=== PATIENT | female | born 1955 | race Caucasian/White ===

== ENCOUNTER → 2017-03-24 | Outpatient (CLI) | payer MEDICARE, BC ==
[2017-03-24 13:14] LABS: Blood Urea Nitrogen 27 mg/dL (7-17); Non-African American GFR(MDRD) >60 (>60 ml/min/1.73 sqM)
== END | disposition home or self-care (01) ==
LOC: LABWHC1 12:47
PROVIDERS: ATTEND Physical Medicine & Rehabilitation
DX: N28.9 Disorder of kidney and ureter, unspecified (principal); M54.5 Low back pain; G89.4 Chronic pain syndrome; M96.1 Postlaminectomy syndrome, not elsewhere classified; M79.1 Myalgia; E11.42 Type 2 diabetes mellitus with diabetic polyneuropathy; Z98.1 Arthrodesis status
CPT/HCPCS: 36415; 82565; 84520

== ENCOUNTER → 2017-03-28 | Outpatient (CLI) | payer MEDICARE, BC ==
--- NOTE | 2017-04-05 16:29 | P.ARTDOP ---
Arterial Doppler LOWER EXTREMITY ARTERIAL DOPPLER: DATE OF SERVICE: 03/28/2017 Reason for study: Foot numbness. Doppler waveforms: Multiphasic bilaterally throughout. Pulse volume recording: Normal configuration. Pressure gradients: Mild gradients above-knee. Ankle-brachial indices: 0. 94 on the right and 0.81 on the left. Toe pressures: 70 on the right, 70 on the left Impression: Mild bilateral SFA disease..
== END | disposition home or self-care (01) ==
LOC: RADUSWWP 12:00
PROVIDERS: ATTEND Physical Medicine & Rehabilitation
DX: M54.5 Low back pain (principal); M96.1 Postlaminectomy syndrome, not elsewhere classified; M79.1 Myalgia; E11.42 Type 2 diabetes mellitus with diabetic polyneuropathy; G89.4 Chronic pain syndrome; Z98.1 Arthrodesis status
CPT/HCPCS: 93923

== ENCOUNTER 2018-03-08 10:05 | Emergency (ER) | payer MEDICARE, BC ==
[2018-03-08 10:17] VITALS: PULSE 91; TEMP 98.4
[2018-03-08] MEDS ORDERED: KETOROLAC 30 MG/ML 1 ML VIAL IVP STA (10:36)
--- NOTE | 2018-03-08 10:46 | ED ---
Fall HPI - General Chief Complaint: Fall Stated Complaint: BACK PAIN FROM FALL - TAILBONE Time Seen by Provider: 03/08/18 10:12 Source: patient, EMS Mode of arrival: EMS - History of Present Illness Initial Comments: 62-year-old female with past medical history of multiple back surgeries presented for evaluation of lumbosacral pain following fall. She states that she was walking backwards after letting her dog out to go to the bathroom and tripped over a dog toy, falling onto her lower back, resulting in significant pain. She denies hitting her head or neck and denies any pain to those areas. She states the pain was so significant she was unable to get up however she was able to crawl across the floor and contact her neighbor who then called EMS for transport. She states that the pain is located in her low lumbar spine/sacrum/coccyx and there is no radiation. Pain is worsened with moving her lower extremities or her back. Improves mildly with laying still. Denies any weakness in her lower extremities, change in sensation from baseline to the lower extremity's, bowel or bladder dysfunction, or saddle anesthesia. She was given formula grams of morphine by EMS in route to the hospital and states that had some improvement in her symptoms. Her orthopedic surgeon is Dr. Moon and her PCP is Dr. Usman Rene. - Related Data Home Medications Medication Instructions Recorded Confirmed Gemfibrozil [Lopid] 600 mg PO BID 01/26/16 03/08/18 Levothyroxine Sodium [Synthroid] 25 mcg PO QAM 01/26/16 03/08/18 clonazePAM [KlonoPIN] 0.5 mg PO HS 01/26/16 03/08/18 Albuterol Inhaler [Ventolin Hfa 2 puff INHALATION RT-Q4H PRN 06/03/16 03/08/18 Inhaler] Cholecalciferol [Vitamin D3] 1,000 unit PO DAILY 06/03/16 03/08/18 Fluticasone/Salmeterol [Advair 1 puff INHALATION RT-BID 06/03/16 03/08/18 250-50 Diskus] Furosemide [Lasix] 20 mg PO BID 06/03/16 03/08/18 Gabapentin [Neurontin] 800 mg PO QID 06/03/16 03/08/18 Potassium Chloride [Klor-Con 8] 8 meq PO BID 06/03/16 03/08/18 Vitamin B Complex 1 cap PO DAILY 06/03/16 03/08/18 metFORMIN HCL [Glucophage] 500 mg PO BID 06/03/16 03/08/18 FLUoxetine HCL [PROzac] 20 mg PO HS 03/08/18 03/08/18 Hydrocodone/Acetaminophen [[place] 1 tab PO Q6HR PRN 03/08/18 03/08/18 7.5-325] Meloxicam [Mobic] 7.5 mg PO BID 03/08/18 03/08/18 Rosuvastatin [Crestor] 20 mg PO HS 03/08/18 03/08/18 Zolpidem [Ambien] 10 mg PO HS 03/08/18 03/08/18 tiZANidine HCL [Zanaflex] 2 mg PO TID 03/08/18 03/08/18 Previous Rx's Medication Instructions Recorded Ibuprofen [Motrin] 800 mg PO Q6HR #30 tab 03/08/18 Allergies Allergy/AdvReac Type Severity Reaction Status Date / Time aspirin Allergy Unknown Verified 03/08/18 10:25 codeine Allergy Rash/Hives Verified 03/08/18 10:25 Review of Systems ROS Statement: Those systems with pertinent positive or pertinent negative responses have been documented in the HPI. ROS Other: All systems not noted in ROS Statement are negative. Constitutional: Denies: fever, chills Eyes: Denies: eye pain, eye discharge, vision change ENT: Denies: ear pain, throat pain Respiratory: Denies: cough, dyspnea Cardiovascular: Denies: chest pain, dyspnea on exertion Endocrine: Denies: polydipsia, polyuria Gastrointestinal: Denies: abdominal pain, nausea, vomiting, diarrhea, constipation Genitourinary: Reports: other (negative urinary retention). Denies: urgency, dysuria Musculoskeletal: Reports: back pain (lumbosacral). Denies: joint swelling Skin: Denies: rash, lesions Neurological: Reports: numbness (unchanged from baseline), paresthesias ( unchanged from baseline), other (pain from ambulation). Denies: headache, weakness Psychiatric: Denies: anxiety, depression Hematological/Lymphatic: Denies: easy bleeding, easy bruising Past Medical History Past Medical History: Diabetes Mellitus, GERD/Reflux, Hyperlipidemia, Hypertension, Thyroid Disorder Additional Past Medical History / Comment(s): Dejenerative joint disease. IBS. Neuropathy. Osteoporosis. Guillain-barre syndrome. Fibromyalgia. PAD. History of Any Multi-Drug Resistant Organisms: None Reported Past Surgical History: Appendectomy, Back Surgery, Bowel Resection, Section, Hysterectomy Past Anesthesia/Blood Transfusion Reactions: No Reported Reaction Past Psychological History: Depression Smoking Status: Former smoker Past Alcohol Use History: None Reported Past Drug Use History: None Reported General Exam Limitations: no limitations General appearance: alert, in distress (mild due to pain) Head exam: Present: atraumatic, normocephalic Eye exam: Present: normal appearance. Absent: PERRL, EOMI, periorbital swelling , periorbital tenderness ENT exam: Present: normal exam, normal oropharynx Neck exam: Present: normal inspection. Absent: tenderness Respiratory exam: Present: normal lung sounds bilaterally. Absent: respiratory distress, wheezes, rales, rhonchi, stridor Cardiovascular Exam: Present: regular rate, normal rhythm GI/Abdominal exam: Present: soft. Absent: distended, tenderness, guarding, rebound, rigid Rectal exam: Present: deferred Extremities exam: Present: full ROM (pain to lower back with movement of LE), normal capillary refill. Absent: normal inspection, tenderness Back exam: Present: tenderness, muscle spasm, paraspinal tenderness, vertebral tenderness. Absent: full ROM, CVA tenderness (R), CVA tenderness (L) Neurological exam: Present: alert, oriented X3, CN II-XII intact, motor sensory deficit (motor function maintained; decreased sensation to touch which is at baseline per patient), reflexes normal Psychiatric exam: Present: normal affect, normal mood Skin exam: Present: warm, dry, intact Course Vital Signs 03/08/18 03/08/18 03/08/18 10:13 10:19 13:13 Temperature 98.4 F 98.4 F Pulse Rate 91 91 Respiratory 16 18 Rate Blood Pressure 205/85 174/80 170/80 O2 Sat by Pulse 91 L 98 Oximetry Medical Decision Making - Medical Decision Making 62-year-old female with past medical history significant for multiple lumbar spine surgeries presented for evaluation of lower back pain/pelvic pain following mechanical fall from standing. On physical examination she has tenderness to palpation of the lower lumbar spine and sacrum/coccyx. Motor function intact distally as well as symmetric reflexes bilaterally. Negative saddle anesthesia. There is decreased sensation to the lower extremities however this is unchanged from her baseline due to diabetic neuropathy. Denies urinary retention or bowel dysfunction. At this point concern for fracture versus implant abnormality and will obtain x-rays. We'll also provide Toradol for pain control. Imaging revealed no significant abnormalities including fractures or abnormalities of the implantation is. She was reevaluated and had improvement in her symptoms. She was ambulated and with use of walker she was able to ambulate however tenderly. She was informed of all results and through shared decision making it was determined that she be discharged with instructions to follow-up with her primary care physician and given return instructions if her symptoms should worsen or persist. Discussed her presentation with Dr. Sheriff who agreed to see her in the morning and agreed with plan to discharge. The patient acknowledged an understanding of all permission provided and agreed with this plan of care. Disposition Clinical Impression: Fall, Back injury Disposition: HOME SELF-CARE Condition: Stable Instructions: Fall Prevention for Older Adults (ED) Additional Instructions: Please use medication as discussed. Please follow up with family doctor if symptoms have not improved over the next two days. Please return to the emergency room if your symptoms increase or worsen or for any other concerns. Discussed with your primary care doctor Dr. Rene who agreed to see you tomorrow morning. Please go to his office at opening time. If symptoms worsen or persist prior to your appointment return to the ED. Prescriptions: Ibuprofen [Motrin] 800 mg PO Q6HR #30 tab Is patient prescribed a controlled substance at d/c from ED?: No Referrals: Renny Sheriff MD [Primary Care Provider] - 1-2 days Time of Disposition: 12:51
--- NOTE | 2018-03-08 11:49 | XR ---
EXAMINATION TYPE: XR pelvis AP view, XR sacrum coccyx DATE OF EXAM: 03/08/2018 CLINICAL HISTORY: Sacral pain and back pain as well as pelvic pain after fall. TECHNIQUE: A single AP view of the pelvis is obtained. Sacral radiographs were also obtained in the f rontal and lateral projections. COMPARISON: None. FINDINGS: Partial visualization of lumbar fixation rods are seen. Moderate femoral acetabular arthro roseann is demonstrated bilaterally. There is no acute fracture/dislocation evident in the pelvis. The hip and sacroiliac joints appear symmetric and unremarkable. The overlying soft tissue appears unre markable. Sacroiliac joints appear symmetric with degenerative changes. Coccyx is nondisplaced. IMPRESSION: There is no acute fracture or dislocation in the pelvis. No displaced sacral or coccygea l fracture.
--- NOTE | 2018-03-08 11:51 | XR ---
EXAMINATION TYPE: XR lumbar spine 2 or 3V DATE OF EXAM: 03/08/2018 CLINICAL HISTORY: Back pain after fall TECHNIQUE: Frontal and lateral images of the lumbar spine are obtained. COMPARISON: CT abdomen pelvis dated 06/03/2016 FINDINGS: There are 5 lumbar type vertebral bodies identified. There is partial compression deformit ies of the L1 vertebral body with approximately 10% vertebral body height loss. Surgical fixation is seen from L1 through L5. Vertebral body height loss is also seen only partially visualized of L4. Mod erate degenerative changes are noted. Absence of the posterior elements are present. Overlying bowel is nondilated. No evidence of malalignment. IMPRESSION: Compression deformities of L1 and L4 is chronic in comparison to the prior CT of 6. Postsurgical changes degenerative changes of the lumbar spine with no new malalignment.
[2018-03-08] MEDS ORDERED: HYDROcodone/APAP 10-325MG 1 EACH TAB PO ONE (12:50)
[2018-03-08 13:14] VITALS: BP 170/80; RESP 18
== END 2018-03-08 13:00 | disposition home or self-care (01) ==
LOC: EC 10:05
DX: S39.92XA Unspecified injury of lower back, initial encounter (principal); E11.9 Type 2 diabetes mellitus without complications; E78.5 Hyperlipidemia, unspecified; I10 Essential (primary) hypertension; E07.9 Disorder of thyroid, unspecified; E11.40 Type 2 diabetes mellitus with diabetic neuropathy, unspecified; M81.0 Age-related osteoporosis without current pathological fracture; M79.7 Fibromyalgia; F32.9 Major depressive disorder, single episode, unspecified; Z87.891 Personal history of nicotine dependence; Z90.49 Acquired absence of other specified parts of digestive tract; Z90.710 Acquired absence of both cervix and uterus; Z98.890 Other specified postprocedural states; Z79.1 Long term (current) use of non-steroidal anti-inflammatories (NSAID); Z79.51 Long term (current) use of inhaled steroids; Z79.84 Long term (current) use of oral hypoglycemic drugs; Z79.899 Other long term (current) drug therapy; Z88.5 Allergy status to narcotic agent; Z88.6 Allergy status to analgesic agent; W01.0XXA Fall on same level from slipping, tripping and stumbling without subsequent striking against object, initial encounter; Y92.009 Unspecified place in unspecified non-institutional (private) residence as the place of occurrence of the external cause; Y93.01 Activity, walking, marching and hiking
CPT/HCPCS: 72100; 72170; 72220; 96374; 99284

== ENCOUNTER 2018-04-27 12:04 | Inpatient (IN) | payer MEDICARE, BC ==
[2018-04-27 14:10] LABS: Glucose,Whole Blood 95 mg/dL (75-99)
[2018-04-27] MEDS ORDERED: DICYCLOMINE 10 MG CAP PO PRN (15:42)
[2018-04-27] MEDS ORDERED: ACETAMINOPHEN TAB 325 MG TAB PO PRN (15:47)
[2018-04-27 17:08] LABS: Glucose,Whole Blood 99 mg/dL (75-99)
[2018-04-27 17:37] LABS: Albumin 4.4 g/dL (3.5-5.0); Calcium 9.8 mg/dL (8.4-10.2); Potassium 3.7 mmol/L (3.5-5.1); Total Bilirubin 0.3 mg/dL (0.2-1.3); Total Protein 7.3 g/dL (6.3-8.2)
--- NOTE | 2018-04-27 17:49 | P.CNNES ---
History of Present Illness Consult date: 04/27/18 Reason for Consult: Patient admitted with back pain and leg weakness. History of Present Illness: This patient is a 62-year-old right-handed white female who was in her usual state of health about 3 weeks ago. She was at home and apparently was with her dog and had slipped on a toy that was on the ground that the dog was playing with and she accidentally fell onto her back. She was having severe back pain following the fall and 3 weeks ago was brought into the emergency room at [facility]. She apparently had an x-ray done and was discharged from the hospital. Patient has a history of having had 3 back surgeries over the years. Her last surgery was about 3 years ago and it was performed at [facility]. She states she had a cage and rods placed into her back. She has had chronic back pain following her multiple back surgeries. She recently has been treated by Dr. Moon in the orthopedic spine clinic and has had multiple epidural injections with no significant improvement. Apparently today she went to see her primary care physician and she was having increased pain and was directly admitted to the hospital by Dr. Barrett. Patient denies any bowel or bladder problems. She states most of her pain is in her back and radiates into the gluteal region. She denies any bowel or bladder problems at this time. She does have a remote history 7 years ago having Guillain-Ahn syndrome. She was treated for this with immunoglobulin according to the patient. Patient states she has been going for back injections but they have not been of any help. She has not had any recent follow-up with the back surgeon at [facility]. She does ambulate with the use of a walker but despite using the walker she has been having falls at home. Patient is now directly admitted to hospital and neurology has been consulted for further evaluation and recommendations. Review of Systems Constitutional: Denies chills, Denies fever Eyes: denies blurred vision, denies pain Ears, nose, mouth and throat: Denies headache, Denies sore throat Cardiovascular: Denies chest pain, Denies shortness of breath Respiratory: Denies cough Gastrointestinal: Denies abdominal pain, Denies diarrhea, Denies nausea, Denies vomiting Genitourinary: Denies dysuria, Denies hematuria Musculoskeletal: Denies myalgias Integumentary: Denies pruritus, Denies rash Neurological: Reports balance difficulties, Reports gait dysfunction, Reports paresthesias, Denies numbness, Denies weakness Psychiatric: Denies anxiety, Denies depression Endocrine: Denies fatigue, Denies weight change Past Medical History Past Medical History: Diabetes Mellitus, GERD/Reflux, Hyperlipidemia, Hypertension, Thyroid Disorder Additional Past Medical History / Comment(s): Dejenerative joint disease. IBS. Neuropathy. Osteoporosis. Guillain-barre syndrome. Fibromyalgia. PAD. History of Any Multi-Drug Resistant Organisms: None Reported Past Surgical History: Appendectomy, Back Surgery, Bowel Resection, Section, Hysterectomy Past Anesthesia/Blood Transfusion Reactions: No Reported Reaction Past Psychological History: Depression Smoking Status: Former smoker Past Alcohol Use History: None Reported Past Drug Use History: None Reported Medications and Allergies Home Medications Medication Instructions Recorded Confirmed Type Gemfibrozil [Lopid] 600 mg PO BID 01/26/16 04/27/18 History Levothyroxine Sodium [Synthroid] 25 mcg PO QAM 01/26/16 04/27/18 History Albuterol Inhaler [Ventolin Hfa 2 puff INHALATION RT-Q4H PRN 06/03/16 04/27/18 History Inhaler] Cholecalciferol [Vitamin D3] 1,000 unit PO DAILY 06/03/16 04/27/18 History Fluticasone/Salmeterol [Advair 1 puff INHALATION RT-BID 06/03/16 04/27/18 History 250-50 Diskus] Furosemide [Lasix] 20 mg PO DAILY 06/03/16 04/27/18 History Potassium Chloride [Klor-Con 8] 8 meq PO DAILY 06/03/16 04/27/18 History Vitamin B Complex 1 cap PO DAILY 06/03/16 04/27/18 History metFORMIN HCL [Glucophage] 500 mg PO BID 06/03/16 04/27/18 History FLUoxetine HCL [PROzac] 20 mg PO HS 03/08/18 04/27/18 History Meloxicam [Mobic] 7.5 mg PO BID 03/08/18 04/27/18 History Rosuvastatin [Crestor] 20 mg PO HS 03/08/18 04/27/18 History Zolpidem [Ambien] 10 mg PO HS PRN 03/08/18 04/27/18 History Dicyclomine [Bentyl] 10 mg PO QID PRN 04/27/18 04/27/18 History HYDROcodone/APAP 5-325MG [[place] 1 tab PO BID 04/27/18 04/27/18 History 5-325] Ibuprofen [Motrin] 600 mg PO TID 04/27/18 04/27/18 History Pramipexole [Mirapex] 0.5 mg PO HS 04/27/18 04/27/18 History Allergies Allergy/AdvReac Type Severity Reaction Status Date / Time aspirin Allergy Unknown Verified 04/27/18 13:00 codeine Allergy Rash/Hives Verified 04/27/18 13:00 Physical Examination - Vital Signs Vital Signs: Vital Signs Temp Pulse Resp BP BP Pulse Ox 04/27/18 15:32 98.7 F 82 18 173/67 95 04/27/18 12:56 98.1 F 83 18 202/91 162/78 94 L Intake and Output 04/27/18 04/27/18 04/27/18 06:59 14:59 22:59 Other: # Voids 1 Weight 69 kg - Constitutional General appearance: average body habitus, cooperative - EENT EENT: PERRL, mucous membranes moist - Respiratory Respiratory: lungs clear, normal breath sounds - Cardiovascular Cardiovascular: regular rate, normal S1, normal S2 Extremities: no peripheral edema bilaterally - Gastrointestinal Gastrointestinal: normoactive bowel sounds - Integumentary Integumentary: normal - Neurologic Cranial nerve examination: PERRL, EOMI, VFF, V1/V2/V3 grossly intact, face symmetric, tongue midline, intact shoulder shrug, intact gag reflex, intact corneal reflex, normal palatal elevation Speech examination: intact Sensorimotor examination: intact Motor examination - right side: 3/5: hip flexors, knee extensors, dorsiflexion, toe extension (EHL), plantarflexion, 4/5: biceps, triceps, wrist flexion, wrist extension, 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 Motor examination - left side: 3/5: hip flexors, knee extensors, dorsiflexion, toe extension (EHL), plantarflexion, 4/5: biceps, triceps, wrist flexion, 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 extension, 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 Detailed sensory examination: intact Reflex and gait examination: intact Reflexes: 1+: ankle, bicep, knee, tricep - Musculoskeletal Musculoskeletal: no pain - Psychiatric Psychiatric: mood/affect appropriate, cooperative Results - Laboratory Findings CBC and BMP: 04/27/18 17:00 Abnormal Lab Findings: Abnormal Labs 04/27/18 17:00 BUN 35 H AST 39 H Assessment and Plan (1) Lumbar disc disease Current Visit: Yes Status: Acute Code(s): M51.9 - UNSP THORACIC, THORACOLUM AND LUMBOSACR INTVRT DISC DISORDER SNOMED Code(s): 050477495 (2) Lumbar disc disease with radiculopathy Current Visit: Yes Status: Acute Code(s): M51.16 - INTERVERTEBRAL DISC DISORDERS W RADICULOPATHY, LUMBAR REGION SNOMED Code(s): 999609632 (3) Chronic pain syndrome Current Visit: Yes Status: Acute Code(s): G89.4 - CHRONIC PAIN SYNDROME SNOMED Code(s): 955587643 (4) Previous back surgery Current Visit: Yes Status: Acute Code(s): Z98.890 - OTHER SPECIFIED POSTPROCEDURAL STATES SNOMED Code(s): 870433984 Plan: This patient is a 62-year-old female who had a episode of a fall 3 weeks ago at home. She was playing with her dog and stepped on a ball and fell backwards and injured her back. She was seen in the emergency room at [facility] following that fall 3 weeks ago. According to the patient x-rays were done and she was discharged home. Patient apparently had increased pain symptoms and for this reason was seen by her primary care physician Dr. Renny Sheriff today. She was directly admitted to the hospital. She has undergone multiple back surgeries over the last several years. According to the patient she has had 3 back surgeries with placement of a cage and rods in her back. She has had no recent neurosurgical evaluation of her back condition recently. Her last back surgery was about 3 years ago. Patient has been having difficulty with pain as well as weakness in the legs. She is now been admitted for further evaluation. Her neurological examination suggests possibility of failed back syndrome. We recommend evaluation by orthopedic spine surgery for the patient. Would recommend MRI of the back for further assessment. She has a remote history of Guillain-Ahn syndrome in the past. Her exam today fails to reveal areflexia which would be highly suspicious for recurrence. We have explained this to the patient today in detail. She will require further pain management and would recommend consultation with pain management for further treatment of her chronic pain. We will continue close neurological follow-up for the patient. We'll consult with physical therapy as well for their assessment. Patient may require subacute rehab at the time of discharge depending on her response. Overall prognosis at this time remains very guarded. Time with Patient: Greater than 30
[2018-04-27] MEDS: metFORMIN 500 MG TAB PO SCH (19:05)
[2018-04-27] MEDS: IBUPROFEN 600 MG TAB PO SCH ×2 (19:05→22:30)
[2018-04-27] MEDS: SYMBICORT 80-4.5 MCG INHALER INHALATION SCH (19:19)
[2018-04-27] MEDS: ALBUTEROL NEBULIZED 2.5 MG/3 ML INHALATION PRN (19:20)
--- NOTE | 2018-04-27 20:40 | CT ---
EXAMINATION TYPE: CT brain wo con DATE OF EXAM: 04/27/2018 COMPARISON: 08/11/2010 MR scan HISTORY: Patient complains of pain. CT DLP: 769 mGycm Automated exposure control for dose reduction was used. FINDINGS: There is some cerebral cortical atrophy. There is no mass effect nor midline shift. There is no sign of intracranial hemorrhage. The calvarium is intact. IMPRESSION: CEREBRAL ATROPHY. NO ACUTE INTRACRANIAL ABNORMALITY. THERE IS PROGRESSION OF ATROPHY COMPARED TO OLD MR SCAN.
[2018-04-27 21:14] VITALS: BMI 28.7
[2018-04-27] MEDS: HYDROcodone/APAP 5-325MG 1 EACH TAB PO PRN (22:29)
[2018-04-27] MEDS: ATORVASTATIN 40 MG TAB PO SCH (22:31)
[2018-04-27] MEDS: GEMFIBROZIL 600 MG TAB PO SCH (22:31)
[2018-04-27] MEDS: MELOXICAM 7.5 MG TAB PO SCH (22:31)
[2018-04-27] MEDS: FLUoxetine HCL 20 MG CAP PO SCH (22:31)
[2018-04-27] MEDS: PRAMIPEXOLE 0.5 MG TAB PO SCH (22:31)
[2018-04-28] MEDS: SODIUM CHLORIDE 0.9% 1,000 ML IV SCH ×3 (00:41→19:37)
[2018-04-28] MEDS: LEVOTHYROXINE 25 MCG TAB PO SCH ×2 (06:57→10:30)
[2018-04-28 07:14] LABS: Glucose,Whole Blood 97 mg/dL (75-99)
[2018-04-28] MEDS: HYDROcodone/APAP 5-325MG 1 EACH TAB PO PRN (07:52)
[2018-04-28] MEDS ORDERED: NON-FORMULARY DRUG (Vitamin B Complex [Vitamin B Complex] 1 CAP) PO SCH (09:00)
[2018-04-28] MEDS: ALBUTEROL NEBULIZED 2.5 MG/3 ML INHALATION PRN ×4 (09:09→20:55)
[2018-04-28] MEDS: SYMBICORT 80-4.5 MCG INHALER INHALATION SCH ×2 (09:09→20:55)
--- NOTE | 2018-04-28 09:45 | P.CNOR ---
<Katie Dos Santos Linda - Last Filed: 04/28/18 12:43> History of Present Illness - [facility] Consult date: 04/28/18 Consult reason: low back pain History of present illness: The patient is a 62-year-old female who presented to the hospital with unsteady gait and weakness. She has a recent history of a fall on 03/08/2018 after she tripped over her dog toy at home. She fell directly on her back and has had severe back pain since the injury. The patient does have a history of 3 previous back surgeries at [facility] and [facility]. She is also seen Dr. Moon for epidural injections in the past also. Dr. Sheriff has been managing her back pain for the past couple years. She does have a history of Guillain-[place]. She denies bowel and bladder problems at this time. She denies groin pain. Patient does have generalized weakness in her bilateral lower extremities, worse on the right. She has been declining physically over the last few weeks and she was admitted to the hospital for further evaluation. Dr. Coles has evaluated the patient also and ordered a lumbar MRI. She denies numbness and tingling in her legs but does state she has achiness in her legs. Review of Systems Constitutional: Denies chills, Denies fatigue, Denies fever Cardiovascular: Denies chest pain, Denies shortness of breath Respiratory: Denies cough Gastrointestinal: Denies diarrhea, Denies nausea, Denies vomiting Musculoskeletal: Reports frequent falls, Reports low back pain, Reports muscle weakness Neurological: Reports weakness Past Medical History Past Medical History: Diabetes Mellitus, GERD/Reflux, Hyperlipidemia, Hypertension, Thyroid Disorder Additional Past Medical History / Comment(s): Dejenerative joint disease. IBS. Neuropathy. Osteoporosis. Guillain-barre syndrome. Fibromyalgia. PAD. History of Any Multi-Drug Resistant Organisms: None Reported Past Surgical History: Appendectomy, Back Surgery, Bowel Resection, Section, Hysterectomy Additional Past Surgical History / Comment(s): Back sx at most recent with cage and rods/screws Past Anesthesia/Blood Transfusion Reactions: No Reported Reaction Past Psychological History: Depression Smoking Status: Former smoker Past Alcohol Use History: None Reported Past Drug Use History: None Reported Medications and Allergies Home Medications Medication Instructions Recorded Confirmed Type Gemfibrozil [Lopid] 600 mg PO BID 01/26/16 04/27/18 History Levothyroxine Sodium [Synthroid] 25 mcg PO QAM 01/26/16 04/27/18 History Albuterol Inhaler [Ventolin Hfa 2 puff INHALATION RT-Q4H PRN 06/03/16 04/27/18 History Inhaler] Cholecalciferol [Vitamin D3] 1,000 unit PO DAILY 06/03/16 04/27/18 History Fluticasone/Salmeterol [Advair 1 puff INHALATION RT-BID 06/03/16 04/27/18 History 250-50 Diskus] Furosemide [Lasix] 20 mg PO DAILY 06/03/16 04/27/18 History Potassium Chloride [Klor-Con 8] 8 meq PO DAILY 06/03/16 04/27/18 History Vitamin B Complex 1 cap PO DAILY 06/03/16 04/27/18 History metFORMIN HCL [Glucophage] 500 mg PO BID 06/03/16 04/27/18 History FLUoxetine HCL [PROzac] 20 mg PO HS 03/08/18 04/27/18 History Meloxicam [Mobic] 7.5 mg PO BID 03/08/18 04/27/18 History Rosuvastatin [Crestor] 20 mg PO HS 03/08/18 04/27/18 History Zolpidem [Ambien] 10 mg PO HS PRN 03/08/18 04/27/18 History Dicyclomine [Bentyl] 10 mg PO QID PRN 04/27/18 04/27/18 History HYDROcodone/APAP 5-325MG [[place] 1 tab PO BID 04/27/18 04/27/18 History 5-325] Ibuprofen [Motrin] 600 mg PO TID 04/27/18 04/27/18 History Pramipexole [Mirapex] 0.5 mg PO HS 04/27/18 04/27/18 History Allergies Allergy/AdvReac Type Severity Reaction Status Date / Time aspirin Allergy Unknown Verified 04/27/18 13:00 codeine Allergy Rash/Hives Verified 04/27/18 13:00 Physical Examination The patient a 62-year-old female who is in no acute distress. She is alert and oriented 3. The patient's head is normocephalic atraumatic, exam of the bilateral upper extremities reveal no obvious deformity or pain upon range of motion. Exam of the back reveals a healed incision to the midline. No open wounds present. There is pain upon palpation to the paraspinal muscles with mild spasm. Exam of the lower extremities reveal no obvious deformity. Dorsiflexion, plantarflexion, extensor hallucis longus are weak bilaterally, worse on the right. She is able to lift her legs off the bed but is very weak. Straight leg test is positive bilaterally. Calves are soft and nontender. Patient's bilateral lower extremities are neurovascular intact. Results - Labs Labs: Abnormal Lab Results - Last 24 Hours (Table) 04/27/18 Range/Units 17:00 BUN 35 H (7-17) mg/dL AST 39 H (14-36) U/L Result Diagrams: 04/27/18 17:00 - Diagnostic results Lumbar AP/lateral x-ray: image reviewed (X-rays of the lumbar spine dated 2017 reveals old compression deformities to L1 and L4 and postsurgical that appear to be intact. No new fractures seen.) Assessment and Plan (1) Chronic pain syndrome Current Visit: Yes Status: Acute Code(s): G89.4 - CHRONIC PAIN SYNDROME SNOMED Code(s): 794521754 (2) Lumbar disc disease with radiculopathy Current Visit: Yes Status: Acute Code(s): M51.16 - INTERVERTEBRAL DISC DISORDERS W RADICULOPATHY, LUMBAR REGION SNOMED Code(s): 276787098 (3) Previous back surgery Current Visit: Yes Status: Acute Code(s): Z98.890 - OTHER SPECIFIED POSTPROCEDURAL STATES SNOMED Code(s): 285741410 Plan: The clinical and x-ray findings were discussed with the patient. The case was also discussed with Dr. Lee. We will await lumbar MRI. Continue pain control. Physical therapy has been ordered. We will continue to follow patient closely and make further recommendations as needed. <Leandra Lee - Last Filed: 04/28/18 13:09> Physical Examination Osteopathic Statement: *. No significant issues noted on an osteopathic structural exam other than those noted in the History and Physical/Consult. Results - Labs Labs: Abnormal Lab Results - Last 24 Hours (Table) 04/27/18 04/28/18 Range/Units 17:00 12:38 BUN 35 H (7-17) mg/dL POC Glucose (mg/dL) 133 H (75-99) mg/dL AST 39 H (14-36) U/L Result Diagrams: 04/27/18 17:00 Assessment and Plan Plan: Patient is seen and examined at bedside. I reviewed the above note as well as discussed the patient and I reviewed the MRI of the lumbar spine which was performed today. The patient has had long-term issues in the low back but has had exacerbation with her low back and lower extremity symptoms. She does not feel she had significant improvement with her initial pain management recently. The MRI does not show any new change. She has prior decompression and fusion L1 to L2-3 L3 4 L4 5 with hardware intact at each of those levels. The decompression appears to be adequate and widely patent. The hardware appears to be intact and stable without any new change or loosening. I do not see any new fracture. I do not see any new stenosis. Acute on chronic low back pain Lower extremity radiculopathy with acute exacerbation Difficulty with ambulation History of decompression and fusion L1 to L5 done at [facility] I do not see any new stenosis or new cause for the patient's exacerbation from a structural standpoint at her low back. I do not plan any surgical intervention for her. Decompression and fusion from L1 to L5 appears to be stable but she has a number of chronic issues and has had an exacerbation. I think that she should be treated medically for her continued issues. I like to see if she has some benefit with a 2 doses of IV steroid and with physical therapy for her mobilization. She would like to have some benefit with continued physical therapy as outpatient. She should continue with treatment with pain management and her medical physician and neurology for her continued issues and I do not plan any surgical intervention for her. I discussed this with her and she can follow-up with us essentially an as-needed basis.
--- NOTE | 2018-04-28 10:12 | CONS ---
CONSULTATION ATTENDING DOCTOR: Dr. Renny Sheriff Mrs. Luna is a 62-year-old female with known history of hypertension, hyperlipidemia, who presented to the hospital with back discomfort and unsteadiness. She has known history of back surgery, has underwent surgery, most recently 3 years ago and a few days ago, tripped over a toy and landed on her back. She was seen in the emergency room at that time and subsequently sent home, but she has progressive symptoms of discomfort with weakness and numbness in the legs and because of that, she was admitted to the hospital. She denies any symptoms to suggest angina pectoris. Her breathing is stable. She has no clear dizziness. No palpitation. No PND. No orthopnea. No peripheral edema. She was seen according to her, in the office, about 7 years or so ago and cardiac workup at that time is unremarkable. Her coronary risk factors are remarkable for diabetes and hyperlipidemia. She has a family history of coronary artery disease. She has stopped smoking over 10 years ago. MEDICATION: At home include metformin, Crestor 20 mg daily, Mirapex, Mobic, Synthroid 0.025 mg daily, Lopid 600 mg twice a day, Lasix 20 mg daily, Advair, Bentyl. REVIEW OF SYSTEMS: RESPIRATORY system: She has history of asthma, but has been stable. GI system: No recent GI bleed. No peptic ulcer disease. system: No dysuria or hematuria. Nervous system: Questionable history of stroke. PHYSICAL EXAMINATION: A 62-year-old female, alert, oriented, in no apparent distress. Blood pressure 138/80 with a heart rate in the 80s. HEAD: Normocephalic. Eyes: Sclerae anicteric. Neck good upstroke. No bruit. No jugular venous distention. Lungs clear to auscultation. HEART: Regular rate and rhythm S1, S2. No S3. No S4. No rub. ABDOMEN: Soft, nontender. Positive bowel sounds. No organomegaly. EXTREMITIES: No edema. Intact distal pulses. LAB DATA: Lab data revealed a potassium 3.7. BUN and creatinine 35 and 1.01. IMPRESSION: 1. Back discomfort after a fall in a patient with known history of prior surgical intervention. 2. History of diabetes. 3. History of hyperlipidemia. RECOMMENDATIONS: From the cardiac standpoint, there is no evidence to suggest any cardiac abnormality. The patient is concerned about her family history. She will be followed as an outpatient to see if any cardiac workup will be needed as an outpatient. Her EKG has shown no evidence of acute ST-segment changes. Thank you for this consult. JACKIE / OZZY: [id number] /
[2018-04-28] MEDS: metFORMIN 500 MG TAB PO SCH ×2 (10:30→17:39)
[2018-04-28] MEDS: GEMFIBROZIL 600 MG TAB PO SCH ×2 (10:30→19:32)
[2018-04-28] MEDS: POTASSIUM CHLORIDE ER 10 MEQ TAB.ER.PRT PO SCH (10:30)
[2018-04-28] MEDS: CHOLECALCIFEROL 1,000 UNIT TAB PO SCH (10:30)
[2018-04-28] MEDS: FUROSEMIDE 20 MG TAB PO SCH (10:30)
[2018-04-28] MEDS: IBUPROFEN 600 MG TAB PO SCH ×2 (10:30→17:39)
[2018-04-28] MEDS: MELOXICAM 7.5 MG TAB PO SCH ×2 (10:31→19:32)
[2018-04-28 12:37] LABS: Hemoglobin A1C 6.6 % (4.0-6.0)
[2018-04-28] MEDS: HYDROcodone/APAP 7.5-325MG 1 EACH TAB PO PRN ×2 (12:41→19:28)
[2018-04-28 12:44] LABS: Glucose,Whole Blood 133 mg/dL (75-99)
--- NOTE | 2018-04-28 13:01 | MR ---
MR lumbar spine wo con Patient with back pain and leg weakness, back surg Multiplanar, multiecho imaging of the lumbar spine was obtained without contrast on a 3 Eve magnet. REFERENCE: Plain films dated 03/08/2018. FINDINGS: There has been an extensive interpedicular fusion extending from L1 through to L5. This is causing significant geometric distortion through this region. Paraspinal soft tissues are normal. Cord signal is normal. The conus ends normally at the level of the disc space at T12-L1. At T12-L1, intervertebral foramina cannot be assessed. There is no significant compressive discopathy . The facets are obscured. At L1-2, intervertebral foramina appear well maintained. There is no definite spinal stenosis. The fa cets are not visualized. At L2-3, there is no significant spinal stenosis. Intervertebral foramina appear well maintained. The facets cannot be assessed. At L3-4, this level is nondiagnostic. At L4-5, the intervertebral foramina cannot be assessed. There is no significant compressive discopat hy. The facets cannot be assessed. At L5-S1, the intervertebral foramina cannot be assessed. There is no significant compressive discopa thy. The facets demonstrate hypertrophic change. IMPRESSION: 1. EXTENSIVE POSTSURGICAL CHANGE MARKEDLY LIMITING THE EVALUATION OF THE STUDY. 2. NO DEFINITE SPINAL STENOSIS. L3-4 HAS NOT BEEN ASSESSED.
[2018-04-28] MEDS: methylPREDNISolone SOD SUCCI 125 MG/2 ML VIAL IV SCH ×2 (14:51→19:38)
[2018-04-28] MEDS ORDERED: ZOLPIDEM 5 MG TAB PO PRN (15:09)
--- NOTE | 2018-04-28 16:17 | P.PN ---
Subjective Progress Note Date: 04/28/18 This patient is a 62-year-old female who was admitted to the hospital yesterday directly from Dr. Sheriff's office for evaluation of back pain following recent fall. Patient was complaining of increasing back pain yesterday and was admitted directly to Hospital. She was seen by orthopedic surgery today and we are waiting MRI of the lumbar spine to be done further further recommendations. Patient does have history of 3 back surgeries that were performed at [facility] in [facility]. She is also undergone epidural injections with Dr. Moon for chronic neck pain symptoms. She was seen by cardiology today as well and has no evidence to suggest any cardiac abnormality. Patient is concerned with her family history of cardiac disease. EKG shows no evidence of any acute ST segment changes. She is to be followed up as outpatient for further cardiac workup. Neurologically her symptoms are unchanged today. Patient is been up and ambulating in the hallway today with the use of a walker. We're waiting further assessment from physical therapy. Patient underwent MRI of the lumbar spine today the results of which indicate extensive postsurgical changes markedly limiting the evaluation of the study. No definite spinal stenosis was noted. We will await further recommendations from orthopedic spine surgery regarding any further workup for the patient. Patient is to continue with physical therapy assessment and may benefit from subacute rehab at the time of discharge. Her overall prognosis at this time remains guarded. Objective - Vital Signs Vital signs: Vital Signs Temp 98.7 F 04/28/18 08:00 Pulse 92 04/28/18 09:20 Resp 18 04/28/18 08:00 BP 190/83 04/28/18 08:00 Pulse Ox 94 L 04/28/18 09:16 Intake & Output 04/27/18 04/28/18 04/28/18 18:59 06:59 18:59 Intake Total 100 Balance 100 Weight 69 kg 69 kg Intake: Oral 100 Other: Voiding Method Toilet Toilet # Voids 1 1 - Exam Physical examination: PHYSICAL EXAMINATION: Patient is resting comfortably in bed. VITAL SIGNS: Blood pressure is [190/83]. Heart rate is [77]. Respiration is [18] . Temperature is [98.7]. HEENT: Head is atraumatic, neck is supple, there were no carotid bruits. CHEST: Lungs are clear to auscultation and percussion. CARDIAC: S1, S2 normal rate and rhythm. There is no murmur. ABDOMEN: Soft and nontender. Bowel sounds are present. EXTREMITIES: There is no pedal edema. Peripheral pulses are present. Neurological examination: Patient's neurological examination is unchanged from yesterday. She was able to ambulate today in the hallway with the use of a walker. Recommend ongoing physical therapy evaluation and recommendation. - Labs CBC & Chem 7: 04/27/18 17:00 Labs: Abnormal Lab Results - Last 24 Hours (Table) 04/27/18 Range/Units 17:00 BUN 35 H (7-17) mg/dL AST 39 H (14-36) U/L Assessment and Plan (1) Lumbar disc disease Current Visit: Yes Status: Acute Code(s): M51.9 - UNSP THORACIC, THORACOLUM AND LUMBOSACR INTVRT DISC DISORDER SNOMED Code(s): 914087071 (2) Lumbar disc disease with radiculopathy Current Visit: Yes Status: Acute Code(s): M51.16 - INTERVERTEBRAL DISC DISORDERS W RADICULOPATHY, LUMBAR REGION SNOMED Code(s): 490879382 (3) Chronic pain syndrome Current Visit: Yes Status: Acute Code(s): G89.4 - CHRONIC PAIN SYNDROME SNOMED Code(s): 339381821 (4) Previous back surgery Current Visit: Yes Status: Acute Code(s): Z98.890 - OTHER SPECIFIED POSTPROCEDURAL STATES SNOMED Code(s): 408118285 Plan: This patient is a 62-year-old female being evaluated for recent fall 3 weeks ago and increased back pain. She underwent MRI of the lumbar spine today results are as noted above. She was seen by orthopedic spine surgery today and started on IV Solu-Medrol and [place]. She has been ambulating in the hallway today with the use of a walker. She is to be evaluated by physical therapy for further recommendation. We have reviewed the results of the MRI today with the patient. We will await further recommendations from orthopedic spine surgery. She may benefit from outpatient subacute rehab placement at the time of discharge. We will continue close neurological follow-up the patient during this admission.
--- NOTE | 2018-04-28 16:48 | HP ---
HISTORY AND PHYSICAL SUBJECTIVE: This is a 62-year-old white female admitted with ataxic gait, unable to ambulate due to falling and going [id number] with any ambulation. She has a CAGE and rods in her back. Vital signs are reviewed. 14-POINT REVIEW OF SYSTEM: Fourteen point review of systems negative except for mentioned in HPI. MEDICATIONS: Reviewed. PHYSICAL EXAM: Vital signs are stable. Afebrile. CARDIOVASCULAR: S1, S2. LUNGS: Transmitted upper sounds. HEMATOLOGY: Negative Homans. She has positive straight leg raising test bilaterally. : No suprapubic tenderness. OPHTHALMOLOGICAL: Pupils equal, round, reactive to light and accommodation. VASCULAR: Normal dorsalis pedis, posterior tibial and radial pulses. ASSESSMENT: Lumbar disc disease with radiculopathy, chronic pain syndrome, previous back surgery. MRI of the back is done. Prognosis is extremely guarded as cardiology workup is negative so far. 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 Orthopedic spine, remote history Guillain- [place]. Her exam failed to reveal areflexia. She will need mainly Pain Management as outpatient for chronic pain. Give IV steroids and neurosurgical evaluation. MMODL / IJN: [id number] /
[2018-04-28 17:14] LABS: Glucose,Whole Blood 124 mg/dL (75-99)
[2018-04-28] MEDS: INSULIN ASPART 100 UNIT/ML 1 ML 10 ML VIAL SQ SCH ×2 (17:20→19:52)
[2018-04-28] MEDS: PRAMIPEXOLE 0.5 MG TAB PO SCH (19:32)
[2018-04-28] MEDS: ATORVASTATIN 40 MG TAB PO SCH (19:32)
[2018-04-28] MEDS: FLUoxetine HCL 20 MG CAP PO SCH (19:32)
[2018-04-28 19:49] LABS: Glucose,Whole Blood 212 mg/dL (75-99)
[2018-04-29] MEDS: IBUPROFEN 600 MG TAB PO SCH ×4 (06:02→19:41)
[2018-04-29 07:03] LABS: Glucose,Whole Blood 144 mg/dL (75-99)
[2018-04-29] MEDS: SYMBICORT 80-4.5 MCG INHALER INHALATION SCH ×2 (07:58→19:43)
[2018-04-29] MEDS: LEVOTHYROXINE 25 MCG TAB PO SCH (09:18)
[2018-04-29] MEDS: CHOLECALCIFEROL 1,000 UNIT TAB PO SCH (09:18)
[2018-04-29] MEDS: GEMFIBROZIL 600 MG TAB PO SCH ×2 (09:18→19:41)
[2018-04-29] MEDS: FUROSEMIDE 20 MG TAB PO SCH (09:18)
[2018-04-29] MEDS: metFORMIN 500 MG TAB PO SCH ×2 (09:18→17:25)
[2018-04-29] MEDS: MELOXICAM 7.5 MG TAB PO SCH ×2 (09:19→19:41)
[2018-04-29] MEDS: POTASSIUM CHLORIDE ER 10 MEQ TAB.ER.PRT PO SCH (09:19)
[2018-04-29] MEDS: INSULIN ASPART 100 UNIT/ML 1 ML 10 ML VIAL SQ SCH ×4 (09:21→19:56)
--- NOTE | 2018-04-29 09:29 | P.PN ---
Subjective Progress Note Date: 04/29/18 Principal diagnosis: Exacerbation low back pain This is a 62 year-old female who we've been following for an exacerbation of her low back pain. The patient was evaluated at the bedside today. The patient denies nausea, vomiting, abdominal pain, shortness of breath, and chest pain this morning. She states her pain is moderately controlled at this time. The patient has been up with physical therapy and ambulated in the hallway. She states that she has not noticed a difference in her back pain since the Solu -medrol was started. She has received two doses so far but her IV fell out due to agitation after she received Ambien last night. No new complaints today. Objective - Vital Signs Vital signs: Vital Signs Temp 98.1 F 04/29/18 04:00 Pulse 90 04/29/18 04:00 Resp 18 04/29/18 04:00 BP 159/77 04/29/18 04:00 Pulse Ox 94 L 04/29/18 04:00 Intake & Output 04/28/18 04/29/18 04/29/18 18:59 06:59 18:59 Weight 69 kg Other: Voiding Method Toilet Toilet # Voids 2 1 - Exam The patient is a 62-year-old female who is in no acute distress. She is alert and oriented 3. Abdomen is soft and nontender. Lower extremities are still weak. She has weak dorsiflexion, plantar flexion, and EHL function bilaterally. Bilateral calves are soft and nontender. Neurological and circulatory status is intact. - Labs CBC & Chem 7: 04/27/18 17:00 Labs: Abnormal Lab Results - Last 24 Hours (Table) 04/28/18 04/28/18 04/28/18 Range/Units 12:38 17:00 19:46 POC Glucose (mg/dL) 133 H 124 H 212 H (75-99) mg/dL 04/29/18 Range/Units 07:01 POC Glucose (mg/dL) 144 H (75-99) mg/dL Assessment and Plan (1) Chronic pain syndrome Current Visit: Yes Status: Acute Code(s): G89.4 - CHRONIC PAIN SYNDROME SNOMED Code(s): 286362358 (2) Lumbar disc disease with radiculopathy Current Visit: Yes Status: Acute Code(s): M51.16 - INTERVERTEBRAL DISC DISORDERS W RADICULOPATHY, LUMBAR REGION SNOMED Code(s): 579449287 (3) Previous back surgery Current Visit: Yes Status: Acute Code(s): Z98.890 - OTHER SPECIFIED POSTPROCEDURAL STATES SNOMED Code(s): 624666138 Plan: The clinical and MRI findings were discussed with the patient. The case was also discussed with Dr. Lee. The patient's IV fell out last night. She will be changed to Predinsone PO at this time. She does not feel a significant improvement on the steriods at this time. The patient will need continued physical therapy and skilled rehab most likely upon discharge. The patient will follow up with Dr. Moon on an outpatient basis for further follow up and care regarding her back. Continue medical management of her low back pain.
[2018-04-29] MEDS: methylPREDNISolone SOD SUCCI 125 MG/2 ML VIAL IV SCH (09:51)
[2018-04-29 11:55] LABS: Glucose,Whole Blood 102 mg/dL (75-99)
[2018-04-29] MEDS: predniSONE 20 MG TAB PO SCH (13:20)
[2018-04-29] MEDS: HYDROcodone/APAP 7.5-325MG 1 EACH TAB PO PRN ×2 (13:22→17:57)
--- NOTE | 2018-04-29 13:26 | P.PN ---
Subjective Progress Note Date: 04/29/18 This patient is a 62-year-old female who was admitted to the hospital yesterday directly from Dr. Sheriff's office for evaluation of back pain following recent fall. Patient was complaining of increasing back pain yesterday and was admitted directly to Hospital. She was seen by orthopedic surgery today and we are waiting MRI of the lumbar spine to be done further further recommendations. Patient does have history of 3 back surgeries that were performed at [facility] in [facility]. She is also undergone epidural injections with Dr. Moon for chronic neck pain symptoms. She was seen by cardiology today as well and has no evidence to suggest any cardiac abnormality. Patient is concerned with her family history of cardiac disease. EKG shows no evidence of any acute ST segment changes. She is to be followed up as outpatient for further cardiac workup. Neurologically her symptoms are unchanged today. Patient is been up and ambulating in the hallway today with the use of a walker. We're waiting further assessment from physical therapy. Patient underwent MRI of the lumbar spine today the results of which indicate extensive postsurgical changes markedly limiting the evaluation of the study. No definite spinal stenosis was noted. We will await further recommendations from orthopedic spine surgery regarding any further workup for the patient. Patient was seen by orthopedic spine surgery and they're recommending to switch the patient oral prednisone and possible subacute rehab placement. She will follow-up with Dr. Moon as outpatient. Patient is to continue with physical therapy assessment and may benefit from subacute rehab at the time of discharge. Her overall prognosis at this time remains guarded. Objective - Vital Signs Vital signs: Vital Signs Temp 98.1 F 04/29/18 04:00 Pulse 90 04/29/18 04:00 Resp 18 04/29/18 04:00 BP 159/77 04/29/18 04:00 Pulse Ox 94 L 04/29/18 04:00 Intake & Output 04/28/18 04/29/18 04/29/18 18:59 06:59 18:59 Weight 69 kg Other: Voiding Method Toilet Toilet # Voids 2 1 - Exam Physical examination: PHYSICAL EXAMINATION: Patient is resting comfortably in bed. VITAL SIGNS: Blood pressure is [156/87]. Heart rate is [90]. Respiration is [16] . Temperature is [98.9]. HEENT: Head is atraumatic, neck is supple, there were no carotid bruits. CHEST: Lungs are clear to auscultation and percussion. CARDIAC: S1, S2 normal rate and rhythm. There is no murmur. ABDOMEN: Soft and nontender. Bowel sounds are present. EXTREMITIES: There is no pedal edema. Peripheral pulses are present. Neurological examination: Patient's neurological examination is unchanged from yesterday. She was able to ambulate today in the hallway with the use of a walker. Recommend ongoing physical therapy evaluation and recommendation. - Labs CBC & Chem 7: 04/27/18 17:00 Labs: Abnormal Lab Results - Last 24 Hours (Table) 04/28/18 04/28/18 04/28/18 Range/Units 12:38 17:00 19:46 POC Glucose (mg/dL) 133 H 124 H 212 H (75-99) mg/dL 04/29/18 Range/Units 07:01 POC Glucose (mg/dL) 144 H (75-99) mg/dL Assessment and Plan (1) Lumbar disc disease Current Visit: Yes Status: Acute Code(s): M51.9 - UNSP THORACIC, THORACOLUM AND LUMBOSACR INTVRT DISC DISORDER SNOMED Code(s): 549725066 (2) Lumbar disc disease with radiculopathy Current Visit: Yes Status: Acute Code(s): M51.16 - INTERVERTEBRAL DISC DISORDERS W RADICULOPATHY, LUMBAR REGION SNOMED Code(s): 270099368 (3) Chronic pain syndrome Current Visit: Yes Status: Acute Code(s): G89.4 - CHRONIC PAIN SYNDROME SNOMED Code(s): 095372522 (4) Previous back surgery Current Visit: Yes Status: Acute Code(s): Z98.890 - OTHER SPECIFIED POSTPROCEDURAL STATES SNOMED Code(s): 257552375 Plan: This patient is a 62-year-old female being evaluated for recent fall 3 weeks ago and increased back pain. She underwent MRI of the lumbar spine today results are as noted above. She was seen by orthopedic spine surgery today and started on IV Solu-Medrol and [place]. She has been ambulating in the hallway today with the use of a walker. She is to be evaluated by physical therapy for further recommendation. We have reviewed the results of the MRI today with the patient. We will await further recommendations from orthopedic spine surgery. Orthopedic surgery did review her MRI films with her today. She is to follow- up as outpatient with Dr. Moon for further management of her chronic back pain. They are recommending some physical therapy and possible rehab for this patient. She may benefit from outpatient subacute rehab placement at the time of discharge. We will continue close neurological follow-up the patient during this admission.
[2018-04-29 17:18] LABS: Glucose,Whole Blood 155 mg/dL (75-99)
[2018-04-29] MEDS: SODIUM CHLORIDE 0.9% 1,000 ML IV SCH (17:23)
[2018-04-29] MEDS: ATORVASTATIN 40 MG TAB PO SCH (19:40)
[2018-04-29] MEDS: MELATONIN 3 MG TABLET PO SCH (19:41)
[2018-04-29] MEDS: FLUoxetine HCL 20 MG CAP PO SCH (19:41)
[2018-04-29] MEDS: PRAMIPEXOLE 0.5 MG TAB PO SCH (19:41)
[2018-04-29 19:56] LABS: Glucose,Whole Blood 141 mg/dL (75-99)
--- NOTE | 2018-04-30 00:54 | CT ---
EXAMINATION TYPE: CT brain wo con DATE OF EXAM: 04/30/2018 COMPARISON: 04/27/2018 HISTORY: confusion CT DLP: 993.80 mGycm Automated exposure control for dose reduction was used. FINDINGS: There is some cerebral cortical atrophy. There is no mass effect nor midline shift. There is no sign of intracranial hemorrhage. The calvarium is intact. IMPRESSION: CEREBRAL ATROPHY. NO ACUTE INTRACRANIAL ABNORMALITY. NO CHANGE.
[2018-04-30 05:31] LABS: T4, Free (Free Thyroxine) 1.05 ng/dL (0.78-2.19)
--- NOTE | 2018-04-30 06:17 | PN ---
PROGRESS NOTE She has been recommended to go to physical therapy as an inpatient basis due to inability to move her legs more than 2 to 3 inches off the bed and severe weakness. She has some sundowners tonight, possibly unclear etiology was causing that. At this point, Neurology is on the case. CARDIOVASCULAR: S1 and S2. LUNGS: Clear GI: Soft. HEMATOLOGY: Negative Homans. Sugars were in the mid 100s to 200s. Will order some more blood work on the patient. Recheck a B12, folic acid. Hemoglobin A1c of 6.6. ASSESSMENT: 1. Acute lumbar radiculopathy. 2. Gait imbalance. 3. Diabetes mellitus. 4. Chronic renal disease stage IIIA. 5. Possible some early dementia versus sundowners. Await Neurology consult, PT OT. Please see further orders. MMODL / IJN: [id number] /
[2018-04-30] MEDS: LEVOTHYROXINE 25 MCG TAB PO SCH (06:56)
[2018-04-30 07:10] LABS: Appearance,Urine Clear (Clear); Bilirubin,Urine Negative (Negative); Blood,Urine Negative (Negative); Color,Urine Light Yellow; Glucose,Urine (UA) Negative (Negative); Ketones,Urine Negative (Negative); Leukocyte Esterase,Urine Negative (Negative); Nitrite,Urine Negative (Negative); PH, Urine 5.5 (5.0-8.0); Protein,Urine Trace (Negative); Specific Gravity,Urine 1.015 (1.001-1.035); Urobilinogen,Urine <2.0 mg/dL (<2.0)
[2018-04-30] MEDS: SODIUM CHLORIDE 0.9% 1,000 ML IV SCH (07:54)
[2018-04-30 08:00] LABS: Glucose,Whole Blood 128 mg/dL (75-99)
[2018-04-30] MEDS: SYMBICORT 80-4.5 MCG INHALER INHALATION SCH ×2 (08:44→19:40)
[2018-04-30] MEDS: INSULIN ASPART 100 UNIT/ML 1 ML 10 ML VIAL SQ SCH ×4 (10:40→21:21)
[2018-04-30] MEDS: POTASSIUM CHLORIDE ER 10 MEQ TAB.ER.PRT PO SCH (10:46)
[2018-04-30] MEDS: MELOXICAM 7.5 MG TAB PO SCH ×2 (10:47→21:21)
[2018-04-30] MEDS: GEMFIBROZIL 600 MG TAB PO SCH ×2 (10:47→21:21)
[2018-04-30] MEDS: IBUPROFEN 600 MG TAB PO SCH ×3 (10:47→21:21)
[2018-04-30] MEDS: FUROSEMIDE 20 MG TAB PO SCH (10:48)
[2018-04-30] MEDS: predniSONE 20 MG TAB PO SCH (10:48)
[2018-04-30] MEDS: CHOLECALCIFEROL 1,000 UNIT TAB PO SCH (10:48)
[2018-04-30] MEDS: metFORMIN 500 MG TAB PO SCH ×2 (10:48→17:36)
[2018-04-30 11:13] LABS: Folate, Serum 15.7 ng/mL
[2018-04-30 12:19] LABS: Glucose,Whole Blood 99 mg/dL (75-99)
[2018-04-30] MEDS: HYDROcodone/APAP 7.5-325MG 1 EACH TAB PO PRN (13:01)
[2018-04-30 17:01] LABS: Glucose,Whole Blood 181 mg/dL (75-99)
[2018-04-30] MEDS: ALBUTEROL NEBULIZED 2.5 MG/3 ML INHALATION PRN (19:40)
--- NOTE | 2018-04-30 19:42 | P.PN ---
Subjective Progress Note Date: 04/30/18 This patient is a 62-year-old female who was admitted to the hospital yesterday directly from Dr. Sheriff's office for evaluation of back pain following recent fall. Patient was complaining of increasing back pain yesterday and was admitted directly to Hospital. She was seen by orthopedic surgery today and we are waiting MRI of the lumbar spine to be done further further recommendations. Patient does have history of 3 back surgeries that were performed at [facility] in [facility]. She is also undergone epidural injections with Dr. Moon for chronic neck pain symptoms. She was seen by cardiology today as well and has no evidence to suggest any cardiac abnormality. Patient is concerned with her family history of cardiac disease. EKG shows no evidence of any acute ST segment changes. She is to be followed up as outpatient for further cardiac workup. Neurologically her symptoms are unchanged today. Patient is been up and ambulating in the hallway today with the use of a walker. We're waiting further assessment from physical therapy. Patient underwent MRI of the lumbar spine today the results of which indicate extensive postsurgical changes markedly limiting the evaluation of the study. No definite spinal stenosis was noted. We will await further recommendations from orthopedic spine surgery regarding any further workup for the patient. Patient was seen by orthopedic spine surgery and they're recommending to switch the patient oral prednisone and possible subacute rehab placement. She will follow-up with Dr. Moon as outpatient. Patient is to continue with physical therapy assessment and may benefit from subacute rehab at the time of discharge. The patient had episode of severe confusion and disorientation late yesterday evening. She was sent for a stat computed tomography scan of the brain due to the altered mental status. CAT scan was performed near midnight yesterday and results indicate cerebral atrophy with no acute intracranial abnormality and no change from previous study done on 04/27/2018. We reviewed the results of the CAT scan today with the patient. She understands the CAT scan came back negative for any acute changes. When asked about this episode last night the patient is unable to explain what may have triggered this. Today she is back to baseline. She is awaiting transfer to rehabilitation unit possibly as soon as tomorrow. Neurologically today she is back to baseline. We will continue to follow her progress closely. Would avoid use of any narcotics or sleeping aids for her as this may have triggered her event last night. Objective - Vital Signs Vital signs: Vital Signs Temp 98.3 F 04/30/18 11:53 Pulse 80 04/30/18 11:53 Resp 16 04/30/18 11:53 BP 171/77 04/30/18 11:53 Pulse Ox 96 04/30/18 11:53 Intake & Output 04/29/18 04/30/18 04/30/18 18:59 06:59 18:59 Weight 69 kg Other: Voiding Method Toilet Toilet # Voids 2 3 - Exam Physical examination: PHYSICAL EXAMINATION: Patient is resting comfortably in bed. VITAL SIGNS: Blood pressure is [171/77]. Heart rate is [80]. Respiration is [16] . Temperature is [98.3]. HEENT: Head is atraumatic, neck is supple, there were no carotid bruits. CHEST: Lungs are clear to auscultation and percussion. CARDIAC: S1, S2 normal rate and rhythm. There is no murmur. ABDOMEN: Soft and nontender. Bowel sounds are present. EXTREMITIES: There is no pedal edema. Peripheral pulses are present. Neurological examination: Patient's neurological examination is unchanged from yesterday. She was able to ambulate today in the hallway with the use of a walker. Recommend ongoing physical therapy evaluation and recommendation. She is alert and oriented today and does not appear to be confused or delirious. - Labs CBC & Chem 7: 04/27/18 17:00 Labs: Abnormal Lab Results - Last 24 Hours (Table) 04/27/18 04/27/18 04/29/18 Range/Units 17:00 17:00 17:13 POC Glucose (mg/dL) 155 H (75-99) mg/dL Hemoglobin A1c 6.6 H (4.0-6.0) % TSH 0.088 L (0.465-4.680) mIU/L Urine Protein (Negative) 04/29/18 04/30/18 04/30/18 Range/Units 19:46 06:55 07:57 POC Glucose (mg/dL) 141 H 128 H (75-99) mg/dL Hemoglobin A1c (4.0-6.0) % TSH (0.465-4.680) mIU/L Urine Protein Trace H (Negative) Assessment and Plan (1) Lumbar disc disease Current Visit: Yes Status: Acute Code(s): M51.9 - UNSP THORACIC, THORACOLUM AND LUMBOSACR INTVRT DISC DISORDER SNOMED Code(s): 329390408 (2) Lumbar disc disease with radiculopathy Current Visit: Yes Status: Acute Code(s): M51.16 - INTERVERTEBRAL DISC DISORDERS W RADICULOPATHY, LUMBAR REGION SNOMED Code(s): 926580083 (3) Chronic pain syndrome Current Visit: Yes Status: Acute Code(s): G89.4 - CHRONIC PAIN SYNDROME SNOMED Code(s): 629074873 (4) Previous back surgery Current Visit: Yes Status: Acute Code(s): Z98.890 - OTHER SPECIFIED POSTPROCEDURAL STATES SNOMED Code(s): 196680880 Plan: This patient is a 62-year-old female who was admitted for evaluation of recent fall and chronic low back pain. She is been evaluated by orthopedic spine surgery who recommended she follow up as outpatient. MRI of the lumbar spine was reviewed with her and orthopedic surgery. No acute changes have been noted. Patient is awaiting transfer to rehabilitation. She had an episode of acute confusion last night and a computed tomography scan of the brain was done. Results are as noted above. CAT scan failed to reveal any acute abnormality. Patient seems to be back to baseline level of function. We have recommended to avoid use of Ambien in this patient as this may have triggered her acute mental status changes. Neurologically she remains stable and awaiting transfer to subacute rehab when bed becomes available. We will continue close neurological follow-up for this patient during this admission. Her overall prognosis remains guarded.
[2018-04-30 20:34] LABS: Glucose,Whole Blood 143 mg/dL (75-99)
[2018-04-30] MEDS: PRAMIPEXOLE 0.5 MG TAB PO SCH (21:20)
[2018-04-30] MEDS: FLUoxetine HCL 20 MG CAP PO SCH (21:21)
[2018-04-30] MEDS: ATORVASTATIN 40 MG TAB PO SCH (21:21)
[2018-04-30] MEDS: MELATONIN 3 MG TABLET PO SCH ×2 (21:22→22:43)
--- NOTE | 2018-05-01 00:22 | PN ---
PROGRESS NOTE SUBJECTIVE: 62-year-old white female, unsteady gait, weakness, unable to lift her legs more than 2 inches off the bed. Inability to ambulate, tried to get her out of bed. She most fell. She will need rehab placement at this time. Cardiovascular S1-S2. Lungs clear. GI soft. Hematology negative Homans. Musculoskeletal: Weakness of bilateral legs, difficulty with ambulating off the table. ASSESSMENT: 1. Diabetic neuropathy. 2. Lumbar disc disease. 3. Generalized weakness. The patient is requesting increased pain medication at home for nighttime. She is on [place] every 4 hours p.r.n. She has some confusion and some owning. We will have to watch her closely. Increase pain medicine at night if she needs it. MMODL / IJN: [id number] /
[2018-05-01 06:58] LABS: Glucose,Whole Blood 104 mg/dL (75-99)
[2018-05-01] MEDS: SYMBICORT 80-4.5 MCG INHALER INHALATION SCH ×2 (07:08→21:12)
[2018-05-01] MEDS: INSULIN ASPART 100 UNIT/ML 1 ML 10 ML VIAL SQ SCH ×4 (07:25→23:54)
[2018-05-01] MEDS: CHOLECALCIFEROL 1,000 UNIT TAB PO SCH (07:31)
[2018-05-01] MEDS: GEMFIBROZIL 600 MG TAB PO SCH (07:31)
[2018-05-01] MEDS: LEVOTHYROXINE 25 MCG TAB PO SCH (07:31)
[2018-05-01] MEDS: MELOXICAM 7.5 MG TAB PO SCH (07:31)
[2018-05-01] MEDS: metFORMIN 500 MG TAB PO SCH ×2 (07:31→17:52)
[2018-05-01] MEDS: POTASSIUM CHLORIDE ER 10 MEQ TAB.ER.PRT PO SCH (07:31)
[2018-05-01] MEDS: IBUPROFEN 600 MG TAB PO SCH ×2 (07:32→15:31)
[2018-05-01] MEDS: FUROSEMIDE 20 MG TAB PO SCH (07:32)
[2018-05-01] MEDS: predniSONE 20 MG TAB PO SCH (08:07)
[2018-05-01 12:22] LABS: Glucose,Whole Blood 92 mg/dL (75-99)
[2018-05-01 17:03] LABS: Glucose,Whole Blood 115 mg/dL (75-99)
--- NOTE | 2018-05-01 18:28 | P.PN ---
Subjective Progress Note Date: 05/01/18 This patient is a 62-year-old female who was admitted to the hospital yesterday directly from Dr. Sheriff's office for evaluation of back pain following recent fall. Patient was complaining of increasing back pain yesterday and was admitted directly to Hospital. She was seen by orthopedic surgery today and we are waiting MRI of the lumbar spine to be done further further recommendations. Patient does have history of 3 back surgeries that were performed at [facility] in [facility]. She is also undergone epidural injections with Dr. Moon for chronic neck pain symptoms. She was seen by cardiology today as well and has no evidence to suggest any cardiac abnormality. Patient is concerned with her family history of cardiac disease. EKG shows no evidence of any acute ST segment changes. She is to be followed up as outpatient for further cardiac workup. Neurologically her symptoms are unchanged today. Patient is been up and ambulating in the hallway today with the use of a walker. We're waiting further assessment from physical therapy. Patient underwent MRI of the lumbar spine today the results of which indicate extensive postsurgical changes markedly limiting the evaluation of the study. No definite spinal stenosis was noted. We will await further recommendations from orthopedic spine surgery regarding any further workup for the patient. Patient was seen by orthopedic spine surgery and they're recommending to switch the patient oral prednisone and possible subacute rehab placement. She will follow-up with Dr. Moon as outpatient. Patient is to continue with physical therapy assessment and may benefit from subacute rehab at the time of discharge. The patient had episode of severe confusion and disorientation late yesterday evening. She was sent for a stat computed tomography scan of the brain due to the altered mental status. CAT scan was performed near midnight yesterday and results indicate cerebral atrophy with no acute intracranial abnormality and no change from previous study done on 04/27/2018. We reviewed the results of the CAT scan today with the patient. She understands the CAT scan came back negative for any acute changes. When asked about this episode the other night and the patient is unable to explain what may have triggered this. She was given pain medication at the time which may have caused her to have some owning. According to the nursing staff she has been relatively stable and was able to work with physical therapy earlier today. She is only received Motrin for pain control. Today she is back to baseline. She is awaiting transfer to rehabilitation unit possibly as soon as tomorrow. Neurologically today she is back to baseline. We will continue to follow her progress closely. Would avoid use of any narcotics or sleeping aids for her as this may have triggered her event last night. Objective - Vital Signs Vital signs: Vital Signs Temp 98.4 F 05/01/18 15:33 Pulse 89 05/01/18 15:33 Resp 14 05/01/18 15:33 BP 152/73 05/01/18 15:33 Pulse Ox 90 L 05/01/18 15:33 Intake & Output 04/30/18 05/01/18 05/01/18 18:59 06:59 18:59 Intake Total 150 440 Balance 150 440 Intake: Oral 150 240 Other 200 Other: Voiding Method Toilet Toilet Toilet # Voids 2 1 1 - Exam Physical examination: PHYSICAL EXAMINATION: Patient is resting comfortably in bed. VITAL SIGNS: Blood pressure is [160/78]. Heart rate is [80]. Respiration is [18] . Temperature is [97.9]. HEENT: Head is atraumatic, neck is supple, there were no carotid bruits. CHEST: Lungs are clear to auscultation and percussion. CARDIAC: S1, S2 normal rate and rhythm. There is no murmur. ABDOMEN: Soft and nontender. Bowel sounds are present. EXTREMITIES: There is no pedal edema. Peripheral pulses are present. Neurological examination: Patient's neurological examination is unchanged from yesterday. She was able to ambulate today in the hallway with the use of a walker. Recommend ongoing physical therapy evaluation and recommendation. She is alert and oriented today and does not appear to be confused or delirious. - Labs CBC & Chem 7: 04/27/18 17:00 Labs: Abnormal Lab Results - Last 24 Hours (Table) 04/30/18 04/30/18 05/01/18 Range/Units 16:58 20:25 06:46 POC Glucose (mg/dL) 181 H 143 H 104 H (75-99) mg/dL Assessment and Plan (1) Lumbar disc disease Current Visit: Yes Status: Acute Code(s): M51.9 - UNSP THORACIC, THORACOLUM AND LUMBOSACR INTVRT DISC DISORDER SNOMED Code(s): 506973888 (2) Lumbar disc disease with radiculopathy Current Visit: Yes Status: Acute Code(s): M51.16 - INTERVERTEBRAL DISC DISORDERS W RADICULOPATHY, LUMBAR REGION SNOMED Code(s): 020486764 (3) Chronic pain syndrome Current Visit: Yes Status: Acute Code(s): G89.4 - CHRONIC PAIN SYNDROME SNOMED Code(s): 658053015 (4) Previous back surgery Current Visit: Yes Status: Acute Code(s): Z98.890 - OTHER SPECIFIED POSTPROCEDURAL STATES SNOMED Code(s): 259584857 Plan: This patient is a 62-year-old female who was admitted for evaluation of recent fall and chronic low back pain. She is been evaluated by orthopedic spine surgery who recommended she follow up as outpatient. MRI of the lumbar spine was reviewed with her and orthopedic surgery. No acute changes have been noted. Patient is awaiting transfer to rehabilitation. She had an episode of acute confusion last night and a computed tomography scan of the brain was done. Results are as noted above. CAT scan failed to reveal any acute abnormality. Patient seems to be back to baseline level of function. We have recommended to avoid use of Ambien in this patient as this may have triggered her acute mental status changes. Patient apparently received only Motrin for her back pain today and has tried to avoid overuse of Narco. She is awaiting transfer to the inpatient rehab unit once the bed is available. She still has some episodes of mild confusion but seems to orient back to baseline as per the nursing staff today. Neurologically she remains stable and awaiting transfer to subacute rehab when bed becomes available. We will continue close neurological follow-up for this patient during this admission. Her overall prognosis remains guarded.
--- NOTE | 2018-05-01 22:23 | PN ---
PROGRESS NOTE SUBJECTIVE: This is a 62-year-old white female, unsteady gait, weakness, unable to ambulate. She is awaiting long-term placement. CARDIOVASCULAR: S1, S2. LUNGS: Clear. GI: Soft. HEMATOLOGY: Negative Homans'. PSYCH: Fair mood and affect. ASSESSMENT: 1. Lumbar radiculopathy. 2. Generalized neuropathy. 3. Generalized weakness. Await next 24-48 hours' treatment. MMODL / IJN: [id number] /
[2018-05-01 22:24] LABS: Glucose,Whole Blood 141 mg/dL (75-99)
[2018-05-02] MEDS: IBUPROFEN 600 MG TAB PO SCH ×4 (00:10→19:35)
[2018-05-02] MEDS: ATORVASTATIN 40 MG TAB PO SCH ×2 (00:10→19:34)
[2018-05-02] MEDS: GEMFIBROZIL 600 MG TAB PO SCH ×2 (00:10→11:25)
[2018-05-02] MEDS: PRAMIPEXOLE 0.5 MG TAB PO SCH (00:10)
[2018-05-02] MEDS: FLUoxetine HCL 20 MG CAP PO SCH (00:10)
[2018-05-02] MEDS: MELOXICAM 7.5 MG TAB PO SCH ×3 (00:10→19:34)
[2018-05-02] MEDS ORDERED: LORazepam 2 MG/ML INJ IM STA (03:57)
[2018-05-02 06:51] LABS: Glucose,Whole Blood 96 mg/dL (75-99)
[2018-05-02] MEDS: LEVOTHYROXINE 25 MCG TAB PO SCH ×2 (07:03→11:25)
[2018-05-02] MEDS: SYMBICORT 80-4.5 MCG INHALER INHALATION SCH (08:25)
[2018-05-02] MEDS: INSULIN ASPART 100 UNIT/ML 1 ML 10 ML VIAL SQ SCH ×4 (08:48→21:12)
[2018-05-02] MEDS: CHOLECALCIFEROL 1,000 UNIT TAB PO SCH (11:25)
[2018-05-02] MEDS: POTASSIUM CHLORIDE ER 10 MEQ TAB.ER.PRT PO SCH (11:25)
[2018-05-02] MEDS: FUROSEMIDE 20 MG TAB PO SCH (11:25)
[2018-05-02] MEDS: predniSONE 20 MG TAB PO SCH (11:26)
[2018-05-02] MEDS: metFORMIN 500 MG TAB PO SCH ×2 (11:27→17:07)
[2018-05-02 12:15] LABS: Glucose,Whole Blood 122 mg/dL (75-99)
[2018-05-02] MEDS ORDERED: HYDROcodone/APAP 7.5-325MG 1 EACH TAB PO PRN (13:53)
[2018-05-02] MEDS: FLUoxetine HCL 10 MG CAP PO SCH (14:05)
--- NOTE | 2018-05-02 17:19 | DS ---
DISCHARGE SUMMARY DISCHARGE MEDICATIONS: 1. [place] 7.5 q.12 hours p.r.n. 2. Prozac 10 mg q.a.m. 3. Lasix 20 mg daily. 4. Motrin 600 mg t.i.d. 5. Levothyroxine 25 mcg daily. 6. Melatonin 3 mg q.h.s. 7. Metformin 500 b.i.d. 8. Potassium chloride 10 mEq daily. 9. Prednisone 40 mg daily for 4 days then discontinue. 10.Seroquel 25 mg q.h.s. CONDITION: Stable. PROGNOSIS: Guarded. Ambulate as tolerated. Discharge with physical therapy. DISCHARGE DIAGNOSES: 1. Acute delirium. 2. Metabolic encephalopathy. 3. Lumbar disc disease. 4. Diabetic neuropathy. 5. Lumbar radiculopathy. 6. Chronic pain syndrome. 7. Previous back surgery. 8. Hypothyroidism. 9. Hypertension. 10.Obesity. 11.Restless legs syndrome. 12.Neuropathy. PLAN: The patient was admitted to the hospital, was given some IV Solu-Medrol, switched to oral prednisone, became more confused on it. She was weaned off Solu-Medrol, switched to oral prednisone. This will be discontinued due to confusion, Ambien and Xanax was discontinued as well as multiple medications She will give [place] 1 every 12 hours p.r.n. for pain. Cleared by neuro surgery who will follow up as an outpatient with the patient for some possible steroid injections in the back. Other medications, sugars will be monitored. Please see an addendum to the medication list above. Prednisone will be discontinued at this time due to confusion. She was started on Seroquel after discussion with psychiatrist for possible sundowners as she gets fairly confused at night. Recommended low-dose Seroquel 25 mg at night. Please see further orders in the chart. Followup with patient at [facility]. MMODL / IJN: [id number] /
[2018-05-02 17:34] LABS: Glucose,Whole Blood 142 mg/dL (75-99)
[2018-05-02 19:33] VITALS: TEMP 98.1
[2018-05-02] MEDS: MELATONIN 3 MG TABLET PO SCH (19:34)
[2018-05-02 20:04] LABS: Glucose,Whole Blood 146 mg/dL (75-99)
[2018-05-02] MEDS ORDERED: QUEtiapine 25 MG TAB PO SCH (21:00)
[2018-05-03] MEDS: IBUPROFEN 600 MG TAB PO SCH (05:51)
[2018-05-03] MEDS: LEVOTHYROXINE 25 MCG TAB PO SCH (06:06)
[2018-05-03 06:47] LABS: Glucose,Whole Blood 96 mg/dL (75-99)
[2018-05-03 07:22] VITALS: BP 154/62; PULSE 78; RESP 16
[2018-05-03] MEDS: INSULIN ASPART 100 UNIT/ML 1 ML 10 ML VIAL SQ SCH (08:41)
[2018-05-03] MEDS: MELOXICAM 7.5 MG TAB PO SCH (08:49)
[2018-05-03] MEDS: FLUoxetine HCL 10 MG CAP PO SCH (08:50)
[2018-05-03] MEDS: FUROSEMIDE 20 MG TAB PO SCH (08:50)
[2018-05-03] MEDS: metFORMIN 500 MG TAB PO SCH (08:50)
[2018-05-03] MEDS: POTASSIUM CHLORIDE ER 10 MEQ TAB.ER.PRT PO SCH (08:51)
[2018-05-03] MEDS ORDERED: predniSONE 20 MG TAB PO SCH (09:00)
[2018-05-03] MEDS ORDERED: POLYETHYLENE GLYCOL 3350 17 GM POWD.PACK PO SCH (09:30)
[2018-05-03 12:18] LABS: Glucose,Whole Blood 101 mg/dL (75-99)
== END 2018-05-03 15:49 | DRG 551 ==
LOC: 3OBS 12:15 → OBSVTOIN 04-29 20:31 → 3OBS 04-30 17:20
PROVIDERS: ADMIT Family Medicine; ATTEND Family Medicine
DX: M51.16 Intervertebral disc disorders with radiculopathy, lumbar region (principal); G93.41 Metabolic encephalopathy; F05 Delirium due to known physiological condition; G89.4 Chronic pain syndrome; E11.22 Type 2 diabetes mellitus with diabetic chronic kidney disease; I12.9 Hypertensive chronic kidney disease with stage 1 through stage 4 chronic kidney disease, or unspecified chronic kidney disease; N18.3 Chronic kidney disease, stage 3 (moderate); E03.9 Hypothyroidism, unspecified; E11.40 Type 2 diabetes mellitus with diabetic neuropathy, unspecified; E66.9 Obesity, unspecified; E78.5 Hyperlipidemia, unspecified; G25.81 Restless legs syndrome; K21.9 Gastro-esophageal reflux disease without esophagitis; K58.9 Irritable bowel syndrome, unspecified; M79.7 Fibromyalgia; M81.0 Age-related osteoporosis without current pathological fracture; W19.XXXA Unspecified fall, initial encounter; Z79.899 Other long term (current) drug therapy; Z82.49 Family history of ischemic heart disease and other diseases of the circulatory system; Z87.891 Personal history of nicotine dependence; Z90.710 Acquired absence of both cervix and uterus; Z88.6 Allergy status to analgesic agent; Z88.5 Allergy status to narcotic agent; Z79.1 Long term (current) use of non-steroidal anti-inflammatories (NSAID); Z79.891 Long term (current) use of opiate analgesic; Z68.28 Body mass index [BMI] 28.0-28.9, adult; Z79.890 Hormone replacement therapy
CPT/HCPCS: 70450; 72148; 80053; 81003; 82607; 82746; 83036; 84439; 84443; 94640; 94760

== ENCOUNTER → 2018-06-07 | Outpatient (CLI) | payer MEDICARE, BC ==
--- NOTE | 2018-06-07 13:02 | XR ---
EXAMINATION TYPE: XR chest 2V DATE OF EXAM: 06/07/2018 COMPARISON: NONE HISTORY: Shortness of breath TECHNIQUE: Frontal and lateral views of the chest are obtained. FINDINGS: Scattered senescent parenchymal changes noted. Hyperinflation compatible with COPD. No evidence for infiltrate. No evidence for atelectasis. Heart size is stable. Mediastinal structures are stable and grossly unremarkable. No evidence for hilar prominence. Degenerative changes dorsal spine. IMPRESSION: 1. No evidence for acute pulmonary disease.
== END | disposition home or self-care (01) ==
LOC: RADXRMAIN 12:30
PROVIDERS: ATTEND Family Medicine
DX: R06.00 Dyspnea, unspecified (principal)
CPT/HCPCS: 71046

== ENCOUNTER 2018-12-24 06:50 | Day surgery (SDC) | payer MEDICARE, BC ==
[2018-12-20 09:48] VITALS: BMI 29.2
[~2018-12-24 06:50] MED LIST: LACTATED RINGERS 1,000 ML IV SCH
[2018-12-24 07:19] VITALS: TEMP 99.1
[2018-12-24 07:22] LABS: Glucose,Whole Blood 154 mg/dL (75-99)
[2018-12-24] MEDS ORDERED: PROPOFOL 10 MG/ML 20 ML VIAL IV ONE (07:41)
--- NOTE | 2018-12-24 07:55 | P.GSHP ---
History of Present Illness H&P Date: 12/24/18 Chief Complaint: Screening colonoscopy This a 63-year-old female who presents today for screening colonoscopy. Patient denies any significant GI complaints. Past Medical History Past Medical History: COPD, Diabetes Mellitus, Fibromyalgia, GERD/Reflux, Hyperlipidemia, Hypertension, Thyroid Disorder Additional Past Medical History / Comment(s): DJD. IBS. Neuropathy. Osteoporosis. Guillain-barre syndrome. PAD. History of Any Multi-Drug Resistant Organisms: None Reported Past Surgical History: Appendectomy, Back Surgery, Bowel Resection, Section, Hysterectomy Additional Past Surgical History / Comment(s): Back sx at most recent with cage and rods/screws. COLONOSCOPY Past Anesthesia/Blood Transfusion Reactions: No Reported Reaction Smoking Status: Former smoker - Past Family History Mother Family Medical History: Cancer Additional Family Medical History / Comment(s): COLON Medications and Allergies Home Medications Medication Instructions Recorded Confirmed Type Levothyroxine Sodium [Synthroid] 25 mcg PO QAM 01/26/16 12/24/18 History Cholecalciferol [Vitamin D3] 1,000 unit PO DAILY 06/03/16 12/24/18 History Furosemide [Lasix] 20 mg PO BID 06/03/16 12/24/18 History Potassium Chloride [Klor-Con 8] 8 meq PO DAILY 06/03/16 12/24/18 History Vitamin B Complex 1 cap PO DAILY 06/03/16 12/24/18 History metFORMIN HCL [Glucophage] 500 mg PO BID 06/03/16 12/24/18 History Dicyclomine [Bentyl] 10 mg PO ACHS PRN 04/27/18 12/24/18 History Albuterol Nebulized [Ventolin 2.5 mg INHALATION RT-Q4H PRN nebu 05/03/18 12/24/18 Rx Nebulized] QUEtiapine [SEROquel] 25 mg PO HS tab 05/03/18 12/24/18 Rx FLUoxetine HCL [PROzac] 20 mg PO DAILY 12/20/18 12/24/18 History Gabapentin [Neurontin] 800 mg PO QID 12/20/18 12/24/18 History Gemfibrozil [Lopid] 600 mg PO AC-BID 12/20/18 12/24/18 History Glycopyrrol/Nebulizer/Accessor 25 mcg INHALATION BID 12/20/18 12/24/18 History [[place] Magnair 25 Mcg Starter] HYDROcodone/APAP 7.5-325MG [[place] 1 each PO TID 12/20/18 12/24/18 History 7.5-325] Meloxicam [Mobic] 7.5 mg PO BID 12/20/18 12/24/18 History Respimat 1 each INHALATION DAILY 12/20/18 History Rosuvastatin Calcium [Crestor] 20 mg PO DAILY 12/20/18 12/24/18 History Allergies Allergy/AdvReac Type Severity Reaction Status Date / Time aspirin Allergy COMA LIKE Verified 12/20/18 09:34 STATE codeine Allergy Rash/Hives Verified 12/20/18 09:34 Surgical - Exam Vital Signs Temp Pulse Resp BP Pulse Ox 99.1 F 90 14 196/83 96 12/24/18 07:16 12/24/18 07:16 12/24/18 07:16 12/24/18 07:16 12/24/18 07:16 - General well developed, well nourished - Eyes PERRL - ENT normal pinna - Neck no masses - Respiratory normal expansion - Cardiovascular Rhythm: regular - Abdomen Abdomen: soft, non tender Results - Labs Abnormal Lab Results - Last 24 Hours (Table) 12/24/18 Range/Units 07:20 POC Glucose (mg/dL) 154 H (75-99) mg/dL Assessment and Plan Assessment: We'll perform screening colonoscopy
--- NOTE | 2018-12-24 08:08 | P.OP ---
Date of Procedure: 12/24/18 Preoperative Diagnosis: Screening colonoscopy Postoperative Diagnosis: Diverticulosis Procedure(s) Performed: Colonoscopy Anesthesia: MAC Surgeon: Walker Dubois Pathology: none sent Condition: stable Disposition: PACU Description of Procedure: The patient's placed on the endoscopy table in the lateral position. She received IV sedation. Digital rectal exam was performed which revealed no abnormalities. The flexible colonoscope was then placed patient anus and passed throughout the colon. The ileocecal valve was visually. The cecum, ascending and transverse colon appeared normal. In the descending colon there is moderate diverticulosis. The patient had a previous sigmoid resection. The staple anastomosis was visualized. This appeared to be without evidence of inflammation or scarring. Scope was then brought back the rectum and this appeared normal. Scope was withdrawn for patient.
[2018-12-24 08:11] VITALS: RESP 16
[2018-12-24 08:32] VITALS: BP 155/77; PULSE 76
== END 2018-12-24 08:51 | disposition home or self-care (01) ==
LOC: ORWHC2ENDO 06:50
PROVIDERS: ATTEND Surgery
DX: Z12.11 Encounter for screening for malignant neoplasm of colon (principal); K57.30 Diverticulosis of large intestine without perforation or abscess without bleeding; E07.9 Disorder of thyroid, unspecified; E11.40 Type 2 diabetes mellitus with diabetic neuropathy, unspecified; E78.5 Hyperlipidemia, unspecified; I10 Essential (primary) hypertension; J44.9 Chronic obstructive pulmonary disease, unspecified; K21.9 Gastro-esophageal reflux disease without esophagitis; K58.9 Irritable bowel syndrome, unspecified; M79.7 Fibromyalgia; M81.0 Age-related osteoporosis without current pathological fracture; Z87.891 Personal history of nicotine dependence; Z79.890 Hormone replacement therapy; Z79.899 Other long term (current) drug therapy; Z88.6 Allergy status to analgesic agent; Z88.5 Allergy status to narcotic agent
CPT/HCPCS: J2704; G0121

== ENCOUNTER → 2019-04-24 | Outpatient (CLI) | payer MEDICARE, BC ==
--- NOTE | 2019-04-24 15:48 | US ---
EXAMINATION TYPE: US abdomen complete DATE OF EXAM: 04/24/2019 COMPARISON: NONE CLINICAL HISTORY: R10.9 ABDOMINAL PAIN. Abdominal pain EXAM MEASUREMENTS: Liver Length: 19.5 cm Gallbladder Wall: 0.4 cm CBD: 0.6 cm Spleen: 10.2 cm Right Kidney: 9.4 x 4.3 x 4.7 cm Left Kidney: 9.5 x 4.9 x3.8 cm Technical limitations due to large amount of overlying bowel content Pancreas: limited evaluation due to overlying bowel content, duct = 0.3cm Liver: enlarged, heterogeneous, attenuating Gallbladder: stone noted, GB wall slightly thickened Evidence for sonographic Marr's sign: no CBD: appears wnl Spleen: wnl Right Kidney: no evidence of hydronephrosis Left Kidney: no evidence of hydronephrosis Upper IVC: wnl Abd Aorta: portions obscured by overlying bowel content, calcifications noted within visualized segm ents IMPRESSION: 1. Hepatomegaly with mild fatty infiltration
== END | disposition home or self-care (01) ==
LOC: RADUSWWP 09:32
PROVIDERS: ATTEND Family Medicine
DX: K76.0 Fatty (change of) liver, not elsewhere classified (principal)
CPT/HCPCS: 76700

== ENCOUNTER → 2019-07-19 | Outpatient (CLI) | payer MEDICARE, BC ==
--- NOTE | 2019-07-19 08:29 | US ---
EXAMINATION TYPE: US abdomen complete DATE OF EXAM: 07/19/2019 COMPARISON: Complete abdominal ultrasound April 24, 2019 CLINICAL HISTORY: R10.32 LLQ pain. EXAM MEASUREMENTS: Spleen: 10.4 cm Left Kidney: 10.4 x 4.5 x 4.2 cm 1. Spleen: wnl 2. Left Kidney: wnl Patients area of pain also scanned at LLQ. No fluid collection or mass seen by ultrasound. IMPRESSION: No suspicious new findings seen to account for patient's symptoms. Initial images of left lower quadrant show no worrisome mass or fluid collection or obvious hernia.
== END | disposition home or self-care (01) ==
LOC: RADUSMAIN 07:48
PROVIDERS: ATTEND Family Medicine
DX: R10.32 Left lower quadrant pain (principal)
CPT/HCPCS: 76705

== ENCOUNTER → 2019-07-23 | Outpatient (CLI) | payer MEDICARE, BC | END | disposition home or self-care (01) | LOC: LABPAT 14:55 | PROVIDERS: ATTEND Surgery | DX: Z01.812 Encounter for preprocedural laboratory examination (principal); Z01.818 Encounter for other preprocedural examination; K43.2 Incisional hernia without obstruction or gangrene | CPT/HCPCS: 93005 ==

== ENCOUNTER 2019-07-31 05:56 | Day surgery (SDC) | payer MEDICARE, BC ==
[~2019-07-31 05:56] MED LIST changes: +DEXAMETHASONE SOD PHOSPHATE 10 MG/ML 1 ML VIAL IV ONE; +HEPARIN SODIUM,PORCINE 5,000 UNIT/ML 1 ML VIAL SQ ONE; +LIDOCAINE 1% 20 ML VIAL (10MG/ML) FOR IV START INTRADERMA PRN; +MIDAZOLAM 2 MG/2 ML VIAL IV PRN; +ONDANSETRON 4 MG/2 ML VIAL IVP ONE; +SCOPOLAMINE 1.5MG/72HR PATCH TRANSDERM ONE
[2019-07-31 06:51] LABS: Glucose,Whole Blood 149 mg/dL (75-99)
[2019-07-31] MEDS ORDERED: ePHEDrine SULFATE/0.9% NACL/PF 50 MG/5 ML SYRINGE IV ONE (07:52)
[2019-07-31] MEDS ORDERED: NEOSTIGMINE 1 MG/ML 10 ML VIAL ONE (07:52)
[2019-07-31] MEDS ORDERED: fentaNYL (PF) 50 MCG/ML 2 ML AMP ONE (07:52)
[2019-07-31] MEDS ORDERED: SUCCINYLCHOLINE CHLORIDE 100 MG/5 ML SYR IV ONE (07:52)
[2019-07-31] MEDS ORDERED: PROPOFOL 10 MG/ML 20 ML VIAL IV ONE (07:52)
[2019-07-31] MEDS ORDERED: MIDAZOLAM 2 MG/2 ML VIAL ONE (07:52)
[2019-07-31] MEDS ORDERED: LIDOCAINE 1% INJ 10MG/ML (20 ML MDV) ONE (07:52)
[2019-07-31] MEDS ORDERED: GLYCOPYRROLATE 0.2 MG/ML 2 ML VIAL ONE (07:52)
[2019-07-31] MEDS ORDERED: ROCURONIUM BROMIDE 10 MG/ML 10 ML VIAL IV ONE (07:52)
--- NOTE | 2019-07-31 07:55 | P.GSHP ---
History of Present Illness H&P Date: 07/31/19 Chief Complaint: Incisional hernia This is a 64-year-old female who presents today for repair of incisional hernia. Patient is appears low midline incision. She has a tender mass the incision. Patient resents today for ic open repair. Past Medical History Past Medical History: COPD, Diabetes Mellitus, Fibromyalgia, GERD/Reflux, Hy perlipidemia, Hypertension, Osteoarthritis (OA), Thyroid Disorder Additional Past Medical History / Comment(s): DJD. IBS. Neuropathy. Osteoporosis. Guillain-barre syndrome. PAD., leg & ankle swelling frequently History of Any Multi-Drug Resistant Organisms: None Reported Past Surgical History: Appendectomy, Back Surgery, Bowel Resection, Section, Cholecystectomy, Hysterectomy Additional Past Surgical History / Comment(s): Back sx x3-most recent was fusion w/cage and rods/screws,. COLONOSCOPY, calcium deposit removed from sternum Past Anesthesia/Blood Transfusion Reactions: No Reported Reaction Smoking Status: Former smoker - Past Family History Mother Family Medical History: Cancer Additional Family Medical History / Comment(s): COLON Medications and Allergies Home Medications Medication Instructions Recorded Confirmed Type Levothyroxine Sodium [Synthroid] 25 mcg PO QAM 01/26/16 07/31/19 History Cholecalciferol [Vitamin D3 (25 1,000 unit PO DAILY 06/03/16 07/31/19 History Mcg = 1000 Iu)] Furosemide [Lasix] 40 mg PO QAM 06/03/16 07/31/19 History Potassium Chloride [Klor-Con 8] 10 meq PO DAILY 06/03/16 07/31/19 History Vitamin B Complex 1 cap PO DAILY 06/03/16 07/31/19 History metFORMIN HCL [Glucophage] 500 mg PO BID 06/03/16 07/31/19 History Dicyclomine [Bentyl] 10 mg PO ACHS 04/27/18 07/31/19 History Albuterol Nebulized [Ventolin 2.5 mg INHALATION RT-Q4H PRN nebu 05/03/18 07/31/19 Rx Nebulized] FLUoxetine HCL [PROzac] 20 mg PO DAILY 12/20/18 07/31/19 History Gabapentin [Neurontin] 800 mg PO QID 12/20/18 07/31/19 History Gemfibrozil [Lopid] 600 mg PO AC-BID 12/20/18 07/31/19 History Rosuvastatin Calcium [Crestor] 40 mg PO HS 12/20/18 07/31/19 History Atenolol [Tenormin] 25 mg PO DAILY 07/29/19 07/31/19 History Cyclobenzaprine [Flexeril] 5 mg PO HS 07/29/19 07/31/19 History HYDROcodone/APAP 10-325MG [[place] 1 tab PO TID 07/29/19 07/31/19 History 10-325] Melatonin 10 mg PO HS 07/29/19 07/31/19 History QUEtiapine [SEROquel] 75 mg PO HS 07/29/19 07/31/19 History rOPINIRole HCL [Requip] 0.5 mg PO HS 07/29/19 07/31/19 History Allergies Allergy/AdvReac Type Severity Reaction Status Date / Time aspirin Allergy COMA LIKE Verified 07/31/19 06:17 STATE codeine Allergy Rash/Hives Verified 07/31/19 06:17 Surgical - Exam Vital Signs Temp Pulse Resp BP Pulse Ox 98.0 F 75 16 159/67 95 07/31/19 06:48 07/31/19 06:48 07/31/19 06:48 07/31/19 06:48 07/31/19 06:48 - General well developed, well nourished, no distress - Eyes PERRL - ENT normal pinna - Neck no masses - Respiratory normal expansion - Cardiovascular Rhythm: regular - Abdomen Abdomen: soft, non tender Hernia: incisional (Incisional hernia) Results - Labs 07/31/19 06:50 Abnormal Lab Results - Last 24 Hours (Table) 07/31/19 Range/Units 06:39 POC Glucose (mg/dL) 149 H (75-99) mg/dL Diabetes panel 07/31/19 Range/Units 06:50 Potassium 4.1 (3.5-5.1) mmol/L Pituitary panel 07/31/19 Range/Units 06:50 Potassium 4.1 (3.5-5.1) mmol/L Adrenal panel 07/31/19 Range/Units 06:50 Potassium 4.1 (3.5-5.1) mmol/L Assessment and Plan Assessment: Incisional hernia. Will perform open repair.
--- NOTE | 2019-07-31 08:10 | P.OP ---
Date of Procedure: 07/31/19 Preoperative Diagnosis: Screening colonoscopy Internal and external hemorrhoids Postoperative Diagnosis: Internal and external hemorrhoids to Transverse colon polyp Procedure(s) Performed: Colonoscopy Anesthesia: MAC Surgeon: Walker Dubois Pathology: other (Transverse colon polyp) Condition: stable Disposition: PACU Description of Procedure: Patient's placed on the endoscopy table in the lateral position. He received IV sedation. Digital rectal exam was performed which revealed internal and exte rnal hemorrhoids. Flexible colonoscope was then placed patient anus and passed rotator entire colon. Ileocecal valve was visualized. The right colon was Normal. In the transverse colon there is a small submucosal polyp suggestive of lipoma this was biopsied. There a few scattered diverticuli in the transverse colon. In the descending; there is more extensive diverticulosis. Scope was then brought back the rectum and this appeared normal. Scope was then withdrawn through the anus which revealed internal/external hemorrhoids. There is no evidence of any hemorrhoidal bleeding.
[2019-07-31] MEDS ORDERED: LACTATED RINGERS 1,000 ML IV ONE ×2 (08:33→09:36)
[2019-07-31] MEDS ORDERED: BUPIVACAINE (PF) 0.5% 30 ML VIAL SQ ONE (08:33)
[2019-07-31] MEDS: HYDROmorphone 0.5 MG/0.5 ML SYRINGE IVP PRN ×8 (09:15→23:27)
[2019-07-31] MEDS ORDERED: ONDANSETRON 4 MG/2 ML VIAL IVP PRN (09:36)
[2019-07-31] MEDS ORDERED: HYDROcodone/APAP 5-325MG 1 EACH TAB PO PRN (09:36)
[2019-07-31] MEDS ORDERED: NALOXONE 0.4 MG/ML 1 ML VIAL IV PRN (09:36)
[2019-07-31] MEDS ORDERED: METOCLOPRAMIDE 5 MG/ML 2 ML VIAL IVP PRN (09:36)
--- NOTE | 2019-07-31 09:36 | P.OP ---
Date of Procedure: 07/31/19 Preoperative Diagnosis: Incisional hernia Postoperative Diagnosis: Incarcerated incisional hernia Adhesions Procedure(s) Performed: ( Incarcerated incisional hernia Lysis of extensive adhesions Partial omentectomy Anesthesia: SHAHZAD Surgeon: Walker Dubois Estimated Blood Loss (ml): 10 Pathology: other (Omentum) Condition: stable Disposition: PACU Description of Procedure: The patient's placed on the operating table in the supine position. She received general anesthesia. Her abdomen was prepped and draped usual sterile fashion. The abdomen was entered through a low midline incision. There was incarcerated omentum within the hernia. The fascia was opened. And then there were significant adhesions a portion of small bowel stuck to the hernia. Approximately 20 minutes of operative time used to lyse adhesions. Several small serosal tears were sutured with 3-0 GI silk suture. This point the omentum that was incarcerated was transected with the Enseal device and sent to pathology. The fascia was closed with looped #1 PDS suture. Skin was closed pollo. A Silverlon dressing was placed on the skin. Patient was sent to recovery in stable condition.
[2019-07-31] MEDS ORDERED: HYDROcodone/APAP 10-325MG 1 EACH TAB PO ONE (10:40)
[2019-07-31 12:14] VITALS: BMI 27.5
[2019-07-31] MEDS ORDERED: IPRATROPIUM-ALBUTEROL 3 ML NEB INHALATION PRN (16:00)
--- NOTE | 2019-07-31 16:20 | P.CONS ---
History of Present Illness - Reason for Consult Consult date: 07/31/19 Medical management COPD, diabetes, hypertension Requesting physician: Walker Dubois - Chief Complaint Incisional hernia tender mass - History of Present Illness This is 64-year-old female with past medical history of COPD, diabetes mellitus, fibromyalgia, gastroesophageal reflux disease, hyperlipidemia, hypertension, osteoarthritis, hypothyroidism, IBS, former smoker and multiple other medical issues status post incisional hernia open repair. Tolerated procedure well. Pain controlled. Vital signs stable. Maintaining O2 sats in the 90s on 3 L nasal cannula, currently being weaned off. No flatus, no bowel movement. Denies chest pain, palpitations or shortness of breath. Denies lightheadedness, dizziness or focal deficits. Review of Systems ROS Statement: Those systems with pertinent positive or pertinent negative responses have been documented in the HPI. ROS Other: All systems not noted in ROS Statement are negative. Past Medical History Past Medical History: COPD, Diabetes Mellitus, Fibromyalgia, GERD/Reflux, Hyperlipidemia, Hypertension, Osteoarthritis (OA), Thyroid Disorder Additional Past Medical History / Comment(s): DJD. IBS. Neuropathy. Osteoporosis. Guillain-barre syndrome. PAD., leg & ankle swelling frequently History of Any Multi-Drug Resistant Organisms: None Reported Past Surgical History: Appendectomy, Back Surgery, Bowel Resection, Section, Cholecystectomy, Hysterectomy Additional Past Surgical History / Comment(s): Back sx x3-most recent was fusion w/cage and rods/screws,. COLONOSCOPY, calcium deposit removed from sternum Past Anesthesia/Blood Transfusion Reactions: No Reported Reaction Past Psychological History: Depression Smoking Status: Former smoker Past Alcohol Use History: None Reported Past Drug Use History: None Reported - Past Family History Mother Family Medical History: Cancer Additional Family Medical History / Comment(s): COLON Medications and Allergies Home Medications Medication Instructions Recorded Confirmed Type Levothyroxine Sodium [Synthroid] 25 mcg PO QAM 01/26/16 07/31/19 History Cholecalciferol [Vitamin D3 (25 1,000 unit PO DAILY 06/03/16 07/31/19 History Mcg = 1000 Iu)] Furosemide [Lasix] 40 mg PO QAM 06/03/16 07/31/19 History Potassium Chloride [Klor-Con 8] 10 meq PO DAILY 06/03/16 07/31/19 History Vitamin B Complex 1 cap PO DAILY 06/03/16 07/31/19 History metFORMIN HCL [Glucophage] 500 mg PO BID 06/03/16 07/31/19 History Dicyclomine [Bentyl] 10 mg PO ACHS 04/27/18 07/31/19 History Albuterol Nebulized [Ventolin 2.5 mg INHALATION RT-Q4H PRN nebu 05/03/18 07/31/19 Rx Nebulized] FLUoxetine HCL [PROzac] 20 mg PO DAILY 12/20/18 07/31/19 History Gabapentin [Neurontin] 800 mg PO QID 12/20/18 07/31/19 History Gemfibrozil [Lopid] 600 mg PO AC-BID 12/20/18 07/31/19 History Rosuvastatin Calcium [Crestor] 40 mg PO HS 12/20/18 07/31/19 History Atenolol [Tenormin] 25 mg PO DAILY 07/29/19 07/31/19 History Cyclobenzaprine [Flexeril] 5 mg PO HS 07/29/19 07/31/19 History HYDROcodone/APAP 10-325MG [[place] 1 tab PO TID 07/29/19 07/31/19 History 10-325] Melatonin 10 mg PO HS 07/29/19 07/31/19 History QUEtiapine [SEROquel] 75 mg PO HS 07/29/19 07/31/19 History rOPINIRole HCL [Requip] 0.5 mg PO HS 07/29/19 07/31/19 History Allergies Allergy/AdvReac Type Severity Reaction Status Date / Time aspirin Allergy COMA LIKE Verified 07/31/19 06:17 STATE codeine Allergy Rash/Hives Verified 07/31/19 06:17 Physical Exam Vitals: Vital Signs Temp Pulse Pulse Pulse Resp BP Pulse Ox 07/31/19 14:00 91 16 95 07/31/19 12:00 94 16 110/59 97 07/31/19 11:10 98.6 F 92 16 134/68 97 07/31/19 11:01 88 18 125/56 96 07/31/19 10:31 86 18 145/76 93 L 07/31/19 10:02 64 16 138/63 97 07/31/19 10:01 83 16 141/63 94 L 07/31/19 09:46 82 16 152/66 92 L 07/31/19 09:31 81 16 169/77 95 07/31/19 09:16 80 16 169/79 96 07/31/19 09:05 97.2 F L 83 16 167/79 94 L 07/31/19 06:48 98.0 F 75 16 159/67 95 Intake and Output 07/31/19 07/31/19 07/31/19 06:59 14:59 22:59 Intake Total 1650 Output Total 15 Balance 1635 Intake: IV 1650 Output: Estimated Blood Loss 15 Other: Weight 63.957 kg PHYSICAL EXAM: VITAL SIGNS: [As above] GENERAL: Sitting up in bed, alert and oriented 3, no acute distress HEENT: Conjunctivae normal. eyes normal. NECK: No JVD. No thyroid enlargement. No LNs CARDIOVASCULAR: S1, S2 regular.. No murmur RESPIRATION: Breath sounds diminished in the bases. No rhonchi or crackles. No bronchial breathing. ABDOMEN: Soft, status post surgery. Suprapubic dressing clean dry and intact. No guarding. no masses palpable. .Bowel sounds heard. LEGS: No edema. no swelling. No clubbing, no cyanosis PSYCHIATRY: Alert and oriented X3, mood and affect normal. NERVOUS SYSTEM: Cranial N 2-12 grossly normal. Moves all 4 limbs. Diffuse weakness ,No focal deficits. Strength and sensation grossly intact.. Skin: no rash Lymphatic system. No LN neck axilla. Results CBC & Chem 7: 07/31/19 06:50 Labs: Abnormal Lab Results - Last 24 Hours (Table) 07/31/19 Range/Units 06:39 POC Glucose (mg/dL) 149 H (75-99) mg/dL Assessment and Plan Assessment: -Incisional hernia open repair-abdomen -Diabetes mellitus -COPD, stable -Gastroesophageal reflux disease -Hypertension -Hyperlipidemia -Osteoarthritis -Hypothyroidism -History of multiple back surgeries -Depression -Fibromyalgia -Former nicotine dependence -DJD -IBS Plan: Continue on current medication regimen, monitoring and symptomatic treatment. Diet/pain management as per surgery. Aggressive pulmonary toileting with incentive spirometer ordered. GI and DVT prophylaxis in place. All meds have been reviewed and resumed accordingly. Further recommendations to follow. Thank you Dr. Dubois for the consult. The impression and plan of care has been dictated as directed. : I performed a history and examination of this patient, discussed the same with the dictator. I agree with the dictator's note ,documented as a scribe. Any additional findings or plans will be noted.
[2019-07-31] MEDS: HYDROcodone/APAP 10-325MG 1 EACH TAB PO PRN (17:02)
[2019-07-31] MEDS: IPRATROPIUM-ALBUTEROL 3 ML NEB INHALATION SCH ×2 (17:38→21:11)
[2019-07-31] MEDS: GABAPENTIN 400 MG CAP PO SCH ×2 (19:00→21:57)
[2019-07-31] MEDS: INSULIN ASPART (NovoLOG) 100 UNIT/ML VIAL SQ SCH ×2 (19:47→22:03)
[2019-07-31] MEDS: PANTOPRAZOLE 40 MG/10 ML VIAL IVP SCH (19:48)
[2019-07-31] MEDS ORDERED: ATORVASTATIN 80 MG TAB PO SCH (21:00)
[2019-07-31] MEDS ORDERED: QUEtiapine 25 MG TAB PO SCH (21:00)
[2019-07-31] MEDS ORDERED: MELATONIN 5 MG TABLET PO SCH (21:00)
[2019-07-31 21:40] LABS: Glucose,Whole Blood 183 mg/dL (75-99)
[2019-08-01] MEDS: HYDROcodone/APAP 10-325MG 1 EACH TAB PO PRN ×2 (01:23→10:34)
[2019-08-01] MEDS: HYDROmorphone 0.5 MG/0.5 ML SYRINGE IVP PRN ×3 (04:32→13:30)
[2019-08-01] MEDS ORDERED: LEVOTHYROXINE 25 MCG TAB PO SCH (06:30)
[2019-08-01 07:14] LABS: Basophils % (A) 1 %; Eosinophils % (A) 0 %; HCT 33.8 % (34.0-46.0); HGB 10.8 gm/dL (11.4-16.0); Lymphocytes # (A) 1.5 k/uL (1.0-4.8); Lymphocytes % (A) 19 %; MCH 30.8 pg (25.0-35.0); MCV 96.3 fL (80.0-100.0); Mean Platelet Volume 6.7; Monocytes # (A) 0.4 k/uL (0-1.0); Monocytes % (A) 5 %; Neutrophils # (A) 5.7 k/uL (1.3-7.7); Neutrophils % (A) 71 %; Platelet Count 263 k/uL (150-450); RBC 3.51 m/uL (3.80-5.40); RDW 13.2 % (11.5-15.5)
[2019-08-01 07:16] LABS: Glucose,Whole Blood 139 mg/dL (75-99)
[2019-08-01] MEDS: INSULIN ASPART (NovoLOG) 100 UNIT/ML VIAL SQ SCH ×2 (07:23→12:45)
[2019-08-01 07:38] LABS: African American GFR (CKD) >90 (>60 ml/min/1.73 sqM); Anion Gap 9 mmol/L; Blood Urea Nitrogen 13 mg/dL (7-17); Calcium 9.3 mg/dL (8.4-10.2); Carbon Dioxide 30 mmol/L (22-30); Chloride 102 mmol/L (98-107); Glucose 130 mg/dL (74-99); Sodium 141 mmol/L (137-145)
[2019-08-01 08:02] VITALS: BP 118/64; RESP 16; TEMP 98.9
[2019-08-01] MEDS ORDERED: CYANOCOBALAMIN-FA-PYRIDOXINE 1 EACH TAB PO SCH (09:00)
[2019-08-01] MEDS ORDERED: ATENOLOL 25 MG TAB PO SCH (09:00)
[2019-08-01] MEDS ORDERED: metFORMIN 500 MG TAB PO SCH (09:00)
[2019-08-01] MEDS ORDERED: FENOFIBRATE 160 MG TAB PO SCH (09:00)
[2019-08-01] MEDS ORDERED: ENOXAPARIN 40 MG/0.4 ML SYRINGE SQ SCH (09:00)
[2019-08-01] MEDS: IPRATROPIUM-ALBUTEROL 3 ML NEB INHALATION SCH ×2 (09:11→12:56)
[2019-08-01] MEDS: PANTOPRAZOLE 40 MG/10 ML VIAL IVP SCH (09:29)
[2019-08-01] MEDS: GABAPENTIN 400 MG CAP PO SCH ×2 (09:36→13:34)
[2019-08-01 12:27] LABS: Glucose,Whole Blood 103 mg/dL (75-99)
[2019-08-01 13:03] VITALS: PULSE 84
--- NOTE | 2019-08-01 13:56 | P.DS ---
Providers Expected date of discharge: 08/01/19 Attending physician: Walker Dubois Consults: 07/31/19 09:36 Consult Physician Routine Consulting Provider: Renny Sheriff Consult Reason/Comments: Medical management Do you want consulting provider notified?: Yes Primary care physician: Renny Sheriff [facility] Course: 64-year-old female who underwent repair of incarcerated incisional hernia, lysis of adhesions, and partial omentectomy. Patient is doing well postoperatively without immediate complications. Pain is controlled on oral medications. Vital signs have been stable. Tolerating diet without nausea or vomiting. She is stable for discharge home today. Please see EMR for further hospital course details. Discharge diagnosis 1. Status post repair of incarcerated incisional hernia, lysis of adhesions, and partial omentectomy Nurse practitioner note has been reviewed by physician. Signing provider agrees with the documented findings, assessment, and plan of care. Patient Condition at Discharge: Stable Plan - Discharge Summary Discharge Rx Participant: Yes New Discharge Prescriptions: New HYDROcodone/APAP 10-325MG [[place] 10-325] 1 tab PO Q6HR PRN 3 Days #12 tab PRN Reason: Pain No Action Levothyroxine Sodium [Synthroid] 25 mcg PO QAM Cholecalciferol [Vitamin D3 (25 Mcg = 1000 Iu)] 1,000 unit PO DAILY Furosemide [Lasix] 40 mg PO QAM metFORMIN HCL [Glucophage] 500 mg PO BID Potassium Chloride [Klor-Con 8] 10 meq PO DAILY Vitamin B Complex 1 cap PO DAILY Dicyclomine [Bentyl] 10 mg PO ACHS Albuterol Nebulized [Ventolin Nebulized] 2.5 mg INHALATION RT-Q4H PRN nebu PRN Reason: Shortness Of Breath Rosuvastatin Calcium [Crestor] 40 mg PO HS Gemfibrozil [Lopid] 600 mg PO AC-BID FLUoxetine HCL [PROzac] 20 mg PO DAILY Gabapentin [Neurontin] 800 mg PO QID QUEtiapine [SEROquel] 75 mg PO HS HYDROcodone/APAP 10-325MG [[place] 10-325] 1 tab PO TID Cyclobenzaprine [Flexeril] 5 mg PO HS Atenolol [Tenormin] 25 mg PO DAILY rOPINIRole HCL [Requip] 0.5 mg PO HS Melatonin 10 mg PO HS Discharge Medication List Levothyroxine Sodium [Synthroid] 25 mcg PO QAM 01/26/16 [History] Cholecalciferol [Vitamin D3 (25 Mcg = 1000 Iu)] 1,000 unit PO DAILY 06/03/16 [History] Furosemide [Lasix] 40 mg PO QAM 06/03/16 [History] Potassium Chloride [Klor-Con 8] 10 meq PO DAILY 06/03/16 [History] Vitamin B Complex 1 cap PO DAILY 06/03/16 [History] metFORMIN HCL [Glucophage] 500 mg PO BID 06/03/16 [History] Dicyclomine [Bentyl] 10 mg PO ACHS 04/27/18 [History] Albuterol Nebulized [Ventolin Nebulized] 2.5 mg INHALATION RT-Q4H PRN nebu 05/03/18 [Rx] FLUoxetine HCL [PROzac] 20 mg PO DAILY 12/20/18 [History] Gabapentin [Neurontin] 800 mg PO QID 12/20/18 [History] Gemfibrozil [Lopid] 600 mg PO AC-BID 12/20/18 [History] Rosuvastatin Calcium [Crestor] 40 mg PO HS 12/20/18 [History] Atenolol [Tenormin] 25 mg PO DAILY 07/29/19 [History] Cyclobenzaprine [Flexeril] 5 mg PO HS 07/29/19 [History] HYDROcodone/APAP 10-325MG [[place] 10-325] 1 tab PO TID 07/29/19 [History] Melatonin 10 mg PO HS 07/29/19 [History] QUEtiapine [SEROquel] 75 mg PO HS 07/29/19 [History] rOPINIRole HCL [Requip] 0.5 mg PO HS 07/29/19 [History] HYDROcodone/APAP 10-325MG [[place] 10-325] 1 tab PO Q6HR PRN 3 Days #12 tab 08/01/19 [Rx] Follow up Appointment(s)/Referral(s): Walker Dubois MD [STAFF PHYSICIAN] - 1 Week Patient Instructions/Handouts: Hemorrhoids (GEN), Diverticulosis (DC) Activity/Diet/Wound Care/Special Instructions: No driving while taking [place] No lifting over 10 pounds You may shower. No soaking or tub baths Very light activity until you are reevaluated at your follow up appointment with your surgeon
[2019-08-01] MEDS ORDERED: ATORVASTATIN 80 MG TAB PO SCH (21:00)
[2019-08-02] MEDS ORDERED: PANTOPRAZOLE 40 MG TABLET PO SCH (07:30)
== END 2019-08-01 14:00 ==
LOC: OR 05:56 → 4FBP 11:03 → OR 08-01 14:00
PROVIDERS: ATTEND Surgery
DX: K43.0 Incisional hernia with obstruction, without gangrene (principal); K66.0 Peritoneal adhesions (postprocedural) (postinfection); J44.9 Chronic obstructive pulmonary disease, unspecified; E11.40 Type 2 diabetes mellitus with diabetic neuropathy, unspecified; E11.51 Type 2 diabetes mellitus with diabetic peripheral angiopathy without gangrene; M79.7 Fibromyalgia; K21.9 Gastro-esophageal reflux disease without esophagitis; G61.0 Guillain-Barre syndrome; E78.5 Hyperlipidemia, unspecified; I10 Essential (primary) hypertension; M19.90 Unspecified osteoarthritis, unspecified site; E07.9 Disorder of thyroid, unspecified; K58.9 Irritable bowel syndrome, unspecified; M81.0 Age-related osteoporosis without current pathological fracture; F32.9 Major depressive disorder, single episode, unspecified; G89.29 Other chronic pain; Z80.0 Family history of malignant neoplasm of digestive organs; Z90.49 Acquired absence of other specified parts of digestive tract; Z90.710 Acquired absence of both cervix and uterus; Z98.1 Arthrodesis status; Z79.84 Long term (current) use of oral hypoglycemic drugs; Z79.890 Hormone replacement therapy; Z79.891 Long term (current) use of opiate analgesic; Z79.899 Other long term (current) drug therapy; Z88.6 Allergy status to analgesic agent; Z88.5 Allergy status to narcotic agent
CPT/HCPCS: 94640 ×4; 88305; 80048; 84132; 85025; 49561; J2250; J1644; J1100; J2710; J0690; J2405; J2001; J1650; J3010; J0330; J2704; C9113; J1170 ×2

== ENCOUNTER 2019-12-16 19:29 | Inpatient (IN) | payer MEDICARE, BC ==
[2019-12-16] MEDS ORDERED: SODIUM CHLORIDE 0.9% 500 ML 500 ML IV ONE (20:47)
[2019-12-16 21:23] LABS: Basophils % (A) 0 %; Eosinophils # (A) 0.1 k/uL (0-0.7); Eosinophils % (A) 1 %; HCT 39.3 % (34.0-46.0); Lymphocytes # (A) 1.4 k/uL (1.0-4.8); Lymphocytes % (A) 17 %; MCH 31.1 pg (25.0-35.0); MCV 94.2 fL (80.0-100.0); Monocytes # (A) 0.6 k/uL (0-1.0); Monocytes % (A) 7 %; Neutrophils # (A) 6.1 k/uL (1.3-7.7); Neutrophils % (A) 72 %; Platelet Count 274 k/uL (150-450); RBC 4.17 m/uL (3.80-5.40); RDW 12.5 % (11.5-15.5); WBC 8.5 k/uL (3.8-10.6)
[2019-12-16 21:32] LABS: ALT 25 U/L (4-34); AST 39 U/L (14-36); African American GFR (CKD) >90 (>60 ml/min/1.73 sqM); Albumin 4.7 g/dL (3.5-5.0); Alkaline Phosphatase 120 U/L (38-126); Anion Gap 10 mmol/L; Blood Urea Nitrogen 17 mg/dL (7-17); Calcium 9.8 mg/dL (8.4-10.2); Carbon Dioxide 27 mmol/L (22-30); Chloride 102 mmol/L (98-107); Glucose 125 mg/dL (74-99); Non-African American GFR(CKD) >90 (>60 ml/min/1.73 sqM); Potassium 3.9 mmol/L (3.5-5.1); Sodium 139 mmol/L (137-145); Total Bilirubin 0.3 mg/dL (0.2-1.3); Total Protein 7.8 g/dL (6.3-8.2)
--- NOTE | 2019-12-16 21:36 | XR ---
EXAMINATION TYPE: XR chest 2V DATE OF EXAM: 12/16/2019 COMPARISON: Chest x-ray May 11, 2018. HISTORY: Altered mental status and weakness. TECHNIQUE: Frontal and lateral views of the chest are obtained. FINDINGS: There is some chronic parenchymal change bilaterally without suspicious focal air space opacity, pleural effusion, or pneumothorax seen. The cardiac silhouette size is stab le and mildly enlarged with atherosclerotic aorta. Postsurgical change to the lumbar spine is partial ly imaged. Cholecystectomy clips noted. [place] osseous structures demineralized. IMPRESSION: Chronic parenchymal changes and mild cardiomegaly without new suspicious acute pulmonary process.
[2019-12-16 21:38] LABS: INR 0.9 (<1.2); Partial Thromboplastin Time 22.2 sec (22.0-30.0); Prothrombin Time 9.7 sec (9.0-12.0)
[2019-12-16 21:39] LABS: Appearance,Urine Clear (Clear); Bilirubin,Urine Negative (Negative); Blood,Urine Negative (Negative); Color,Urine Yellow; Glucose,Urine (UA) Negative (Negative); Hyaline Casts,Urine 4 /lpf (0-2); Ketones,Urine 1+ (Negative); Leukocyte Esterase,Urine Moderate (Negative); Mucus,Urine Few /hpf; Nitrite,Urine Negative (Negative); Protein,Urine 2+ (Negative); RBC,Urine 1 /hpf (0-5); Specific Gravity,Urine 1.029 (1.001-1.035); Squamous Epithelial Cell,Urine 1 /hpf (0-4); Urobilinogen,Urine <2.0 mg/dL (<2.0); WBC,Urine 19 /hpf (0-5)
[2019-12-16 21:40] LABS: Amphetamine Screen,Urine Not Detected (NotDetected); Barbiturate Screen,Urine Not Detected (NotDetected); Benzodiazepines Screen,Urine Detected (NotDetected); Cocaine Screen,Urine Not Detected (NotDetected); Methadone Screen, Urine Not Detected (NotDetected); Opiate Screen,Urine Detected (NotDetected); Oxycodone Screen, Urine Not Detected (NotDetected); Phencyclidine Screen,Urine Not Detected (NotDetected); Tricyclic Antidepressant,Urine Detected (NotDetected); Urn Cannabinoid Scrn Not Detected (NotDetected)
[2019-12-16] MEDS ORDERED: NALOXONE 0.4 MG/ML 1 ML VIAL IV PRN (22:49)
[2019-12-16] MEDS ORDERED: ACETAMINOPHEN TAB 325 MG TAB PO PRN (22:49)
--- NOTE | 2019-12-16 23:02 | ED ---
General Adult HPI - General Chief complaint: Altered Mental Status Stated complaint: altered mental issues Time Seen by Provider: 12/16/19 20:18 Source: patient, family Mode of arrival: wheelchair Limitations: no limitations - History of Present Illness Initial comments: 64 year-old female patient presents to the emergency department for evaluation of altered mental status. Patient states that she's been feeling more confused throughout the day today. Daughter states that she has been saying bizarre things and having difficulty with her memory. States that she did turn the heat in the house all the way down to 60 which is unusual for her. Patient denies any recent falls or head injury. Patient denies any current headache, blurred vision, double vision. Denies any dizziness or weakness. Denies any abdominal pain, nausea, vomiting, hematuria, dysuria, urinary urgency, urinary frequency. Daughter states the patient has had symptoms similar to this in the past when her "norco built up in her system". Patient takes [place] for chronic back pain. Patient denies any recent rash, fever, chills, shortness breath, chest pain, diarrhea, constipation, back pain, numbness, tingling, dizziness, weakness, or any other complaints. - Related Data Home Medications Medication Instructions Recorded Confirmed Levothyroxine Sodium [Synthroid] 25 mcg PO QAM 01/26/16 07/31/19 Cholecalciferol [Vitamin D3 (25 1,000 unit PO DAILY 06/03/16 07/31/19 Mcg = 1000 Iu)] Furosemide [Lasix] 40 mg PO QAM 06/03/16 07/31/19 Potassium Chloride [Klor-Con 8] 10 meq PO DAILY 06/03/16 07/31/19 Vitamin B Complex 1 cap PO DAILY 06/03/16 07/31/19 metFORMIN HCL [Glucophage] 500 mg PO BID 06/03/16 07/31/19 Dicyclomine [Bentyl] 10 mg PO ACHS 04/27/18 07/31/19 FLUoxetine HCL [PROzac] 20 mg PO DAILY 12/20/18 07/31/19 Gabapentin [Neurontin] 800 mg PO QID 12/20/18 07/31/19 Gemfibrozil [Lopid] 600 mg PO AC-BID 12/20/18 07/31/19 Rosuvastatin Calcium [Crestor] 40 mg PO HS 12/20/18 07/31/19 Atenolol [Tenormin] 25 mg PO DAILY 07/29/19 07/31/19 Cyclobenzaprine [Flexeril] 5 mg PO HS 07/29/19 07/31/19 HYDROcodone/APAP 10-325MG [[place] 1 tab PO TID 07/29/19 07/31/19 10-325] Melatonin 10 mg PO HS 07/29/19 07/31/19 QUEtiapine [SEROquel] 75 mg PO HS 07/29/19 07/31/19 rOPINIRole HCL [Requip] 0.5 mg PO HS 07/29/19 07/31/19 Previous Rx's Medication Instructions Recorded Albuterol Nebulized [Ventolin 2.5 mg INHALATION RT-Q4H PRN nebu 05/03/18 Nebulized] HYDROcodone/APAP 10-325MG [[place] 1 tab PO Q6HR PRN 3 Days #12 tab 08/01/19 10-325] Allergies Allergy/AdvReac Type Severity Reaction Status Date / Time aspirin Allergy COMA LIKE Verified 12/16/19 19:34 STATE codeine Allergy Rash/Hives Verified 12/16/19 19:34 Review of Systems ROS Statement: Those systems with pertinent positive or pertinent negative responses have been documented in the HPI. ROS Other: All systems not noted in ROS Statement are negative. Past Medical History Past Medical History: COPD, Diabetes Mellitus, Fibromyalgia, GERD/Reflux, Hyperlipidemia, Hypertension, Osteoarthritis (OA), Thyroid Disorder Additional Past Medical History / Comment(s): DJD. IBS. Neuropathy. Osteoporosis. Guillain-barre syndrome. PAD., leg & ankle swelling frequently History of Any Multi-Drug Resistant Organisms: None Reported Past Surgical History: Appendectomy, Back Surgery, Bowel Resection, Section, Cholecystectomy, Hysterectomy Additional Past Surgical History / Comment(s): Back sx x3-most recent was fusion w/cage and rods/screws,. COLONOSCOPY, calcium deposit removed from sternum Past Anesthesia/Blood Transfusion Reactions: No Reported Reaction Past Psychological History: Depression Smoking Status: Former smoker Past Alcohol Use History: None Reported Past Drug Use History: None Reported - Past Family History Mother Family Medical History: Cancer Additional Family Medical History / Comment(s): COLON General Exam Limitations: no limitations General appearance: alert, in no apparent distress, other (This a well- developed, well-nourished adult female patient in no acute distress. Vital signs upon presentation are temperature 99.9F, pulse 107, respirations 18, blood pressure 151/73, pulse ox 96% on room air.) Eye exam: Present: normal appearance, PERRL, EOMI. Absent: scleral icterus, conjunctival injection, periorbital swelling ENT exam: Present: normal exam, normal oropharynx, mucous membranes moist Respiratory exam: Present: normal lung sounds bilaterally. Absent: respiratory distress, wheezes, rales, rhonchi, stridor Cardiovascular Exam: Present: regular rate, normal rhythm, normal heart sounds. Absent: systolic murmur, diastolic murmur, rubs, gallop, clicks GI/Abdominal exam: Present: soft, normal bowel sounds. Absent: distended, tenderness, guarding, rebound, rigid Neurological exam: Present: alert, oriented X3, CN II-XII intact, other (Strength in all 4 extremities is 5/5) Psychiatric exam: Present: normal affect, normal mood Skin exam: Present: warm, dry, intact, normal color. Absent: rash Course Vital Signs 12/16/19 19:34 Temperature 99.9 F H Pulse Rate 107 H Respiratory 18 Rate Blood Pressure 151/73 O2 Sat by Pulse 96 Oximetry Medical Decision Making - Medical Decision Making 64 year-old female patient presented to the emergency department today for evaluation of altered mental status. Patient has been having trouble with her memory, saying bizarre things, and doing bizarre things at home. Physical examination is unremarkable. Vital signs reviewed she did have elevated temperature 99.9F. Mildly tachycardic. Labs reviewed and did reveal elevated white blood cell count and mild urinary tract infection. We will draw blood cultures and start IV antibiotics. She'll be admitted to the hospital for observation and monitoring overnight. CT of the brain will be added. Dr. Sheriff is agreeable. - Lab Data Result diagrams: 12/16/19 21:10 12/16/19 21:10 Lab Results 12/16/19 12/16/19 12/16/19 Range/Units 21:10 21:10 21:10 WBC 8.5 (3.8-10.6) k/uL RBC 4.17 (3.80-5.40) m/uL Hgb 13.0 (11.4-16.0) gm/dL Hct 39.3 (34.0-46.0) % MCV 94.2 (80.0-100.0) fL MCH 31.1 (25.0-35.0) pg MCHC 33.0 (31.0-37.0) g/dL RDW 12.5 (11.5-15.5) % Plt Count 274 (150-450) k/uL Neutrophils % 72 % Lymphocytes % 17 % Monocytes % 7 % Eosinophils % 1 % Basophils % 0 % Neutrophils # 6.1 (1.3-7.7) k/uL Lymphocytes # 1.4 (1.0-4.8) k/uL Monocytes # 0.6 (0-1.0) k/uL Eosinophils # 0.1 (0-0.7) k/uL Basophils # 0.0 (0-0.2) k/uL PT 9.7 (9.0-12.0) sec INR 0.9 (<1.2) APTT 22.2 (22.0-30.0) sec Sodium 139 (137-145) mmol/L Potassium 3.9 (3.5-5.1) mmol/L Chloride 102 (98-107) mmol/L Carbon Dioxide 27 (22-30) mmol/L Anion Gap 10 mmol/L BUN 17 (7-17) mg/dL Creatinine 0.57 (0.52-1.04) mg/dL Est GFR (CKD-EPI)AfAm >90 (>60 ml/min/1.73 sqM) Est GFR (CKD-EPI)NonAf >90 (>60 ml/min/1.73 sqM) Glucose 125 H (74-99) mg/dL Calcium 9.8 (8.4-10.2) mg/dL Total Bilirubin 0.3 (0.2-1.3) mg/dL AST 39 H (14-36) U/L ALT 25 (4-34) U/L Alkaline Phosphatase 120 (38-126) U/L Troponin I (0.000-0.034) ng/mL Total Protein 7.8 (6.3-8.2) g/dL Albumin 4.7 (3.5-5.0) g/dL Urine Color Urine Appearance (Clear) Urine pH (5.0-8.0) Ur Specific [place] (1.001-1.035) Urine Protein (Negative) Urine Glucose (UA) (Negative) Urine Ketones (Negative) Urine Blood (Negative) Urine Nitrite (Negative) Urine Bilirubin (Negative) Urine Urobilinogen (<2.0) mg/dL Ur Leukocyte Esterase (Negative) Urine RBC (0-5) /hpf Urine WBC (0-5) /hpf Ur Squamous Epith Cells (0-4) /hpf Hyaline Casts (0-2) /lpf Urine Mucus (None) /hpf Urine Opiates Screen (NotDetected) Ur Oxycodone Screen (NotDetected) Urine Methadone Screen (NotDetected) Ur Propoxyphene Screen (NotDetected) Ur Barbiturates Screen (NotDetected) U Tricyclic Antidepress (NotDetected) Ur Phencyclidine Scrn (NotDetected) Ur Amphetamines Screen (NotDetected) U Methamphetamines Scrn (NotDetected) U Benzodiazepines Scrn (NotDetected) Urine Cocaine Screen (NotDetected) U Marijuana (THC) Screen (NotDetected) Influenza Type A RNA (Not Detectd) Influenza Type B (PCR) (Not Detectd) 12/16/19 12/16/19 12/16/19 Range/Units 21:10 21:10 21:34 WBC (3.8-10.6) k/uL RBC (3.80-5.40) m/uL Hgb (11.4-16.0) gm/dL Hct (34.0-46.0) % MCV (80.0-100.0) fL MCH (25.0-35.0) pg MCHC (31.0-37.0) g/dL RDW (11.5-15.5) % Plt Count (150-450) k/uL Neutrophils % % Lymphocytes % % Monocytes % % Eosinophils % % Basophils % % Neutrophils # (1.3-7.7) k/uL Lymphocytes # (1.0-4.8) k/uL Monocytes # (0-1.0) k/uL Eosinophils # (0-0.7) k/uL Basophils # (0-0.2) k/uL PT (9.0-12.0) sec INR (<1.2) APTT (22.0-30.0) sec Sodium (137-145) mmol/L Potassium (3.5-5.1) mmol/L Chloride (98-107) mmol/L Carbon Dioxide (22-30) mmol/L Anion Gap mmol/L BUN (7-17) mg/dL Creatinine (0.52-1.04) mg/dL Est GFR (CKD-EPI)AfAm (>60 ml/min/1.73 sqM) Est GFR (CKD-EPI)NonAf (>60 ml/min/1.73 sqM) Glucose (74-99) mg/dL Calcium (8.4-10.2) mg/dL Total Bilirubin (0.2-1.3) mg/dL AST (14-36) U/L ALT (4-34) U/L Alkaline Phosphatase (38-126) U/L Troponin I <0.012 (0.000-0.034) ng/mL Total Protein (6.3-8.2) g/dL Albumin (3.5-5.0) g/dL Urine Color Yellow Urine Appearance Clear (Clear) Urine pH 7.0 (5.0-8.0) Ur Specific [place] 1.029 (1.001-1.035) Urine Protein 2+ H (Negative) Urine Glucose (UA) Negative (Negative) Urine Ketones 1+ H (Negative) Urine Blood Negative (Negative) Urine Nitrite Negative (Negative) Urine Bilirubin Negative (Negative) Urine Urobilinogen <2.0 (<2.0) mg/dL Ur Leukocyte Esterase Moderate H (Negative) Urine RBC 1 (0-5) /hpf Urine WBC 19 H (0-5) /hpf Ur Squamous Epith Cells 1 (0-4) /hpf Hyaline Casts 4 H (0-2) /lpf Urine Mucus Few H (None) /hpf Urine Opiates Screen Detected H (NotDetected) Ur Oxycodone Screen Not Detected (NotDetected) Urine Methadone Screen Not Detected (NotDetected) Ur Propoxyphene Screen Not Detected (NotDetected) Ur Barbiturates Screen Not Detected (NotDetected) U Tricyclic Antidepress Detected H (NotDetected) Ur Phencyclidine Scrn Not Detected (NotDetected) Ur Amphetamines Screen Not Detected (NotDetected) U Methamphetamines Scrn Not Detected (NotDetected) U Benzodiazepines Scrn Detected H (NotDetected) Urine Cocaine Screen Not Detected (NotDetected) U Marijuana (THC) Screen Not Detected (NotDetected) Influenza Type A RNA Not Detected (Not Detectd) Influenza Type B (PCR) Not Detected (Not Detectd) - Radiology Data Radiology results: report reviewed, image reviewed Two-view x-ray of the chest is obtained. Report reviewed in its entirety. Impression by Dr. Montemayor shows chronic parenchymal changes and mild cardiomegaly without is suspicious acute pulmonary process Disposition Clinical Impression: Urinary tract infection, Altered mental status Disposition: ADMITTED IP TO THIS [facility] Condition: Serious Referrals: Renny Sheriff MD [Primary Care Provider] - 1-2 days Decision to Admit Reason: Admit from EC Decision Date: 12/16/19 Decision Time: 23:02
--- NOTE | 2019-12-16 23:11 | CT ---
EXAMINATION TYPE: CT brain wo con DATE OF EXAM: 12/16/2019 COMPARISON: 04/30/2018 HISTORY: AMS CT DLP: 1082.40 mGycm Automated exposure control for dose reduction was used. Ventricles have normal size. There is no mass effect nor midline shift. There is no sign of intracran ial hemorrhage. There is mild cerebral atrophy. The calvarium is intact. There is no evidence of cere bral edema. Skull base is intact. IMPRESSION: Mild atrophy. No acute intracranial abnormality. No change.
[2019-12-16] MEDS: SODIUM CHLORIDE 0.9% 1,000 ML IV SCH (23:24)
[2019-12-17] MEDS ORDERED: KETOROLAC 30 MG/ML 1 ML VIAL IVP STA
[2019-12-17] MEDS ORDERED: HYDROcodone/APAP 5-325MG 1 EACH TAB PO STA ×2 (01:20)
[2019-12-17 08:20] LABS: Glucose,Whole Blood 171 mg/dL (75-99)
[2019-12-17 09:26] LABS: Basophils % (A) 0 %; Eosinophils # (A) 0.1 k/uL (0-0.7); Eosinophils % (A) 2 %; HCT 35.7 % (34.0-46.0); HGB 11.5 gm/dL (11.4-16.0); Lymphocytes # (A) 1.1 k/uL (1.0-4.8); Lymphocytes % (A) 20 %; MCH 30.9 pg (25.0-35.0); MCHC 32.2 g/dL (31.0-37.0); Mean Platelet Volume 7.1; Monocytes # (A) 0.4 k/uL (0-1.0); Monocytes % (A) 8 %; Neutrophils # (A) 3.5 k/uL (1.3-7.7); Neutrophils % (A) 66 %; Platelet Count 273 k/uL (150-450); RBC 3.72 m/uL (3.80-5.40); RDW 12.7 % (11.5-15.5); WBC 5.3 k/uL (3.8-10.6)
[2019-12-17] MEDS ORDERED: IPRATROPIUM-ALBUTEROL 3 ML NEB INHALATION PRN (09:33)
[2019-12-17] MEDS: ATENOLOL 25 MG TAB PO SCH (09:43)
[2019-12-17] MEDS: FUROSEMIDE 40 MG TAB PO SCH (09:43)
[2019-12-17] MEDS: HYDROcodone/APAP 5-325MG 1 EACH TAB PO PRN ×2 (09:43→17:48)
[2019-12-17 09:46] LABS: ALT 22 U/L (4-34); AST 36 U/L (14-36); African American GFR (CKD) >90 (>60 ml/min/1.73 sqM); Albumin 3.9 g/dL (3.5-5.0); Alkaline Phosphatase 96 U/L (38-126); Anion Gap 12 mmol/L; Blood Urea Nitrogen 18 mg/dL (7-17); Carbon Dioxide 25 mmol/L (22-30); Chloride 104 mmol/L (98-107); Glucose 151 mg/dL (74-99); Non-African American GFR(CKD) >90 (>60 ml/min/1.73 sqM); Sodium 141 mmol/L (137-145); Total Bilirubin 0.2 mg/dL (0.2-1.3); Total Protein 6.6 g/dL (6.3-8.2)
[2019-12-17] MEDS: IPRATROPIUM-ALBUTEROL 3 ML NEB INHALATION SCH ×3 (11:49→21:31)
[2019-12-17 12:20] LABS: Glucose,Whole Blood 151 mg/dL (75-99)
[2019-12-17] MEDS: GABAPENTIN 400 MG CAP PO SCH ×4 (12:59→21:00)
[2019-12-17] MEDS: FENOFIBRATE 160 MG TAB PO SCH (13:05)
[2019-12-17] MEDS: FLUoxetine HCL 20 MG CAP PO SCH (13:06)
[2019-12-17] MEDS: SODIUM CHLORIDE 0.9% 1,000 ML IV SCH (13:06)
[2019-12-17] MEDS: metFORMIN 500 MG TAB PO SCH ×2 (13:06→22:16)
[2019-12-17] MEDS: DICYCLOMINE 10 MG CAP PO SCH ×3 (13:06→21:00)
[2019-12-17] MEDS: LEVOTHYROXINE 25 MCG TAB PO SCH (13:06)
[2019-12-17] MEDS: INSULIN ASPART (NovoLOG) 100 UNIT/ML VIAL SQ SCH ×3 (13:07→22:09)
--- NOTE | 2019-12-17 13:34 | HP ---
HISTORY AND PHYSICAL This is a 64-year-old white female comes in with altered mental status to the emergency room, more confused throughout the day today. Does state she has been having seen bizarre things, having difficulty with her memory. She did turn the heat in the house all the way down to 60, which is unusual for her. Denied any trauma to the head, any headache, blurred vision, double vision, any dizziness or weakness. She apparently had some concern over this rash she has on her trunk and extremities, which appears to be minimal at this time. MEDICINES: 1. Synthroid 25 mcg daily. 2. Vitamin D daily. 3. Lasix 40 mg daily. 4. Klor-Con 10 mEq daily. 5. Metformin 500 b.i.d. 6. Bentyl 10 a.c. and at bedtime. 7. Prozac 20 daily. 8. Neurontin 800 q.i.d. 9. Lopid 600 b.i.d. 10.Tenormin 25 daily. 11.Crestor 40 mg daily. 12. . 13.[place] 10 t.i.d. 14.Seroquel 75 at night. 15.Requip 0.5 at night. PAST MEDICAL HISTORY: COPD, diabetes mellitus, fibromyalgia, GERD, dyslipidemia, hypertension, osteoarthritis, hypothyroidism, IBS, neuropathy, osteoporosis, Guillian-Harrison syndrome, PAD. SURGERIES: Appendectomy, back surgery, bowel resection, , cholecystectomy, hysterectomy, colonoscopies, back surgeries x3 with cage, screws and rods. History of depression. Former smoker. FAMILY HISTORY: Mother with cancer of the colon. PHYSICAL EXAMINATION: Well-developed, well-nourished white female, appears to be anxious and nervous on psych eval. She is concerned over a rash which is mild papular, some yellow exudative lesions on the posterior upper back. LUNGS: Show normal lung sounds. CARDIOVASCULAR: S1, S2. GI: Normal bowel sounds. NEUROLOGIC: Cranial nerves appear to be intact. PSYCH: As mentioned anxious and nervous. Temp 99.9, pulse 107, respiratory 18 to 20, blood pressure 150s over 70s. ASSESSMENT: 1. Altered mental status, trouble with her memory, seeing bizarre things, doing things at home, unclear etiology. 2. Mildly tachycardic. 3. She does have elevated white blood cell count and mild urinary tract infection. IV antibiotics will be given. Fluid rehydration will be given. CT of the head will be done. Neurology consult will be done. Please see further orders. MMODL / IJN: [id number] /
[2019-12-17 13:54] VITALS: RESP 16
[2019-12-17] MEDS: HYDROcodone/APAP 10-325MG 1 EACH TAB PO SCH ×2 (14:43→20:59)
[2019-12-17] MEDS: amLODIPine 5 MG TAB PO SCH (14:44)
--- NOTE | 2019-12-17 15:39 | P.CN ---
Psychiatric Consult - . Consult date: 12/17/19 Consult:: IDENTIFYING DATA: She is a 64-year-old female admitted to medicine service for evaluation of acute confusional state. The hospitalist consult to psychiatry for evaluation depression. HISTORY OF PRESENT ILLNESS: I reviewed the medical record and interviewed the patient. During a conversation with her sister she became acutely distressed. She talked about having difficulty finding words. Her sister was so concerned about her condition that she called the police. She called her neighbor who also expressed concern about her condition and brought her to the Medical Center. She denied that she was having problems or concerns other than issues dealing with chronic pain, "swelling" and a generalized rash. She denied that she had been feeling depressed or having thoughts of or suicide. She denied experiencing persistent uncontrollable anxiety. She denied that she had concerns or friends or family have expressed concerns about her memory. She reported prior episodes of confusion when her dose of [place] "backs up". She appears to be describing episodes of confusion as result of supratherapeutic doses of [place]. She denied a history of a depressive disorder or treatment for mental health or psychiatric problems. She denied history of use of alcohol or drugs. She denied history of elevated mood or irritability consistent with torie or hypomania. She denied obsessions or compulsions. She denied experiencing increases anxiety consistent with panic attack. She denied experiencing such psychotic symptoms as hallucinations, paranoia or thought disturbances. PAST PSYCHIATRIC HISTORY: None. PAST MEDICAL HISTORY: She has history of diabetes mellitus, GERD, hyperlipidemia, hypertension, thyroid disease, degenerative joint disease, irritable bowel syndrome, neuropathy, osteoporosis and a history of [place] beer syndrome and fibromyalgia. ALLERGIES: Aspirin, codeine. SUBSTANCE USE HISTORY: . FAMILY PSYCHIATRIC/SUBSTANCE USE HISTORY: Her mother and have history of alcohol use problems. SOCIAL HISTORY: She is born and raised intact family. She has 2 sisters. She graduated from high school. She was at the age of 17. Her 17 years ago. They had 2 daughters and 4 grandchildren. Her one daughter is . 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 She currently lives alone in her own home. MENTAL STATUS EXAM: She presented as a pale appearing moderately obese elderly woman who was pleasant on approach. She was sitting comfortably in a recliner. She made eye contact and attempted to interview. She had no distinguishing features or prominent physical abnormalities. She had a blunted but bright facial expression. She was alert and oriented to person, and place. She showed slight psychomotor retardation but no abnormal movements. I did not evaluate her gait. Her speech was spontaneous. She had word finding difficulties. She had no articulation difficulties. Her affect was blunted but stable and appropriate. She denied suicidal ideation, wishes or homicidal ideation. She denied feeling hopeless, helpless or worthless. She didn't express ideas reference, paranoid ideation or delusional thoughts. Her thinking was abstract and associations were coherent, logical and goal directed. She denied hallucinations did not appear to be responding to internal stimuli. We completed the Mini-Mental State Exam. Her total score was 21/30. A score of less than 24 he has usually considered abnormal in the score less than 21 is suggestive of a dementia. She was oriented to year, season, day and month. She did not know the date. She was fully oriented to place. She was able to register 3 memory words but could not recall them after distraction exercise. She was unable to perform serial sevens or spell the word "world" backwards. She showed no impairment in language or visual spatial skills. IMPRESSIONS: She is a 64-year-old female with multiple medical problems he presented to the Medical Center with a and acute confusional state. She denies depression or depressive symptoms. She denies persistent uncontrollable anxiety. She has no history of psychiatric treatment. Her performance on the Mini-Mental State Exam is suggestive of of a dementia but could be influenced by her current confusional state. PLAN: There is no indication for psychiatric treatment at this time. Her primary she repeat the Mini-Mental State Exam in 3-6 months. If she continues to demonstrate some impairment with memory, orientation or concentration. Consider evaluation for dementia. We will sign off on the case. Thank you for the consult.. 12/17/19 15:24
[2019-12-17 17:12] LABS: Glucose,Whole Blood 103 mg/dL (75-99)
[2019-12-17 20:53] LABS: Glucose,Whole Blood 109 mg/dL (75-99)
[2019-12-17] MEDS ORDERED: QUEtiapine 25 MG TAB PO SCH ×2 (21:00)
[2019-12-17] MEDS ORDERED: ATORVASTATIN 80 MG TAB PO SCH (21:00)
[2019-12-17] MEDS ORDERED: MELATONIN 5 MG TABLET PO SCH (21:00)
[2019-12-17] MEDS: hydrOXYzine HCL 10 MG TAB PO PRN (21:01)
[2019-12-18] MEDS: SODIUM CHLORIDE 0.9% 1,000 ML IV SCH ×2 (02:54→16:05)
[2019-12-18] MEDS: LEVOTHYROXINE 25 MCG TAB PO SCH (05:20)
[2019-12-18] MEDS: HYDROcodone/APAP 5-325MG 1 EACH TAB PO PRN (05:21)
[2019-12-18 06:58] LABS: Glucose,Whole Blood 103 mg/dL (75-99)
[2019-12-18] MEDS: IPRATROPIUM-ALBUTEROL 3 ML NEB INHALATION SCH ×3 (07:15→15:01)
[2019-12-18] MEDS: INSULIN ASPART (NovoLOG) 100 UNIT/ML VIAL SQ SCH ×3 (07:52→16:06)
[2019-12-18] MEDS: FLUoxetine HCL 20 MG CAP PO SCH (07:58)
[2019-12-18] MEDS: GABAPENTIN 400 MG CAP PO SCH ×2 (07:58→11:53)
[2019-12-18] MEDS: metFORMIN 500 MG TAB PO SCH (07:58)
[2019-12-18] MEDS: amLODIPine 5 MG TAB PO SCH (07:59)
[2019-12-18] MEDS: hydrOXYzine HCL 10 MG TAB PO PRN (07:59)
[2019-12-18] MEDS: DICYCLOMINE 10 MG CAP PO SCH ×2 (07:59→11:53)
[2019-12-18] MEDS: FENOFIBRATE 160 MG TAB PO SCH (07:59)
[2019-12-18] MEDS: HYDROcodone/APAP 10-325MG 1 EACH TAB PO SCH (07:59)
[2019-12-18] MEDS: FUROSEMIDE 40 MG TAB PO SCH (07:59)
[2019-12-18] MEDS: ATENOLOL 25 MG TAB PO SCH (07:59)
[2019-12-18] MEDS ORDERED: POTASSIUM CHLORIDE ER 10 MEQ TAB.ER.PRT PO SCH (09:00)
[2019-12-18 10:55] VITALS: BMI 25.4
[2019-12-18 11:28] LABS: Glucose,Whole Blood 182 mg/dL (75-99)
[2019-12-18] MEDS ORDERED: HYDROcodone/APAP 5-325MG 1 EACH TAB PO PRN (12:01)
[2019-12-18 12:55] VITALS: BP 122/66; TEMP 98.6
[2019-12-18 15:11] VITALS: PULSE 74
--- NOTE | 2019-12-18 15:14 | P.DS ---
Providers Date of admission: 12/18/19 08:49 Expected date of discharge: 12/18/19 Attending physician: Renny Sheriff Consults: 12/17/19 13:03 Consult Physician Routine Consulting Provider: Renny Javed Consult Reason/Comments: bizzare thinking Do you want consulting provider notified?: Yes Consult Physician Routine Consulting Provider: Shavon Navarro Consult Reason/Comments: ams Do you want consulting provider notified?: Yes 12/17/19 13:13 Consult Physician Routine Consulting Provider: Cookie Fitzgerald Consult Reason/Comments: rash Do you want consulting provider notified?: Yes 12/17/19 14:44 Consult Physician Routine Consulting Provider: Cookie Fitzgerald Consult Reason/Comments: rash Do you want consulting provider notified?: Yes Primary care physician: [facility] Course: Final Diagnoses: Altered mental status, hallucinating, memory deficits, possibly early dementia as per psychiatry, requiring further outpatient workup Acute UTI ruled out out urine culture negative, asymptomatic Chronic pain syndrome Hospital course this is a 64-year-old female admitted with multiple medical issues. Sensorium significantly improved. Alert and oriented 3. Ambulating in hallway, tolerating exertion well. Evaluated by multiple consults; psychiatry, dermatology, pain management. Significant clinical improvement. Cleared by all consults for discharge. Neurology service unavailable at this site at this time, outpatient follow-up recommended. Patient is being discharged home with family in a stable condition with guarded prognosis. EXAM: GENERAL: Alert and oriented 3, no acute distress. Patient currently calling family for a ride home. HEENT: Conjunctivae normal. eyes normal. NECK: No JVD. No thyroid enlargement. No LNs CARDIOVASCULAR: S1, S2 regular.. No murmur RESPIRATION: Breath sounds diminished in the bases. No rhonchi or crackles. No wheezing. ABDOMEN: Soft, nontender . No guarding. no masses palpable.Bowel sounds heard. PSYCHIATRY: Alert and oriented X3, mood and affect normal. NERVOUS SYSTEM: No focal deficits. The impression and plan of care has been dictated as directed. : I performed a history and examination of this patient, discussed the same with the dictator. I agree with the dictator's note ,documented as a scribe. Any additional findings or plans will be noted. Patient Condition at Discharge: Stable Plan - Discharge Summary Discharge Rx Participant: No New Discharge Prescriptions: New HYDROcodone/APAP 5-325MG [[place] 5-325] 1 each PO Q8HR PRN #9 tab PRN Reason: Moderate Pain amLODIPine [Norvasc] 5 mg PO DAILY #30 tab Triamcinolone 0.1% Cream [Kenalog 0.1% Cream] 1 applic TOPICAL BID #1 tube Ammonium Lactate Cream [Lac-Hydrin 12% Cream] 1 applic TOPICAL BID #1 tube Continue Levothyroxine Sodium [Synthroid] 25 mcg PO QAM Furosemide [Lasix] 40 mg PO QAM metFORMIN HCL [Glucophage] 500 mg PO BID Dicyclomine [Bentyl] 10 mg PO ACHS Gemfibrozil [Lopid] 600 mg PO AC-BID FLUoxetine HCL [PROzac] 20 mg PO DAILY QUEtiapine [SEROquel] 25 mg PO HS Atenolol [Tenormin] 25 mg PO DAILY rOPINIRole HCL [Requip] 0.5 mg PO HS Melatonin 10 mg PO HS Potassium Chloride [Klor-Con 10] 10 meq PO DAILY QUEtiapine [SEROquel] 50 mg PO HS Rosuvastatin Calcium [Crestor] 40 mg PO HS hydrOXYzine HCL 10 mg PO Q6HR PRN PRN Reason: Itching Changed Gabapentin [Neurontin] 800 mg PO TID #0 Discontinued HYDROcodone/APAP 10-325MG [[place] 10-325] 1 tab PO TID Discharge Medication List Levothyroxine Sodium [Synthroid] 25 mcg PO QAM 01/26/16 [History] Furosemide [Lasix] 40 mg PO QAM 06/03/16 [History] metFORMIN HCL [Glucophage] 500 mg PO BID 06/03/16 [History] Dicyclomine [Bentyl] 10 mg PO ACHS 04/27/18 [History] FLUoxetine HCL [PROzac] 20 mg PO DAILY 12/20/18 [History] Gemfibrozil [Lopid] 600 mg PO AC-BID 12/20/18 [History] Atenolol [Tenormin] 25 mg PO DAILY 07/29/19 [History] Melatonin 10 mg PO HS 07/29/19 [History] QUEtiapine [SEROquel] 25 mg PO HS 07/29/19 [History] rOPINIRole HCL [Requip] 0.5 mg PO HS 07/29/19 [History] Potassium Chloride [Klor-Con 10] 10 meq PO DAILY 12/17/19 [History] QUEtiapine [SEROquel] 50 mg PO HS 12/17/19 [History] Rosuvastatin Calcium [Crestor] 40 mg PO HS 12/17/19 [History] hydrOXYzine HCL 10 mg PO Q6HR PRN 12/17/19 [History] Ammonium Lactate Cream [Lac-Hydrin 12% Cream] 1 applic TOPICAL BID #1 tube 12/18/19 [Rx] Gabapentin [Neurontin] 800 mg PO TID #0 12/18/19 [Rx] HYDROcodone/APAP 5-325MG [[place] 5-325] 1 each PO Q8HR PRN #9 tab 12/18/19 [Rx] Triamcinolone 0.1% Cream [Kenalog 0.1% Cream] 1 applic TOPICAL BID #1 tube 12/18/19 [Rx] amLODIPine [Norvasc] 5 mg PO DAILY #30 tab 12/18/19 [Rx] Follow up Appointment(s)/Referral(s): Cookie Fitzgerald MD [STAFF PHYSICIAN] - 1 Week Renny Sheriff MD [Primary Care Provider] - 3 Days Derek Coles MD [STAFF PHYSICIAN] - 2 Weeks Patient Instructions/Handouts: Acute Rash (DC)
--- NOTE | 2019-12-18 15:34 | P.PAINCN ---
History of Present Illness - Reason for Consult Consult date: 12/18/19 - History of Present Illness This is a 64 years old female, who was admitted to [facility] because of altered mental status, patient had chronic back pain and peripheral neuropathy she was treated as an outpatient with Neurontin 800 mg every 6 hours and [place] 10/325 every 8 hours, patient reported that she was stopped her Neurontin 800 mg every 6 hours for a few weeks because she had skin rash, and a few days ago she restart taking Neurontin 800 mg every 6 hours, and also she is taking [place] 10/325 every 8 hours, she was confused and her daughter brought her to the hospital, patient denies any suicidal ideation she denies any fever or night sweats she denies any change in the bowel movement or urination Past Medical History Past Medical History: COPD, Diabetes Mellitus, Fibromyalgia, GERD/Reflux, Hyperlipidemia, Hypertension, Osteoarthritis (OA), Sleep Apnea/CPAP/BIPAP, Thyroid Disorder, Vascular Disorder Additional Past Medical History / Comment(s): Pt states she has been having generalized edema/generalized pain for approximately one week, pt states 30# unexplained wt loss since fall 2018, NIDDM type II, neuropathy bilateral feet/legs and occasionally hands, guillian barre syndrome, SOHEILA with occasional Cpap use, PAD, chronic low back pain, osteoporosis, antral ulcer, IBS, diverticular disease, hemorrhoids, RLS, frequent bilateral ankle/leg edema, hypothyroid. History of Any Multi-Drug Resistant Organisms: None Reported Past Surgical History: Appendectomy, Back Surgery, Bowel Resection, Section, Cholecystectomy, Hernia Repair, Hysterectomy, Tubal Ligation Additional Past Surgical History / Comment(s): Back sx x3-most recent was fusion w/cage and rods/screws, bowel resection d/t diverticular disease, D&C, calcium deposit removed off sternum, incisional hernia repair, EGD, colonoscopies. Past Anesthesia/Blood Transfusion Reactions: No Reported Reaction Smoking Status: Former smoker - Past Family History Mother Family Medical History: Cancer Additional Family Medical History / Comment(s): Mother of colon cancer. Father History Unknown: Yes Additional Family Medical History / Comment(s): Father in his sleep. Medications and Allergies Home Medications Medication Instructions Recorded Confirmed Type Levothyroxine Sodium [Synthroid] 25 mcg PO QAM 01/26/16 12/17/19 History Furosemide [Lasix] 40 mg PO QAM 06/03/16 12/17/19 History metFORMIN HCL [Glucophage] 500 mg PO BID 06/03/16 12/17/19 History Dicyclomine [Bentyl] 10 mg PO ACHS 04/27/18 12/17/19 History FLUoxetine HCL [PROzac] 20 mg PO DAILY 12/20/18 12/17/19 History Gemfibrozil [Lopid] 600 mg PO AC-BID 12/20/18 12/17/19 History Atenolol [Tenormin] 25 mg PO DAILY 07/29/19 12/17/19 History Melatonin 10 mg PO HS 07/29/19 12/17/19 History QUEtiapine [SEROquel] 25 mg PO HS 07/29/19 12/17/19 History rOPINIRole HCL [Requip] 0.5 mg PO HS 07/29/19 12/17/19 History Potassium Chloride [Klor-Con 10] 10 meq PO DAILY 12/17/19 12/17/19 History QUEtiapine [SEROquel] 50 mg PO HS 12/17/19 12/17/19 History Rosuvastatin Calcium [Crestor] 40 mg PO HS 12/17/19 12/17/19 History hydrOXYzine HCL 10 mg PO Q6HR PRN 12/17/19 12/17/19 History Ammonium Lactate Cream [Lac-Hydrin 1 applic TOPICAL BID #1 tube 12/18/19 Rx 12% Cream] Gabapentin [Neurontin] 800 mg PO TID #0 12/18/19 12/17/19 Rx HYDROcodone/APAP 5-325MG [[place] 1 each PO Q8HR PRN #9 tab 12/18/19 Rx 5-325] Triamcinolone 0.1% Cream [Kenalog 1 applic TOPICAL BID #1 tube 12/18/19 Rx 0.1% Cream] amLODIPine [Norvasc] 5 mg PO DAILY #30 tab 12/18/19 Rx Allergies Allergy/AdvReac Type Severity Reaction Status Date / Time aspirin Allergy COMA LIKE Verified 12/16/19 19:34 STATE codeine Allergy Rash/Hives Verified 12/16/19 19:34 Physical Exam Vitals: Vital Signs Temp Pulse Pulse Pulse Resp BP Pulse Ox 12/18/19 15:11 74 12/18/19 15:01 80 12/18/19 12:54 98.6 F 76 16 122/66 95 12/18/19 10:54 80 12/18/19 10:41 84 12/18/19 07:27 80 12/18/19 07:15 80 12/18/19 05:04 97.8 F 69 16 129/64 96 12/17/19 20:44 98.0 F 70 16 127/73 95 12/17/19 17:27 153/73 12/17/19 16:03 82 12/17/19 15:54 80 Intake and Output 12/18/19 12/18/19 12/18/19 06:59 14:59 22:59 Intake Total 480 Balance 480 Intake: Oral 480 Other: Voiding Method Bedside Commode # Voids 1 1 # Bowel Movements 1 Weight 58.967 kg Patient was examined at [address] [place] [address] 2019 Physical Examinations : -Constitutiona : Cooperative , not in acute distress . -HEENT : nech : supple , no Lymphadenopathy , normal thyroid size . : eyes : no ptosis , no icterus, no photoph obia . : ENT : normal of hearing , normal oropharynx , no Thrush . - Respiratory : Chest clear to auscultations Bilaterally , no wheezing , no Rhonchi . - Cardiovascula : regular rate and rhythem , S1 , S2 , no S3 , no S4. - Gastrointestina : abdomen soft no tenderness , bowel sounds , no organomegally . - Genitourinary : Defferred . - neurologic : Cranial nerve II to XII intact , no focal neurological deffecit , alert and oriented 3 . -psychatric : alert , oriented X 3 , appropriate affect , intact judgment and insight . -Lymphatic : no Lymphadenopathy . - musculoskeltal : Lumber spine moter stegnth lower extremities ,thigh and legs 4/5 Right side , 4/5 Left side Results CBC & Chem 7: 12/17/19 08:06 12/17/19 08:06 Labs: Abnormal Lab Results - Last 24 Hours (Table) 12/17/19 12/17/19 12/18/19 Range/Units 17:05 20:43 06:56 POC Glucose (mg/dL) 103 H 109 H 103 H (75-99) mg/dL 12/18/19 Range/Units 11:26 POC Glucose (mg/dL) 182 H (75-99) mg/dL Microbiology - Last 24 Hours (Table) 12/16/19 21:10 Urine Culture - Final Urine,Voided 12/16/19 23:19 Blood Culture - Preliminary Blood No Growth after 24 hours Assessment and Plan Plan: Assessment and plan= 64 years old female who was admitted to [facility] secondary to confusion, currently patient alert oriented 3 Peripheral neuropathy Chronic low back pain Patient confusion state most likely secondary to overdose of Neurontin because patient was on 800 mg every 6 hours and it was stopped for a few weeks, and she was restarted on a high dose 800 mg every 6 hours, I recommend to decrease the Neurontin dose to 800 every 8 hours, and also recommend degrees [place] to 5/325 every 8 hours. Patient will follow up with her primary care as an outpatient. Time with Patient: Less than 30 PQRS Measure Charge Sheet PQRS Narrative: Smoking Status Former smoker Blood Pressure [Right Arm] 122/66 Blood Pressure 152/99 Pain Intensity [Generalized] 0 Pain Intensity 9 Pain Scale Used Numeric (1 - 10) Scale Used Numeric (1 - 10) Home Medications: Ambulatory Orders Levothyroxine Sodium [Synthroid] 25 mcg PO QAM 01/26/16 Furosemide [Lasix] 40 mg PO QAM 06/03/16 metFORMIN HCL [Glucophage] 500 mg PO BID 06/03/16 Dicyclomine [Bentyl] 10 mg PO ACHS 04/27/18 FLUoxetine HCL [PROzac] 20 mg PO DAILY 12/20/18 Gemfibrozil [Lopid] 600 mg PO AC-BID 12/20/18 Atenolol [Tenormin] 25 mg PO DAILY 07/29/19 Melatonin 10 mg PO HS 07/29/19 QUEtiapine [SEROquel] 25 mg PO HS 07/29/19 rOPINIRole HCL [Requip] 0.5 mg PO HS 07/29/19 Potassium Chloride [Klor-Con 10] 10 meq PO DAILY 12/17/19 QUEtiapine [SEROquel] 50 mg PO HS 12/17/19 Rosuvastatin Calcium [Crestor] 40 mg PO HS 12/17/19 hydrOXYzine HCL 10 mg PO Q6HR PRN 12/17/19 Ammonium Lactate Cream [Lac-Hydrin 12% Cream] 1 applic TOPICAL BID #1 tube 12/18/19 Gabapentin [Neurontin] 800 mg PO TID #0 12/18/19 HYDROcodone/APAP 5-325MG [[place] 5-325] 1 each PO Q8HR PRN #9 tab 12/18/19 Triamcinolone 0.1% Cream [Kenalog 0.1% Cream] 1 applic TOPICAL BID #1 tube 12/18/19 amLODIPine [Norvasc] 5 mg PO DAILY #30 tab 12/18/19
[2019-12-18] MEDS ORDERED: GABAPENTIN 400 MG CAP PO SCH (16:00)
[2019-12-18] MEDS ORDERED: AMMONIUM LACTATE 12% CREAM 140 GM TUBE TOPICAL SCH (21:00)
[2019-12-18] MEDS ORDERED: TRIAMCINOLONE 0.1% CREAM 80 GM TUBE TOPICAL SCH (21:00)
--- NOTE | 2019-12-18 22:43 | CONS ---
CONSULTATION DATE OF CONSULTATION: 12/18/2019. REQUESTING PHYSICIANS: Dr. Renny Sheriff. REASON FOR CONSULTATION: Generalized rash. HISTORY OF PRESENT ILLNESS: The patient is a 64-year-old male complaining of a bumpy itchy rash located on the back, chest, scalp and abdomen for about a month. She states she does scratch and dig at the lesions because they are very itchy. She has not been treated for the rash in the past. PAST MEDICAL HISTORY: COPD, diabetes mellitus, fibromyalgia, GERD, dyslipidemia, hypertension, osteoarthritis, hypothyroidism, IVF, neuropathy, osteoporosis, Guillain [place] syndrome, depression, and peripheral artery disease. PAST SURGICAL HISTORY: Appendectomy and back surgery. Bowel resection, , cholecystectomy, hysterectomy, colonoscopy, back surgery. MEDICATIONS: See MAR ALLERGIES: Aspirin Codeine SOCIAL HISTORY: Former smoker. REVIEW OF SYSTEMS: As per history of present illness. PHYSICAL EXAM: Excoriated ulceration located on the right posterior shoulder. Multiple scattered stuck-on inflamed papules with crusts located on the arms, abdomen and scalp. Multiple pigmented black papules located on the back. ASSESSMENT: Irritated seborrheic keratoses with associated pruritus. PLAN: 1. Start triamcinolone 0.1% cream, apply to affected areas on scalp and body for 2 weeks, then discontinue. 2. Start ammonium lactate 12% cream, apply to affected areas twice daily. 3. Follow up in the clinic after discharge for treatment with liquid nitrogen. I performed a History & Physical Examination of the patient and discussed their management with nurse practitioner. I reviewed the nurse practitioner's note and agree with the documented findings and plan of care. Thank you for the consultation. MMODL / IJN: [id number] / BOYD
--- NOTE | 2019-12-23 13:54 | CDI ---
Documentation Clarification Form Date: 12/23/19 From: Izabela Guy Phone: If you have a question about this query, please contact Katrin Christianson, Dandy Operator at [phone] between 8am and 5pm. Admit Date: 12/18/19 Discharge Date: 12/18/19 Patient Name: ARELIS GODWIN Visit Number: [id number] ATTENTION: The Clinical Documentation Specialists (CDI) and [facility] Coding Staff appreciate your assistance in clarifying documentation. Please respond to the clarification below the line at the bottom and electronically sign. The CDI & [facility] Coding staff will review the response and follow-up if needed. Please note: Queries are made part of the Legal Health Record. If you have any questions, please contact the author of this message via ITS. Dear Dr. Renny Sheriff, Conflicting documentation has been found in the medical record: Per Pain Medicine documentation: Patient confusion state most likely secondary to overdose of Neurontin because patient was on 800 mg every 6 hours and it was stopped for a few weeks, and she restarted on a high dose 800 mg every 6 hours, I recommend to decrease the Neurontin dose every 8 hours, and also recommend decrease [place] to 5/325 every 8 hours. Per your DS: Altered mental status, hallucinating, memory deficits, possibly early dementia as per psychiatry. Per Psych consult: Her performance on the Mini-Mental State Exam is suggestive of a dementia but could be influenced by her current confusional state. History/Risk Factors: Diabetic neuropathy, peripheral angiopathy, hypothyroidism, seborrhic keratosis, SOHEILA, chronic pain syndrome w dorsalgia Clinical Indicators: More confused, turned down heat to 60 degrees, takes [place] for chronic back pain. Treatment: medications adjusted In your opinion, what is the most clinically appropriate diagnosis for the patient's altered mental status? Accidental poisoning from Neurontin Dementia Other explanation of clinical findings Unable to determine (no explanation for clinical findings) MTDD
--- NOTE | 2019-12-26 08:28 | DS ---
DISCHARGE SUMMARY ADDENDUM TO DISCHARGE SUMMARY: Please add: Dementia with delirium. MMODL / IJN: [id number] /
== END 2019-12-18 16:12 | disposition home or self-care (01) | DRG 884 ==
LOC: EC 19:29 → 6NMEDSUR 23:08 → OBSVTOIN 12-18 08:49
PROVIDERS: ADMIT Family Medicine; ATTEND Family Medicine
DX: F03.90 Unspecified dementia, unspecified severity, without behavioral disturbance, psychotic disturbance, mood disturbance, and anxiety (principal); F05 Delirium due to known physiological condition; E11.42 Type 2 diabetes mellitus with diabetic polyneuropathy; E11.51 Type 2 diabetes mellitus with diabetic peripheral angiopathy without gangrene; E03.9 Hypothyroidism, unspecified; L82.1 Other seborrheic keratosis; G89.4 Chronic pain syndrome; M54.9 Dorsalgia, unspecified; L29.9 Pruritus, unspecified; G47.33 Obstructive sleep apnea (adult) (pediatric); M79.7 Fibromyalgia; F32.9 Major depressive disorder, single episode, unspecified; K21.9 Gastro-esophageal reflux disease without esophagitis; E78.5 Hyperlipidemia, unspecified; I10 Essential (primary) hypertension; J44.9 Chronic obstructive pulmonary disease, unspecified; G25.81 Restless legs syndrome; K57.90 Diverticulosis of intestine, part unspecified, without perforation or abscess without bleeding; K64.9 Unspecified hemorrhoids; K58.9 Irritable bowel syndrome, unspecified; M81.0 Age-related osteoporosis without current pathological fracture; M19.90 Unspecified osteoarthritis, unspecified site; Z79.84 Long term (current) use of oral hypoglycemic drugs; Z79.890 Hormone replacement therapy; Z79.891 Long term (current) use of opiate analgesic; Z79.899 Other long term (current) drug therapy; Z87.891 Personal history of nicotine dependence; Z86.69 Personal history of other diseases of the nervous system and sense organs; Z98.891 History of uterine scar from previous surgery; Z90.49 Acquired absence of other specified parts of digestive tract; Z90.710 Acquired absence of both cervix and uterus; Z98.1 Arthrodesis status; Z88.6 Allergy status to analgesic agent; Z87.11 Personal history of peptic ulcer disease; Z98.51 Tubal ligation status; Z99.89 Dependence on other enabling machines and devices; Z88.5 Allergy status to narcotic agent; Z80.0 Family history of malignant neoplasm of digestive organs
CPT/HCPCS: 36415; 70450; 71046; 80053; 80306; 81001; 84484; 85025; 85610; 85730; 87040; 87086; 87502; 93005; 94640; 96361; 96374; 99285

== ENCOUNTER 2020-01-08 11:32 | Inpatient (IN) | payer MEDICARE, BC ==
[2020-01-08 17:00] LABS: Glucose,Whole Blood 135 mg/dL (75-99)
[2020-01-08] MEDS ORDERED: hydrOXYzine HCL 10 MG TAB PO PRN (19:25)
[2020-01-08] MEDS: ATORVASTATIN 80 MG TAB PO SCH (20:04)
[2020-01-08] MEDS: methylPREDNISolone SOD SUCCI 125 MG/2 ML VIAL IV SCH ×2 (20:04→23:35)
[2020-01-08] MEDS: SODIUM CHLORIDE 0.9% 1,000 ML IV SCH (20:04)
[2020-01-08] MEDS: QUEtiapine 25 MG TAB PO SCH (20:05)
[2020-01-08] MEDS: DICYCLOMINE 10 MG CAP PO SCH (20:05)
[2020-01-08] MEDS: metFORMIN 500 MG TAB PO SCH (20:05)
[2020-01-08 20:18] LABS: Glucose,Whole Blood 140 mg/dL (75-99)
[2020-01-08] MEDS: HYDROcodone/APAP 5-325MG 1 EACH TAB PO PRN (20:29)
[2020-01-08] MEDS: INSULIN ASPART (NovoLOG) 100 UNIT/ML VIAL SQ SCH (20:40)
[2020-01-08] MEDS: AMMONIUM LACTATE 12% CREAM 140 GM TUBE TOPICAL SCH (22:02)
[2020-01-08] MEDS: GABAPENTIN 400 MG CAP PO SCH (22:03)
[2020-01-08] MEDS: TRIAMCINOLONE 0.1% CREAM 80 GM TUBE TOPICAL SCH (22:03)
[2020-01-08] MEDS: diphenhydrAMINE 25 MG CAP PO PRN (23:36)
[2020-01-09 04:46] LABS: Glucose,Whole Blood 196 mg/dL (75-99)
[2020-01-09] MEDS: LEVOTHYROXINE 25 MCG TAB PO SCH (05:06)
[2020-01-09] MEDS: HYDROcodone/APAP 5-325MG 1 EACH TAB PO PRN (05:16)
[2020-01-09] MEDS: methylPREDNISolone SOD SUCCI 125 MG/2 ML VIAL IV SCH ×3 (07:26→23:40)
[2020-01-09] MEDS: DICYCLOMINE 10 MG CAP PO SCH ×4 (07:27→21:09)
[2020-01-09] MEDS: INSULIN ASPART (NovoLOG) 100 UNIT/ML VIAL SQ SCH ×4 (07:31→21:44)
[2020-01-09] MEDS: diphenhydrAMINE 25 MG CAP PO PRN (07:31)
[2020-01-09 07:39] LABS: Glucose,Whole Blood 171 mg/dL (75-99)
[2020-01-09] MEDS: FENOFIBRATE 160 MG TAB PO SCH (09:17)
[2020-01-09] MEDS: amLODIPine 5 MG TAB PO SCH (09:17)
[2020-01-09] MEDS: FUROSEMIDE 40 MG TAB PO SCH (09:17)
[2020-01-09] MEDS: FLUoxetine HCL 20 MG CAP PO SCH (09:18)
[2020-01-09] MEDS: ATENOLOL 25 MG TAB PO SCH (09:18)
[2020-01-09] MEDS: metFORMIN 500 MG TAB PO SCH ×2 (09:18→21:09)
[2020-01-09] MEDS: POTASSIUM CHLORIDE ER 10 MEQ TAB.ER.PRT PO SCH (09:18)
[2020-01-09] MEDS: GABAPENTIN 400 MG CAP PO SCH ×3 (09:18→21:08)
[2020-01-09] MEDS: TRIAMCINOLONE 0.1% CREAM 80 GM TUBE TOPICAL SCH (09:20)
[2020-01-09] MEDS: AMMONIUM LACTATE 12% CREAM 140 GM TUBE TOPICAL SCH ×2 (11:37→21:08)
[2020-01-09 12:24] LABS: Glucose,Whole Blood 164 mg/dL (75-99)
[2020-01-09 14:20] VITALS: BMI 24.3
[2020-01-09] MEDS ORDERED: PERMETHRIN 1% CREME RINSE 59 ML LIQUID TOPICAL ONE (14:52)
[2020-01-09] MEDS ORDERED: PERMETHRIN 5% CREAM 60 GM TUBE TOPICAL ONE (14:53)
--- NOTE | 2020-01-09 15:08 | HP ---
HISTORY AND PHYSICAL A 64-year-old white female who is admitted with severe urticaria and entire body dermatitis of unclear etiology. Patient cannot tolerate it at home. Failed multiple treatments including Benadryl and medication changes unclear etiology. The rash is worse and it is over her entire body. She has been taking Atarax at home as well as Benadryl with ammonium lactate with minimal relief. She is admitted for Infectious Disease and Dermatology consults. Started on IV Solu-Medrol and cortisone cream. HOME MEDICINES: 1. Seroquel 25 q.h.s. 2. Requip 0.5 q.h.s. 3. Triamcinolone cream. 4. Potassium chloride 10 mEq daily. 5. Metformin 500 b.i.d. 6. Melatonin 10 at night. 7. Synthroid 25 daily. 8. Hydroxyzine 10 mg p.o. q.6 hours p.r.n. 9. [place] 10 q.8 hours p.r.n. 10.Neurontin 800 t.i.d. 11.Lasix 40 mg daily. 12.Prozac 20 daily. 13.Fenofibrate 160 daily. 14.Benadryl 25 q.i.d. p.r.n. 15.Bentyl 10 mg a.c. and at bedtime. 16.Lipitor 80 daily. 17.Tenormin 25 daily. 18.Norvasc 5 mg daily. PAST MEDICAL HISTORY: COPD, nicotine addiction, hypertension, neuropathy, depression, mood disorder, degenerative disk disease, dyslipidemia, chronic dermatitis. 14 POINT REVIEW OF SYSTEMS: As mentioned above, severe anxiety, severe rash. Otherwise negative. Temperature 98.4, blood pressure 130s/70s, O2 is 93% on room air to 89% on room air, respiratory rate 16 to 20, O2 saturation 76% to 79%. LUNGS: Show decreased breath sounds x4. CARDIOVASCULAR: S1, S2. GI: Soft. HEMATOLOGY: Negative Homans. OPHTHALMOLOGIC: Pupils equal, round, reactive. INTEGUMENT: Urticarial dermatitis throughout her extremities. Her body redness, excoriations, urticaria. There are some mild yellow plaque formation. ASSESSMENT: 1. Chronic dermatitis, unclear etiology. 2. Hypoxemia, secondary to possible chronic obstructive pulmonary disease. Will do a chest x-ray, possible D-dimer, rule out PE. Continue home medications. Get Dermatology to see her. Continue hypertension, bipolar medication etc. and continue current treatment. MMODL / IJN: [id number] /
[2020-01-09 15:09] LABS: Basophils % (A) 0 %; Eosinophils % (A) 0 %; HCT 39.4 % (34.0-46.0); Lymphocytes % (A) 8 %; MCH 31.7 pg (25.0-35.0); MCHC 33.1 g/dL (31.0-37.0); MCV 95.8 fL (80.0-100.0); Mean Platelet Volume 7.4; Monocytes # (A) 0.4 k/uL (0-1.0); Monocytes % (A) 3 %; Neutrophils # (A) 10.5 k/uL (1.3-7.7); Neutrophils % (A) 86 %; Platelet Count 471 k/uL (150-450); RBC 4.11 m/uL (3.80-5.40); RDW 12.3 % (11.5-15.5); WBC 12.2 k/uL (3.8-10.6)
[2020-01-09 15:25] LABS: Albumin 4.7 g/dL (3.5-5.0); Calcium 9.9 mg/dL (8.4-10.2); Potassium 3.8 mmol/L (3.5-5.1); Total Bilirubin 0.4 mg/dL (0.2-1.3); Total Protein 8.4 g/dL (6.3-8.2)
[2020-01-09 15:44] LABS: Erythrocyte Sedimentation Rate 97 mm/hr (0-20)
--- NOTE | 2020-01-09 16:25 | XR ---
EXAMINATION TYPE: XR chest 1V portable DATE OF EXAM: 01/09/2020 HISTORY: Shortness of breath. COMPARISON: 12/16/2019 TECHNIQUE: Single view of the chest is submitted. FINDINGS: Demonstrated are scattered senescent parenchymal change. There is no evidence for focal infiltrate. The heart is stable. Hilar and mediastinal structures are within normal limits. Degenerative changes are seen of the dorsal spine. IMPRESSION: 1. Chronic changes without evidence for acute pulmonary disease.
[2020-01-09] MEDS: SODIUM CHLORIDE 0.9% 1,000 ML IV SCH (16:26)
[2020-01-09] MEDS ORDERED: IVERMECTIN 3 MG TABLET PO STA (16:39)
--- NOTE | 2020-01-09 17:17 | P.PN ---
Subjective Progress Note Date: 01/09/20 This is 64-year-old female admitted with multiple medical issues including severe dermatitis. Chest x-ray reporting chronic changes, nonacute. Intense itching from scalp to toes. Isolated fever of 100.1, WBC 12.2. Vital signs stable, maintaining O2 sats in the high 90s on room air. Evaluated by infect ious disease, suspected scabies. Denies chest pain, palpitations or shortness of breath. Objective - Vital Signs Vital signs: Vital Signs Temp 100.1 F H 01/09/20 15:00 Pulse 94 01/09/20 15:00 Resp 20 01/09/20 15:00 BP 151/82 01/09/20 15:00 Pulse Ox 96 01/09/20 15:00 Intake & Output 01/08/20 01/09/20 01/09/20 18:59 06:59 18:59 Intake Total 270 400 Balance 270 400 Weight 56.4 kg 56.4 kg Intake: Intake, IV Titration 400 Amount Sodium Chloride 0.9% 1, 400 000 ml @ 50 mls/hr IV . Q20H [facility] Rx#:[id number] Oral 270 Other: Voiding Method Toilet # Voids 1 - Exam GENERAL: Alert and oriented 3, no acute distress. Patient currently calling family for a ride home. HEENT: Conjunctivae normal. eyes normal. NECK: No JVD. No thyroid enlargement. No LNs CARDIOVASCULAR: S1, S2 regular.. No murmur RESPIRATION: Breath sounds diminished in the bases. No rhonchi or crackles. No wheezing. ABDOMEN: Soft, nontender . No guarding. no masses palpable.Bowel sounds heard. SKIN: Papular ,puritic skin rash with sores, dry, nondraining on scalp,all 4 extremities,bilateral axillas, torso. PSYCHIATRY: Alert and oriented X3, mood and affect normal. NERVOUS SYSTEM: No focal deficits. - Labs CBC & Chem 7: 01/09/20 14:46 01/09/20 14:46 Labs: Abnormal Lab Results - Last 24 Hours (Table) 01/08/20 01/08/20 01/09/20 Range/Units 16:39 20:16 04:44 WBC (3.8-10.6) k/uL Plt Count (150-450) k/uL Neutrophils # (1.3-7.7) k/uL ESR (0-20) mm/hr Chloride (98-107) mmol/L BUN (7-17) mg/dL Glucose (74-99) mg/dL POC Glucose (mg/dL) 135 H 140 H 196 H (75-99) mg/dL Alkaline Phosphatase (38-126) U/L Total Protein (6.3-8.2) g/dL 01/09/20 01/09/20 01/09/20 Range/Units 07:28 12:10 14:46 WBC 12.2 H (3.8-10.6) k/uL Plt Count 471 H (150-450) k/uL Neutrophils # 10.5 H (1.3-7.7) k/uL ESR 97 H (0-20) mm/hr Chloride (98-107) mmol/L BUN (7-17) mg/dL Glucose (74-99) mg/dL POC Glucose (mg/dL) 171 H 164 H (75-99) mg/dL Alkaline Phosphatase (38-126) U/L Total Protein (6.3-8.2) g/dL 01/09/20 Range/Units 14:46 WBC (3.8-10.6) k/uL Plt Count (150-450) k/uL Neutrophils # (1.3-7.7) k/uL ESR (0-20) mm/hr Chloride 96 L (98-107) mmol/L BUN 31 H (7-17) mg/dL Glucose 122 H (74-99) mg/dL POC Glucose (mg/dL) (75-99) mg/dL Alkaline Phosphatase 152 H (38-126) U/L Total Protein 8.4 H (6.3-8.2) g/dL Assessment and Plan Assessment: Acute severe dermatitis, failed outpatient treatment, suspect scabies Chronic pain syndrome COPD, stable Sleep apnea, wears CPAP Osteoarthritis Diabetes mellitus Gastroesophageal reflux disease Hypertension Bipolar, depression Hypothyroidism Plan: Continue current medication regime ,monitoring and symptomatic treatment. Kwell from head to toe as per ID. continue Benadryl , steroids .patient takes [place] 10/325, dose increased-home med list incorrect. Melatonin added for insomnia, also home med. Dermatology not available for rounding in the hospital. The impression and plan of care has been dictated as directed. .: I performed a history and examination of this patient, discussed the same with the dictator. I agree with the dictator's note ,documented as a scribe. Any additional findings or plans will be noted.
[2020-01-09 17:36] LABS: Glucose,Whole Blood 141 mg/dL (75-99)
[2020-01-09 20:31] LABS: Glucose,Whole Blood 150 mg/dL (75-99)
[2020-01-09] MEDS: MELATONIN 5 MG TABLET PO SCH (21:08)
[2020-01-09] MEDS: QUEtiapine 25 MG TAB PO SCH (21:09)
[2020-01-09] MEDS: ATORVASTATIN 80 MG TAB PO SCH (21:09)
[2020-01-09] MEDS: HYDROcodone/APAP 10-325MG 1 EACH TAB PO PRN (21:15)
[2020-01-10] MEDS: LEVOTHYROXINE 25 MCG TAB PO SCH (05:46)
--- NOTE | 2020-01-10 05:53 | CONS ---
CONSULTATION DATE OF SERVICE: 01/09/2020 REASON FOR CONSULTATION: Generalized dermatitis. HISTORY OF PRESENT ILLNESS: The patient is a 64-year-old female who apparently has been suffering from a rash involving mostly the anterior portion of her body that has been going on for the last few weeks. The patient did not recall starting any new medication. She has been complaining of itching as well as a burning pain to the rash area, intensity has been mild to moderate. The patient denies having any sores in her mouth. Denies any joint swelling. No nausea, no vomiting. No abdominal pain or any diarrhea. She has been treated in the outpatient with Atarax and ammonium lactate with minimal relief with no healing of this rash. She has been admitted to the hospital to be evaluated by infectious disease and dermatology services. REVIEW OF SYSTEMS: Positive points have been mentioned in HPI. Rest of the systems are negative. PAST MEDICAL HISTORY: COPD, diabetes mellitus, fibromyalgia, gastroesophageal reflux disease, dyslipidemia, hypertension, hypothyroidism, Guillian-[place] syndrome, depression, peripheral arterial disease. PAST SURGICAL HISTORY: , cholecystectomy, hysterectomy, colonoscopy, back surgery, appendectomy and bowel resection. SOCIAL HISTORY: Remote history of smoking. No drinking or drug use. FAMILY HISTORY: No pertinent findings noticed. ALLERGIES: Allergies to ASPIRIN and CODEINE. MEDICATIONS: Medications currently include the patient is on [place], Norvasc, Tenormin, Lipitor, Bentyl, Benadryl, Lofibra, Prozac, Lasix, Neurontin, Atarax, NovoLog, Synthroid, melatonin, Glucophage, Solu-Medrol, Seroquel, Requip. PHYSICAL EXAMINATION: Blood pressure is 143/71 with a pulse of 88, temperature of 99.2. She is 93% on room air. General description is an elderly female lying in bed in no distress. HEENT: Examination shows no pallor or scleral icterus. Oral mucous membrane is dry. No pharyngeal erythema or thrush. NECK: Trachea central. No thyromegaly. LUNGS: Unlabored breathing, clear to auscultation anteriorly. No wheeze or crackle. HEART: S1, S2. Regular rate and rhythm. ABDOMEN: Soft, no tenderness. No guarding or rigidity. EXTREMITIES: No edema of feet. EXAMINATION OF THE SKIN: The patient with diffuse maculopapular rash mostly on the anterior surface of the body, none on the back. No joint swelling. No oral lesion. LABS: Hemoglobin is 13, white count 12.2, BUN of 31, creatinine 0.91. Sed rate is elevated. DIAGNOSTIC IMPRESSION AND PLAN: Patient with generalized rash and this patient's main complaint has been itching and some burning pain with no mucosal or skeletal lesion with concern for possible scabies or a dermatological disorder. PLAN: 1. We will be giving a treatment with Elimite lotion. 2. We will obtain serological testing to rule out any dermatological disorder. 3. Solu-Medrol has been started. We will see response to it. 4. We will follow on clinical condition and further adjustment of medication if needed. Thank you for this consultation. Will follow this patient along with you. MMODL / IJN: [id number] /
[2020-01-10 07:09] LABS: Glucose,Whole Blood 175 mg/dL (75-99)
[2020-01-10 07:26] LABS: Basophils % (A) 0 %; Eosinophils % (A) 0 %; HCT 35.9 % (34.0-46.0); HGB 11.7 gm/dL (11.4-16.0); Lymphocytes # (A) 0.8 k/uL (1.0-4.8); Lymphocytes % (A) 6 %; MCH 31.6 pg (25.0-35.0); MCHC 32.6 g/dL (31.0-37.0); MCV 96.9 fL (80.0-100.0); Mean Platelet Volume 7.4; Monocytes # (A) 0.6 k/uL (0-1.0); Monocytes % (A) 4 %; Neutrophils # (A) 11.4 k/uL (1.3-7.7); Neutrophils % (A) 88 %; Platelet Count 405 k/uL (150-450); RBC 3.71 m/uL (3.80-5.40); RDW 12.3 % (11.5-15.5)
[2020-01-10] MEDS: FUROSEMIDE 40 MG TAB PO SCH (07:34)
[2020-01-10] MEDS: ATENOLOL 25 MG TAB PO SCH (07:34)
[2020-01-10] MEDS: diphenhydrAMINE 25 MG CAP PO PRN (07:34)
[2020-01-10] MEDS: FENOFIBRATE 160 MG TAB PO SCH (07:34)
[2020-01-10] MEDS: FLUoxetine HCL 20 MG CAP PO SCH (07:34)
[2020-01-10] MEDS: DICYCLOMINE 10 MG CAP PO SCH ×4 (07:35→21:22)
[2020-01-10] MEDS: POTASSIUM CHLORIDE ER 10 MEQ TAB.ER.PRT PO SCH (07:35)
[2020-01-10] MEDS: GABAPENTIN 400 MG CAP PO SCH ×3 (07:35→21:22)
[2020-01-10] MEDS: amLODIPine 5 MG TAB PO SCH (07:35)
[2020-01-10] MEDS: metFORMIN 500 MG TAB PO SCH ×2 (07:36→21:23)
[2020-01-10] MEDS: methylPREDNISolone SOD SUCCI 125 MG/2 ML VIAL IV SCH ×3 (07:37→22:53)
[2020-01-10] MEDS: INSULIN ASPART (NovoLOG) 100 UNIT/ML VIAL SQ SCH ×4 (07:37→21:36)
[2020-01-10 07:54] LABS: Albumin 4.1 g/dL (3.5-5.0); Calcium 9.8 mg/dL (8.4-10.2); Potassium 4.2 mmol/L (3.5-5.1); Total Bilirubin 0.3 mg/dL (0.2-1.3); Total Protein 7.4 g/dL (6.3-8.2)
[2020-01-10] MEDS: AMMONIUM LACTATE 12% CREAM 140 GM TUBE TOPICAL SCH ×2 (08:38→21:24)
[2020-01-10] MEDS: HYDROcodone/APAP 10-325MG 1 EACH TAB PO PRN ×2 (08:38→16:38)
[2020-01-10 12:27] LABS: Glucose,Whole Blood 115 mg/dL (75-99)
[2020-01-10] MEDS: SODIUM CHLORIDE 0.9% 1,000 ML IV SCH (15:46)
[2020-01-10] MEDS ORDERED: NYSTAT-TRIAMCIN 100,000-0.1 UNIT/GM-% CREAM 30 GM TUBE TOPICAL SCH (16:37)
[2020-01-10 16:58] LABS: Glucose,Whole Blood 160 mg/dL (75-99)
--- NOTE | 2020-01-10 18:28 | P.PN ---
Subjective Progress Note Date: 01/10/20 This is 64-year-old female admitted with multiple medical issues including severe dermatitis. Chest x-ray reporting chronic changes, nonacute. Intense itching from scalp to toes. Isolated fever of 100.1, WBC 12.2. Vital signs stable, maintaining O2 sats in the high 90s on room air. Evaluated by infect ious disease, suspected scabies. Denies chest pain, palpitations or shortness of breath. 4320 received Kwell treatment with no significant improvement noted. Afebrile with T-max 100.1. Good diet intake, consuming 100%, denies nausea, vomiting, abdominal pain. Objective - Vital Signs Vital signs: Vital Signs Temp 97.3 F L 01/10/20 12:07 Pulse 79 01/10/20 12:07 Resp 20 01/10/20 12:07 BP 133/76 01/10/20 12:07 Pulse Ox 94 L 01/10/20 12:07 Intake & Output 01/09/20 01/10/20 01/10/20 18:59 06:59 18:59 Intake Total 400 500 Balance 400 500 Weight 56.4 kg Intake: Intake, IV Titration 400 Amount Sodium Chloride 0.9% 1, 400 000 ml @ 50 mls/hr IV . Q20H [facility] Rx#:[id number] Oral 500 Other: Voiding Method Toilet # Voids 1 1 - Exam GENERAL: Alert and oriented 3, no acute distress. Patient currently calling family for a ride home. HEENT: Conjunctivae normal. eyes normal. NECK: No JVD. No thyroid enlargement. No LNs CARDIOVASCULAR: S1, S2 regular.. No murmur RESPIRATION: Breath sounds diminished in the bases. No rhonchi or crackles. No wheezing. ABDOMEN: Soft, nontender . No guarding. no masses palpable.Bowel sounds heard. SKIN: Maculopapular ,puritic skin rash, nondraining on scalp,all 4 extremities,bilateral axillas, torso. PSYCHIATRY: Alert and oriented X3, mood and affect normal. NERVOUS SYSTEM: No focal deficits. - Labs CBC & Chem 7: 01/10/20 06:50 01/10/20 06:50 Labs: Abnormal Lab Results - Last 24 Hours (Table) 01/09/20 01/10/20 01/10/20 Range/Units 20:28 06:50 06:50 WBC 13.0 H (3.8-10.6) k/uL RBC 3.71 L (3.80-5.40) m/uL Neutrophils # 11.4 H (1.3-7.7) k/uL Lymphocytes # 0.8 L (1.0-4.8) k/uL BUN 35 H (7-17) mg/dL Glucose 176 H (74-99) mg/dL POC Glucose (mg/dL) 150 H (75-99) mg/dL Alkaline Phosphatase 127 H (38-126) U/L 01/10/20 01/10/20 01/10/20 Range/Units 07:05 12:07 16:45 WBC (3.8-10.6) k/uL RBC (3.80-5.40) m/uL Neutrophils # (1.3-7.7) k/uL Lymphocytes # (1.0-4.8) k/uL BUN (7-17) mg/dL Glucose (74-99) mg/dL POC Glucose (mg/dL) 175 H 115 H 160 H (75-99) mg/dL Alkaline Phosphatase (38-126) U/L Assessment and Plan Assessment: Acute severe dermatitis, failed outpatient treatment, suspect scabies. Chronic pain syndrome COPD, stable Sleep apnea, wears CPAP Osteoarthritis Diabetes mellitus Gastroesophageal reflux disease Hypertension Bipolar, depression Hypothyroidism Plan: Continue current medication regime ,monitoring and symptomatic treatment. Maintain steroids with close monitoring of Accu-Cheks. Possibly repeat Kwell treatment , defer to ID . Up in chair for all meals. The impression and plan of care has been dictated as directed. : I performed a history and examination of this patient, discussed the same with the dictator. I agree with the dictator's note ,documented as a scribe. Any additional findings or plans will be noted.
[2020-01-10] MEDS: MELATONIN 5 MG TABLET PO SCH (21:22)
[2020-01-10] MEDS: ATORVASTATIN 80 MG TAB PO SCH (21:22)
[2020-01-10] MEDS: QUEtiapine 25 MG TAB PO SCH (21:23)
[2020-01-10] MEDS: NYSTATIN 100,000UNIT/GM CREAM 30 GM TUBE TOPICAL SCH ×2 (21:25→21:27)
[2020-01-10] MEDS: TRIAMCINOLONE 0.1% CREAM 80 GM TUBE TOPICAL SCH ×2 (21:26→21:27)
[2020-01-10 21:37] LABS: Glucose,Whole Blood 154 mg/dL (75-99)
[2020-01-11] MEDS: HYDROcodone/APAP 10-325MG 1 EACH TAB PO PRN ×3 (00:19→21:23)
[2020-01-11] MEDS: diphenhydrAMINE 25 MG CAP PO PRN (03:44)
[2020-01-11] MEDS: LEVOTHYROXINE 25 MCG TAB PO SCH (05:17)
[2020-01-11 07:19] LABS: Glucose,Whole Blood 124 mg/dL (75-99)
[2020-01-11] MEDS: amLODIPine 5 MG TAB PO SCH (08:03)
[2020-01-11] MEDS: FLUoxetine HCL 20 MG CAP PO SCH (08:03)
[2020-01-11] MEDS: DICYCLOMINE 10 MG CAP PO SCH ×4 (08:03→21:15)
[2020-01-11] MEDS: FENOFIBRATE 160 MG TAB PO SCH (08:03)
[2020-01-11] MEDS: POTASSIUM CHLORIDE ER 10 MEQ TAB.ER.PRT PO SCH (08:03)
[2020-01-11] MEDS: GABAPENTIN 400 MG CAP PO SCH ×3 (08:03→21:15)
[2020-01-11] MEDS: ATENOLOL 25 MG TAB PO SCH (08:03)
[2020-01-11] MEDS: metFORMIN 500 MG TAB PO SCH ×2 (08:03→21:13)
[2020-01-11] MEDS: FUROSEMIDE 40 MG TAB PO SCH (08:03)
[2020-01-11] MEDS: AMMONIUM LACTATE 12% CREAM 140 GM TUBE TOPICAL SCH ×2 (08:04→21:15)
[2020-01-11] MEDS: INSULIN ASPART (NovoLOG) 100 UNIT/ML VIAL SQ SCH ×4 (08:04→21:17)
[2020-01-11] MEDS: methylPREDNISolone SOD SUCCI 125 MG/2 ML VIAL IV SCH ×2 (08:04→17:26)
[2020-01-11] MEDS: SODIUM CHLORIDE 0.9% 1,000 ML IV SCH ×2 (08:11→21:16)
--- NOTE | 2020-01-11 08:32 | XR ---
EXAMINATION TYPE: XR chest 2V DATE OF EXAM: 01/11/2020 HISTORY: elevated lactic acid. REFERENCE: Previous study dated 01/09/2020. FINDINGS: There is been a previous interpedicular fusion of the upper lumbar spine. The heart is mildly enlarged. There is some minimal atelectasis at the left lung base. Pleural spaces are clear. IMPRESSION: 1. MILD CARDIOMEGALY. 2. ATELECTASIS VERSUS EARLY INFILTRATE, LEFT LUNG BASE.
[2020-01-11] MEDS: NYSTATIN 100,000UNIT/GM CREAM 30 GM TUBE TOPICAL SCH ×2 (11:55→22:18)
[2020-01-11] MEDS: TRIAMCINOLONE 0.1% CREAM 80 GM TUBE TOPICAL SCH ×2 (11:55→22:18)
[2020-01-11 12:04] LABS: Glucose,Whole Blood 109 mg/dL (75-99)
[2020-01-11 12:09] LABS: Appearance,Urine Clear (Clear); Bilirubin,Urine Negative (Negative); Blood,Urine Negative (Negative); Color,Urine Light Yellow; Glucose,Urine (UA) Negative (Negative); Hyaline Casts,Urine 3 /lpf (0-2); Ketones,Urine Negative (Negative); Leukocyte Esterase,Urine Small (Negative); Mucus,Urine Rare /hpf; Nitrite,Urine Negative (Negative); Protein,Urine Negative (Negative); RBC,Urine <1 /hpf (0-5); Specific Gravity,Urine 1.018 (1.001-1.035); Squamous Epithelial Cell,Urine <1 /hpf (0-4); Urobilinogen,Urine <2.0 mg/dL (<2.0); WBC,Urine 2 /hpf (0-5)
[2020-01-11 16:10] LABS: Basophils % (A) 0 %; Eosinophils % (A) 0 %; HGB 11.9 gm/dL (11.4-16.0); Lymphocytes # (A) 0.7 k/uL (1.0-4.8); Lymphocytes % (A) 5 %; MCH 31.7 pg (25.0-35.0); MCV 95.9 fL (80.0-100.0); Mean Platelet Volume 7.4; Monocytes # (A) 0.5 k/uL (0-1.0); Monocytes % (A) 4 %; Neutrophils # (A) 11.5 k/uL (1.3-7.7); Neutrophils % (A) 89 %; Platelet Count 447 k/uL (150-450); RBC 3.75 m/uL (3.80-5.40); RDW 12.3 % (11.5-15.5)
[2020-01-11 16:18] LABS: African American GFR (CKD) >90 (>60 ml/min/1.73 sqM); Anion Gap 12 mmol/L; Blood Urea Nitrogen 35 mg/dL (7-17); C Reactive Protein 16.1 mg/L (<10.0); Calcium 9.2 mg/dL (8.4-10.2); Carbon Dioxide 27 mmol/L (22-30); Chloride 99 mmol/L (98-107); Glucose 164 mg/dL (74-99); LDH 473 U/L (313-618); Non-African American GFR(CKD) 86 (>60 ml/min/1.73 sqM); Potassium 3.9 mmol/L (3.5-5.1); Sodium 138 mmol/L (137-145)
[2020-01-11 16:59] LABS: Glucose,Whole Blood 182 mg/dL (75-99)
--- NOTE | 2020-01-11 20:36 | PN ---
PROGRESS NOTE White female who remains on Rocephin for UTI, tracheobronchitis, cough with green phlegm production. She is also being given ammonium lactate cream b.i.d. She is on Solu-Medrol q.8 hours, nystatin cream b.i.d. as well as all her home medications. Her rash is greatly improving over the last 24-48 hours. Also getting Kenalog cream b.i.d. She had elevated lactic acid for which her cough and congestion are being treated. She has an infiltrate in her left lung base for pneumonia. Continue with Rocephin and Azithromycin. Await for Infectious Disease consultation to continue with this rash, which is to be treated. Please see further orders. MMODL / IJN: [id number] /
[2020-01-11 21:04] LABS: Glucose,Whole Blood 148 mg/dL (75-99)
[2020-01-11] MEDS: ATORVASTATIN 80 MG TAB PO SCH (21:13)
[2020-01-11] MEDS: MELATONIN 5 MG TABLET PO SCH (21:13)
[2020-01-11] MEDS: QUEtiapine 25 MG TAB PO SCH (21:14)
[2020-01-12] MEDS: LEVOTHYROXINE 25 MCG TAB PO SCH (06:05)
[2020-01-12 07:11] LABS: Glucose,Whole Blood 152 mg/dL (75-99)
[2020-01-12] MEDS: amLODIPine 5 MG TAB PO SCH (08:32)
[2020-01-12] MEDS: FUROSEMIDE 40 MG TAB PO SCH (08:32)
[2020-01-12] MEDS: methylPREDNISolone SOD SUCCI 125 MG/2 ML VIAL IV SCH ×4 (08:32→23:34)
[2020-01-12] MEDS: GABAPENTIN 400 MG CAP PO SCH ×3 (08:32→20:41)
[2020-01-12] MEDS: DICYCLOMINE 10 MG CAP PO SCH ×4 (08:32→20:41)
[2020-01-12] MEDS: AMMONIUM LACTATE 12% CREAM 140 GM TUBE TOPICAL SCH ×2 (08:33→20:49)
[2020-01-12] MEDS: FLUoxetine HCL 20 MG CAP PO SCH (08:33)
[2020-01-12] MEDS: ATENOLOL 25 MG TAB PO SCH (08:33)
[2020-01-12] MEDS: POTASSIUM CHLORIDE ER 10 MEQ TAB.ER.PRT PO SCH (08:33)
[2020-01-12] MEDS: metFORMIN 500 MG TAB PO SCH (08:33)
[2020-01-12] MEDS: HYDROcodone/APAP 10-325MG 1 EACH TAB PO PRN ×2 (08:33→17:03)
[2020-01-12] MEDS: FENOFIBRATE 160 MG TAB PO SCH (08:33)
[2020-01-12] MEDS: INSULIN ASPART (NovoLOG) 100 UNIT/ML VIAL SQ SCH ×4 (08:34→20:41)
--- NOTE | 2020-01-12 08:49 | PN ---
PROGRESS NOTE DATE OF SERVICE: 01/11/2020 REASON FOR FOLLOWUP: 1. Rash. 2. Possible pneumonia. INTERVAL HISTORY: The patient did spike a low-grade fever the night before of 100.1. The patient is afebrile since then. She has been breathing comfortably. Has been complaining of some cough with yellow sputum that has been new. Denies having any chest pain. Overall rash to the trunk area has improved with Mycolog cream. No nausea, no vomiting. No abdominal pain or diarrhea. PHYSICAL EXAMINATION: On examination, her blood pressure is 161/73 with a pulse of 95, temperature 97.9. She is 95% on room air. General description: The patient is an elderly female lying in bed in no distress. Respiratory system: Unlabored breathing, decreased intensity of breath sounds. No wheeze. Heart S1, S2. Regular rate and rhythm. Abdomen soft, no tenderness. Examination of the rash has decreased in intensity. LABS: Hemoglobin 11.8, white count 13,000. BUN of 35, creatinine 0.73. DIAGNOSTIC IMPRESSION AND PLAN: 1. Patient with a rash did not respond to the skin treatment though clinically responded to the Mycolog that will be continued for about a week. 2. The patient with a fever, respiratory symptoms, concern for a pneumonia, possible community-acquired. Rocephin has been started. 3. We will obtain a sputum and continue supportive care. MMODL / IJN: [id number] /
[2020-01-12] MEDS: NYSTATIN 100,000UNIT/GM CREAM 30 GM TUBE TOPICAL SCH ×2 (09:18→20:49)
[2020-01-12] MEDS: TRIAMCINOLONE 0.1% CREAM 80 GM TUBE TOPICAL SCH ×2 (09:18→20:49)
[2020-01-12 11:34] LABS: Glucose,Whole Blood 126 mg/dL (75-99)
[2020-01-12] MEDS: AZITHROMYCIN 500 MG TAB PO SCH (14:42)
[2020-01-12] MEDS: SODIUM CHLORIDE 0.9% 1,000 ML IV SCH ×2 (14:42→23:33)
[2020-01-12] MEDS ORDERED: RX INFO: IV CONTRAST WAS GIVEN 1 EACH MISC MISCELLANE PRN (15:18)
--- NOTE | 2020-01-12 15:56 | PN ---
PROGRESS NOTE 64-year-old white female, cough, congestion, shortness of breath, sputum production. Started on IV Rocephin and azithromycin and DuoNeb updraft. CONDITION: Stable. PROGNOSIS: Guarded. Going to Covid precautions. Low-grade fevers and cough congestion. Cardiovascular S1-S2. Lungs show left lower quadrant rhonchi and wheeze. HEMATOLOGY: Negative Homans. PSYCH: Fair mood and affect. Integument shows skin rash greatly improved, redness, some aspiration continue. ASSESSMENT AND PLAN: 1. Left lower lobe pneumonia. 2. Chronic obstructive pulmonary disease exacerbation. 3. Contact dermatitis versus acute drug reaction. 4. Continue current treatment. 5. Follow up next 24 to 48 hours. 6. Covid precautions, Rocephin, Azithromycin. MMODL / IJN: [id number] /
--- NOTE | 2020-01-12 16:42 | CT ---
EXAMINATION TYPE: CT chest w con DATE OF EXAM: 01/12/2020 COMPARISON: None HISTORY: dyspnea CT DLP: 307.1 mGycm Automated exposure control for dose reduction was used. CONTRAST: Performed with IV Contrast, patient injected with 100 mL of Isovue 300. There is some subpleural interstitial infiltrate in the right mid and lower lung field. There is no p leural effusion. There is no evidence of a pulmonary mass. Heart size is normal. There is no pericard ial effusion. There are no hilar masses. There is no mediastinal adenopathy. Thoracic aorta shows itzel e mild atheromatous change. There is no aneurysm or dissection. Upper abdominal soft tissues are inta ct. There is posterior multilevel fusion surgery in the lumbar spine. There is 20% anterior wedging of L1 vertebra. Upper abdominal soft tissues are intact. IMPRESSION: Interstitial fibrotic changes in the right lung. No suspicious pulmonary mass.
[2020-01-12 16:44] LABS: Glucose,Whole Blood 91 mg/dL (75-99)
[2020-01-12 20:16] LABS: Glucose,Whole Blood 133 mg/dL (75-99)
[2020-01-12] MEDS: MELATONIN 5 MG TABLET PO SCH (20:41)
[2020-01-12] MEDS: ATORVASTATIN 80 MG TAB PO SCH (20:41)
[2020-01-12] MEDS: QUEtiapine 25 MG TAB PO SCH (20:41)
[2020-01-13] MEDS: LEVOTHYROXINE 25 MCG TAB PO SCH (05:55)
[2020-01-13] MEDS: HYDROcodone/APAP 10-325MG 1 EACH TAB PO PRN (06:19)
[2020-01-13 06:49] LABS: Basophils % (A) 0 %; Eosinophils % (A) 0 %; HCT 35.9 % (34.0-46.0); HGB 11.4 gm/dL (11.4-16.0); Lymphocytes # (A) 0.8 k/uL (1.0-4.8); Lymphocytes % (A) 13 %; MCH 30.6 pg (25.0-35.0); MCHC 31.8 g/dL (31.0-37.0); MCV 96.2 fL (80.0-100.0); Mean Platelet Volume 7.3; Monocytes # (A) 0.3 k/uL (0-1.0); Monocytes % (A) 6 %; Neutrophils # (A) 4.8 k/uL (1.3-7.7); Neutrophils % (A) 80 %; Platelet Count 345 k/uL (150-450); RBC 3.73 m/uL (3.80-5.40)
[2020-01-13 07:01] LABS: Glucose,Whole Blood 153 mg/dL (75-99)
[2020-01-13 07:06] LABS: ALT 25 U/L (4-34); AST 35 U/L (14-36); African American GFR (CKD) >90 (>60 ml/min/1.73 sqM); Albumin 3.4 g/dL (3.5-5.0); Alkaline Phosphatase 77 U/L (38-126); Anion Gap 7 mmol/L; Blood Urea Nitrogen 25 mg/dL (7-17); Calcium 8.8 mg/dL (8.4-10.2); Carbon Dioxide 31 mmol/L (22-30); Chloride 99 mmol/L (98-107); Glucose 151 mg/dL (74-99); Non-African American GFR(CKD) >90 (>60 ml/min/1.73 sqM); Potassium 4.6 mmol/L (3.5-5.1); Sodium 137 mmol/L (137-145); Total Bilirubin 0.2 mg/dL (0.2-1.3); Total Protein 6.2 g/dL (6.3-8.2)
[2020-01-13] MEDS: FENOFIBRATE 160 MG TAB PO SCH (07:30)
[2020-01-13] MEDS: INSULIN ASPART (NovoLOG) 100 UNIT/ML VIAL SQ SCH ×2 (07:30→11:55)
[2020-01-13] MEDS: FUROSEMIDE 40 MG TAB PO SCH (07:30)
[2020-01-13] MEDS: GABAPENTIN 400 MG CAP PO SCH (07:30)
[2020-01-13] MEDS: FLUoxetine HCL 20 MG CAP PO SCH (07:30)
[2020-01-13] MEDS: POTASSIUM CHLORIDE ER 10 MEQ TAB.ER.PRT PO SCH (07:30)
[2020-01-13] MEDS: ATENOLOL 25 MG TAB PO SCH (07:30)
[2020-01-13] MEDS: DICYCLOMINE 10 MG CAP PO SCH ×2 (07:30→11:56)
[2020-01-13] MEDS: amLODIPine 5 MG TAB PO SCH (07:30)
[2020-01-13] MEDS: methylPREDNISolone SOD SUCCI 125 MG/2 ML VIAL IV SCH (07:31)
[2020-01-13] MEDS: TRIAMCINOLONE 0.1% CREAM 80 GM TUBE TOPICAL SCH (07:32)
[2020-01-13] MEDS: NYSTATIN 100,000UNIT/GM CREAM 30 GM TUBE TOPICAL SCH (07:32)
[2020-01-13] MEDS: AMMONIUM LACTATE 12% CREAM 140 GM TUBE TOPICAL SCH (07:33)
--- NOTE | 2020-01-13 07:35 | PN ---
PROGRESS NOTE DATE OF SERVICE: 01/12/2020 REASON FOR FOLLOW UP: 1. Rash. 2. Pneumonia. INTERVAL HISTORY: The patient is currently afebrile, patient is breathing comfortably. Patient denies having any chest pain. No shortness of breath. Minimal cough. No nausea, no vomiting. No abdominal pain or diarrhea. PHYSICAL EXAMINATION: On examination, her blood pressure is 164/62, pulse of 81, temperature of 98, she is 97% on room air. General description is an elderly female, lying in bed in no distress. RESPIRATORY SYSTEM: Unlabored breathing, clear to auscultation anteriorly. HEART: S1, S2. Regular rate and rhythm. ABDOMEN: Soft, no tenderness. LABS: No labs have been obtained today. White count was 13,000 yesterday. Blood culture negative. Sputum were requested, not collected. DIAGNOSTIC IMPRESSION AND PLAN: 1. Patient with a rash, clinically responded to the Mycolog cream to continue for about a week. 2. Patient with fever, cough, possible clinically acquired-pneumonia, responding to the Rocephin. Will try to obtain a sputum to narrow down antibiotics. Continue supportive care. MMODL / IJN: [id number] /
[2020-01-13 08:08] VITALS: RESP 18
[2020-01-13 11:33] VITALS: BP 116/67; PULSE 65; TEMP 98.1
[2020-01-13 11:47] LABS: Glucose,Whole Blood 184 mg/dL (75-99)
[2020-01-13] MEDS: AZITHROMYCIN 500 MG TAB PO SCH (11:56)
--- NOTE | 2020-01-13 13:39 | P.DS ---
Providers Date of admission: 01/08/20 15:19 Expected date of discharge: 01/13/20 Attending physician: Renny Sheriff Consults: 01/08/20 19:32 Consult Physician Urgent Consulting Provider: Cookie Fitzgerald Consult Reason/Comments: generalized dermititis Do you want consulting provider notified?: Yes 01/08/20 19:33 Consult Physician Urgent Consulting Provider: Cassie Mir Consult Reason/Comments: generalized demititis Do you want consulting provider notified?: Yes, Notify in am Primary care physician: [facility] Course: Final Diagnoses: Acute severe dermatitis, failed outpatient treatment, possible scabies. CT reporting interstitial fibrotic lung changes, further follow-up with pulmonary recommended Possible right mid and lower lobe pneumonia, per CT, possible community-acquired pneumonia, currently without cough, shortness of breath,, fever or sore throat. Coronavirus reported negative. Chronic pain syndrome COPD, stable Sleep apnea, wears CPAP Osteoarthritis Diabetes mellitus Gastroesophageal reflux disease Hypertension Bipolar, depression Hypothyroidism Hospital course:This is 64-year-old female admitted with multiple medical issues including severe dermatitis. Chest x-ray reporting chronic changes, nonacute. Intense itching from scalp to toes. Isolated fever of 100.1, WBC 12.2. Vital signs stable, maintaining O2 sats in the high 90s on room air. Evaluated by infectious disease, suspected scabies. Denies chest pain, palpitations or shortness of breath. Kwell treatment, without significant improvement, followed by Mycolog cream with significant clinical improvement. Patient will be discharged home in stable condition with guarded prognosis pending final clearance and DC recommendations including antibiotics as per ID. The impression and plan of care has been dictated as directed. : I performed a history and examination of this patient, discussed the same with the dictator. I agree with the dictator's note ,documented as a scribe. Any additional findings or plans will be noted. Patient Condition at Discharge: Stable Plan - Discharge Summary Discharge Rx Participant: No New Discharge Prescriptions: New diphenhydrAMINE [Benadryl] 25 mg PO QID PRN cap PRN Reason: Itching Nystatin 100,000Unit/gm Cream [Mycostatin Cream] 1 applic TOPICAL BID #1 tube predniSONE 10 mg PO DIRECTED #30 tab Continue Levothyroxine Sodium [Synthroid] 25 mcg PO QAM Furosemide [Lasix] 40 mg PO QAM metFORMIN HCL [Glucophage] 500 mg PO BID Dicyclomine [Bentyl] 10 mg PO ACHS Gemfibrozil [Lopid] 600 mg PO AC-BID FLUoxetine HCL [PROzac] 20 mg PO DAILY QUEtiapine [SEROquel] 25 mg PO HS Atenolol [Tenormin] 25 mg PO DAILY rOPINIRole HCL [Requip] 0.5 mg PO HS Melatonin 10 mg PO HS Potassium Chloride [Klor-Con 10] 10 meq PO DAILY QUEtiapine [SEROquel] 50 mg PO HS Rosuvastatin Calcium [Crestor] 40 mg PO HS hydrOXYzine HCL 10 mg PO Q6HR PRN PRN Reason: Itching amLODIPine [Norvasc] 5 mg PO DAILY #30 tab Gabapentin [Neurontin] 800 mg PO TID #0 Triamcinolone 0.1% Cream [Kenalog 0.1% Cream] 1 applic TOPICAL BID #1 tube Ammonium Lactate Cream [Lac-Hydrin 12% Cream] 1 applic TOPICAL BID #1 tube HYDROcodone/APAP 5-325MG [Sylvester 5-325] 1 tab PO Q8HR PRN PRN Reason: Moderate Pain Discharge Medication List Levothyroxine Sodium [Synthroid] 25 mcg PO QAM 01/26/16 [History] Furosemide [Lasix] 40 mg PO QAM 06/03/16 [History] metFORMIN HCL [Glucophage] 500 mg PO BID 06/03/16 [History] Dicyclomine [Bentyl] 10 mg PO ACHS 04/27/18 [History] FLUoxetine HCL [PROzac] 20 mg PO DAILY 12/20/18 [History] Gemfibrozil [Lopid] 600 mg PO AC-BID 12/20/18 [History] Atenolol [Tenormin] 25 mg PO DAILY 07/29/19 [History] Melatonin 10 mg PO HS 07/29/19 [History] QUEtiapine [SEROquel] 25 mg PO HS 07/29/19 [History] rOPINIRole HCL [Requip] 0.5 mg PO HS 07/29/19 [History] Potassium Chloride [Klor-Con 10] 10 meq PO DAILY 12/17/19 [History] QUEtiapine [SEROquel] 50 mg PO HS 12/17/19 [History] Rosuvastatin Calcium [Crestor] 40 mg PO HS 12/17/19 [History] hydrOXYzine HCL 10 mg PO Q6HR PRN 12/17/19 [History] Ammonium Lactate Cream [Lac-Hydrin 12% Cream] 1 applic TOPICAL BID #1 tube 12/18/19 [Rx] Gabapentin [Neurontin] 800 mg PO TID #0 12/18/19 [Rx] Triamcinolone 0.1% Cream [Kenalog 0.1% Cream] 1 applic TOPICAL BID #1 tube 12/18/19 [Rx] amLODIPine [Norvasc] 5 mg PO DAILY #30 tab 12/18/19 [Rx] HYDROcodone/APAP 5-325MG [Sylvester 5-325] 1 tab PO Q8HR PRN 01/08/20 [History] Nystatin 100,000Unit/gm Cream [Mycostatin Cream] 1 applic TOPICAL BID #1 tube 01/13/20 [Rx] diphenhydrAMINE [Benadryl] 25 mg PO QID PRN cap 01/13/20 [Rx] predniSONE 10 mg PO DIRECTED #30 tab 01/13/20 [Rx] Follow up Appointment(s)/Referral(s): [facility] [NON-STAFF] - 1 Week Renny Sheriff MD [Primary Care Provider] - 1 Week Activity/Diet/Wound Care/Special Instructions: Antibiotics as per ID
--- NOTE | 2020-01-13 17:02 | PN ---
PROGRESS NOTE DATE OF SERVICE: 01/13/2020 REASON FOR FOLLOWUP: 1. Rash. 2. Pneumonia. INTERVAL HISTORY: The patient was seen on rounds this morning. The patient has been afebrile. She was breathing comfortably. The patient did have overall improvement in her rash. Denies having any chest pain. Minimal cough. No nausea, no vomiting. No abdominal pain or diarrhea. PHYSICAL EXAMINATION: Blood pressure 116/67 with a pulse of 65, temperature 98.1. She is 95% on room air. General description is an elderly female up in the bed in no distress. RESPIRATORY SYSTEM: Unlabored breathing. Clear to auscultation anteriorly. HEART: S1, S2. Regular rate and rhythm. ABDOMEN: Soft. No tenderness. LABS: Hemoglobin is 11.4, white count 6.0. BUN of 25, creatinine 0.67. DIAGNOSTIC IMPRESSION AND PLAN: 1. Patient with a rash, possible fungal component. Overall improvement on Mycolog cream; to continue for about a week to finish her course of therapy. 2. Patient with pneumonia, possibly community-acquired. Overall improvement on Rocephin; finish therapy with a short course of oral Ceftin. Prescription was sent to the pharmacy. MMODL / IJN: [id number] /
[2020-01-14] MEDS ORDERED: metFORMIN 500 MG TAB PO SCH (17:30)
== END 2020-01-13 15:22 | disposition home health service (06) | DRG 606 ==
LOC: 6NMEDSUR 15:19 → 4SSUR 01-12 10:53
PROVIDERS: ADMIT Family Medicine; ATTEND Family Medicine
DX: B86 Scabies (principal); J18.9 Pneumonia, unspecified organism; J44.0 Chronic obstructive pulmonary disease with (acute) lower respiratory infection; I10 Essential (primary) hypertension; G47.30 Sleep apnea, unspecified; F32.9 Major depressive disorder, single episode, unspecified; E78.5 Hyperlipidemia, unspecified; E11.9 Type 2 diabetes mellitus without complications; E03.9 Hypothyroidism, unspecified; M19.90 Unspecified osteoarthritis, unspecified site; K21.9 Gastro-esophageal reflux disease without esophagitis; G89.4 Chronic pain syndrome; Z20.828 Contact with and (suspected) exposure to other viral communicable diseases; M79.7 Fibromyalgia; Z79.899 Other long term (current) drug therapy; Z98.890 Other specified postprocedural states; Z98.891 History of uterine scar from previous surgery; Z90.49 Acquired absence of other specified parts of digestive tract; Z87.891 Personal history of nicotine dependence; Z90.710 Acquired absence of both cervix and uterus; Z88.6 Allergy status to analgesic agent; Z88.5 Allergy status to narcotic agent
CPT/HCPCS: 71045; 71046; 71260; 80048; 80053; 81001; 83605; 83615; 84145; 85025; 85379; 85652; 86140; 87040; 87070; 87086; 87205; 87635

== ENCOUNTER → 2021-12-10 | Outpatient (CLI) | payer MEDICARE, BC ==
--- NOTE | 2021-12-10 12:47 | XR ---
EXAMINATION TYPE: XR chest 2V DATE OF EXAM: 12/10/2021 COMPARISON: 01/11/2020 HISTORY: Shortness of breath TECHNIQUE: Frontal and lateral views of the chest are obtained. FINDINGS: Scattered senescent parenchymal changes noted. Hyperinflation compatible with COPD. No evidence for infiltrate. No evidence for atelectasis. Heart size is stable. Mediastinal structures are stable and grossly unremarkable. No evidence for hilar prominence. Degenerative changes dorsal spine. IMPRESSION: 1. No evidence for acute pulmonary disease.
== END | disposition home or self-care (01) ==
LOC: RADXRMAIN 12:28
PROVIDERS: ATTEND Family Medicine
DX: R06.00 Dyspnea, unspecified (principal)
CPT/HCPCS: 71046

== ENCOUNTER 2023-10-12 15:06 | Observation (INO) | payer MEDICARE ==
[2023-10-12] MEDS ORDERED: SODIUM CHLORIDE 0.9% 500 ML 500 ML IV STA (15:33)
--- NOTE | 2023-10-12 15:47 | ED ---
General Adult HPI - General Chief complaint: Weakness Stated complaint: Weakness Time Seen by Provider: 10/12/23 15:23 Source: patient, EMS, RN notes reviewed, old records reviewed Mode of arrival: EMS Limitations: no limitations - History of Present Illness Initial comments: Patient is a 68-year-old female presents emergency Department complaining of w eakness. Patient lives at home by herself. Ambulates with a walker at baseline. Patient has noticed that she is having increased generalized weakness for the last 3 days. Is also complaining of dysuria, as well as strong smelling urine. Is concerned she may have a urinary tract infection. Denies any known fevers. Denies any nausea, vomiting, diarrhea. Denies any abdominal pain. Endorses chronic back pain that is unchanged from baseline. Denies any shortness of breath or chest pain. Denies any cough. Denies sore throat. Denies any sick contacts. Patient home by herself. Performs all of her normal ADLs however does ambulate with a walker at baseline. His no other acute complaints at this time. Presents for further evaluation at this time. Denies any bowel or urinary incontinence or retention. Denies any saddle anesthesias. Does endorse possible hematuria. Is not on blood thinners. Denies headaches. Denies any other neuro deficits other than generalized weakness, particularly in bilateral legs. - Related Data Home Medications Medication Instructions Recorded Confirmed Furosemide [Lasix] 20 mg PO BID PRN 06/03/16 10/12/23 metFORMIN HCL [Glucophage] 500 mg PO DAILY 06/03/16 10/12/23 gemfibroziL [Lopid] 600 mg PO AC-BID 12/20/18 10/12/23 atenoloL [Tenormin] 25 mg PO BID 07/29/19 10/12/23 Potassium Chloride [Klor-Con 10 ER] 10 meq PO DAILY 12/17/19 10/12/23 QUEtiapine [SEROquel] 50 mg PO HS 12/17/19 10/12/23 Rosuvastatin Calcium [Crestor] 40 mg PO HS 12/17/19 10/12/23 Losartan [Cozaar] 12.5 mg PO DAILY 12/06/22 10/12/23 Albuterol Nebulized [Ventolin 2.5 mg INHALATION RT-Q6H PRN 10/12/23 10/12/23 Nebulized] Cetirizine HCl [Zyrtec] 10 mg PO DAILY 10/12/23 10/12/23 Cyanocobalamin (Vitamin B-12) 1,000 mcg PO DAILY 10/12/23 10/12/23 [Vitamin B-12] Ferrous Sulfate [Feosol] 325 mg PO DAILY 10/12/23 10/12/23 Gabapentin 800 mg PO TID 10/12/23 10/12/23 HYDROcodone/APAP 10-325MG [[place] 1 tab PO TID 10/12/23 10/12/23 10-325] Levothyroxine Sodium [Synthroid] 75 mcg PO DAILY 10/12/23 10/12/23 rOPINIRole HCL [Requip] 1 mg PO HS 10/12/23 10/12/23 Allergies Allergy/AdvReac Type Severity Reaction Status Date / Time aspirin Allergy COMA LIKE Verified 10/12/23 20:00 STATE codeine Allergy Rash/Hives Verified 10/12/23 20:00 pet dander Allergy Itching Uncoded 12/08/22 07:43 Review of Systems ROS Statement: Those systems with pertinent positive or pertinent negative responses have been documented in the HPI. Review of Systems: CONST: Denies fever EYES: Denies blurry vision ENT: Denies nasal congestion C/V: Denies Chest pain RESP: Denies shortness of breath GI: Denies abdominal pain : Denies dysuria SKIN: Denies rash. MSK: Denies joint pain. NEURO: Endorses generalized weakness ROS Other: All systems not noted in ROS Statement are negative. Past Medical History Past Medical History: COPD, Diabetes Mellitus, Fibromyalgia, GERD/Reflux, Hyperlipidemia, Hypertension, Osteoarthritis (OA), Sleep Apnea/CPAP/BIPAP, Thyroid Disorder, Vascular Disorder Additional Past Medical History / Comment(s): Pt states she has been having generalized edema/generalized pain takes lasix prn, NIDDM type II, neuropathy bilateral feet/legs and occasionally hands, guillian barre syndrome, SOHEILA with no cpap used, PAD, chronic low back pain, osteoporosis, antral ulcer, IBS, diverticular disease, hemorrhoids, RLS, frequent bilateral ankle/leg edema, hypothyroid. History of Any Multi-Drug Resistant Organisms: ESBL Date of last positivie culture/infection: 07/04/21 MDRO Source:: ESBL URINE Past Surgical History: Appendectomy, Back Surgery, Bowel Resection, Section, Cholecystectomy, Hernia Repair, Hysterectomy, Tubal Ligation Additional Past Surgical History / Comment(s): Back sx x3-most recent was fusion w/cage and rods/screws, bowel resection d/t diverticular disease, D&C, calcium deposit removed off sternum, incisional hernia repair, EGD, colonoscopies. Past Anesthesia/Blood Transfusion Reactions: No Reported Reaction Past Psychological History: No Psychological Hx Reported Smoking Status: Former smoker Past Alcohol Use History: None Reported Past Drug Use History: None Reported - Past Family History Mother Family Medical History: Cancer Additional Family Medical History / Comment(s): Mother of colon cancer. Father History Unknown: Yes Additional Family Medical History / Comment(s): Father in his sleep. General Exam - General Exam Comments Initial Comments: General: Appears in no acute distress. HEAD: Normal with no signs of head trauma. EYES: PERRLA, EOMI, conjunctiva normal, no discharge. ENT: Hearing grossly intact, normal oropharynx. RESPIRATORY: Clear breath sounds bilaterally. No wheezes, rales, or rhonchi. C/V: Regular rate and rhythm. S1 and S2 auscultated, no edema, peripheral pulses 2+ and intact throughout ABD: Abd is soft, nontender, nondistended EXT: Normal range of motion, no obvious deformity SKIN: No rashes or lesions observed on exposed skin. NEURO: Alert and oriented 3, with confusion to year. Knows why she is here, person, and place. 3-4 out of 5 strength in bilateral lower extremities, 4/5 strength is upper extremities. This is symmetrical. States somewhat below her baseline. Hemorrhoids with a walker baseline. No other focal neurological d eficits appreciated.Cranial nerves II through XII are intact. Limitations: no limitations Course Vital Signs 10/12/23 10/12/23 10/12/23 15:08 15:52 18:29 Temperature 99.1 F 98.9 F Pulse Rate 74 75 81 Pulse Rate [ Pulse Oximetery ] Respiratory 18 18 18 Rate Blood Pressure 177/81 155/103 165/69 Blood Pressure [Right Arm] O2 Sat by Pulse 94 L 96 96 Oximetry 10/12/23 20:00 Temperature 99 F Pulse Rate Pulse Rate [ 78 Pulse Oximetery ] Respiratory 17 Rate Blood Pressure Blood Pressure 173/70 [Right Arm] O2 Sat by Pulse 97 Oximetry Medical Decision Making - Medical Decision Making Was pt. sent in by a medical professional or institution ([facility], LINE STAKER, urgent care, hospital, or fpc...) When possible be specific @ -No Did you speak to anyone other than the patient for history (EMS, parent, family, police, friend...)? What history was obtained from this source @ -No Did you review nursing and triage notes (agree or disagree)? Why? @ -I reviewed and agree with nursing and triage notes Were old charts reviewed (outside hosp., previous admission, EMS record, old EKG, old radiological studies, urgent care reports/EKG's, fpc records)? Report findings @ -Old charts reviewed Differential Diagnosis (chest pain, altered mental status, abdominal pain women, abdominal pain men, vaginal bleeding, weakness, fever, dyspnea, syncope, headache, dizziness, GI bleed, back pain, seizure, CVA, palpatations, mental health, musculoskeletal)? @ -Differential Weakness: Hypoglycemia, shock, sepsis, hyponatremia, anemia, infection, NH, ETOH, adverse medicine reaction, overdose, stroke, this is not meant to be an all-inclusive list. EKG interpreted by me (3pts min.). @ -As above X-rays interpreted by me (1pt min.). @ -Chest x-ray reveals no obvious acute cardio pulmonary process. CT interpreted by me (1pt min.). @ -CT brain reveals no obvious acute intracranial process. U/S interpreted by me (1pt. min.). @ -Renal ultrasound negative for any obvious acute process. What testing was considered but not performed or refused? (CT, X-rays, U/S, labs)? Why? @ -Considered CT chest considering elevated d-dimer in the setting of no suspicion for PE. This lab was accidentally ordered. Likely slightly elevated secondary to dehydration or possible underlying infectious process. What meds were considered but not given or refused? Why? @ -None Did you discuss the management of the patient with other professionals (professionals i.e. [facility], LINE STAKER, lab, RT, psych nurse, social welfare research worker, handicapped teacher, teacher, officer captain, trimming caser)? Give summary @ -Discussed with the admitting physician, Dr. Sheriff who accepted the [facility] del[facility] ent. Was in agreement with the plan. Was smoking cessation discussed for >3mins.? @ -No Was critical care preformed (if so, how long)? @ -No Were there social determinants of health that impacted care today? How? (Homelessness, low income, unemployed, alcoholism, drug addiction, transportation, low edu. Level, literacy, decrease access to med. care, [facility], rehab)? @ -No Was there de-escalation of care discussed even if they declined (Discuss DNR or withdrawal of care, Hospice)? DNR status @ -No What co-morbidities impacted this encounter? (DM, HTN, Smoking, COPD, CAD, Cancer, CVA, ARF, Chemo, Hep., AIDS, mental health diagnosis, sleep apnea, morbid obesity)? @ -None Was patient admitted / discharged? Hospital course, mention meds given and route, prescriptions, significant lab abnormalities, going to OR and other pertinent info. @ -Based on the patient's presentation and physical exam, presents complaining of weakness. Does have generalized weakness apparent. We will obtain broad workup, patient does seem somewhat confused to time. Could be infectious r elated but we will obtain a CT brain as well. Vital signs are within acceptable limits. She is afebrile. She was in agreement with this evaluation. EKG showed no signs of acute ischemia.Imaging unremarkable. Patient's laboratory studies are remarkable for hematuria but no other acute finding. Accidentally ordered a d-dimer which was very slightly elevated. I did discuss with the patient and I believe it is likely secondary to underlying dehydration and possible infectious process. I've no concern for PE at this time. She is not hypoxic, not tachycardic, with no shortness of breath or chest discomfort. She was in agreement this plan. I did recommend admission for IV fluid hydration. She was in agreement this plan. Patient does have a slight AKA with a creatinine of 1.5. I spoke with the admitting physician, Dr. Sheriff who accepted the admission. Undiagnosed new problem with uncertain prognosis? @ -No Drug Therapy requiring intensive monitoring for toxicity (Heparin, Nitro, Insulin, Cardizem)? @ -No Were any procedures done? @ -No Diagnosis/symptom? @ -Weakness, dehydration, EVAN Acute, or Chronic, or Acute on Chronic? @ -Acute Uncomplicated (without systemic symptoms) or Complicated (systemic symptoms)? @ -Complicated Side effects of treatment? @ -none Exacerbation, Progression, or Severe Exacerbation] @ -no Poses a threat to life or bodily function? @ -Potentially yes - Lab Data Result diagrams: 10/12/23 15:36 10/12/23 15:36 Lab Results 10/12/23 10/12/23 10/12/23 Range/Units 15:36 15:36 15:36 WBC 10.3 (3.8-10.6) k/uL RBC 3.71 L (3.80-5.40) m/uL Hgb 12.0 (11.4-16.0) gm/dL Hct 36.2 (34.0-46.0) % MCV 97.4 (80.0-100.0) fL MCH 32.3 (25.0-35.0) pg MCHC 33.2 (31.0-37.0) g/dL RDW 12.3 (11.5-15.5) % Plt Count 315 (150-450) k/uL MPV 7.6 Neutrophils % 75 % Lymphocytes % 16 % Monocytes % 5 % Eosinophils % 2 % Basophils % 0 % Neutrophils # 7.7 (1.3-7.7) k/uL Lymphocytes # 1.7 (1.0-4.8) k/uL Monocytes # 0.5 (0-1.0) k/uL Eosinophils # 0.2 (0-0.7) k/uL Basophils # 0.0 (0-0.2) k/uL PT 11.1 (10.0-12.5) sec INR 1.0 (<1.2) APTT 23.1 (22.0-30.0) sec D-Dimer 0.82 H (<0.60) mg/L FEU Sodium (137-145) mmol/L Potassium (3.5-5.1) mmol/L Chloride (98-107) mmol/L Carbon Dioxide (22-30) mmol/L Anion Gap mmol/L BUN (7-17) mg/dL Creatinine (0.52-1.04) mg/dL Est GFR (CKD-EPI)AfAm (>60 ml/min/1.73 sqM) Est GFR (CKD-EPI)NonAf (>60 ml/min/1.73 sqM) Glucose (74-99) mg/dL Plasma Lactic Acid Krishna (0.7-2.0) mmol/L Calcium (8.4-10.2) mg/dL Magnesium (1.6-2.3) mg/dL Total Bilirubin (0.2-1.3) mg/dL AST (14-36) U/L ALT (4-34) U/L Alkaline Phosphatase (38-126) U/L NT-Pro-B Natriuret Pep pg/mL Total Protein (6.3-8.2) g/dL Albumin (3.5-5.0) g/dL TSH (0.465-4.680) mIU/L Urine Color Light Yellow Urine Appearance Clear (Clear) Urine pH 6.5 (5.0-8.0) Ur Specific [place] 1.009 (1.001-1.035) Urine Protein 2+ H (Negative) Urine Glucose (UA) Negative (Negative) Urine Ketones Negative (Negative) Urine Blood Large H (Negative) Urine Nitrite Negative (Negative) Urine Bilirubin Negative (Negative) Urine Urobilinogen <2.0 (<2.0) mg/dL Ur Leukocyte Esterase Negative (Negative) Urine RBC <1 (0-5) /hpf Urine WBC 1 (0-5) /hpf Influenza Type A (PCR) (Not Detectd) Influenza Type B (PCR) (Not Detectd) RSV (PCR) (Not Detectd) SARS-CoV-2 (PCR) (Not Detectd) 10/12/23 10/12/23 10/12/23 Range/Units 15:36 15:36 15:36 WBC (3.8-10.6) k/uL RBC (3.80-5.40) m/uL Hgb (11.4-16.0) gm/dL Hct (34.0-46.0) % MCV (80.0-100.0) fL MCH (25.0-35.0) pg MCHC (31.0-37.0) g/dL RDW (11.5-15.5) % Plt Count (150-450) k/uL MPV Neutrophils % % Lymphocytes % % Monocytes % % Eosinophils % % Basophils % % Neutrophils # (1.3-7.7) k/uL Lymphocytes # (1.0-4.8) k/uL Monocytes # (0-1.0) k/uL Eosinophils # (0-0.7) k/uL Basophils # (0-0.2) k/uL PT (10.0-12.5) sec INR (<1.2) APTT (22.0-30.0) sec D-Dimer (<0.60) mg/L FEU Sodium 143 (137-145) mmol/L Potassium 3.9 (3.5-5.1) mmol/L Chloride 103 (98-107) mmol/L Carbon Dioxide 26 (22-30) mmol/L Anion Gap 14 mmol/L BUN 35 H (7-17) mg/dL Creatinine 1.53 H (0.52-1.04) mg/dL Est GFR (CKD-EPI)AfAm 40 (>60 ml/min/1.73 sqM) Est GFR (CKD-EPI)NonAf 34 (>60 ml/min/1.73 sqM) Glucose 104 H (74-99) mg/dL Plasma Lactic Acid Krishna 0.9 (0.7-2.0) mmol/L Calcium 9.1 (8.4-10.2) mg/dL Magnesium 1.8 (1.6-2.3) mg/dL Total Bilirubin 0.4 (0.2-1.3) mg/dL AST 490 H (14-36) U/L ALT 221 H (4-34) U/L Alkaline Phosphatase 122 (38-126) U/L NT-Pro-B Natriuret Pep 317 pg/mL Total Protein 6.9 (6.3-8.2) g/dL Albumin 3.8 (3.5-5.0) g/dL TSH 0.045 L (0.465-4.680) mIU/L Urine Color Urine Appearance (Clear) Urine pH (5.0-8.0) Ur Specific [place] (1.001-1.035) Urine Protein (Negative) Urine Glucose (UA) (Negative) Urine Ketones (Negative) Urine Blood (Negative) Urine Nitrite (Negative) Urine Bilirubin (Negative) Urine Urobilinogen (<2.0) mg/dL Ur Leukocyte Esterase (Negative) Urine RBC (0-5) /hpf Urine WBC (0-5) /hpf Influenza Type A (PCR) Not Detected (Not Detectd) Influenza Type B (PCR) Not Detected (Not Detectd) RSV (PCR) Not Detected (Not Detectd) SARS-CoV-2 (PCR) Not Detected (Not Detectd) - EKG Data -: EKG Interpreted by Me EKG Comments: 12-lead Electrocardiogram Interpretation Note EKG was reviewed and interpreted by myself. 12-lead ECG performed at 1514 is interpreted by me as revealing normal sinus rhythm at a rate of 76 beats per minute. [place] is normal. RI interval is 161 ms, QRS duration is 88 ms, QTc is 428 ms.. There were no ST or T wave abnormalities to suggest myocardial ischemia or injury. R wave progression across the precordium was satisfactory. By my interpretation this EKG is non-diagnostic for acute ischemia. Disposition Clinical Impression: Weakness, Dehydration, EVAN (acute kidney injury) Disposition: ADMITTED IP TO THIS HOSP Condition: Stable Time of Disposition: 17:51
--- NOTE | 2023-10-12 16:09 | CT ---
EXAMINATION TYPE: CT brain wo con CT DLP: 1095.4 mGycm, Automated exposure control for dose reduction was used. DATE OF EXAM: 10/12/2023 4:00 PM COMPARISON: None. CLINICAL INDICATION:Female, 68 years old with history of weakness, TECHNIQUE: Brain: Axial CT images of the brain were obtained with coronal and sagittal reformats created and rev iewed. Contrast used: None. Oral contrast used: None. FINDINGS: Brain: Extra-axial spaces: No abnormal extra-axial fluid collections. Ventricular system: Dilatation in proportion to cerebral atrophy. Cerebral parenchyma: Cerebral atrophy. No acute intraparenchymal hemorrhage or mass effect. The fernando -white junction is well differentiated. Scattered hypoattenuating areas are seen within the white mat ter. Cerebellum: Unremarkable. Mass effect: No evidence of midline shift. Intracranial vasculature: Atherosclerotic calcifications of the intracranial vessels. Soft tissues: Normal. Calvarium/osseous structures: No depressed skull fracture. Paranasal sinuses and mastoid air cells: Mild scattered paranasal sinus disease. Visualized orbits: Bilateral aphakia IMPRESSION: 1. No acute intracranial process. 2. Nonspecific white matter changes, likely secondary to chronic small vessel ischemic disease.
[2023-10-12 16:18] LABS: Basophils % (A) 0 %; Eosinophils # (A) 0.2 k/uL (0-0.7); Eosinophils % (A) 2 %; HCT 36.2 % (34.0-46.0); Lymphocytes # (A) 1.7 k/uL (1.0-4.8); Lymphocytes % (A) 16 %; MCH 32.3 pg (25.0-35.0); MCHC 33.2 g/dL (31.0-37.0); MCV 97.4 fL (80.0-100.0); Mean Platelet Volume 7.6; Monocytes # (A) 0.5 k/uL (0-1.0); Monocytes % (A) 5 %; Neutrophils # (A) 7.7 k/uL (1.3-7.7); Neutrophils % (A) 75 %; Platelet Count 315 k/uL (150-450); RBC 3.71 m/uL (3.80-5.40); RDW 12.3 % (11.5-15.5); WBC 10.3 k/uL (3.8-10.6)
--- NOTE | 2023-10-12 16:20 | XR ---
EXAMINATION TYPE: XR chest 2V DATE OF EXAM: 10/12/2023 COMPARISON: Prior chest x-ray December 10, 2021 HISTORY: Weakness TECHNIQUE: Frontal and lateral views of the chest are obtained. FINDINGS: Chronic parenchymal changes bilaterally are redemonstrated. Patient is more rotated to the right on current study. There is no suspicious new focal air space opacity, pleural effusion, or pne umothorax seen. The cardiac silhouette size is stable and upper limits of normal. Surgical change to the lumbar spine is partially imaged. IMPRESSION: Chronic changes without acute pulmonary process.
[2023-10-12 16:36] LABS: Partial Thromboplastin Time 23.1 sec (22.0-30.0); Prothrombin Time 11.1 sec (10.0-12.5)
[2023-10-12 16:38] LABS: ALT 221 U/L (4-34); AST 490 U/L (14-36); African American GFR (CKD) 40 (>60 ml/min/1.73 sqM); Albumin 3.8 g/dL (3.5-5.0); Alkaline Phosphatase 122 U/L (38-126); Anion Gap 14 mmol/L; Blood Urea Nitrogen 35 mg/dL (7-17); Calcium 9.1 mg/dL (8.4-10.2); Carbon Dioxide 26 mmol/L (22-30); Chloride 103 mmol/L (98-107); Glucose 104 mg/dL (74-99); Magnesium 1.8 mg/dL (1.6-2.3); Non-African American GFR(CKD) 34 (>60 ml/min/1.73 sqM); Potassium 3.9 mmol/L (3.5-5.1); Sodium 143 mmol/L (137-145); Total Bilirubin 0.4 mg/dL (0.2-1.3); Total Protein 6.9 g/dL (6.3-8.2)
[2023-10-12 16:43] LABS: NT-Pro-B-Type Natriuretic Pept 317 pg/mL
[2023-10-12 17:55] LABS: Appearance,Urine Clear (Clear); Bilirubin,Urine Negative (Negative); Blood,Urine Large (Negative); Color,Urine Light Yellow; Glucose,Urine (UA) Negative (Negative); Ketones,Urine Negative (Negative); Leukocyte Esterase,Urine Negative (Negative); Nitrite,Urine Negative (Negative); PH, Urine 6.5 (5.0-8.0); Protein,Urine 2+ (Negative); RBC,Urine <1 /hpf (0-5); Specific Gravity,Urine 1.009 (1.001-1.035); Urobilinogen,Urine <2.0 mg/dL (<2.0); WBC,Urine 1 /hpf (0-5)
[2023-10-12] MEDS ORDERED: SODIUM CHLORIDE 0.9% 1,000 ML IV STA (17:58)
[2023-10-12] MEDS ORDERED: NALOXONE 0.4 MG/ML 1 ML VIAL IV PRN (18:03)
[2023-10-12] MEDS ORDERED: ONDANSETRON 4 MG/2 ML VIAL IVP PRN (18:03)
[2023-10-12] MEDS ORDERED: FUROSEMIDE 40 MG TAB PO PRN (19:42)
[2023-10-12] MEDS ORDERED: HYDROcodone/APAP 5-325MG 1 EACH TAB PO PRN (19:42)
[2023-10-12] MEDS ORDERED: atenoloL 25 MG TAB PO SCH (19:45)
--- NOTE | 2023-10-12 19:48 | US ---
EXAMINATION TYPE: US renals and bladder DATE OF EXAM: 10/12/2023 COMPARISON: 04/14/19 CLINICAL INDICATION: Female, 68 years old with history of hematuria; hematuria x 2 days EXAM MEASUREMENTS: Right Kidney: 9.9 x 4.7 x 4.6 cm Left Kidney: 10.0 x 3.7 x 5.1 cm Right Kidney: No hydronephrosis or masses seen Left Kidney: No hydronephrosis or masses seen Bladder: wnl Bilateral Jets seen: No due to gas artifact There is no evidence for hydronephrosis at this point in time. No nephrolithiasis is seen. No john s are identified. The urinary bladder is anechoic. IMPRESSION: No evidence for obstructive uropathy. No renal calculi.
[2023-10-12 20:52] LABS: ALT 211 U/L (4-34); AST 443 U/L (14-36); Albumin 3.6 g/dL (3.5-5.0); Albumin/Globulin Ratio 1.3; Alcohol <10 mg/dL; Alkaline Phosphatase 126 U/L (38-126); Bilirubin,Unconjugated 0.1 mg/dL (0.0-1.1); Globulin 2.8 g/dL; Total Bilirubin 0.3 mg/dL (0.2-1.3); Total Protein 6.4 g/dL (6.3-8.2)
[2023-10-12] MEDS: HYDROcodone/APAP 10-325MG 1 EACH TAB PO SCH (20:53)
[2023-10-12] MEDS: QUEtiapine 50 MG TAB PO SCH (20:54)
[2023-10-12] MEDS: atenoloL 50 MG TAB PO SCH (20:55)
[2023-10-12] MEDS ORDERED: QUEtiapine 50 MG TAB PO SCH (21:00)
[2023-10-12] MEDS ORDERED: QUEtiapine 25 MG TAB PO SCH (21:00)
[2023-10-12] MEDS: GABAPENTIN 400 MG CAP PO SCH (21:35)
[2023-10-12] MEDS: IPRATROPIUM-ALBUTEROL 3 ML NEB INHALATION SCH (22:42)
--- NOTE | 2023-10-12 23:33 | CT ---
EXAMINATION TYPE: CT chest wo con CT DLP: 255.8 mGycm, Automated exposure control for dose reduction was used. DATE OF EXAM: 10/12/2023 8:23 PM COMPARISON: 2V chest x-ray [address] chest 01/12/2020. CLINICAL INDICATION:Female, 68 years old with history of pleural effusion; [facility], admit pleural effusio n TECHNIQUE: Multiple axial images were obtained through the chest. Sagittal and coronal reformats were created for review. Contrast used: mL of (None if empty) Oral contrast used: (None if empty) FINDINGS: LIMITATIONS: Exam is limited by lack of contrast. TECHNICAL ASSISTANCE CONSULTANT VIEW: No significant change from the earlier chest x-ray. Multilevel hardware fusion in the lum bar region. EKG leads and extrinsic densities over the chest and abdomen. LOWER NECK: No significant findings. Small calcifications noted within the common carotid arteries. MEDIASTINUM: Borderline enlarged precarinal node, 10 mm short axis, likely reactive. Other nonenlarge d nodes are also seen. No clear evidence of hilar adenopathy without contrast. HEART: Heart size upper normal. Moderate to severe coronary artery calcification and/or stents. No ap preciable pericardial effusion. VASCULATURE: Moderate atherosclerotic calcifications of the aorta and branches, especially the proxi mal left subclavian artery and portions of the brachiocephalic. The ascending aorta is not aneurysmal , measures 3.1 cm. Descending aorta is 2.5 cm. Pulmonary trunk measures 3.2 CM, mildly enlarged. Vess els not otherwise evaluated without contrast. SOFT TISSUES/LYMPH NODES: No axillary adenopathy is seen. The breasts are not fully included in the f [id number]. Heterogeneously dense appearance in the central left breast could represent normal fibr oglandular tissue however appears asymmetric compared to the right side, but again the right breast i s incompletely imaged in the appearance may be related to that. There is a small rounded calcificatio n in the left breast. No obvious masses. LUNGS/ PLEURA: Lungs are hyperinflated suggesting COPD physiology, and there are a a few small to med ium sized emphysematous blebs and bullae in the inferior right lung. Interstitial coarsening and scar ring is present. No consolidation, sizable effusion, or pneumothorax demonstrated. AIRWAY: Central airways are patent. MUSCULOSKELETAL: Generalized osteopenia. Partially seen mild degenerative changes of the shoulders. M oderate multilevel degenerative disc disease changes throughout the thoracic spine. There is near com plete loss of disc space with partial interbody fusion of T11 and T12. Mild anterior wedging of T7 ap pears well-corticated and judged most likely chronic. No clearly acute osseous abnormalities. Partial ly seen fusion hardware in the upper lumbar region. If of concern, would recommend dedicated lumbar C T. UPPER ABDOMEN: Partially seen cholecystectomy clips and dilated portion of the CBD, similar to 01/12/20 CT. No mass of the visualized adrenals. Mild fatty infiltration of the pancreas. Calcified splenic granuloma. IMPRESSION: 1. No evidence of pleural effusion. 2. No acute pulmonary process. 3. Hyperinflated lungs with chronic parenchymal changes and some emphysematous changes noted in the inferior right lung. Correlate for history of COPD. 4. Heart size upper normal. Moderate to severe coronary artery calcification and/or stents. 5. Moderate atherosclerotic calcifications of the aorta, without evidence of aneurysm. 6. Mildly enlarged pulmonary trunk, can be seen with pulmonary hypertension. 7. Asymmetric appearance of the visualized breast tissues, as above. Please correlate with findings of routine breast screening. Seen fusion hardware in the upper lumbar region. Of concern was artery d edicated lumbar CT. 8. Chronic/degenerative changes of the thoracic spine. Partially seen fusion hardware in the upper l umbar region; if of concern, would recommend dedicated lumbar CT. 9. Other chronic and likely incidental findings, as described above.
[2023-10-13] MEDS: LEVOTHYROXINE 75 MCG TAB PO SCH (05:12)
[2023-10-13 07:35] LABS: Glucose,Whole Blood 80 mg/dL (70-110)
[2023-10-13] MEDS: HYDROcodone/APAP 10-325MG 1 EACH TAB PO SCH ×3 (08:51→21:47)
[2023-10-13] MEDS: atenoloL 50 MG TAB PO SCH ×2 (08:51→21:47)
[2023-10-13] MEDS: GABAPENTIN 400 MG CAP PO SCH ×3 (08:52→21:48)
[2023-10-13] MEDS: POTASSIUM CHLORIDE ER 10 MEQ TAB.ER.PRT PO SCH (08:52)
[2023-10-13] MEDS: IPRATROPIUM-ALBUTEROL 3 ML NEB INHALATION SCH ×4 (09:03→20:04)
[2023-10-13 10:57] LABS: Basophils # (A) 0.02 X 10*3/uL (0.00-0.10); Basophils % (A) 0.2 %; Eosinophils # (A) 0.18 X 10*3/uL (0.04-0.35); Eosinophils % (A) 2.1 %; HGB 10.8 g/dL (12.0-15.0); Lymphocytes # (A) 1.33 X 10*3/uL (0.90-5.00); Lymphocytes % (A) 15.3 %; MCH 31.2 pg (27.0-32.0); MCHC 31.8 g/dL (32.0-37.0); MCV 98.3 FL (80.0-97.0); Mean Platelet Volume 10.1 FL (9.5-12.2); Monocytes % (A) 8.1 %; NRBC Per 100 WBC 0 X 10*3/uL (0.00-0.01); Neutrophils # (A) 6.43 X 10*3/uL (1.80-7.70); Neutrophils % (A) 74.1 %; Platelet Count 299 X 10*3/uL (140-440); RBC 3.46 X 10*6/uL (4.10-5.20); RDW 12.2 % (11.5-14.5); WBC 8.68 X 10*3/uL (4.50-10.00)
[2023-10-13 11:02] LABS: BUN/Creat Ratio 21.21 Ratio (12.00-20.00); Blood Urea Nitrogen 29.7 mg/dL (9.0-27.0); Carbon Dioxide 21.3 mmol/L (21.6-31.8); Chloride 107 mmol/L (96-109); Glucose 81 mg/dL (70-110); Potassium 3.9 mmol/L (3.5-5.5); Sodium 143 mmol/L (135-145)
[2023-10-13 11:03] LABS: ALT 184 U/L (8-44); AST 330 U/L (13-35); Albumin 3.4 g/dL (3.8-4.9); Albumin/Globulin Ratio 1.42 Ratio (1.60-3.17); Alkaline Phosphatase 99 U/L (41-126); Calcium 8.9 mg/dL (8.7-10.3); Globulin 2.4 g/dL (1.6-3.3); Total Bilirubin <0.2 mg/dL (0.3-1.2); Total Protein 5.8 g/dL (6.2-8.2)
[2023-10-13 11:58] LABS: Glucose,Whole Blood 100 mg/dL (70-110)
[2023-10-13] MEDS: SODIUM CHLORIDE 0.9% 1,000 ML IV SCH (16:09)
[2023-10-13 17:41] LABS: Glucose,Whole Blood 94 mg/dL (70-110)
[2023-10-13 20:28] LABS: Glucose,Whole Blood 149 mg/dL (70-110)
[2023-10-13] MEDS: QUEtiapine 50 MG TAB PO SCH (21:47)
[2023-10-14] MEDS: LEVOTHYROXINE 75 MCG TAB PO SCH (06:02)
[2023-10-14] MEDS: SODIUM CHLORIDE 0.9% 1,000 ML IV SCH ×2 (06:39→21:00)
[2023-10-14 07:39] LABS: Glucose,Whole Blood 96 mg/dL (70-110)
--- NOTE | 2023-10-14 07:53 | PN ---
PROGRESS NOTE A 68-year-old white female with altered mental status and dehydration. Her blood pressure has improved since last night. Hemoglobin is 10.8 after rehydration, so she is anemic. Elevated D-dimer, a little bit high at 0.82. Sugars have been low in 80s to 90s to 100s. Total bilirubin is negative. Liver enzymes are improving from 221 to 184 and 490 to 330. Albumin is low at 3.4. TSH was 0.045 and free T3 is 4.4. UA is large blood. CT chest shows [id number] coronary artery calcifications and elevated pulmonary vessel size. Left breast shows some dense area, asymmetrical, unclear etiology COPD. Please correlate with outside mammogram and ultrasound will have to be done. Fusion hardware in the lumbar spine, chronic degenerative disk disease. Saturation 93% on room air, blood pressure 148/65, pulse 67, respiratory rate 16 to 18, temperature 98.9. She had a renal ultrasound due to elevated creatinine levels. No obstructive uropathy or lesions of the kidneys. Elevated liver enzymes, we got some labs pending. It is improving with rehydration, maybe cardiorenal syndrome. We will do echo. Prognosis is guarded. Please see further orders. Rehydrate. MMODL / IJN: [id number] /
[2023-10-14] MEDS: POTASSIUM CHLORIDE ER 10 MEQ TAB.ER.PRT PO SCH (08:53)
[2023-10-14] MEDS: HYDROcodone/APAP 10-325MG 1 EACH TAB PO SCH ×3 (08:53→21:00)
[2023-10-14] MEDS: atenoloL 50 MG TAB PO SCH ×2 (08:53→21:02)
[2023-10-14] MEDS: GABAPENTIN 400 MG CAP PO SCH ×3 (08:54→21:00)
[2023-10-14] MEDS: IPRATROPIUM-ALBUTEROL 3 ML NEB INHALATION SCH ×4 (08:56→20:58)
[2023-10-14 12:23] LABS: Glucose,Whole Blood 115 mg/dL (70-110)
[2023-10-14] MEDS: VANCOMYCIN 1,000 MG in SODIUM CHLORIDE 0.9% 250 ML IVPB SCH (13:12)
--- NOTE | 2023-10-14 13:21 | CA ---
Transthoracic Echo Report Name: Maggy Luna Age: 68 Gender: F : 1955 Exam Date: 10/13/2023 16:17 Exam Location: [facility] Ht (in): 61 Wt (lb): 130 Ordering Physician: Renny Sheriff MD Attending/Referring Phys: Undergraduate Advisor Madhuri Beavers RDCS Procedure CPT: Indications: cad/coronary calcification severe Cardiac Hx: Technical Quality: Fair Contrast 1: Total Dose (mL): Contrast 2: Total Dose (mL): MEASUREMENTS (Male / Female) Normal Values 2D ECHO LV Diastolic Diameter PLAX 3.7 cm 4.2 - 5.9 / 3.9 - 5.3 cm LV Systolic Diameter PLAX 2.6 cm IVS Diastolic Thickness 1.1 cm 0.6 - 1.0 / 0.6 - 0.9 cm LVPW Diastolic Thickness 1.3 cm 0.6 - 1.0 / 0.6 - 0.9 cm LV Relative Wall Thickness 0.6 RV Internal Dim ED PLAX 3.0 cm LA Volume 55.9 cm??? 18 - 58 / 22 - 52 cm??? LA Volume Index 34.8 cm???/m??? 16 - 28 cm???/m??? M-MODE Aortic Root Diameter MM 3.1 cm LA Systolic Diameter MM 3.9 cm LA Ao Ratio MM 1.3 AV Cusp Separation MM 1.5 cm DOPPLER AV Peak Velocity 160.4 cm/s AV Peak Gradient 10.3 mmHg AV Mean Velocity 122.5 cm/s AV Mean Gradient 6.4 mmHg AV Velocity Time Integral 42.9 cm LVOT Peak Velocity 109.7 cm/s LVOT Peak Gradient 4.8 mmHg LVOT Velocity Time Integral 25.0 cm MV Area PHT 4.2 cm??? Mitral E Point Velocity 99.4 cm/s Mitral A Point Velocity 113.8 cm/s Mitral E to A Ratio 0.9 MV Deceleration Time 180.5 ms MV E' Velocity 7.2 cm/s Mitral E to MV E' Ratio 13.9 TR Peak Velocity 274.5 cm/s TR Peak Gradient 30.1 mmHg Right Ventricular Systolic Press 35.1 mmHg FINDINGS Left Ventricle Left ventricular wall thickness normal. Normal left ventricular systolic function with no obvious regional wall motion abnormalities. Left ventricular ejection fraction is estimated at 55 %. Right Ventricle Mild right ventricular dilatation. Mild pulmonary hypertension. Right Atrium Mild right atrial dilatation. Left Atrium Mildly increased left atrial volume. Patent foramen ovale is highly suspicious with a bidirectional shunt. Mitral Valve Structurally normal mitral valve. Mitral valve thickened. Mild mitral annular calcification. [id number] mitral regurgitation. Aortic Valve Trileaflet aortic valve. No aortic valve stenosis or regurgitation. Tricuspid Valve Structurally normal tricuspid valve. Mild tricuspid regurgitation. Pulmonic Valve Structurally normal pulmonic valve. Pericardium No pericardial effusion. Aorta Normal size aortic root and proximal ascending aorta. CONCLUSIONS Normal LV size and systolic function Mild RV enlargement Previewed by: Dr. Ash Shields MD (Electronically Signed) Final Date: 14 October 2023 13:20
[2023-10-14] MEDS ORDERED: FUROSEMIDE 10 MG/ML 2 ML VIAL IV ONE (15:54)
[2023-10-14] MEDS: methylPREDNISolone SOD SUCCI 40 MG/ML 1 ML VIAL IV SCH (16:35)
[2023-10-14 17:16] LABS: Glucose,Whole Blood 112 mg/dL (70-110)
--- NOTE | 2023-10-14 19:16 | PN ---
PROGRESS NOTE SUBJECTIVE: A 68-year-old white female with acute kidney injury, dehydration, generalized weakness. She is getting out of bed a little bit better than she was yesterday. She has positive blood culture. We are going to start her on vancomycin, start her on IV Solu-Medrol 40 q.8 hours. OBJECTIVE: CARDIOVASCULAR: S1, S2. LUNGS: Clear. GI: Soft. HEMATOLOGY: Negative Homans. ASSESSMENT: Acute kidney injury, dehydration, generalized weakness, chronic obstructive pulmonary disease, pulmonary hypertension, bacteremia, started on vancomycin. Consult Infectious Disease. Started her on IV steroids. PT, OT. MMODL / IJN: [id number] /
[2023-10-14 19:54] LABS: Glucose,Whole Blood 217 mg/dL (70-110)
[2023-10-14] MEDS: QUEtiapine 50 MG TAB PO SCH (21:24)
--- NOTE | 2023-10-14 23:23 | PN ---
PROGRESS NOTE SUBJECTIVE: Remains on Seroquel, Requip, IV fluids. Vancomycin has been started for possible bacteremia. We are going to get consult with Dr. Mir for bacteremia. Repeat blood cultures. We will start her on vancomycin in the meantime. Prognosis guarded. Please see further orders. OBJECTIVE: CARDIOVASCULAR: S1, S2. LUNGS: Clear. GI: Soft. HEMATOLOGY: Negative Homans. PSYCH: Fair mood and affect. PLAN: Continue current treatment with fluids and breathing treatments, etc. Prognosis guarded. Rehydrate bacteremia. Also start with antibiotics. PT/OT. Her strength in her legs is improving. Her swelling in her body is improved. MMODL / IJN: [id number] /
[2023-10-15] MEDS: methylPREDNISolone SOD SUCCI 40 MG/ML 1 ML VIAL IV SCH ×4 (01:50→23:54)
[2023-10-15] MEDS: LEVOTHYROXINE 75 MCG TAB PO SCH (06:35)
[2023-10-15 07:25] LABS: Glucose,Whole Blood 159 mg/dL (70-110)
--- NOTE | 2023-10-15 07:48 | P.CONS ---
History of Present Illness - Reason for Consult Consult date: 10/14/23 - History of Present Illness Patient is a 68-year-old female with a past medical history significant for diabetes mellitus fibromyalgia hyperlipidemia hypertension COPD patient presenting to the ER for evaluation of weakness patient apparently lives at home by herself and ambulates with a walker noticed to have increasing generalized weakness symptom has been going on for about 3 days before presentation to the hospital patient also complaining of dysuria as well as strong smelling urine concerning for UTI denies having any fever no headache no URI symptoms no chest pain or shortness of breath or cough no abdominal pain or any diarrhea on presentation to the hospital she did have a low-grade fever of 99.1 degrees for night patient was not tachycardic hypotensive or hypoxic and no need for supplemental oxygen did have white count of 10.3 creatinine was 1.4 liver enzymes mildly elevated urine was negative influenza RSV COVID testing was negative patient did have a chest x-ray chronic changes without acute pulmonary process patient also have a CT of the chest, no evidence of pleural effusion PE no acute pulmonary process patient did have a blood culture drawn which came back positive with gram-positive cocci in cluster patient was started on vancomycin infectious disease was consulted for further management of antibiotic therapy Past Medical History Past Medical History: COPD, Diabetes Mellitus, Fibromyalgia, GERD/Reflux, Hyperlipidemia, Hypertension, Osteoarthritis (OA), Sleep Apnea/CPAP/BIPAP, Thyroid Disorder, Vascular Disorder Additional Past Medical History / Comment(s): Pt states she has been having generalized edema/generalized pain takes lasix prn, NIDDM type II, neuropathy bilateral feet/legs and occasionally hands, guillian barre syndrome, SOHEILA with no cpap used, PAD, chronic low back pain, osteoporosis, antral ulcer, IBS, diverticular disease, hemorrhoids, RLS, frequent bilateral ankle/leg edema, hypothyroid. History of Any Multi-Drug Resistant Organisms: ESBL Year Discovered:: 07/04/21 MDRO Source:: ESBL URINE Past Surgical History: Appendectomy, Back Surgery, Bowel Resection, Section, Cholecystectomy, Hernia Repair, Hysterectomy, Tubal Ligation Additional Past Surgical History / Comment(s): Back sx x3-most recent was fusion w/cage and rods/screws, bowel resection d/t diverticular disease, D&C, calcium deposit removed off sternum, incisional hernia repair, EGD, colonoscopies. Past Anesthesia/Blood Transfusion Reactions: No Reported Reaction Past Psychological History: No Psychological Hx Reported Smoking Status: Former smoker Past Alcohol Use History: None Reported Past Drug Use History: None Reported - Past Family History Mother Family Medical History: Cancer Additional Family Medical History / Comment(s): Mother of colon cancer. Father History Unknown: Yes Additional Family Medical History / Comment(s): Father in his sleep. Medications and Allergies Home Medications Medication Instructions Recorded Confirmed Type Furosemide [Lasix] 20 mg PO BID PRN 06/03/16 10/12/23 History metFORMIN HCL [Glucophage] 500 mg PO DAILY 06/03/16 10/12/23 History gemfibroziL [Lopid] 600 mg PO AC-BID 12/20/18 10/12/23 History atenoloL [Tenormin] 25 mg PO BID 07/29/19 10/12/23 History Potassium Chloride [Klor-Con 10 ER] 10 meq PO DAILY 12/17/19 10/12/23 History QUEtiapine [SEROquel] 50 mg PO HS 12/17/19 10/12/23 History Rosuvastatin Calcium [Crestor] 40 mg PO HS 12/17/19 10/12/23 History Losartan [Cozaar] 12.5 mg PO DAILY 12/06/22 10/12/23 History Albuterol Nebulized [Ventolin 2.5 mg INHALATION RT-Q6H PRN 10/12/23 10/12/23 H istory Nebulized] Cetirizine HCl [Zyrtec] 10 mg PO DAILY 10/12/23 10/12/23 History Cyanocobalamin (Vitamin B-12) 1,000 mcg PO DAILY 10/12/23 10/12/23 History [Vitamin B-12] Ferrous Sulfate [Feosol] 325 mg PO DAILY 10/12/23 10/12/23 History Gabapentin 800 mg PO TID 10/12/23 10/12/23 History HYDROcodone/APAP 10-325MG [Aydlett 1 tab PO TID 10/12/23 10/12/23 History 10-325] Levothyroxine Sodium [Synthroid] 75 mcg PO DAILY 10/12/23 10/12/23 History rOPINIRole HCL [Requip] 1 mg PO HS 10/12/23 10/12/23 History Allergies Allergy/AdvReac Type Severity Reaction Status Date / Time aspirin Allergy COMA LIKE Verified 10/12/23 20:00 STATE codeine Allergy Rash/Hives Verified 10/12/23 20:00 pet dander Allergy Itching Uncoded 12/08/22 07:43 Physical Exam Vitals: Vital Signs Temp Pulse Pulse Resp BP Pulse Ox 10/14/23 19:59 98.7 F 82 16 188/76 93 L 10/14/23 15:35 72 10/14/23 15:24 72 10/14/23 14:05 98.6 F 77 18 160/68 95 10/14/23 11:50 80 10/14/23 11:40 80 10/14/23 09:04 76 10/14/23 08:56 76 10/14/23 07:37 98.8 F 63 16 162/67 96 10/14/23 02:00 98.2 F 59 L 16 125/65 94 L Intake and Output 10/14/23 10/14/23 10/14/23 06:59 14:59 22:59 Intake Total 1300 Balance 1300 Intake: Oral 1300 Other: Voiding Method Bedside Commode Bedside Commode # Voids 1 3 Results CBC & Chem 7: 10/15/23 07:14 10/16/23 06:28 Labs: Abnormal Lab Results - Last 24 Hours (Table) 10/13/23 10/14/23 10/14/23 Range/Units 20:14 12:21 17:15 POC Glucose (mg/dL) 149 H 115 H 112 H (70-110) mg/dL 10/14/23 Range/Units 19:50 POC Glucose (mg/dL) 217 H (70-110) mg/dL Microbiology - Last 24 Hours (Table) 10/12/23 18:00 Blood Culture Gram Stain - Preliminary Blood Blood Culture - Preliminary 10/12/23 17:45 Blood Culture Gram Stain - Preliminary Blood Blood Culture - Preliminary Assessment and Plan Plan: 1patient with gram-positive bacteremia in this patient presented to hospital with generalized weakness however the patient did not have any fever or elevated white count urine was negative chest x-ray CT of the chest did not show any pneumonia the question of possible skin contamination as we do not have any obvious focus for this bacteremia 2-blood cultures will be repeated document clearance and check inflammatory markers 3-vancomycin pharmacy to dose target trough of 15 while watching kidney function and Vanco trough closely We will follow on clinical condition and cultures to further adjust medication if needed Thank you for this consultation we will follow the patient along with you Dictation was produced using [employer] dictation software. please excuse any grammatical, word or spelling errors. Time with Patient: Greater than 30
[2023-10-15 07:58] LABS: ALT 156 U/L (4-34); AST 173 U/L (14-36); African American GFR (CKD) 63 (>60 ml/min/1.73 sqM); Albumin 3.6 g/dL (3.5-5.0); Albumin/Globulin Ratio 1.2; Alkaline Phosphatase 111 U/L (38-126); Anion Gap 13 mmol/L; Blood Urea Nitrogen 23 mg/dL (7-17); Carbon Dioxide 24 mmol/L (22-30); Chloride 105 mmol/L (98-107); Globulin 2.9 g/dL; Glucose 159 mg/dL (74-99); Non-African American GFR(CKD) 55 (>60 ml/min/1.73 sqM); Sodium 142 mmol/L (137-145); Total Bilirubin 0.4 mg/dL (0.2-1.3); Total Protein 6.5 g/dL (6.3-8.2)
[2023-10-15] MEDS: IPRATROPIUM-ALBUTEROL 3 ML NEB INHALATION SCH ×5 (08:44→21:15)
[2023-10-15] MEDS: SODIUM CHLORIDE 0.9% 1,000 ML IV SCH ×2 (09:26→23:54)
[2023-10-15] MEDS: POTASSIUM CHLORIDE ER 10 MEQ TAB.ER.PRT PO SCH (09:27)
[2023-10-15] MEDS: HYDROcodone/APAP 10-325MG 1 EACH TAB PO SCH ×3 (09:27→21:02)
[2023-10-15] MEDS: atenoloL 50 MG TAB PO SCH ×2 (09:27→21:02)
[2023-10-15] MEDS: GABAPENTIN 400 MG CAP PO SCH ×3 (09:27→21:02)
[2023-10-15 10:01] LABS: Basophils # (A) 0.01 X 10*3/uL (0.00-0.10); Basophils % (A) 0.1 %; Eosinophils # (A) 0 X 10*3/uL (0.04-0.35); Eosinophils % (A) 0 %; HCT 34.6 % (37.2-46.3); HGB 11.2 g/dL (12.0-15.0); Lymphocytes # (A) 0.66 X 10*3/uL (0.90-5.00); Lymphocytes % (A) 7.5 %; MCHC 32.4 g/dL (32.0-37.0); MCV 95.8 FL (80.0-97.0); Mean Platelet Volume 10.2 FL (9.5-12.2); Monocytes # (A) 0.11 X 10*3/uL (0.20-1.00); Monocytes % (A) 1.2 %; NRBC Per 100 WBC 0 X 10*3/uL (0.00-0.01); Neutrophils # (A) 7.98 X 10*3/uL (1.80-7.70); Neutrophils % (A) 90.5 %; Platelet Count 320 X 10*3/uL (140-440); RBC 3.61 X 10*6/uL (4.10-5.20); RDW 12.1 % (11.5-14.5); WBC 8.82 X 10*3/uL (4.50-10.00)
[2023-10-15 11:50] LABS: Glucose,Whole Blood 169 mg/dL (70-110)
[2023-10-15] MEDS ORDERED: diphenhydrAMINE 50 MG/ML 1 ML VIAL IVP PRN (13:25)
[2023-10-15] MEDS: VANCOMYCIN 1,000 MG in SODIUM CHLORIDE 0.9% 250 ML IVPB SCH (15:28)
[2023-10-15 17:11] LABS: Glucose,Whole Blood 166 mg/dL (70-110)
[2023-10-15 20:30] LABS: Glucose,Whole Blood 228 mg/dL (70-110)
[2023-10-15] MEDS: QUEtiapine 50 MG TAB PO SCH (21:02)
[2023-10-16 07:12] LABS: African American GFR (CKD) 51 (>60 ml/min/1.73 sqM); Non-African American GFR(CKD) 44 (>60 ml/min/1.73 sqM)
[2023-10-16] MEDS: LEVOTHYROXINE 75 MCG TAB PO SCH (07:28)
[2023-10-16 07:32] LABS: Glucose,Whole Blood 143 mg/dL (70-110)
[2023-10-16] MEDS: IPRATROPIUM-ALBUTEROL 3 ML NEB INHALATION SCH ×4 (08:26→18:13)
[2023-10-16] MEDS: atenoloL 50 MG TAB PO SCH ×2 (09:30→20:19)
[2023-10-16] MEDS: POTASSIUM CHLORIDE ER 10 MEQ TAB.ER.PRT PO SCH (09:30)
[2023-10-16] MEDS: HYDROcodone/APAP 10-325MG 1 EACH TAB PO SCH ×3 (09:30→21:06)
[2023-10-16] MEDS: GABAPENTIN 400 MG CAP PO SCH ×3 (09:30→21:06)
[2023-10-16] MEDS: methylPREDNISolone SOD SUCCI 40 MG/ML 1 ML VIAL IV SCH ×3 (09:31→23:53)
[2023-10-16 12:39] LABS: Glucose,Whole Blood 136 mg/dL (70-110)
--- NOTE | 2023-10-16 13:41 | P.PN ---
Subjective Progress Note Date: 10/15/23 Principal diagnosis: Reason for follow-up is positive blood culture Patient is a 68-year-old female with a past medical history significant for diabetes mellitus fibromyalgia hyperlipidemia hypertension COPD patient presenting to the ER for evaluation of weakness patient apparently lives at home by herself and ambulates with a walker noticed to have increasing genera lized weakness, patient did have blood cultures came back positive with micrococcus species patient was started on vancomycin infectious disease was consulted for further management of antibiotic therapy. On reevaluation that is 10/15/2023, the patient denies having any fever or any chills, the patient is breathing comfortably on room air patient denies having any chest pain shortness of breath or cough no nausea vomiting abdominal pain or diarrhea Patient did have white count of 8.82, creatinine is 1.04, blood culture has been finalized with micrococcus species Objective - Vital Signs Vital signs: Vital Signs Temp 98 F 10/15/23 11:48 Pulse 88 10/15/23 15:25 Resp 18 10/15/23 11:48 BP 161/76 10/15/23 11:48 Pulse Ox 93 L 10/15/23 11:48 FiO2 Intake & Output 10/14/23 10/15/23 10/15/23 18:59 06:59 18:59 Intake Total 1300 Balance 1300 Intake: Oral 1300 Other: Voiding Method Bedside Commode Bedside Commode Bedside Commode # Voids 3 1 1 - Exam GENERAL DESCRIPTION: An elderly female lying in bed in no distress RESPIRATORY SYSTEM: Unlabored breathing , decreased breath sounds at bases HEART: S1 S2 regular rate and rhythm , ABDOMEN: Soft , no tenderness EXTREMITIES: No edema feet - Labs CBC & Chem 7: 10/15/23 07:14 10/16/23 06:28 Labs: Abnormal Lab Results - Last 24 Hours (Table) 10/14/23 10/14/23 10/15/23 Range/Units 17:15 19:50 07:14 RBC (4.10-5.20) X 10*6/uL Hgb (12.0-15.0) g/dL Hct (37.2-46.3) % Immature Gran # (0.00-0.04) X 10*3/uL Neutrophils # (1.80-7.70) X 10*3/uL Lymphocytes # (0.90-5.00) X 10*3/uL Monocytes # (0.20-1.00) X 10*3/uL Eosinophils # (0.04-0.35) X 10*3/uL BUN 23 H (7-17) mg/dL Glucose 159 H (74-99) mg/dL POC Glucose (mg/dL) 112 H 217 H (70-110) mg/dL AST 173 H (14-36) U/L ALT 156 H (4-34) U/L 10/15/23 10/15/23 10/15/23 Range/Units 07:14 07:24 11:49 RBC 3.61 L (4.10-5.20) X 10*6/uL Hgb 11.2 L (12.0-15.0) g/dL Hct 34.6 L (37.2-46.3) % Immature Gran # 0.06 H (0.00-0.04) X 10*3/uL Neutrophils # 7.98 H (1.80-7.70) X 10*3/uL Lymphocytes # 0.66 L (0.90-5.00) X 10*3/uL Monocytes # 0.11 L (0.20-1.00) X 10*3/uL Eosinophils # 0 L (0.04-0.35) X 10*3/uL BUN (7-17) mg/dL Glucose (74-99) mg/dL POC Glucose (mg/dL) 159 H 169 H (70-110) mg/dL AST (14-36) U/L ALT (4-34) U/L Microbiology - Last 24 Hours (Table) 10/12/23 18:00 Blood Culture Gram Stain - Final Blood Blood Culture - Final Micrococcus species 10/12/23 17:45 Blood Culture Gram Stain - Final Blood Blood Culture - Preliminary Assessment and Plan (1) Positive blood culture Current Visit: Yes Status: Acute Code(s): R78.81 - BACTEREMIA SNOMED Code(s): 153677760 Plan: 1patient with gram-positive bacteremia in this patient presented to hospital with generalized weakness however the patient did not have any fever or elevated white count urine was negative chest x-ray CT of the chest did not show any pneumonia the question of possible skin contamination as we do not have any obvious focus for this bacteremia 2-blood cultures has been repeated document clearance, initial blood culture has been finalized with micrococcus species likely contamination 3-we will discontinue vancomycin and monitor the patient closely off antibiotic therapy Dictation was produced using [employer] dictation software. please excuse any grammatical, word or spelling errors. Time with Patient: Less than 30
--- NOTE | 2023-10-16 13:43 | P.PN ---
Subjective Progress Note Date: 10/16/23 Principal diagnosis: Reason for follow-up is positive blood culture Patient is a 68-year-old female with a past medical history significant for diabetes mellitus fibromyalgia hyperlipidemia hypertension COPD patient presenting to the ER for evaluation of weakness patient apparently lives at home by herself and ambulates with a walker noticed to have increasing genera lized weakness, patient did have blood cultures came back positive with micrococcus species patient was started on vancomycin infectious disease was consulted for further management of antibiotic therapy. On reevaluation that is 10/16/2023, the patient remains to be afebrile, the patient is breathing comfortably on room air and no need for supplemental oxygen, patient denies having any chest pain shortness of breath or cough patient denies having any nausea nausea vomiting abdominal pain or diarrhea Patient did have white count of 8.82 as of yesterday, creatinine is 1.24, blood culture has been finalized with micrococcus species Objective - Vital Signs Vital signs: Vital Signs Temp 98.2 F 10/16/23 12:36 Pulse 73 10/16/23 12:36 Resp 18 10/16/23 12:36 BP 182/66 10/16/23 12:36 Pulse Ox 93 L 10/16/23 12:36 FiO2 Intake & Output 10/15/23 10/16/23 10/16/23 18:59 06:59 18:59 Intake Total 1380 Balance 1380 Intake: Intake, IV Titration 900 Amount Sodium Chloride 0.9% 1, 900 000 ml @ 75 mls/hr IV . [id number] [facility] Rx#:[id number] Oral 480 Other: Voiding Method Bedside Commode Toilet Toilet Bedside Commode Bedside Commode # Voids 1 3 - Exam GENERAL DESCRIPTION: An elderly female lying in bed in no distress RESPIRATORY SYSTEM: Unlabored breathing , decreased breath sounds at bases HEART: S1 S2 regular rate and rhythm , ABDOMEN: Soft , no tenderness EXTREMITIES: No edema feet - Labs CBC & Chem 7: 10/15/23 07:14 10/16/23 06:28 Labs: Abnormal Lab Results - Last 24 Hours (Table) 10/12/23 10/15/23 10/15/23 Range/Units 19:50 17:10 20:28 Creatinine (0.52-1.04) mg/dL POC Glucose (mg/dL) 166 H 228 H (70-110) mg/dL Total T4 3.4 L (4.5 - 10.9) ug/dL 10/16/23 10/16/23 10/16/23 Range/Units 06:28 07:30 12:37 Creatinine 1.24 H (0.52-1.04) mg/dL POC Glucose (mg/dL) 143 H 136 H (70-110) mg/dL Total T4 (4.5 - 10.9) ug/dL Microbiology - Last 24 Hours (Table) 10/14/23 13:19 Blood Culture - Preliminary Blood 10/12/23 18:00 Blood Culture Gram Stain - Final Blood Blood Culture - Final Micrococcus species 10/12/23 17:45 Blood Culture Gram Stain - Final Blood Blood Culture - Preliminary Assessment and Plan (1) Positive blood culture Current Visit: Yes Status: Acute Code(s): R78.81 - BACTEREMIA SNOMED Code(s): 100269052 Plan: 1patient with gram-positive bacteremia in this patient presented to hospital with generalized weakness however the patient did not have any fever or elevated white count urine was negative chest x-ray CT of the chest did not show any pneumonia the question of possible skin contamination as we do not have any obvi ous focus for this bacteremia 2-blood cultures has been repeated document clearance, initial blood culture has been finalized with micrococcus species likely contamination 3-patient vancomycin was discontinued yesterday patient seemed to be doing well we will monitor the patient w closely off antibiotic therapy Dictation was produced using [employer] dictation software. please excuse any grammatical, word or spelling errors. Time with Patient: Less than 30
[2023-10-16] MEDS: SODIUM CHLORIDE 0.9% 1,000 ML IV SCH (16:12)
[2023-10-16 16:45] LABS: Glucose,Whole Blood 205 mg/dL (70-110)
[2023-10-16] MEDS ORDERED: ZOLPIDEM 5 MG TAB PO PRN (16:59)
[2023-10-16 19:49] LABS: Glucose,Whole Blood 164 mg/dL (70-110)
[2023-10-16] MEDS: QUEtiapine 50 MG TAB PO SCH (20:19)
[2023-10-16] MEDS: DOCUSATE 100 MG CAP PO SCH (20:19)
[2023-10-17] MEDS: SODIUM CHLORIDE 0.9% 1,000 ML IV SCH (03:59)
[2023-10-17] MEDS: LEVOTHYROXINE 75 MCG TAB PO SCH (05:56)
[2023-10-17 07:25] LABS: Glucose,Whole Blood 99 mg/dL (70-110)
[2023-10-17 07:40] VITALS: BP 180/78; RESP 17; TEMP 98.5
[2023-10-17] MEDS: POTASSIUM CHLORIDE ER 10 MEQ TAB.ER.PRT PO SCH (08:17)
[2023-10-17] MEDS: DOCUSATE 100 MG CAP PO SCH (08:17)
[2023-10-17] MEDS: atenoloL 50 MG TAB PO SCH (08:17)
[2023-10-17] MEDS: GABAPENTIN 400 MG CAP PO SCH (08:17)
[2023-10-17] MEDS: HYDROcodone/APAP 10-325MG 1 EACH TAB PO SCH (08:18)
[2023-10-17] MEDS: IPRATROPIUM-ALBUTEROL 3 ML NEB INHALATION SCH ×2 (08:31→11:49)
[2023-10-17 08:57] VITALS: PULSE 76
--- NOTE | 2023-10-17 13:11 | P.PN ---
Subjective Progress Note Date: 10/17/23 Principal diagnosis: Reason for follow-up is positive blood culture Patient is a 68-year-old female with a past medical history significant for diabetes mellitus fibromyalgia hyperlipidemia hypertension COPD patient presenting to the ER for evaluation of weakness patient apparently lives at home by herself and ambulates with a walker noticed to have increasing genera lized weakness, patient did have blood cultures came back positive with micrococcus species patient was started on vancomycin infectious disease was consulted for further management of antibiotic therapy. On reevaluation that is 10/17/2023, the patient continues to be afebrile, the patient is breathing comfortably on room air, patient denies having any chest pain shortness of breath or cough patient denies having any nausea nausea vomiting abdominal pain or diarrhea Patient did have white count of 8.82 as of 10/15/2023, no CBC was done today, repeat blood culture 10/14/2022 has been negative Objective - Vital Signs Vital signs: Vital Signs Temp 98.5 F 10/17/23 07:29 Pulse 76 10/17/23 08:42 Resp 17 10/17/23 07:29 BP 180/78 10/17/23 07:29 Pulse Ox 90 L 10/17/23 02:00 FiO2 Intake & Output 10/16/23 10/17/23 10/17/23 18:59 06:59 18:59 Intake Total 900 Balance 900 Intake: Intake, IV Titration 900 Amount Sodium Chloride 0.9% 1, 900 000 ml @ 75 mls/hr IV . [id number] [facility] Rx#:[id number] Other: Voiding Method Toilet Toilet Toilet Bedside Commode Bedside Commode Bedside Commode # Voids 4 # Bowel Movements 1 - Exam GENERAL DESCRIPTION: An elderly female lying in bed in no distress RESPIRATORY SYSTEM: Unlabored breathing , decreased breath sounds at bases HEART: S1 S2 regular rate and rhythm , ABDOMEN: Soft , no tenderness EXTREMITIES: No edema feet - Labs CBC & Chem 7: 10/15/23 07:14 10/16/23 06:28 Labs: Abnormal Lab Results - Last 24 Hours (Table) 10/12/23 10/16/23 10/16/23 Range/Units 19:50 16:44 19:48 POC Glucose (mg/dL) 205 H 164 H (70-110) mg/dL Total T4 3.4 L (4.5 - 10.9) ug/dL Microbiology - Last 24 Hours (Table) 10/14/23 13:19 Blood Culture - Preliminary Blood Assessment and Plan (1) Positive blood culture Status: Acute Code(s): R78.81 - BACTEREMIA SNOMED Code(s): 198590888 Plan: 1patient with gram-positive bacteremia in this patient presented to hospital with generalized weakness however the patient did not have any fever or elevated white count urine was negative chest x-ray CT of the chest did not show any pneumonia the question of possible skin contamination as we do not have any obvious focus for this bacteremia 2-blood cultures has been repeated document clearance, initial blood culture has been finalized with micrococcus species likely contamination 3-patient remains to be afebrile repeat blood culture has been negative and no need for any antibiotics on discharge question concern answered Dictation was produced using [employer] dictation software. please excuse any grammatical, word or spelling errors. Time with Patient: Less than 30
== END 2023-10-17 12:51 | disposition home or self-care (01) ==
LOC: EC 15:06 → 6NMEDSUR 18:04 → 5NMEDONC 19:23
PROVIDERS: ADMIT Family Medicine; ATTEND Family Medicine
DX: R78.81 Bacteremia (principal); R53.1 Weakness; E86.0 Dehydration; N17.9 Acute kidney failure, unspecified; J44.9 Chronic obstructive pulmonary disease, unspecified; I27.20 Pulmonary hypertension, unspecified; K21.9 Gastro-esophageal reflux disease without esophagitis; E78.5 Hyperlipidemia, unspecified; I10 Essential (primary) hypertension; E11.40 Type 2 diabetes mellitus with diabetic neuropathy, unspecified; G47.33 Obstructive sleep apnea (adult) (pediatric); E11.51 Type 2 diabetes mellitus with diabetic peripheral angiopathy without gangrene; G89.29 Other chronic pain; M54.50 Low back pain, unspecified; Z20.822 Contact with and (suspected) exposure to COVID-19; Z87.891 Personal history of nicotine dependence; Z79.84 Long term (current) use of oral hypoglycemic drugs; Z79.890 Hormone replacement therapy; Z79.899 Other long term (current) drug therapy; Z88.5 Allergy status to narcotic agent; Z88.6 Allergy status to analgesic agent
CPT/HCPCS: 96376 ×2; 96361 ×6; 96365; 96366 ×2; 96375 ×2; 99285; 36415; 94640 ×7; 93005; 93306; 85379; 84481; 83880; 80053 ×3; 80076; 82565; 83605; 83735; 84436; 84443; 84484; 85025 ×3; 85610; 85730; 81001; 87040 ×2; 80320; 87636; 71046; 76770; 70450; 71250; G0378 ×7; J3370 ×2; J1200; J1940; J2920 ×3

== ENCOUNTER 2024-01-22 09:45 | Inpatient (IN) | payer MEDICARE ==
[2024-01-22] MEDS: SODIUM CHLORIDE 0.9% 1,000 ML IV STA (10:29)
--- NOTE | 2024-01-22 10:38 | ED ---
Weakness HPI - General Chief complaint: Weakness Stated complaint: Back pain Time Seen by Provider: 01/22/24 10:01 Source: patient, RN notes reviewed Mode of arrival: EMS Limitations: no limitations - History of Present Illness Initial comments: This is a 68-year-old female who presents to the emergency department for generalized weakness. Symptoms started over the last 2 to 3 days but seem to be worsening. States that today she was unable to get out of her bed on her own, and had to call a friend for help. Notes that she has lost about 20 pounds in the last couple of months and was supposed to have an outpatient CT scan of the chest today, but was unable to go as she came to the emergency department instead due to her symptoms. She did have some nausea yesterday that has since resolved. Reports a history of chronic lower back pain that also seems to be worsening. Denies any chest pain or shortness of breath. MD Complaint: generalized weakness - Related Data Home Medications Medication Instructions Recorded Confirmed metFORMIN HCL [Glucophage] 500 mg PO DAILY 06/03/16 01/22/24 Potassium Chloride [Klor-Con 10 ER] 10 meq PO DAILY 12/17/19 01/22/24 QUEtiapine [SEROquel] 50 mg PO HS 12/17/19 01/22/24 Cetirizine HCl [Zyrtec] 10 mg PO DAILY 10/12/23 01/22/24 Cyanocobalamin (Vitamin B-12) 1,000 mcg PO DAILY 10/12/23 01/22/24 [Vitamin B-12] Ferrous Sulfate [Iron (65 MG 325 mg PO DAILY 10/12/23 01/22/24 Elemental)] Gabapentin 800 mg PO TID 10/12/23 01/22/24 HYDROcodone/APAP 10-325MG [[place] 1 tab PO TID 10/12/23 01/22/24 10-325] Levothyroxine Sodium [Synthroid] 75 mcg PO DAILY 10/12/23 01/22/24 rOPINIRole HCL [Requip] 1 mg PO HS 10/12/23 01/22/24 Losartan [Cozaar] 12.5 mg PO DAILY 01/22/24 01/22/24 Montelukast Sodium 10 mg PO HS 01/22/24 01/22/24 Rosuvastatin Calcium [Crestor] 40 mg PO HS 01/22/24 01/22/24 gemfibroziL [Lopid] 600 mg PO BID 01/22/24 01/22/24 Previous Rx's Medication Instructions Recorded Furosemide [Lasix] 40 mg PO DAILY PRN 90 Days #90 tab 10/17/23 atenoloL [Tenormin] 50 mg PO BID 90 Days #180 tab 10/17/23 Allergies Allergy/AdvReac Type Severity Reaction Status Date / Time aspirin Allergy COMA LIKE Verified 01/22/24 13:25 STATE codeine Allergy Rash/Hives Verified 01/22/24 13:25 pet dander Allergy Itching Uncoded 01/22/24 13:25 Review of Systems ROS Statement: Those systems with pertinent positive or pertinent negative responses have been documented in the HPI. ROS Other: All systems not noted in ROS Statement are negative. Past Medical History Past Medical History: COPD, Diabetes Mellitus, Fibromyalgia, GERD/Reflux, Hyperlipidemia, Hypertension, Osteoarthritis (OA), Sleep Apnea/CPAP/BIPAP, Thyroid Disorder, Vascular Disorder Additional Past Medical History / Comment(s): Pt states she has been having generalized edema/generalized pain takes lasix prn, NIDDM type II, neuropathy bilateral feet/legs and occasionally hands, guillian barre syndrome, SOHEILA with no cpap used, PAD, chronic low back pain, osteoporosis, antral ulcer, IBS, diverticular disease, hemorrhoids, RLS, frequent bilateral ankle/leg edema, hypothyroid. History of Any Multi-Drug Resistant Organisms: ESBL Date of last positivie culture/infection: 07/04/21 MDRO Source:: ESBL URINE Past Surgical History: Appendectomy, Back Surgery, Bowel Resection, Section, Cholecystectomy, Hernia Repair, Hysterectomy, Tubal Ligation Additional Past Surgical History / Comment(s): Back sx x3-most recent was fusion w/cage and rods/screws, bowel resection d/t diverticular disease, D&C, calcium deposit removed off sternum, incisional hernia repair, EGD, colonoscopies. Past Anesthesia/Blood Transfusion Reactions: No Reported Reaction Past Psychological History: Depression Smoking Status: Former smoker Past Alcohol Use History: None Reported Past Drug Use History: None Reported - Past Family History Mother Family Medical History: Cancer Additional Family Medical History / Comment(s): Mother of colon cancer. Father History Unknown: Yes Additional Family Medical History / Comment(s): Father in his sleep. General Exam Limitations: no limitations General appearance: alert, in no apparent distress Head exam: Present: atraumatic, normocephalic, normal inspection Respiratory exam: Present: normal lung sounds bilaterally. Absent: respiratory distress, wheezes, rales, rhonchi, stridor Cardiovascular Exam: Present: regular rate, normal rhythm, normal heart sounds. Absent: systolic murmur, diastolic murmur, rubs, gallop, clicks Neurological exam: Present: alert, oriented X3, CN II-XII intact Psychiatric exam: Present: normal affect, normal mood Skin exam: Present: warm, dry, intact, normal color. Absent: rash Course Vital Signs 01/22/24 01/22/24 01/22/24 09:50 10:29 10:36 Temperature 98.0 F Pulse Rate 69 Pulse Rate [ 72 Pulse Oximetery ] Respiratory 18 18 Rate Blood Pressure 135/78 O2 Sat by Pulse 100 Oximetry 01/22/24 01/22/24 11:17 14:04 Temperature 98.1 F Pulse Rate 77 79 Pulse Rate [ Pulse Oximetery ] Respiratory 18 Rate Blood Pressure 151/68 144/64 O2 Sat by Pulse 95 98 Oximetry Medical Decision Making - Medical Decision Making This is a 68 year old female who presents to the emergency department for generalized weakness. Was pt. sent in by a medical professional or institution? @ -No Did you speak to anyone other than the patient for history? @ -No Did you review nursing and triage notes? @ -Yes, and I agree, it is accurate with regards to the patient's symptoms. Were old charts reviewed? @ -No Differential Diagnosis? @ -Differential Weakness: Hypoglycemia, shock, sepsis, hyponatremia, anemia, infection, [place], ETOH, adverse medicine reaction, overdose, stroke, this is not meant to be an all-inclusive list. EKG interpreted by me (3pts min.)? @ -EKG interpreted by me demonstrating the following: Sinus rhythm. Ventricular rate 73 bpm, IA interval 202 ms, QRS duration 85 ms, QTc 413 ms. X-rays interpreted by me (1pt min.)? @ -Chest x-ray obtained. My interpretation identifies a possible density over the lower thoracic spine. CT interpreted by me (1pt min.)? @ CT scan of the chest obtained. My interpretation identifies no localized consolidations or infiltrates. U/S interpreted by me (1pt. min.)? @ -Not obtained What testing was considered but not performed? (CT, X-rays, U/S, labs)? Why? @ -None What meds were considered but not given? Why? @ -None Did you discuss the management of the patient with other professionals? @ -Yes, Dr. Sheriff, who accepts the patient for admission. Did you reconcile home meds? @ -Yes Was smoking cessation discussed for >3mins.? @ -No Was critical care preformed (if so, how long)? @ -No Were there social determinants of health that impacted care today? How? (Homelessness, low income, unemployed, alcoholism, drug addiction, tra nsportation, low edu. Level, literacy, decrease access to med. care, custodial, rehab)? @ -No Was there de-escalation of care discussed even if they declined? (Discuss DNR or withdrawal of care, Hospice)? @ -No What co-morbidities impacted this encounter? (DM, HTN, Smoking, COPD, CAD, Cancer, CVA, Hep., AIDS, mental health diagnosis, sleep apnea, morbid obesity)? @ -DM, fibromyalgia, HLD, HTN Was patient admitted / discharged? @ -Admitted. Lab work demonstrates mild leukocytosis and slightly decreased renal function when compared to prior. Elevated liver enzymes are similar when compared with prior values. COVID, influenza, and RSV testing are negative. Urinalysis has rare bacteria and elevated WBCs, but is not overtly positive for a UTI. Urine sent for culture. Chest x-ray demonstrates a possible density over the posterior costophrenic angle. They advised a follow-up CT chest for additional evaluation. Patient was already scheduled to have a CT scan of the chest today, but came to the emergency department instead due to her increasing weakness. CT scan of the chest was subsequently obtained. This identifies similar chronic interstitial lung disease and fibrosis with possible nonspecific interstitial pneumonia with superimposed mild COPD. CRP and procalcitonin level ordered. Case discussed with the patient's PCP, who accepts the patient for admission for weakness and EVAN. She was started on maintenance fluids and consult was placed for PT/OT. Undiagnosed new problem with uncertain prognosis? @ -None Drug Therapy requiring intensive monitoring for toxicity (Heparin, Nitro, Insulin, Cardizem)? @ -None Were any procedures done? @ -None Diagnosis/symptom? @ -Weakness, EVAN Acute, or Chronic, or Acute on Chronic? @ -Acute Uncomplicated (without systemic symptoms) or Complicated (systemic symptoms)? @ -Complicated Side effects of treatment? @ -None Exacerbation, Progression, or Severe Exacerbation] @ -Not applicable Poses a threat to life or bodily function? @ -Yes This case was discussed in detail with the attending ED physician, Dr. Katz. Presentation, findings, and treatment plan discussed in detail as well. - Lab Data Result diagrams: 01/22/24 10:26 01/22/24 10: Lab Results 01/22/24 01/22/24 01/22/24 Range/Units 10:26 10: 10: WBC 11.9 H (3.8-10.6) k/uL RBC 3.97 (3.80-5.40) m/uL Hgb 12.5 (11.4-16.0) gm/dL Hct 39.1 (34.0-46.0) % MCV 98.4 (80.0-100.0) fL MCH 31.5 (25.0-35.0) pg MCHC 32.0 (31.0-37.0) g/dL RDW 12.6 (11.5-15.5) % Plt Count 296 (150-450) k/uL MPV 7.8 Neutrophils % 74 % Lymphocytes % 14 % Monocytes % 6 % Eosinophils % 3 % Basophils % 0 % Neutrophils # 8.9 H (1.3-7.7) k/uL Lymphocytes # 1.6 (1.0-4.8) k/uL Monocytes # 0.7 (0-1.0) k/uL Eosinophils # 0.3 (0-0.7) k/uL Basophils # 0.0 (0-0.2) k/uL PT 9.9 L (10.0-12.5) sec INR 0.9 (<1.2) APTT 23.5 (22.0-30.0) sec Sodium 138 (137-145) mmol/L Potassium 4.5 (3.5-5.1) mmol/L Chloride 102 (98-107) mmol/L Carbon Dioxide 25 (22-30) mmol/L Anion Gap 11 mmol/L BUN 36 H (7-17) mg/dL Creatinine 1.67 H (0.52-1.04) mg/dL Est GFR (CKD-EPI)AfAm 36 (>60 ml/min/1.73 sqM) Est GFR (CKD-EPI)NonAf 31 (>60 ml/min/1.73 sqM) Glucose 100 H (74-99) mg/dL Plasma Lactic Acid Krishna (0.7-2.0) mmol/L Calcium 10.0 (8.4-10.2) mg/dL Magnesium 2.4 H (1.6-2.3) mg/dL Total Bilirubin 0.3 (0.2-1.3) mg/dL AST 230 H (14-36) U/L ALT 60 H (4-34) U/L Alkaline Phosphatase 124 (38-126) U/L Troponin I (0.000-0.034) ng/mL C-Reactive Protein (<1.0) mg/dL Total Protein 8.0 (6.3-8.2) g/dL Albumin 4.4 (3.5-5.0) g/dL Urine Color Urine Appearance (Clear) Urine pH (5.0-8.0) Ur Specific [place] (1.001-1.035) Urine Protein (Negative) Urine Glucose (UA) (Negative) Urine Ketones (Negative) Urine Blood (Negative) Urine Nitrite (Negative) Urine Bilirubin (Negative) Urine Urobilinogen (<2.0) mg/dL Ur Leukocyte Esterase (Negative) Urine RBC (0-5) /hpf Urine WBC (0-5) /hpf Ur Squamous Epith Cells (0-4) /hpf Urine Bacteria (None) /hpf Urine Mucus (None) /hpf Influenza Type A (PCR) (Not Detectd) Influenza Type B (PCR) (Not Detectd) RSV (PCR) (Not Detectd) SARS-CoV-2 (PCR) (Not Detectd) 01/22/24 01/22/24 01/22/24 Range/Units 10:26 10:26 10:26 WBC (3.8-10.6) k/uL RBC (3.80-5.40) m/uL Hgb (11.4-16.0) gm/dL Hct (34.0-46.0) % MCV (80.0-100.0) fL MCH (25.0-35.0) pg MCHC (31.0-37.0) g/dL RDW (11.5-15.5) % Plt Count (150-450) k/uL MPV Neutrophils % % Lymphocytes % % Monocytes % % Eosinophils % % Basophils % % Neutrophils # (1.3-7.7) k/uL Lymphocytes # (1.0-4.8) k/uL Monocytes # (0-1.0) k/uL Eosinophils # (0-0.7) k/uL Basophils # (0-0.2) k/uL PT (10.0-12.5) sec INR (<1.2) APTT (22.0-30.0) sec Sodium (137-145) mmol/L Potassium (3.5-5.1) mmol/L Chloride (98-107) mmol/L Carbon Dioxide (22-30) mmol/L Anion Gap mmol/L BUN (7-17) mg/dL Creatinine (0.52-1.04) mg/dL Est GFR (CKD-EPI)AfAm (>60 ml/min/1.73 sqM) Est GFR (CKD-EPI)NonAf (>60 ml/min/1.73 sqM) Glucose (74-99) mg/dL Plasma Lactic Acid Krishna 0.9 (0.7-2.0) mmol/L Calcium (8.4-10.2) mg/dL Magnesium (1.6-2.3) mg/dL Total Bilirubin (0.2-1.3) mg/dL AST (14-36) U/L ALT (4-34) U/L Alkaline Phosphatase (38-126) U/L Troponin I <0.012 (0.000-0.034) ng/mL C-Reactive Protein (<1.0) mg/dL Total Protein (6.3-8.2) g/dL Albumin (3.5-5.0) g/dL Urine Color Urine Appearance (Clear) Urine pH (5.0-8.0) Ur Specific [place] (1.001-1.035) Urine Protein (Negative) Urine Glucose (UA) (Negative) Urine Ketones (Negative) Urine Blood (Negative) Urine Nitrite (Negative) Urine Bilirubin (Negative) Urine Urobilinogen (<2.0) mg/dL Ur Leukocyte Esterase (Negative) Urine RBC (0-5) /hpf Urine WBC (0-5) /hpf Ur Squamous Epith Cells (0-4) /hpf Urine Bacteria (None) /hpf Urine Mucus (None) /hpf Influenza Type A (PCR) Not Detected (Not Detectd) Influenza Type B (PCR) Not Detected (Not Detectd) RSV (PCR) Not Detected (Not Detectd) SARS-CoV-2 (PCR) Not Detected (Not Detectd) 01/22/24 01/22/24 Range/Units 10:26 10:54 WBC (3.8-10.6) k/uL RBC (3.80-5.40) m/uL Hgb (11.4-16.0) gm/dL Hct (34.0-46.0) % MCV (80.0-100.0) fL MCH (25.0-35.0) pg MCHC (31.0-37.0) g/dL RDW (11.5-15.5) % Plt Count (150-450) k/uL MPV Neutrophils % % Lymphocytes % % Monocytes % % Eosinophils % % Basophils % % Neutrophils # (1.3-7.7) k/uL Lymphocytes # (1.0-4.8) k/uL Monocytes # (0-1.0) k/uL Eosinophils # (0-0.7) k/uL Basophils # (0-0.2) k/uL PT (10.0-12.5) sec INR (<1.2) APTT (22.0-30.0) sec Sodium (137-145) mmol/L Potassium (3.5-5.1) mmol/L Chloride (98-107) mmol/L Carbon Dioxide (22-30) mmol/L Anion Gap mmol/L BUN (7-17) mg/dL Creatinine (0.52-1.04) mg/dL Est GFR (CKD-EPI)AfAm (>60 ml/min/1.73 sqM) Est GFR (CKD-EPI)NonAf (>60 ml/min/1.73 sqM) Glucose (74-99) mg/dL Plasma Lactic Acid Krishna (0.7-2.0) mmol/L Calcium (8.4-10.2) mg/dL Magnesium (1.6-2.3) mg/dL Total Bilirubin (0.2-1.3) mg/dL AST (14-36) U/L ALT (4-34) U/L Alkaline Phosphatase (38-126) U/L Troponin I (0.000-0.034) ng/mL C-Reactive Protein 0.8 (<1.0) mg/dL Total Protein (6.3-8.2) g/dL Albumin (3.5-5.0) g/dL Urine Color Colorless Urine Appearance Cloudy H (Clear) Urine pH 6.0 (5.0-8.0) Ur Specific [place] 1.011 (1.001-1.035) Urine Protein 2+ H (Negative) Urine Glucose (UA) Negative (Negative) Urine Ketones Negative (Negative) Urine Blood Moderate H (Negative) Urine Nitrite Negative (Negative) Urine Bilirubin Negative (Negative) Urine Urobilinogen <2.0 (<2.0) mg/dL Ur Leukocyte Esterase Moderate H (Negative) Urine RBC 4 (0-5) /hpf Urine WBC 37 H (0-5) /hpf Ur Squamous Epith Cells 3 (0-4) /hpf Urine Bacteria Rare H (None) /hpf Urine Mucus Rare H (None) /hpf Influenza Type A (PCR) (Not Detectd) Influenza Type B (PCR) (Not Detectd) RSV (PCR) (Not Detectd) SARS-CoV-2 (PCR) (Not Detectd) - Radiology Data Radiology results: report reviewed, image reviewed Disposition Clinical Impression: Weakness, EVAN (acute kidney injury) Disposition: ADMITTED IP TO THIS [facility] Time of Disposition: 13:30
[2024-01-22 10:42] LABS: Basophils % (A) 0 %; Eosinophils # (A) 0.3 k/uL (0-0.7); Eosinophils % (A) 3 %; HCT 39.1 % (34.0-46.0); HGB 12.5 gm/dL (11.4-16.0); Lymphocytes # (A) 1.6 k/uL (1.0-4.8); Lymphocytes % (A) 14 %; MCH 31.5 pg (25.0-35.0); MCV 98.4 fL (80.0-100.0); Mean Platelet Volume 7.8; Monocytes # (A) 0.7 k/uL (0-1.0); Monocytes % (A) 6 %; Neutrophils # (A) 8.9 k/uL (1.3-7.7); Neutrophils % (A) 74 %; Platelet Count 296 k/uL (150-450); RBC 3.97 m/uL (3.80-5.40); RDW 12.6 % (11.5-15.5); WBC 11.9 k/uL (3.8-10.6)
[2024-01-22 11:00] LABS: INR 0.9 (<1.2); Partial Thromboplastin Time 23.5 sec (22.0-30.0); Prothrombin Time 9.9 sec (10.0-12.5)
[2024-01-22 11:02] LABS: ALT 60 U/L (4-34); AST 230 U/L (14-36); African American GFR (CKD) 36 (>60 ml/min/1.73 sqM); Albumin 4.4 g/dL (3.5-5.0); Alkaline Phosphatase 124 U/L (38-126); Anion Gap 11 mmol/L; Blood Urea Nitrogen 36 mg/dL (7-17); Carbon Dioxide 25 mmol/L (22-30); Chloride 102 mmol/L (98-107); Glucose 100 mg/dL (74-99); Magnesium 2.4 mg/dL (1.6-2.3); Non-African American GFR(CKD) 31 (>60 ml/min/1.73 sqM); Potassium 4.5 mmol/L (3.5-5.1); Sodium 138 mmol/L (137-145); Total Bilirubin 0.3 mg/dL (0.2-1.3)
[2024-01-22] MEDS: HYDROmorphone 0.5 MG/0.5 ML SYRINGE IVP STA (11:21)
--- NOTE | 2024-01-22 11:42 | XR ---
EXAMINATION TYPE: XR chest 2V DATE OF EXAM: 01/22/2024 COMPARISON: 10/12/2023 INDICATION: Weakness back pain TECHNIQUE: Frontal and lateral views of the chest are obtained. FINDINGS: The heart size is normal. Heart and mediastinum may be slightly right of midline. Pattern is stable from comparison. The pulmonary vasculature is normal. On the lateral projection there is increased density over the lower thoracic spine just above the yael phragm. This however appears stable from comparison. Lower lobe pneumonia could be considered in the proper clinical setting. Mass density should be considered. Consider follow-up CT chest.. Findings d o not appear significantly changed from comparison. IMPRESSION: 1. There may be a density over the posterior costophrenic angle. Consider follow-up CT chest for steve tional evaluation.
[2024-01-22] MEDS: SODIUM CHLORIDE 0.9% 500 ML 500 ML IV STA (11:51)
--- NOTE | 2024-01-22 12:47 | CT ---
EXAMINATION TYPE: CT chest wo con DATE OF EXAM: 01/22/2024 COMPARISON: 10/12/2023 HISTORY: 68-year-old female Abnormal chest xray : density over the posterior costophrenic angle, weak ness, weight loss. TECHNIQUE: Contiguous axial scanning of the chest without IV contrast. Coronal/sagittal reconstructio ns performed. CT DLP: 266mGycm. Automatic exposure control utilized for a dose reduction. FINDINGS: The heart is normal size without pericardial effusion. Extensive three-vessel coronary artery calcifi cations are present and are remarkable for coronary artery disease. Moderate atherosclerotic arch calcifications with conventional arch vessel branching anatomy. No thoracic lymph adenopathy by CT size criteria. Similar interstitial and reticular changes especially in the periphery of the lung sent at the bilate ral lung bases. There is superimposed mild emphysematous change. Subpleural microcystic change is sca ttered throughout as well. Overall appearance is similar. Status post cholecystectomy. Unchanged biliary ductal dilatation. Correlate with alkaline phosphatase and bilirubin levels to ensure chronic etiology. Moderate atherosclerotic calcifications throughout the visualized abdominal aorta. Postsurgical change posterior lumbar fusion. T11 vertebral body sclerosis relating to chronic endplat e change appears to account for the density on radiograph. Severe degenerative disc disease lower tho racic spine. Moderate to severe focal spinal canal stenosis at T10-T11. IMPRESSION: 1. Similar chronic interstitial lung disease and fibrosis, possible NSIP with superimposed mild COPD. 2. No acute change compared to 10/12/2023. 3. Unchanged biliary ductal dilatation. Correlate with alkaline phosphatase and bilirubin levels. Pro bably secondary to chronic postcholecystectomy status. 4. CAD with extensive three-vessel coronary artery calcifications.
[2024-01-22 13:08] LABS: Appearance,Urine Cloudy (Clear); Bacteria,Urine Rare /hpf; Bilirubin,Urine Negative (Negative); Blood,Urine Moderate (Negative); Color,Urine Colorless; Glucose,Urine (UA) Negative (Negative); Ketones,Urine Negative (Negative); Leukocyte Esterase,Urine Moderate (Negative); Mucus,Urine Rare /hpf; Nitrite,Urine Negative (Negative); Protein,Urine 2+ (Negative); RBC,Urine 4 /hpf (0-5); Specific Gravity,Urine 1.011 (1.001-1.035); Squamous Epithelial Cell,Urine 3 /hpf (0-4); Urobilinogen,Urine <2.0 mg/dL (<2.0); WBC,Urine 37 /hpf (0-5)
[2024-01-22] MEDS ORDERED: ONDANSETRON 4 MG/2 ML VIAL IVP PRN (13:53)
[2024-01-22] MEDS ORDERED: ACETAMINOPHEN TAB 325 MG TAB PO PRN (13:53)
[2024-01-22] MEDS ORDERED: NALOXONE 0.4 MG/ML 1 ML VIAL IV PRN (13:53)
[2024-01-22] MEDS: SODIUM CHLORIDE 0.9% 1,000 ML IV SCH (14:03)
[2024-01-22] MEDS: HYDROcodone/APAP 10-325MG 1 EACH TAB PO SCH (16:27)
[2024-01-22] MEDS: GABAPENTIN 400 MG CAP PO SCH (16:27)
[2024-01-22] MEDS: HYDROmorphone 1 MG/ML 1 ML SYRINGE IVP PRN (19:47)
[2024-01-22 20:44] LABS: Glucose,Whole Blood 104 mg/dL (70-110)
[2024-01-22] MEDS: FENOFIBRATE 160 MG TAB PO SCH (22:10)
[2024-01-22] MEDS: ATORVASTATIN 80 MG TAB PO SCH (22:10)
[2024-01-22] MEDS: QUEtiapine 50 MG TAB PO SCH (22:10)
[2024-01-22] MEDS: atenoloL 50 MG TAB PO SCH (22:10)
[2024-01-22] MEDS: MONTELUKAST 10 MG TAB PO SCH (22:10)
--- NOTE | 2024-01-23 03:48 | HP ---
HISTORY AND PHYSICAL HISTORY OF PRESENT ILLNESS: This 68-year-old white female came to the hospital for weakness over the last 2-3 days, has been worsening, unable to get out of bed, called friend for help. She has lost about 20 pounds the last couple of months. She is supposed to have an outpatient scan of the chest today. She came to the emergency room. History of chronic lower back pain, seems to be worsening. She has severe stenosis at the thoracic spine, will consult with Dr. Martinez on this. HOME MEDICINES: 1. Metformin 500 daily. 2. Klor-Con 10 mEq daily. 3. Seroquel 50 at night. 4. Zyrtec 10 daily. 5. B12 1000 mcg daily. 6. Ferrous sulfate 325 daily. 7. Gabapentin 800 t.i.d. 8. [place] 10/325 t.i.d. 9. Synthroid 75 mcg daily. 10.Requip 1 mg daily. 11.Cozaar 12.5 daily. 12.Montelukast 10 mg daily. 13.Crestor 40 mg at night. 14.Lopid 600 b.i.d. ALLERGIES: Aspirin, codeine. REVIEW OF SYSTEMS: A 14-point review of systems otherwise negative. PAST MEDICAL HISTORY: COPD, diabetes mellitus, fibromyalgia, GERD, dyslipidemia, hypertension, osteoarthritis, sleep apnea, hypothyroidism, vascular disorder, type 2 diabetes, neuropathy, ESBL. PAST SURGICAL HISTORY: Appendectomy, back surgery, bowel resection, , cholecystectomy, hernia repair, hysterectomy, tubal ligation, back fusion with rods and screws. FAMILY HISTORY: Mother with cancer of the colon. Father in his sleep. PHYSICAL EXAMINATION: VITAL SIGNS: Temperature 98, pulse 69, respiratory rate 18 to 22, blood pressure 130s over 70s. CARDIOVASCULAR: S1, S2. LUNGS: Clear. GI: Soft. INTEGUMENT: Dry skin turgor, dry mucous membranes. NEUROLOGIC: Cranial nerves intact. PSYCH: Fair mood and affect. LABORATORY DATA: White count 11.9, hemoglobin 12.5, BUN is 36, creatinine 1.67. Magnesium high at 2.4. Troponin negative. EKG shows no ischemia. UA shows moderate amount of blood, 100 leukocyte esterase, possible UTI, generalized weakness, acute kidney injury. Prognosis is guarded. Please see further orders. PROGNOSIS: Guarded. Multiple consultations. MMODL / IJN: [id number] /
[2024-01-23] MEDS: POTASSIUM CHLORIDE ER 10 MEQ TAB.ER.PRT PO SCH (10:05)
[2024-01-23] MEDS: LORATADINE 10 MG TAB PO SCH (10:05)
[2024-01-23] MEDS: FERROUS SULFATE 325 MG TAB PO SCH (10:05)
[2024-01-23] MEDS: FUROSEMIDE 40 MG TAB PO PRN (10:05)
[2024-01-23] MEDS: CYANOCOBALAMIN 500 MCG TAB PO SCH (10:05)
[2024-01-23] MEDS: metFORMIN 500 MG TAB PO SCH (10:06)
[2024-01-23] MEDS: LEVOTHYROXINE 75 MCG TAB PO SCH (10:06)
[2024-01-23] MEDS: LOSARTAN 25 MG TAB PO SCH (10:06)
[2024-01-23] MEDS: PANTOPRAZOLE 40 MG/10 ML VIAL IV SCH (10:07)
--- NOTE | 2024-01-24 04:21 | PN ---
PROGRESS NOTE SUBJECTIVE: She remains on ceftriaxone IV, waiting for urine culture to come back. She still feels weak and fatigued. She is not really ambulating. OBJECTIVE: VITAL SIGNS: She is saturating 93 on room air. Blood pressure is 120/60s, temp 96, pulse 78, respiratory rate 16 to 18. CARDIOVASCULAR: S1, S2. LUNGS: Wheezes mild to moderate x4. CAT scan of the chest shows interstitial reticular changes bilateral lungs, emphysema, severe degenerative disk disease of the lower thoracic spine, [id number] local spinal canal stenosis at T10-T11. She has chronic interstitial lung disease, COPD unchanged biliary duct dilation, coronary artery disease with excessive coronary calcifications. EKG shows no ischemia. Continue current treatments she takes at home. Prognosis guarded. Wait for the fractures to clear up, PT OT. Please see further orders. MMODL / IJN: [id number] /
--- NOTE | 2024-01-24 14:52 | P.CNOR ---
History of Present Illness - [facility] Consult date: 01/24/24 Requesting physician: Renny Sheriff Consult reason: other (severe thoracic stenosis) History of present illness: patient is a 68-year-old female who presents to the hospital on 01/22/2024 with a chief complaint of generalized weakness. Orthopedics was consulted this morning from medicine due to severe thoracic stenosis. Patient was seen at bedside this afternoon on [address] [place] [address] lying semirecumbent position in bed. Patient states over the past 2 months she has had about a 20 pound weight loss and does not present with any other symptoms besides weight loss. Patient denies any loss of appetite or issues with bowel/bladder control. Patient says she does have a history of chronic low back pain for which she has had 3 previous spine surgeries. Patient does not recall the spine surgeons and believes the last surgery was about 10 years ago. Patient says she does live at home alone and normally ambulates independently, however, patient says she does have a walker and a cane as needed. Patient states over the past couple months in addition to weight loss she has had some increasing low back pain as well as numbness and tingling down both lower extremities. Patient states about a week ago she began to notice fine motor control issues when using her right upper extremity. Patient does note evident atrophy in the right hand near the base of her right thumb. patient states she has been having a difficult time holding a pen to write her knee over the past week. Patient denies any falls/traumas over the past couple months. Patient states she did present to the hospital several days ago because she was unable to get herself out of bed under own power. Patient states she had to call her friend's to help her out of bed. Patient also mentions that she does not have the strength to ambulate independently. Patient feels that her legs will give out underneath her when she stands up. Patient mentions even since she's been the hospital and using walker with therapy she has been having a difficult time getting around without assistance. patient denies any numbness or tingling in the gentle region or loss of bowel/bladder control. Patient states she does see Dr. Delong for primary care and she has been on a regimen of [place] and gabapentin for pain control for several years. Patient denies chest pain, fever, shortness of breath, nausea, vomiting, change in vision, loss of bowel/bladder control. Past Medical History Past Medical History: COPD, Diabetes Mellitus, Fibromyalgia, GERD/Reflux, Hyperlipidemia, Hypertension, Osteoarthritis (OA), Sleep Apnea/CPAP/BIPAP, Thyroid Disorder, Vascular Disorder Additional Past Medical History / Comment(s): Pt states she has been having generalized edema/generalized pain takes lasix prn, NIDDM type II, neuropathy bilateral feet/legs and occasionally hands, guillian barre syndrome, SOHEILA with no cpap used, PAD, chronic low back pain, osteoporosis, antral ulcer, IBS, diverticular disease, hemorrhoids, RLS, frequent bilateral ankle/leg edema, hypothyroid. History of Any Multi-Drug Resistant Organisms: ESBL Year Discovered:: 07/04/21 MDRO Source:: ESBL URINE Past Surgical History: Appendectomy, Back Surgery, Bowel Resection, Section, Cholecystectomy, Hernia Repair, Hysterectomy, Tubal Ligation Additional Past Surgical History / Comment(s): Back sx x3-most recent was fusion w/cage and rods/screws, bowel resection d/t diverticular disease, D&C, calcium deposit removed off sternum, incisional hernia repair, EGD, colonoscopies. Past Anesthesia/Blood Transfusion Reactions: No Reported Reaction Past Psychological History: Depression Additional Psychological History / Comment(s): Pt resides alone. She ambulates with a cane or walker. She has a nebulizer and glucometer. She does not drive, she has 2 ladies who will take her places. Smoking Status: Former smoker Past Alcohol Use History: None Reported Additional Past Alcohol Use History / Comment(s): Pt started smoking in 1969 and quit in 2002. Past Drug Use History: None Reported Additional Drug Use History / Comment(s): Pt denies any PDA - Past Family History Mother Family Medical History: Cancer Additional Family Medical History / Comment(s): Mother of colon cancer. Father History Unknown: Yes Additional Family Medical History / Comment(s): Father in his sleep. Medications and Allergies Home Medications Medication Instructions Recorded Confirmed Type metFORMIN HCL [Glucophage] 500 mg PO DAILY 06/03/16 01/22/24 History Potassium Chloride [Klor-Con 10 ER] 10 meq PO DAILY 12/17/19 01/22/24 History QUEtiapine [SEROquel] 50 mg PO HS 12/17/19 01/22/24 History Cetirizine HCl [Zyrtec] 10 mg PO DAILY 10/12/23 01/22/24 History Cyanocobalamin (Vitamin B-12) 1,000 mcg PO DAILY 10/12/23 01/22/24 History [Vitamin B-12] Ferrous Sulfate [Iron (65 MG 325 mg PO DAILY 10/12/23 01/22/24 History Elemental)] Gabapentin 800 mg PO TID 10/12/23 01/22/24 History HYDROcodone/APAP 10-325MG [[place] 1 tab PO TID 10/12/23 01/22/24 History 10-325] Levothyroxine Sodium [Synthroid] 75 mcg PO DAILY 10/12/23 01/22/24 History rOPINIRole HCL [Requip] 1 mg PO HS 10/12/23 01/22/24 History Furosemide [Lasix] 40 mg PO DAILY PRN 90 Days #90 tab 10/17/23 01/22/24 Rx atenoloL [Tenormin] 50 mg PO BID 90 Days #180 tab 10/17/23 01/22/24 Rx Losartan [Cozaar] 12.5 mg PO DAILY 01/22/24 01/22/24 History Montelukast Sodium 10 mg PO HS 01/22/24 01/22/24 History Rosuvastatin Calcium [Crestor] 40 mg PO HS 01/22/24 01/22/24 History gemfibroziL [Lopid] 600 mg PO BID 01/22/24 01/22/24 History Allergies Allergy/AdvReac Type Severity Reaction Status Date / Time aspirin Allergy COMA LIKE Verified 01/22/24 13:25 STATE codeine Allergy Rash/Hives Verified 01/22/24 13:25 pet dander Allergy Itching Uncoded 01/22/24 13:25 Physical Examination inspection: Evident atrophy throughout the right hand especially at the base of the right thumb. Negative for any significant fractures/erythema/ecchymosis/open wounds. Sensation: Equal, symmetric combine intact throughout the upper and lower extremities on exam. Palpation: Moderate tenderness to palpation over the bilateral SI joints. Mild tenderness to palpation over lumbar spine at midline and in paravertebral region. Nontender to palpation throughout rest exam. Range of motion: Patient does have full range of motion throughout bilateral upper extremities on exam. Patient does have some limited range of motion in the bilateral hips and knees in flexion as extension secondary to referred stiffness and pain in the low back. Motor: 4/5 strength in all major motor groups in bilateral upper extremities. 4/5 in all major motor groups in bilateral lower extremity. Neurovascular: Radial pulse intact, 2+ bilaterally. Cap refill under 3 seconds in digits of upper extremities. Special tests: Negative Homans bilaterally. Negative Kelsie. Negative clonus bilaterally. Results - Labs Labs: Microbiology - Last 24 Hours (Table) 01/22/24 18:33 Blood Culture - Preliminary Blood 01/22/24 18:05 Blood Culture - Preliminary Blood H & H 01/22/24 Range/Units 10:26 Hgb 12.5 (11.4-16.0) gm/dL Hct 39.1 (34.0-46.0) % Coagulation 01/22/24 Range/Units 10: INR 0.9 (<1.2) Result Diagrams: 01/22/24 10:26 01/22/24 10:26 Assessment and Plan Assessment: 1. chronic low back pain; bilateral lower extremity radiculopathy; history of previous lumbar spine surgeries Plan: 1. chronic low back pain; bilateral lower extremity radiculopathy; history of previous lumbar spine surgeries - patient does not present with any significant weakness throughout bilateral upper and lower extremities on exam. Patient's most recent MRI lumbar spine from 2018 reveals fusion hardware from L1 through L5. At this time we are not recommending any emergent/urgent orthopedic surgical intervention. We will order computed tomography scan of the lumbar spine to evaluate for hardware placement. Computed tomography scan of the cervical spine will be ordered as well. at this time we are recommending conservative measures with use of pain medication and PT/OT daily. Patient may weight-bear as tolerated with walker and assistance. We will continue to follow patient during standing hospital. 2. appreciate medical management 3. Pain management - Gabapentin; [place]; Tylenol 4. DVT prophylaxis recs 5. GI prophylaxis - protonix 6. PT/OT - weightbearing as tolerated with walker and assistance 7. Encourage incentive spirometer use 8. Appreciate consult Time with Patient: Less than 30
--- NOTE | 2024-01-24 17:49 | CT ---
EXAMINATION TYPE: CT cervical spine wo con CT DLP: 323.9 mGycm, Automated exposure control for dose reduction was used. DATE OF EXAM: 01/24/2024 5:21 PM COMPARISON: None. CLINICAL INDICATION:Female, 68 years old with history of pain; neck pain TECHNIQUE: Axial CT images from the skull base to the inferior aspect of T2 we obtained without intra venous contrast. Coronal and sagittal reformatted images were also reviewed. Contrast used: mL of , (if blank None) Oral contrast used: (if blank None) FINDINGS: Fracture: None. Osseous structures: Multilevel degenerative disc disease changes with endplate spurring and disc oste ophyte complex's. Vertebral alignment: Alignment within normal limits. Spinal canal/Neural Foramina: No evidence of significant spinal canal narrowing. No evidence for sign ificant neural foraminal stenosis. Neck soft tissues: Prevertebral soft tissues are within normal limits. Other: The airway is patent. The lung apices are clear. Atherosclerosis of the arterial vasculature. Mild emphysema changes in the lungs. IMPRESSION: 1. No evidence of cervical spine fracture. 2. Moderate multilevel degenerative disc disease. 3. Severe atherosclerotic plaque at the carotid bifurcations. 4. Mild emphysema.
--- NOTE | 2024-01-24 17:59 | CT ---
EXAMINATION TYPE: CT lumbar spine wo con CT DLP: 490.4 mGycm, Automated exposure control for dose reduction was used. DATE OF EXAM: 01/24/2024 5:21 PM COMPARISON: 04/22/2016. . CLINICAL INDICATION:Female, 68 years old with history of pain; PHH, low back pain TECHNIQUE: Multiple axial images were obtained from the midportion of T11 through the sacroiliac khanh nts. Soft tissue and bone windows in coronal and sagittal planes were obtained and reviewed. Contrast used: mL of , (None, if empty). Oral contrast used: (None, if empty). FINDINGS: Alignment: There are 5 lumbar type vertebral bodies within normal alignment. Bone: No evidence of fracture is identified. Multilevel degeneration changes with osteophyte formati on, disc space narrowing, facet joint arthropathy. Hardware is in place and intact extending from L1 to L5. Laminectomy changes at these levels. Evaluation is limited by streak artifact within the limit ations of the exam spinal canal is patent. Neural foraminal stenosis from facet joint arthropathy and osteophytes worse at L5-S1 with moderate to severe bilateral and moderate bilateral L4-L5. Other: Moderate to severe atherosclerosis of the arterial vasculature. The bladder is distended. Post surgical changes lower lumbar spine with hardware in place. Laminectomy changes are present. Post gabe gical changes to the bowel suture identified. IMPRESSION: 1. No evidence for spinal fracture. 2. Postsurgical changes to the spine with hardware intact. No evidence for acute fracture. 3. Multilevel degeneration changes with moderate to severe bilateral L5-S1 and moderate L4-L5 neural foraminal stenosis.
--- NOTE | 2024-01-24 23:03 | P.CONS ---
History of Present Illness - Reason for Consult Consult date: 01/24/24 - History of Present Illness Patient is a 68-year-old female past medical history significant for diabetes mellitus fibromyalgia hypertension hyperlipidemia COPD presenting to the hospital 2 days ago for evaluation generalized weakness patient symptoms started 2 to 3 days before presentation to the hospital and she was able to get out of her bed on her own patient did call a friend who subsequently brought the patient to the hospital patient denies high-grade fever did have some chills and no fever have been recorded during his hospital stay patient denies having any headache or URI symptoms denies any chest pain some shortness of breath and did have a cough moderate intensity brings up some yellow sputum no hemoptysis some nausea but no vomiting no abdominal pain no diarrhea patient on arrival to the ER was afebrile patient was not tachycardic hypotensive or hypoxic patient did have white count of 11.9 with a left shift BUN/creatinine has been mildly elevated liver enzymes mildly elevated procalcitonin 0.21 urine has been positive influenza RSV COVID testing was negative patient did have a chest x-ray density over the posterior costophrenic angle CT was recommended by radiologist and was subsequently done chronic as additional lung disease and fibrosis patient has been admitted to the hospital currently on Rocephin infectious he was consulted today concerning for possible UTI bronchitis antibiotic therapy Past Medical History Past Medical History: COPD, Diabetes Mellitus, Fibromyalgia, GERD/Reflux, Hyperlipidemia, Hypertension, Osteoarthritis (OA), Sleep Apnea/CPAP/BIPAP, Thyroid Disorder, Vascular Disorder Additional Past Medical History / Comment(s): Pt states she has been having generalized edema/generalized pain takes lasix prn, NIDDM type II, neuropathy bilateral feet/legs and occasionally hands, guillian barre syndrome, SOHEILA with no cpap used, PAD, chronic low back pain, osteoporosis, antral ulcer, IBS, diver ticular disease, hemorrhoids, RLS, frequent bilateral ankle/leg edema, hypothyroid. History of Any Multi-Drug Resistant Organisms: ESBL Year Discovered:: 07/04/21 MDRO Source:: ESBL URINE Past Surgical History: Appendectomy, Back Surgery, Bowel Resection, Section, Cholecystectomy, Hernia Repair, Hysterectomy, Tubal Ligation Additional Past Surgical History / Comment(s): Back sx x3-most recent was fusion w/cage and rods/screws, bowel resection d/t diverticular disease, D&C, calcium deposit removed off sternum, incisional hernia repair, EGD, colonoscopies. Past Anesthesia/Blood Transfusion Reactions: No Reported Reaction Past Psychological History: Depression Additional Psychological History / Comment(s): Pt resides alone. She ambulates with a cane or walker. She has a nebulizer and glucometer. She does not drive, she has 2 ladies who will take her places. Smoking Status: Former smoker Past Alcohol Use History: None Reported Additional Past Alcohol Use History / Comment(s): Pt started smoking in 1969 and quit in 2002. Past Drug Use History: None Reported Additional Drug Use History / Comment(s): Pt denies any PDA - Past Family History Mother Family Medical History: Cancer Additional Family Medical History / Comment(s): Mother of colon cancer. Father History Unknown: Yes Additional Family Medical History / Comment(s): Father in his sleep. Medications and Allergies Home Medications Medication Instructions Recorded Confirmed Type metFORMIN HCL [Glucophage] 500 mg PO DAILY 06/03/16 01/22/24 History Potassium Chloride [Klor-Con 10 ER] 10 meq PO DAILY 12/17/19 01/22/24 History QUEtiapine [SEROquel] 50 mg PO HS 12/17/19 01/22/24 History Cetirizine HCl [Zyrtec] 10 mg PO DAILY 10/12/23 01/22/24 History Cyanocobalamin (Vitamin B-12) 1,000 mcg PO DAILY 10/12/23 01/22/24 History [Vitamin B-12] Ferrous Sulfate [Iron (65 MG 325 mg PO DAILY 10/12/23 01/22/24 History Elemental)] Gabapentin 800 mg PO TID 10/12/23 01/22/24 History HYDROcodone/APAP 10-325MG [[place] 1 tab PO TID 10/12/23 01/22/24 History 10-325] Levothyroxine Sodium [Synthroid] 75 mcg PO DAILY 10/12/23 01/22/24 History rOPINIRole HCL [Requip] 1 mg PO HS 10/12/23 01/22/24 History Furosemide [Lasix] 40 mg PO DAILY PRN 90 Days #90 tab 10/17/23 01/22/24 Rx atenoloL [Tenormin] 50 mg PO BID 90 Days #180 tab 10/17/23 01/22/24 Rx Losartan [Cozaar] 12.5 mg PO DAILY 01/22/24 01/22/24 History Montelukast Sodium 10 mg PO HS 01/22/24 01/22/24 History Rosuvastatin Calcium [Crestor] 40 mg PO HS 01/22/24 01/22/24 History gemfibroziL [Lopid] 600 mg PO BID 01/22/24 01/22/24 History Allergies Allergy/AdvReac Type Severity Reaction Status Date / Time aspirin Allergy COMA LIKE Verified 01/22/24 13:25 STATE codeine Allergy Rash/Hives Verified 01/22/24 13:25 pet dander Allergy Itching Uncoded 01/22/24 13:25 Physical Exam Vitals: Vital Signs Temp Pulse Resp BP BP Pulse Ox 01/24/24 08:22 98 01/24/24 07:00 98.3 F 64 16 113/70 96 01/24/24 03:50 117/54 01/24/24 03:31 98.5 F 61 16 93 L 01/24/24 02:00 91/46 91/49 01/23/24 19:23 98.6 F 70 16 121/61 93 L 01/23/24 14:26 98.6 F 67 16 127/58 98 Intake and Output 01/23/24 01/24/24 01/24/24 22:59 06:59 14:59 Intake Total 355 118 Output Total 900 100 Balance 355 -900 18 Intake: Oral 355 118 Output: Urine 900 100 Straight 900 Other: Voiding Method Bedside Commode Bedside Commode # Voids 1 0 Results CBC & Chem 7: 01/25/24 05:48 01/25/24 05:48 Labs: Microbiology - Last 24 Hours (Table) 01/22/24 18:33 Blood Culture - Preliminary Blood 01/22/24 18:05 Blood Culture - Preliminary Blood Assessment and Plan Plan: 1patient presented hospital with generalized weakness which is likely multifactorial in this patient who did have a positive UA concerning for possible component of UTI likely pulmonary gram-negative pathogen patient also have a cough some yellow sputum production possibly tracheobronchitis with COPD exacerbation as CT did not show any acute changes 2-try to obtain a sputum for Gram stain culture check a CRP procalcitonin is mildly elevated 3-Rocephin 1 g daily to continue while waiting for the culture to finalize We will follow on clinical condition and cultures to further adjust medication if needed Thank you for this consultation we will follow the patient along with you Dictation was produced using [employer] dictation software. please excuse any grammatical, word or spelling errors. Time with Patient: Greater than 30
--- NOTE | 2024-01-25 00:27 | PN ---
PROGRESS NOTE SUBJECTIVE: This is a 68-year-old white female with weakness, acute kidney injury. The patient has severe weakness of her legs, suspect some of that is from the UTI. Some of it is from possible pneumonia and bronchitis. She has cough and yellow phlegm, some of this is due to severe thoracic stenosis for which Dr. Martinez has been consulted. We will get PT OT involved to see how she can walk, so far she can only walk 3 or 4 steps to the chair back to the bed. She cannot get out of the chair by herself currently, so wait for Dr. Martinez's recommendations. Continue with IV antibiotics. She has lost 15 pounds secondary to having a virus like over a month with severe sickness for over a month. OBJECTIVE: GENERAL: She looks weak, cachectic. VITAL SIGNS: Reviewed. CARDIOVASCULAR: S1, S2. LUNGS: Decreased breath sounds, scattered rhonchi. GI: Soft. HEMATOLOGY: Negative for Homans. ASSESSMENT: She has COPD, diastolic heart failure, UTI, tracheobronchitis, COPD, thoracics stenosis severe. PROGNOSIS: Extremely guarded. PT, OT will be needed at this time. Continue antibiotics, wait for cultures and wait for Dr. Martinez to evaluate this severe thoracic stenosis seen on CAT scan. MMODL / IJN: [id number] /
--- NOTE | 2024-01-25 01:51 | PN ---
PROGRESS NOTE SUBJECTIVE: This is a 68-year-old white female. She is coughing up some phlegm, yellow-green. I started her on Rocephin for possible bronchitis. She also has possible urinary tract infection, urine culture is positive for CAD. Blood cultures are negative. She has severe weakness in the legs bilaterally what I think is might be from severe stenosis in her spine versus weakness from possible bronchitis virus syndrome. Saturating 94 on room air, blood pressure 120/65, temp 98.2, pulse 76, respiratory rate 18. Wait for Dr. Martinez's recommendations on her back. Get PT OT to help her walk. Continue with the antibiotics. She has severe at L5-S1 and moderate L4-L5 stenosis. Cervical shows moderate degenerative disk disease, emphysema. CAT scan of her chest showed, as mentioned, severe thoracic stenosis at T10, T11, [id number] focal canal stenosis. We will do may be a CAT scan of her thoracic spine where she has severe stenosis also. Await further recommendations from Orthopedics. Continue with antibiotic treatment for UTI and bronchitis. MMODL / IJN: [id number] /
[2024-01-25 08:48] LABS: Basophils # (A) 0.02 X 10*3/uL (0.00-0.10); Basophils % (A) 0.3 %; Eosinophils # (A) 0.42 X 10*3/uL (0.04-0.35); Eosinophils % (A) 5.6 %; Lymphocytes # (A) 1.77 X 10*3/uL (0.90-5.00); Lymphocytes % (A) 23.5 %; MCH 31.5 pg (27.0-32.0); MCHC 31.4 g/dL (32.0-37.0); MCV 100.3 FL (80.0-97.0); Mean Platelet Volume 10.7 FL (9.5-12.2); Monocytes # (A) 0.73 X 10*3/uL (0.20-1.00); Monocytes % (A) 9.7 %; NRBC Per 100 WBC 0 X 10*3/uL (0.00-0.01); Neutrophils # (A) 4.57 X 10*3/uL (1.80-7.70); Neutrophils % (A) 60.8 %; Platelet Count 227 X 10*3/uL (140-440); RBC 3.49 X 10*6/uL (4.10-5.20); RDW 12.9 % (11.5-14.5); WBC 7.52 X 10*3/uL (4.50-10.00)
[2024-01-25 09:55] LABS: ALT 73 U/L (8-44); AST 243 U/L (13-35); Albumin 3.5 g/dL (3.8-4.9); Alkaline Phosphatase 88 U/L (41-126); Blood Urea Nitrogen 16.6 mg/dL (9.0-27.0); Calcium 8.8 mg/dL (8.7-10.3); Carbon Dioxide 22.1 mmol/L (21.6-31.8); Chloride 106 mmol/L (96-109); Globulin 2.5 g/dL (1.6-3.3); Glucose 112 mg/dL (70-110); Potassium 4.4 mmol/L (3.5-5.5); Sodium 142 mmol/L (135-145); Total Bilirubin <0.2 mg/dL (0.3-1.2)
--- NOTE | 2024-01-25 10:17 | P.GSCN ---
History of Present Illness Consult date: 01/25/24 Reason for Consult: Urinary retention History of present illness: This is a 68-year-old female admitted to the hospital with weakness and acute kidney injury. Urology is consulted for urinary retention. Patient bladder scan showed greater than 1 L, subsequently she underwent a straight cath for 1.1 L. She continued to have elevated postvoid residual and subsequently a Obando catheter was placed this morning. She indicated she does have previous history of urinary retention. Denies any history of kidney stones or recurrent UTIs. She did have a renal bladder ultrasound back in October that showed no evidence of hydronephrosis or any bladder abnormalities. Review of Systems - Constitutional Reports weakness, Reports weight loss, Denies fever - EENT Ears, nose, mouth and throat: Denies dysphagia - Cardiovascular Denies chest pain, Denies shortness of breath - Gastrointestinal Denies abdominal pain, Denies nausea, Denies vomiting - Genitourinary Genitourinary: Reports difficulty voiding, Denies flank pain, Denies hematuria Past Medical History Past Medical History: COPD, Diabetes Mellitus, Fibromyalgia, GERD/Reflux, Hyperlipidemia, Hypertension, Osteoarthritis (OA), Sleep Apnea/CPAP/BIPAP, Thyroid Disorder, Vascular Disorder Additional Past Medical History / Comment(s): Pt states she has been having generalized edema/generalized pain takes lasix prn, NIDDM type II, neuropathy bilateral feet/legs and occasionally hands, guillian barre syndrome, SOHEILA with no cpap used, PAD, chronic low back pain, osteoporosis, antral ulcer, IBS, diverticular disease, hemorrhoids, RLS, frequent bilateral ankle/leg edema, hypothyroid. History of Any Multi-Drug Resistant Organisms: ESBL Year Discovered:: 07/04/21 MDRO Source:: ESBL URINE Past Surgical History: Appendectomy, Back Surgery, Bowel Resection, Section, Cholecystectomy, Hernia Repair, Hysterectomy, Tubal Ligation Additional Past Surgical History / Comment(s): Back sx x3-most recent was fusion w/cage and rods/screws, bowel resection d/t diverticular disease, D&C, calcium deposit removed off sternum, incisional hernia repair, EGD, colonoscopies. Past Anesthesia/Blood Transfusion Reactions: No Reported Reaction Past Psychological History: Depression Additional Psychological History / Comment(s): Pt resides alone. She ambulates with a cane or walker. She has a nebulizer and glucometer. She does not drive, she has 2 ladies who will take her places. Smoking Status: Former smoker Past Alcohol Use History: None Reported Additional Past Alcohol Use History / Comment(s): Pt started smoking in 1969 and quit in 2002. Past Drug Use History: None Reported Additional Drug Use History / Comment(s): Pt denies any PDA - Past Family History Mother Family Medical History: Cancer Additional Family Medical History / Comment(s): Mother of colon cancer. Father History Unknown: Yes Additional Family Medical History / Comment(s): Father in his sleep. Medications and Allergies Home Medications Medication Instructions Recorded Confirmed Type metFORMIN HCL [Glucophage] 500 mg PO DAILY 06/03/16 01/22/24 History Potassium Chloride [Klor-Con 10 ER] 10 meq PO DAILY 12/17/19 01/22/24 History QUEtiapine [SEROquel] 50 mg PO HS 12/17/19 01/22/24 History Cetirizine HCl [Zyrtec] 10 mg PO DAILY 10/12/23 01/22/24 History Cyanocobalamin (Vitamin B-12) 1,000 mcg PO DAILY 10/12/23 01/22/24 History [Vitamin B-12] Ferrous Sulfate [Iron (65 MG 325 mg PO DAILY 10/12/23 01/22/24 History Elemental)] Gabapentin 800 mg PO TID 10/12/23 01/22/24 History HYDROcodone/APAP 10-325MG [[place] 1 tab PO TID 10/12/23 01/22/24 History 10-325] Levothyroxine Sodium [Synthroid] 75 mcg PO DAILY 10/12/23 01/22/24 History rOPINIRole HCL [Requip] 1 mg PO HS 10/12/23 01/22/24 History Furosemide [Lasix] 40 mg PO DAILY PRN 90 Days #90 tab 10/17/23 01/22/24 Rx atenoloL [Tenormin] 50 mg PO BID 90 Days #180 tab 10/17/23 01/22/24 Rx Losartan [Cozaar] 12.5 mg PO DAILY 01/22/24 01/22/24 History Montelukast Sodium 10 mg PO HS 01/22/24 01/22/24 History Rosuvastatin Calcium [Crestor] 40 mg PO HS 01/22/24 01/22/24 History gemfibroziL [Lopid] 600 mg PO BID 01/22/24 01/22/24 History Allergies Allergy/AdvReac Type Severity Reaction Status Date / Time aspirin Allergy COMA LIKE Verified 01/22/24 13:25 STATE codeine Allergy Rash/Hives Verified 01/22/24 13:25 pet dander Allergy Itching Uncoded 01/22/24 13:25 Surgical - Exam Vital Signs Temp Pulse Resp BP Pulse Ox 98.0 F 69 18 135/78 100 01/22/24 09:50 01/22/24 09:50 01/22/24 09:50 01/22/24 09:50 01/22/24 09:50 - General no distress, no pain - Eyes normal ocular movement, no pale - ENT normal nares - Respiratory normal expansion, normal respiratory effort - Abdomen Abdomen: soft, non tender - Psychiatric oriented to time, oriented to person, oriented to place Results - Labs 01/25/24 05:48 01/25/24 05:48 Abnormal Lab Results - Last 24 Hours (Table) 01/25/24 01/25/24 Range/Units 05:48 05:48 RBC 3.49 L (4.10-5.20) X 10*6/uL Hgb 11.0 L (12.0-15.0) g/dL Hct 35.0 L (37.2-46.3) % MCV 100.3 H (80.0-97.0) FL MCHC 31.4 L (32.0-37.0) g/dL Eosinophils # 0.42 H (0.04-0.35) X 10*3/uL Anion Gap 13.90 H (4.00-12.00) mmol/L Glucose 112 H (70-110) mg/dL Total Bilirubin <0.2 L (0.3-1.2) mg/dL AST 243 H (13-35) U/L ALT 73 H (8-44) U/L Total Protein 6.0 L (6.2-8.2) g/dL Albumin 3.5 L (3.8-4.9) g/dL Albumin/Globulin Ratio 1.40 L (1.60-3.17) Ratio Microbiology - Last 24 Hours (Table) 01/22/24 18:33 Blood Culture - Preliminary Blood 01/22/24 18:05 Blood Culture - Preliminary Blood 01/22/24 10:54 Urine Culture - Final Urine,Clean Catch Valeria glabrata Diabetes panel 01/25/24 Range/Units 05:48 Sodium 142 (135-145) mmol/L Potassium 4.4 (3.5-5.5) mmol/L Chloride 106 (96-109) mmol/L Carbon Dioxide 22.1 (21.6-31.8) mmol/L BUN 16.6 (9.0-27.0) mg/dL Creatinine 1.0 (0.6-1.5) mg/dL Glucose 112 H (70-110) mg/dL Calcium 8.8 (8.7-10.3) mg/dL AST 243 H (13-35) U/L ALT 73 H (8-44) U/L Alkaline Phosphatase 88 (41-126) U/L Total Protein 6.0 L (6.2-8.2) g/dL Albumin 3.5 L (3.8-4.9) g/dL Calcium panel 01/25/24 Range/Units 05:48 Calcium 8.8 (8.7-10.3) mg/dL Albumin 3.5 L (3.8-4.9) g/dL Pituitary panel 01/25/24 Range/Units 05:48 Sodium 142 (135-145) mmol/L Potassium 4.4 (3.5-5.5) mmol/L Chloride 106 (96-109) mmol/L Carbon Dioxide 22.1 (21.6-31.8) mmol/L BUN 16.6 (9.0-27.0) mg/dL Creatinine 1.0 (0.6-1.5) mg/dL Glucose 112 H (70-110) mg/dL Calcium 8.8 (8.7-10.3) mg/dL Adrenal panel 01/25/24 Range/Units 05:48 Sodium 142 (135-145) mmol/L Potassium 4.4 (3.5-5.5) mmol/L Chloride 106 (96-109) mmol/L Carbon Dioxide 22.1 (21.6-31.8) mmol/L BUN 16.6 (9.0-27.0) mg/dL Creatinine 1.0 (0.6-1.5) mg/dL Glucose 112 H (70-110) mg/dL Calcium 8.8 (8.7-10.3) mg/dL Total Bilirubin <0.2 L (0.3-1.2) mg/dL AST 243 H (13-35) U/L ALT 73 H (8-44) U/L Alkaline Phosphatase 88 (41-126) U/L Total Protein 6.0 L (6.2-8.2) g/dL Albumin 3.5 L (3.8-4.9) g/dL Assessment and Plan Assessment: 68-year-old female with 1.1 L urinary retention. Indicated does have history of previous urinary retention. Most likely she does have a voiding dysfunction at baseline and worsened by her recent weakness -Recommend keeping the Obando catheter for 1 week, can follow-up as an outpatient for trial of void -Will place on trial of Flomax to assess if this helps with relaxing the bladder neck to improve her voiding
--- NOTE | 2024-01-25 10:32 | P.CNPUL ---
History of Present Illness Consult date: 01/25/24 Reason for consult: dyspnea, COPD Chief complaint: shortness of breath and weakness History of present illness: 68-year-old female seen evaluated examined, she presented into emergency department with progressive generalized weakness for last 3 days, due to weakness she has hard time and getting out of the bed, she has lost 20 pounds in last 2 months, she was scheduled for outpatient computed tomography scan of his chest but was not able to go due to weakness instead presented into emergency department, on specific questioning she denies any fever or chills does have nausea and poor by mouth intake, denies any chest pain denies any cough or sputum production. Past medical history significant for COPD, type 2 diabetes mellitus, fibromyalgia, GERD, dyslipidemia, hypertension hypertensive cardiovascular disease and sleep apnea she has a history of Guillain-Ahn syndrome as well with sleep apnea and does not use CPAP machine she has chronic back pain as well. Chest x-ray noted to have a density on posterior cardiophrenic angle. 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 His labs are significant for a leukocytosis with WBC count of 11.9 rest of CBC fairly within normal limit, PT/INR and PTT within normal limit, chemistry significant for elevated AST/ALT of 2:30/60 alk phos is 124. Urinalysis and moderate leukocytosis lymphocyte history is moderately positive and negative for influenza A as well as influenza B she has been found negative for RSV and covid infection Review of Systems All systems: negative Past Medical History Past Medical History: COPD, Diabetes Mellitus, Fibromyalgia, GERD/Reflux, Hyperlipidemia, Hypertension, Osteoarthritis (OA), Sleep Apnea/CPAP/BIPAP, Thyroid Disorder, Vascular Disorder Additional Past Medical History / Comment(s): Pt states she has been having generalized edema/generalized pain takes lasix prn, NIDDM type II, neuropathy bilateral feet/legs and occasionally hands, guillian barre syndrome, SOHEILA with no cpap used, PAD, chronic low back pain, osteoporosis, antral ulcer, IBS, diverticular disease, hemorrhoids, RLS, frequent bilateral ankle/leg edema, hypothyroid. History of Any Multi-Drug Resistant Organisms: ESBL Date of last positivie culture/infection: 07/04/21 MDRO Source:: ESBL URINE Past Surgical History: Appendectomy, Back Surgery, Bowel Resection, Section, Cholecystectomy, Hernia Repair, Hysterectomy, Tubal Ligation Additional Past Surgical History / Comment(s): Back sx x3-most recent was fusion w/cage and rods/screws, bowel resection d/t diverticular disease, D&C, calcium deposit removed off sternum, incisional hernia repair, EGD, colonoscopies. Past Anesthesia/Blood Transfusion Reactions: No Reported Reaction Past Psychological History: Depression Additional Psychological History / Comment(s): Pt resides alone. She ambulates with a cane or walker. She has a nebulizer and glucometer. She does not drive, she has 2 ladies who will take her places. Smoking Status: Former smoker Past Alcohol Use History: None Reported Additional Past Alcohol Use History / Comment(s): Pt started smoking in 1969 and quit in 2002. Past Drug Use History: None Reported Additional Drug Use History / Comment(s): Pt denies any PDA - Past Family History Mother Family Medical History: Cancer Additional Family Medical History / Comment(s): Mother of colon cancer. Father History Unknown: Yes Additional Family Medical History / Comment(s): Father in his sleep. Medications and Allergies Home Medications Medication Instructions Recorded Confirmed Type metFORMIN HCL [Glucophage] 500 mg PO DAILY 06/03/16 01/22/24 History Potassium Chloride [Klor-Con 10 ER] 10 meq PO DAILY 12/17/19 01/22/24 History QUEtiapine [SEROquel] 50 mg PO HS 12/17/19 01/22/24 History Cetirizine HCl [Zyrtec] 10 mg PO DAILY 10/12/23 01/22/24 History Cyanocobalamin (Vitamin B-12) 1,000 mcg PO DAILY 10/12/23 01/22/24 History [Vitamin B-12] Ferrous Sulfate [Iron (65 MG 325 mg PO DAILY 10/12/23 01/22/24 History Elemental)] Gabapentin 800 mg PO TID 10/12/23 01/22/24 History HYDROcodone/APAP 10-325MG [[place] 1 tab PO TID 10/12/23 01/22/24 History 10-325] Levothyroxine Sodium [Synthroid] 75 mcg PO DAILY 10/12/23 01/22/24 History rOPINIRole HCL [Requip] 1 mg PO HS 10/12/23 01/22/24 History Furosemide [Lasix] 40 mg PO DAILY PRN 90 Days #90 tab 10/17/23 01/22/24 Rx atenoloL [Tenormin] 50 mg PO BID 90 Days #180 tab 10/17/23 01/22/24 Rx Losartan [Cozaar] 12.5 mg PO DAILY 01/22/24 01/22/24 History Montelukast Sodium 10 mg PO HS 01/22/24 01/22/24 History Rosuvastatin Calcium [Crestor] 40 mg PO HS 01/22/24 01/22/24 History gemfibroziL [Lopid] 600 mg PO BID 01/22/24 01/22/24 History Allergies Allergy/AdvReac Type Severity Reaction Status Date / Time aspirin Allergy COMA LIKE Verified 01/22/24 13:25 STATE codeine Allergy Rash/Hives Verified 01/22/24 13:25 pet dander Allergy Itching Uncoded 01/22/24 13:25 Physical Exam Vitals: Vital Signs Temp Pulse Resp BP Pulse Ox 01/25/24 07:15 98.6 F 75 15 96/57 92 L 01/25/24 02:00 98.8 F 74 16 102/64 92 L 01/24/24 22:39 76 01/24/24 19:53 98.2 F 76 16 120/65 94 L 01/24/24 15:00 98.3 F 67 16 102/54 97 01/24/24 14:00 64 16 Intake and Output 01/24/24 01/25/24 01/25/24 22:59 06:59 14:59 Intake Total 118 100 Output Total 2400 Balance -2282 100 Intake: Oral 118 100 Output: Urine 2400 Straight 1100 Other: Voiding Method Bedside Commode Bedside Commode - Constitutional General appearance: average body habitus, cooperative, disheveled - EENT Eyes: EOMI, PERRLA ENT: normal oropharynx Ears: bilateral: normal - Neck Carotids: bilateral: upstroke normal - Respiratory Respiratory: bilateral: rales (dry radials consistent with ILD) - Cardiovascular Rhythm: regular Heart sounds: normal: S1, S2 - Gastrointestinal General gastrointestinal: distended, soft - Integumentary Integumentary: normal, normal turgor - Neurologic Neurologic: CNII-XII intact - Musculoskeletal Musculoskeletal: gait normal, generalized weakness, strength equal bilaterally - Psychiatric Psychiatric: A&O x's 3, appropriate affect, intact judgment & insight Results - Laboratory Findings CBC and BMP: 01/25/24 05:48 01/25/24 05:48 PT/INR, D-dimer PT 9.9 sec (10.0-12.5) L 01/22/24 10:26 INR 0.9 (<1.2) 01/22/24 10:26 Abnormal lab findings: Abnormal Labs 01/22/24 01/22/24 01/22/24 10:26 10:26 10:26 WBC 11.9 H RBC Hgb Hct MCV MCHC Neutrophils # 8.9 H Eosinophils # PT 9.9 L Anion Gap BUN 36 H Creatinine 1.67 H Glucose 100 H Magnesium 2.4 H Total Bilirubin AST 230 H ALT 60 H Total Protein Albumin Albumin/Globulin Ratio Procalcitonin Urine Appearance Urine Protein Urine Blood Ur Leukocyte Esterase Urine WBC Urine Bacteria Urine Mucus 01/22/24 01/22/24 01/25/24 10:26 10:54 05:48 WBC RBC 3.49 L Hgb 11.0 L Hct 35.0 L MCV 100.3 H MCHC 31.4 L Neutrophils # Eosinophils # 0.42 H PT Anion Gap BUN Creatinine Glucose Magnesium Total Bilirubin AST ALT Total Protein Albumin Albumin/Globulin Ratio Procalcitonin 0.21 H Urine Appearance Cloudy H Urine Protein 2+ H Urine Blood Moderate H Ur Leukocyte Esterase Moderate H Urine WBC 37 H Urine Bacteria Rare H Urine Mucus Rare H 01/25/24 05:48 WBC RBC Hgb Hct MCV MCHC Neutrophils # Eosinophils # PT Anion Gap 13.90 H BUN Creatinine Glucose 112 H Magnesium Total Bilirubin <0.2 L AST 243 H ALT 73 H Total Protein 6.0 L Albumin 3.5 L Albumin/Globulin Ratio 1.40 L Procalcitonin Urine Appearance Urine Protein Urine Blood Ur Leukocyte Esterase Urine WBC Urine Bacteria Urine Mucus - Diagnostic Findings Chest x-ray: report reviewed, image reviewed CT scan - chest: report reviewed, image reviewed (findings as noted above) Assessment and Plan Assessment: nonspecific interstitial pneumonitis and UIP x-ray and computed tomography scan suggestive of interstitial lung disease possibly developing nonspecific interstitial pneumonitis and eventually U [place] ey/usual interstitial pneumonia,further workup and evaluation outpatient however patient will benefit from trial of steroids, we'll start mealtime and prednisolone 40 mg IV every 12 tiredness and fatigue likely related to UTI and sepsis appropriately treated with Rocephin sleep disorder breathing and sleep apneapatient has refused CPAP machine in the past COPD with history of smoking and remote pastfurther workup and evaluation as outpatient with PFTs Dyslipidemiaon the statins Hypertension hypertensive cardiovascular diseaseon antihypertensive agents Type 2 diabetes mellitus, on oral hypoglycemic agent along with sliding scale insulin Fibromyalgia Plan: as noted above Time with Patient: Greater than 30
[2024-01-25] MEDS: methylPREDNISolone SOD SUCCI 40 MG/ML 1 ML VIAL IV SCH (12:28)
--- NOTE | 2024-01-25 12:55 | P.PN ---
Subjective Progress Note Date: 01/25/24 Principal diagnosis: chronic low back pain; bilateral lower extremity radiculopathy; history of previous lumbar spine surgeries Patient seen at bedside this morning lying semirecumbent position. Patient says she is still having some low back pain at this time. Patient also states she is still having some issues with fine motor control of her right upper extremity. Patient denies any other issues at this time. Objective - Vital Signs Vital signs: Vital Signs Temp 98.6 F 01/25/24 07:15 Pulse 71 01/25/24 10:55 Resp 15 01/25/24 07:15 BP 80/46 01/25/24 10:55 Pulse Ox 94 L 01/25/24 10:55 FiO2 Intake & Output 01/24/24 01/25/24 01/25/24 18:59 06:59 18:59 Intake Total 236 100 Output Total 300 2400 Balance -64 -2400 100 Intake: Oral 236 100 Output: Urine 300 2400 Straight 1100 Other: Voiding Method Bedside Commode Bedside Commode - Exam inspection: Evident atrophy throughout the right hand especially at the base of the right thumb. Negative for any significant fractures/erythe ma/ecchymosis/open wounds. Sensation: Equal, symmetric combine intact throughout the upper and lower extremities on exam. Palpation: Moderate tenderness to palpation over the bilateral SI joints. Mild tenderness to palpation over lumbar spine at midline and in paravertebral region. Nontender to palpation throughout rest exam. Range of motion: Patient does have full range of motion throughout bilateral upper extremities on exam. Patient does have some limited range of motion in the bilateral hips and knees in flexion as extension secondary to referred stiffness and pain in the low back. Motor: 4/5 strength in all major motor groups in bilateral upper extremities. 4/5 in all major motor groups in bilateral lower extremity. Neurovascular: Radial pulse intact, 2+ bilaterally. Cap refill under 3 seconds in digits of upper extremities. Special tests: Negative Homans bilaterally. Negative Kelsie. Negative clonus bilaterally. - Labs CBC & Chem 7: 01/25/24 05:48 01/25/24 05:48 Labs: Abnormal Lab Results - Last 24 Hours (Table) 01/25/24 01/25/24 Range/Units 05:48 05:48 RBC 3.49 L (4.10-5.20) X 10*6/uL Hgb 11.0 L (12.0-15.0) g/dL Hct 35.0 L (37.2-46.3) % MCV 100.3 H (80.0-97.0) FL MCHC 31.4 L (32.0-37.0) g/dL Eosinophils # 0.42 H (0.04-0.35) X 10*3/uL Anion Gap 13.90 H (4.00-12.00) mmol/L Glucose 112 H (70-110) mg/dL Total Bilirubin <0.2 L (0.3-1.2) mg/dL AST 243 H (13-35) U/L ALT 73 H (8-44) U/L Total Protein 6.0 L (6.2-8.2) g/dL Albumin 3.5 L (3.8-4.9) g/dL Albumin/Globulin Ratio 1.40 L (1.60-3.17) Ratio Microbiology - Last 24 Hours (Table) 01/22/24 18:33 Blood Culture - Preliminary Blood 01/22/24 18:05 Blood Culture - Preliminary Blood 01/22/24 10:54 Urine Culture - Final Urine,Clean Catch Valeria glabrata Assessment and Plan Assessment: 1. chronic low back pain; bilateral lower extremity radiculopathy; history of previous lumbar spine surgeries Plan: 1. chronic low back pain; bilateral lower extremity radiculopathy; history of previous lumbar spine surgeries - CT of the lumbar and cervical spine have been reviewed. Positive for moderate degenerative disc disease throughout the cervical spine. Negative for any significant cervical spinal canal stenosis. S crews/hardware is present from L1 through L5. Positive for some moderate stenosis from L4 through S1. Negative for any fractures or hardware loosening. At this time we are not recommending any emergent/urgent orthopedic surgical intervention. We are recommending conservative measures with use of PT/OT and pain medication. We do recommend patient to follow-up in the outpatient setting with Dr. Martinez for further evaluation. Patient is stable from an orthopedic standpoint for discharge. At this time orthopedics is signing off. Please do not hesitate to contact us for any further questions. 2. appreciate medical management 3. Pain management - Gabapentin; [place]; Tylenol 4. DVT prophylaxis recs 5. GI prophylaxis - protonix 6. PT/OT - weightbearing as tolerated with walker and assistance 7. Encourage incentive spirometer use Time with Patient: Less than 30
--- NOTE | 2024-01-25 13:38 | P.PN ---
Subjective Progress Note Date: 01/25/24 Principal diagnosis: Reason for follow-up is UTI and question of pneumonia Patient is a 68-year-old female past medical history significant for diabetes mellitus fibromyalgia hypertension hyperlipidemia COPD presenting to the hospital for evaluation generalized weakness patient also complaining of cough bringing up sputum did have elevated white count positive UA concerning for symptomatic UTI. On today's visit that is 01/25/2024, patient has been afebrile, patient is breathing comfortably and is currently on room air, patient still complaining of some cough bringing up some sputum no sample was collected no nausea no vomiting no abdominal pain did have indigestion requiring Obando catheter placement. Patient white count is down to 7.5, creatinine is 1.0 urine culture growing Valeria glabrata, procalcitonin 0.21 Objective - Vital Signs Vital signs: Vital Signs Temp 98.6 F 01/25/24 07:15 Pulse 71 01/25/24 10:55 Resp 15 01/25/24 07:15 BP 80/46 01/25/24 10:55 Pulse Ox 94 L 01/25/24 10:55 FiO2 Intake & Output 01/24/24 01/25/24 01/25/24 18:59 06:59 18:59 Intake Total 236 100 Output Total 300 2400 Balance -64 -2400 100 Intake: Oral 236 100 Output: Urine 300 2400 Straight 1100 Other: Voiding Method Bedside Commode Bedside Commode - Exam GENERAL DESCRIPTION: An elderly female lying in bed in no distress RESPIRATORY SYSTEM: Unlabored breathing , decreased breath sounds at bases HEART: S1 S2 regular rate and rhythm , ABDOMEN: Soft , no tenderness EXTREMITIES: No edema feet - Labs CBC & Chem 7: 01/25/24 05:48 01/25/24 05:48 Labs: Abnormal Lab Results - Last 24 Hours (Table) 01/25/24 01/25/24 Range/Units 05:48 05:48 RBC 3.49 L (4.10-5.20) X 10*6/uL Hgb 11.0 L (12.0-15.0) g/dL Hct 35.0 L (37.2-46.3) % MCV 100.3 H (80.0-97.0) FL MCHC 31.4 L (32.0-37.0) g/dL Eosinophils # 0.42 H (0.04-0.35) X 10*3/uL Anion Gap 13.90 H (4.00-12.00) mmol/L Glucose 112 H (70-110) mg/dL Total Bilirubin <0.2 L (0.3-1.2) mg/dL AST 243 H (13-35) U/L ALT 73 H (8-44) U/L Total Protein 6.0 L (6.2-8.2) g/dL Albumin 3.5 L (3.8-4.9) g/dL Albumin/Globulin Ratio 1.40 L (1.60-3.17) Ratio Microbiology - Last 24 Hours (Table) 01/22/24 18:33 Blood Culture - Preliminary Blood 01/22/24 18:05 Blood Culture - Preliminary Blood 01/22/24 10:54 Urine Culture - Final Urine,Clean Catch Valeria glabrata Assessment and Plan (1) Elevated procalcitonin Current Visit: Yes Status: Acute Code(s): R79.89 - OTHER SPECIFIED ABNORMAL FINDINGS OF BLOOD CHEMISTRY SNOMED Code(s): 783151292 (2) Urinary tract infection Current Visit: No Status: Acute Code(s): N39.0 - URINARY TRACT INFECTION, SITE NOT SPECIFIED SNOMED Code(s): 41140602 Plan: 1patient presented hospital with generalized weakness which is likely multifactorial in this patient who did have a positive UA concerning for possible component of UTI likely pulmonary gram-negative pathogen patient also have a cough some yellow sputum production possibly tracheobronchitis with COPD exacerbation as CT did not show any acute changes 2-try to obtain a sputum for Gram stain culture, procalcitonin is mildly elevated 3-urine is currently growing Valeria glabrata will add voriconazole continue with Rocephin concern for possible component of pneumonia Dictation was produced using [employer] software. please excuse any grammatical, word or spelling errors. Time with Patient: Less than 30
[2024-01-25] MEDS: VORICONAZOLE 200 MG TAB PO SCH (16:30)
[2024-01-26] MEDS: TAMSULOSIN 0.4 MG CAP.ER.24H PO SCH (09:15)
[2024-01-26] MEDS ORDERED: DEXTROSE 50% SYRINGE 50 ML IVP PRN ×2 (09:39)
--- NOTE | 2024-01-26 09:42 | P.PN ---
Subjective Progress Note Date: 01/26/24 Principal diagnosis: nonspecific interstitial pneumonitis and UIP x-ray and computed tomography scan suggestive of interstitial lung disease possibly developing nonspecific interstitial pneumonitis and eventually U Emre/usual interstitial pneumonia,further workup and evaluation outpatient however patient will benefit from trial of steroids, we'll start mealtime and prednisolone 40 mg IV every 12 tiredness and fatigue likely related to UTI and sepsis appropriately treated with Rocephin sleep disorder breathing and sleep apneapatient has refused CPAP machine in the past COPD with history of smoking and remote pastfurther workup and evaluation as outpatient with PFTs Dyslipidemiaon the statins Hypertension hypertensive cardiovascular diseaseon antihypertensive agents Type 2 diabetes mellitus, on oral hypoglycemic agent along with sliding scale insulin Fibromyalgia 01/26/2024, patient seen eval examined during rounds labs reviewed medications reviewed, patient is sitting upright on the chair, her shortness of breath improved today, still intermittent dry cough is present,in addition to bronchodilators and steroids also on broad-spectrum antibioticsblood cultures no growth has been identified, urine culture noted to have Valeria glabrata, ID service has been following. As patient has been on IV steroids would recommend patient to be started on Accu-Cheks every before meals and at bedtime with sliding scale sugar however has been stable so far 68-year-old female seen evaluated examined, she presented into emergency department with progressive generalized weakness for last 3 days, due to weakness she has hard time and getting out of the bed, she has lost 20 pounds in last 2 months, she was scheduled for outpatient computed tomography scan of his chest but was not able to go due to weakness instead presented into emergency department, on specific questioning she denies any fever or chills does have nausea and poor by mouth intake, denies any chest pain denies any cough or sputum production. Past medical history significant for COPD, type 2 diabetes mellitus, fibromyalgia, GERD, dyslipidemia, hypertension hypertensive cardiovascular disease and sleep apnea she has a history of Guillain-Ahn syndrome as well with sleep apnea and does not use CPAP machine she has chronic back pain as well. Chest x-ray noted to have a density on posterior cardiophrenic angle. 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 His labs are significant for a leukocytosis with WBC count of 11.9 rest of CBC fairly within normal limit, PT/INR and PTT within normal limit, chemistry significant for elevated AST/ALT of 2:30/60 alk phos is 124. Urinalysis and moderate leukocytosis lymphocyte history is moderately positive and negative for influenza A as well as influenza B she has been found negative for RSV and covid infection Objective - Vital Signs Vital signs: Vital Signs Temp 97.8 F 01/26/24 07:00 Pulse 85 01/26/24 07:00 Resp 16 01/26/24 07:00 BP 137/62 01/26/24 07:00 Pulse Ox 96 01/26/24 09:12 FiO2 Intake & Output 01/25/24 01/26/24 01/26/24 18:59 06:59 18:59 Intake Total 691 Output Total 1450 1800 Balance -759 -1800 Intake: Oral 691 Output: Urine 1450 1800 Other: Voiding Method Indwelling Catheter Indwelling Catheter - Exam - Constitutional General appearance: average body habitus, cooperative, disheveled - EENT Eyes: EOMI, PERRLA ENT: normal oropharynx Ears: bilateral: normal - Neck Carotids: bilateral: upstroke normal - Respiratory Respiratory: bilateral: rales (dry radials consistent with ILD) - Cardiovascular Rhythm: regular Heart sounds: normal: S1, S2 - Gastrointestinal General gastrointestinal: distended, soft - Integumentary Integumentary: normal, normal turgor - Neurologic Neurologic: CNII-XII intact - Musculoskeletal Musculoskeletal: gait normal, generalized weakness, strength equal bilaterally - Psychiatric Psychiatric: A&O x's 3, appropriate affect, intact judgment & insight - Labs CBC & Chem 7: 01/25/24 05:48 01/25/24 05:48 Labs: Abnormal Lab Results - Last 24 Hours (Table) 01/25/24 Range/Units 05:48 Anion Gap 13.90 H (4.00-12.00) mmol/L Glucose 112 H (70-110) mg/dL Total Bilirubin <0.2 L (0.3-1.2) mg/dL AST 243 H (13-35) U/L ALT 73 H (8-44) U/L Total Protein 6.0 L (6.2-8.2) g/dL Albumin 3.5 L (3.8-4.9) g/dL Albumin/Globulin Ratio 1.40 L (1.60-3.17) Ratio Microbiology - Last 24 Hours (Table) 01/22/24 18:33 Blood Culture - Preliminary Blood 01/22/24 18:05 Blood Culture - Preliminary Blood Assessment and Plan Assessment: nonspecific interstitial pneumonitis and earlyUIP x-ray and computed tomography scan suggestive of interstitial lung disease possibly developing nonspecific interstitial pneumonitis and usual interstitial pneumonia,further workup and evaluation outpatient however patient will benefit from trial of steroids, Will continue Solu-[id number] mg IV every 12 tiredness and fatigue likely related to UTI and sepsis appropriately treated with Rocephinculture are negative for any bacteria however some fungus has been noted likely contaminant, ID services been following sleep disorder breathing and sleep apneapatient has refused CPAP machine in the past COPD with history of smoking and remote pastfurther workup and evaluation as outpatient with PFTs Dyslipidemiaon the statins Hypertension hypertensive cardiovascular diseaseon antihypertensive agents Type 2 diabetes mellitus, on oral hypoglycemic agent along with sliding scale insulin Fibromyalgia Plan: as noted above Time with Patient: Greater than 30
[2024-01-26 12:13] LABS: Glucose,Whole Blood 237 mg/dL (70-110)
[2024-01-26] MEDS: INSULIN ASPART (NovoLOG) 100 UNIT/ML VIAL SQ SCH (12:38)
--- NOTE | 2024-01-26 12:39 | CDI ---
Documentation Clarification Form Date: 01/26/2024 12:17:26 PM From: Shayla Sharif RN, CCDS Phone: [phone] Admit Date: 01/22/2024 01:57:00 PM Patient Name: Maggy Luna Visit Number: [id number] Discharge Date: ATTENTION: The Clinical Documentation Specialists (CDI) and [facility] [facility] [facility] [employer] Coding Staff appreciate your assistance in clarifying documentation. Please respond to the clarification below the line at the bottom and electronically sign. The CDI & [facility] [facility] Coding staff will review the response and follow-up if needed. Please note: Queries are made part of the Legal Health Record. If you have any questions, please contact the author of this message via ITS. Dr. Renny Sheriff Sepsis is documented in the Pulmonary consult on 01/24/24 and subsequent progress notes which may lack sufficient clinical evidence/support in the medical record. Additional clarification is requested. History/Risk Factors: COPD, Diabetes Mellitus, Fibromyalgia, GERD/Reflux, Hyperlipidemia, Hypertension, Osteoarthritis (OA), Sleep Apnea/CPAP/BIPAP, Thyroid Disorder, Vascular Disorder Clinical Indicators: 68-year-old female presenting to the hospital 2 days ago for evaluation generalized weakness patient symptoms started 2 to 3 days. She was ruled in for UTI, severe spinal stenosis. In ER was afebrile, not tachycardiac no hypotension or hypoxic. 01/21 VS: 135/78 69 18 98.0 100% RA 01/21 Labs: WBC 11.9, Neutrophils 8.9, BUN 36, Creatinine 1.67, GFR 31; UA : Moderate Leukocyte Esterase Urine culture Valeria Glabrata 01/22 VS: (07:00) 152/78 63 97.8 94% RA 01/24 Labs: WBC 7.52 Neutrophils 4.57, BUN 16.6 Creatinine 1.0 Treatment: Rocephin 1GMIVPB Q 24 HRS 01/21-01/25 Blood culture Preliminary No growth 72 hrs Please clarify if sepsis is a valid diagnosis? [ ] Yes, Sepsis is present as evidence by (additional clinical support): [ ] No, Sepsis is ruled out. [ ] Other (please specify diagnosis) [ ] Unable to determine (Template Last Revised: December 2020) MTDD
--- NOTE | 2024-01-26 13:13 | P.PN ---
Subjective Progress Note Date: 01/26/24 Principal diagnosis: Reason for follow-up is UTI and question of pneumonia Patient is a 68-year-old female past medical history significant for diabetes mellitus fibromyalgia hypertension hyperlipidemia COPD presenting to the hospital for evaluation generalized weakness patient also complaining of cough bringing up sputum did have elevated white count positive UA concerning for symptomatic UTI. On today's visit that is 01/26/2024,the patient denies any fever or any chills, patient is breathing comfortably on room air, the patient denies chest pain shortness of breath cough and it is in intensity and is productive, patient denies abdominal pain, no nausea vomiting or diarrhea. No new symptoms. Labs pending from this morning urine is growing Valeria glabrata blood culture negative Objective - Vital Signs Vital signs: Vital Signs Temp 97.8 F 01/26/24 07:00 Pulse 85 01/26/24 07:00 Resp 16 01/26/24 07:00 BP 137/62 01/26/24 07:00 Pulse Ox 91 L 01/26/24 07:00 FiO2 Intake & Output 01/25/24 01/26/24 01/26/24 18:59 06:59 18:59 Intake Total 691 Output Total 1450 1800 Balance -759 -1800 Intake: Oral 691 Output: Urine 1450 1800 Other: Voiding Method Indwelling Catheter Indwelling Catheter - Exam GENERAL DESCRIPTION: An elderly female lying in bed in no distress RESPIRATORY SYSTEM: Unlabored breathing , decreased breath sounds at bases HEART: S1 S2 regular rate and rhythm , ABDOMEN: Soft , no tenderness EXTREMITIES: No edema feet - Labs CBC & Chem 7: 01/25/24 05:48 01/25/24 05:48 Labs: Abnormal Lab Results - Last 24 Hours (Table) 01/25/24 01/25/24 Range/Units 05:48 05:48 RBC 3.49 L (4.10-5.20) X 10*6/uL Hgb 11.0 L (12.0-15.0) g/dL Hct 35.0 L (37.2-46.3) % MCV 100.3 H (80.0-97.0) FL MCHC 31.4 L (32.0-37.0) g/dL Eosinophils # 0.42 H (0.04-0.35) X 10*3/uL Anion Gap 13.90 H (4.00-12.00) mmol/L Glucose 112 H (70-110) mg/dL Total Bilirubin <0.2 L (0.3-1.2) mg/dL AST 243 H (13-35) U/L ALT 73 H (8-44) U/L Total Protein 6.0 L (6.2-8.2) g/dL Albumin 3.5 L (3.8-4.9) g/dL Albumin/Globulin Ratio 1.40 L (1.60-3.17) Ratio Microbiology - Last 24 Hours (Table) 01/22/24 18:33 Blood Culture - Preliminary Blood 01/22/24 18:05 Blood Culture - Preliminary Blood Assessment and Plan (1) Elevated procalcitonin Current Visit: Yes Status: Acute Code(s): R79.89 - OTHER SPECIFIED ABNORMAL FINDINGS OF BLOOD CHEMISTRY SNOMED Code(s): 332118568 (2) Urinary tract infection Current Visit: No Status: Acute Code(s): N39.0 - URINARY TRACT INFECTION, SITE NOT SPECIFIED SNOMED Code(s): 89432497 Plan: 1patient presented hospital with generalized weakness which is likely multifactorial in this patient who did have a positive UA concerning for possible component of UTI likely pulmonary gram-negative pathogen patient also have a cough some yellow sputum production possibly tracheobronchitis with COPD exacerbation as CT did not show any acute changes 2-sputum has not been collected, procalcitonin is mildly elevated, continue with Rocephin 3-urine is currently growing Valeria glabrata short course of voriconazole and monitor clinical course closely Dictation was produced using [employer] dictation software. please excuse any grammatical, word or spelling errors. Time with Patient: Less than 30
--- NOTE | 2024-01-26 13:31 | CDI ---
Documentation Clarification Form Date: 01/26/2024 12:40:41 PM From: Shayla Sharif RN, CCDS Phone: [phone] Admit Date: 01/22/2024 01:57:00 PM Patient Name: Maggy Luna Visit Number: [id number] Discharge Date: ATTENTION: The Clinical Documentation Specialists (CDI) and [facility] Coding Staff appreciate your assistance in clarifying documentation. Please respond to the clarification below the line at the bottom and electronically sign. The CDI & [facility] Coding staff will review the response and follow-up if needed. Please note: Queries are made part of the Legal Health Record. If you have any questions, please contact the author of this message via ITS. Dr. Renny Sheriff Your patient has the documented diagnosis of diastolic heart failure in the progress note on 01/24/24. Additional information regarding the acuity of CHF is requested. History/Risk Factors: COPD, Diabetes Mellitus, Fibromyalgia, GERD/Reflux, Hyperlipidemia, Hypertension, Osteoarthritis (OA), Sleep Apnea/CPAP/BIPAP, Thyroid Disorder, Vascular Disorder Clinical Indicators: 68-year-old female presenting to the hospital 2 days ago for evaluation generalized weakness patient symptoms started 2 to 3 days. She was ruled in for UTI, severe spinal stenosis. In ER was afebrile, not tachycardiac no hypotension or hypoxic. 01/21 VS: 135/78 69 18 98.0 100% R Echocardiogram Results: (11/02/23) Left ventricular ejection fraction is estimated at 55 %. 01/21 Chest X Ray: There may ba a density over the posterior costophrenic angle. 01/21 CT Chest: Chronic interstitial lung disease and fibrosis, possible NSIP with superimposed mild COPD. No acute change compared to . CAD with extensive three-vessel coronary artery calcifications. Treatment: Lipitor 80 MG PO HS 01/21-01/25 Tenormin 50MG PO BID 01/21-01/25 Lasix 40 MG PO Daily 01/21-01/25 In your professional opinion, can you please clarify the acuity of CHF if know. [ ] Acute Diastolic Heart Failure (preserved EF) [ ] Chronic Diastolic Heart Failure (preserved EF [ ] Other, please specify [ ] Unable to determine (Template Last Revised: November 2020) MTDD
--- NOTE | 2024-01-26 14:28 | P.PN ---
Subjective Progress Note Date: 01/26/24 * 68-year-old female presented into emergency department with progressive generalized weakness for last 3 days, due to weakness she has hard time and getting out of the bed, she has lost 20 pounds in last 2 months, she was scheduled for outpatient computed tomography scan of his chest but was not able to go due to weakness instead presented into emergency department, * Past medical history significant for COPD, type 2 diabetes mellitus, fibromyalgia, GERD, dyslipidemia, hypertension hypertensive cardiovascular disease and sleep apnea she has a history of Guillain-Ahn syndrome as well with sleep apnea and does not use CPAP machine she has chronic back pain as well. * Chest x-ray noted to have a density on posterior cardiophrenic angle. * Patient has noted to be chronic interstitial lung disease and fibrosis with COPD, compared to October 2023 and when she is noted, noted dilatation of biliary tract with diffuse calcification of coronary disease. * CT of the neck revealed DJD of severe category, no fracture seen, CT of the lumbar spine revealed postsurgical changes with intact hardware no acute fracture seen diffuse DJD seen. * negative for influenza A as well as influenza B she has been found negative for RSV and covid infection * 01/26/24 : Patient seen and evaluated at bedside , patient does complain of joint pain, continue patient on current medical management follow-up on blood work for tomorrow. PHYSICAL EXAMINATION: GENERAL: The patient is alert and oriented x3, not in any acute distress. Well developed, well nourished. HEENT: Pupils are round and equally reacting to light. EOMI. No scleral icterus. CARDIOVASCULAR: S1 and S2 present. No murmurs, rubs, or gallops. PULMONARY: Chest is clear to auscultation, no wheezing or crackles. ABDOMEN: Soft, nontender, nondistended, normoactive bowel sounds. No palpable organomegaly. MUSCULOSKELETAL: No joint swelling or deformity. EXTREMITIES: No cyanosis, clubbing, or pedal edema. NEUROLOGICAL: Gross neurological examination did not reveal any focal deficits. SKIN: No rashes. Assessment and plan * Acute COPD exacerbation with interstitial lung disease UIP * Urinary tract infection * Multi focal pneumonia * Diabetes mellitus type 2 * Obstructive sleep apnea noncompliant with CPAP * Hypertension * Dyslipidemia * Chronic low back pain * In regards to COPD exacerbation continue patient on steroids, receiving Solu- Medrol, receiving breathing treatments pulmonary medicine on consult * In regards to urinary tract infection, continue patient on voriconazole managed by infectious disease * Regards to multifocal pneumonia continue patient on IV Rocephin * In regards to diabetes mellitus Accu-Cheks ACHS * In regards to hypertension continue atenolol, Lasix Objective - Vital Signs Vital signs: Vital Signs Temp 97.8 F 01/26/24 07:00 Pulse 85 01/26/24 07:00 Resp 16 01/26/24 07:00 BP 137/62 01/26/24 07:00 Pulse Ox 96 01/26/24 09:12 FiO2 Intake & Output 01/25/24 01/26/24 01/26/24 18:59 06:59 18:59 Intake Total 691 360 Output Total 1450 1800 Balance -759 -1800 360 Intake: Oral 691 360 Output: Urine 1450 1800 Other: Voiding Method Indwelling Catheter Indwelling Catheter - Labs CBC & Chem 7: 01/25/24 05:48 01/25/24 05:48 Labs: Microbiology - Last 24 Hours (Table) 01/22/24 18:33 Blood Culture - Preliminary Blood 01/22/24 18:05 Blood Culture - Preliminary Blood
[2024-01-26 17:51] LABS: Glucose,Whole Blood 254 mg/dL (70-110)
[2024-01-26 20:43] LABS: Glucose,Whole Blood 275 mg/dL (70-110)
[2024-01-27 05:41] LABS: Glucose,Whole Blood 175 mg/dL (70-110)
--- NOTE | 2024-01-27 09:40 | P.PN ---
Subjective Progress Note Date: 01/27/24 Principal diagnosis: nonspecific interstitial pneumonitis and UIP x-ray and computed tomography scan suggestive of interstitial lung disease possibly developing nonspecific interstitial pneumonitis and eventually U Emre/usual interstitial pneumonia,further workup and evaluation outpatient however patient will benefit from trial of steroids, we'll start mealtime and prednisolone 40 mg IV every 12 tiredness and fatigue likely related to UTI and sepsis appropriately treated with Rocephin sleep disorder breathing and sleep apneapatient has refused CPAP machine in the past COPD with history of smoking and remote pastfurther workup and evaluation as outpatient with PFTs Dyslipidemiaon the statins Hypertension hypertensive cardiovascular diseaseon antihypertensive agents Type 2 diabetes mellitus, on oral hypoglycemic agent along with sliding scale insulin Fibromyalgia 01/27/2024, patient seen eval examined during rounds respiratory status continued to improve slowly, patient able to breathe more appropriately,oxygen saturation is 94%, hemodynamic stable, patient is afebrileblood glucose is 120.patient remains on broad-spectrum IV antibiotics along with IV Solu-Medrol 01/26/2024, patient seen eval examined during rounds labs reviewed medications reviewed, patient is sitting upright on the chair, her shortness of breath improved today, still intermittent dry cough is present,in addition to bronchodilators and steroids also on broad-spectrum antibioticsblood cultures no growth has been identified, urine culture noted to have Valeria glabrata, ID service has been following. As patient has been on IV steroids would recommend patient to be started on Accu-Cheks every before meals and at bedtime with sliding scale sugar however has been stable so far 68-year-old female seen evaluated examined, she presented into emergency department with progressive generalized weakness for last 3 days, due to weakness she has hard time and getting out of the bed, she has lost 20 pounds in last 2 months, she was scheduled for outpatient computed tomography scan of his chest but was not able to go due to weakness instead presented into emergency department, on specific questioning she denies any fever or chills does have nausea and poor by mouth intake, denies any chest pain denies any cough or sputum production. Past medical history significant for COPD, type 2 diabetes mellitus, fibromyalgia, GERD, dyslipidemia, hypertension hypertensive cardiovascular disease and sleep apnea she has a history of Guillain-Ahn syndrome as well with sleep apnea and does not use CPAP machine she has chronic back pain as well. Chest x-ray noted to have a density on posterior cardiophrenic angle. 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 His labs are significant for a leukocytosis with WBC count of 11.9 rest of CBC fairly within normal limit, PT/INR and PTT within normal limit, chemistry significant for elevated AST/ALT of 2:30/60 alk phos is 124. Urinalysis and moderate leukocytosis lymphocyte history is moderately positive and negative for influenza A as well as influenza B she has been found negative for RSV and covid infection Objective - Vital Signs Vital signs: Vital Signs Temp 98.3 F 01/27/24 07:00 Pulse 77 01/27/24 08:54 Resp 16 01/27/24 08:54 BP 121/58 01/27/24 08:54 Pulse Ox 94 L 01/27/24 08:54 FiO2 Intake & Output 01/26/24 01/27/24 01/27/24 18:59 06:59 18:59 Intake Total 838 118 Output Total 1160 1400 Balance -322 -1400 118 Intake: Oral 838 118 Output: Urine 1160 1400 Other: Voiding Method Indwelling Catheter Indwelling Catheter - Exam - Constitutional General appearance: average body habitus, cooperative, disheveled - EENT Eyes: EOMI, PERRLA ENT: normal oropharynx Ears: bilateral: normal - Neck Carotids: bilateral: upstroke normal - Respiratory Respiratory: bilateral: rales (dry radials consistent with ILD) - Cardiovascular Rhythm: regular Heart sounds: normal: S1, S2 - Gastrointestinal General gastrointestinal: distended, soft - Integumentary Integumentary: normal, normal turgor - Neurologic Neurologic: CNII-XII intact - Musculoskeletal Musculoskeletal: gait normal, generalized weakness, strength equal bilaterally - Psychiatric Psychiatric: A&O x's 3, appropriate affect, intact judgment & insight - Labs CBC & Chem 7: 01/25/24 05:48 01/25/24 05:48 Labs: Abnormal Lab Results - Last 24 Hours (Table) 04/19/24 04/19/24 04/19/24 Range/Units 12:12 17:49 20:41 POC Glucose (mg/dL) 237 H 254 H 275 H (70-110) mg/dL Hemoglobin A1c (<=6.0) % 01/27/24 01/27/24 Range/Units 04:29 05:40 POC Glucose (mg/dL) 175 H (70-110) mg/dL Hemoglobin A1c 6.1 H (<=6.0) % Assessment and Plan Assessment: nonspecific interstitial pneumonitis and earlyUIP x-ray and computed tomography scan suggestive of interstitial lung disease possibly developing nonspecific interstitial pneumonitis and usual interstitial pneumonia,further workup and evaluation outpatient however patient will benefit from trial of steroids, Will continue Solu-[id number] mg IV every 12 tiredness and fatigue likely related to UTI and sepsis appropriately treated with Rocephinculture are negative for any bacteria however some fungus has been noted likely contaminant, ID services been following sleep disorder breathing and sleep apneapatient has refused CPAP machine in the past COPD with history of smoking and remote pastfurther workup and evaluation as outpatient with PFTs Dyslipidemiaon the statins Hypertension hypertensive cardiovascular diseaseon antihypertensive agents Type 2 diabetes mellitus, on oral hypoglycemic agent along with sliding scale insulin Fibromyalgia Plan: as noted above Time with Patient: Greater than 30
[2024-01-27 09:41] LABS: HCT 32.9 % (37.2-46.3); HGB 10.5 g/dL (12.0-15.0); MCH 31.5 pg (27.0-32.0); MCHC 31.9 g/dL (32.0-37.0); MCV 98.8 FL (80.0-97.0); NRBC Per 100 WBC 0 X 10*3/uL (0.00-0.01); Platelet Count 251 X 10*3/uL (140-440); RBC 3.33 X 10*6/uL (4.10-5.20); RDW 12.5 % (11.5-14.5); WBC 11.76 X 10*3/uL (4.50-10.00)
[2024-01-27 10:47] LABS: BUN/Creat Ratio 27.38 Ratio (12.00-20.00); Blood Urea Nitrogen 21.9 mg/dL (9.0-27.0); Calcium 8.5 mg/dL (8.7-10.3); Carbon Dioxide 24.3 mmol/L (21.6-31.8); Chloride 106 mmol/L (96-109); Glucose 166 mg/dL (70-110); Potassium 4.3 mmol/L (3.5-5.5); Sodium 139 mmol/L (135-145)
[2024-01-27 12:22] LABS: Glucose,Whole Blood 170 mg/dL (70-110)
--- NOTE | 2024-01-27 13:30 | P.PN ---
Subjective Progress Note Date: 01/27/24 * 68-year-old female presented into emergency department with progressive generalized weakness for last 3 days, due to weakness she has hard time and getting out of the bed, she has lost 20 pounds in last 2 months, she was scheduled for outpatient computed tomography scan of his chest but was not able to go due to weakness instead presented into emergency department, * Past medical history significant for COPD, type 2 diabetes mellitus, fibromyalgia, GERD, dyslipidemia, hypertension hypertensive cardiovascular disease and sleep apnea she has a history of Guillain-Ahn syndrome as well with sleep apnea and does not use CPAP machine she has chronic back pain as well. * Chest x-ray noted to have a density on posterior cardiophrenic angle. * Patient has noted to be chronic interstitial lung disease and fibrosis with COPD, compared to October 2023 and when she is noted, noted dilatation of biliary tract with diffuse calcification of coronary disease. * CT of the neck revealed DJD of severe category, no fracture seen, CT of the lumbar spine revealed postsurgical changes with intact hardware no acute fracture seen diffuse DJD seen. * negative for influenza A as well as influenza B she has been found negative for RSV and covid infection * 01/26/24 : Patient seen and evaluated at bedside , patient does complain of joint pain, continue patient on current medical management follow-up on blood work for tomorrow. * 01/27/24: patient seen and evaluated bedside,cardiovascular reviewed [id number], WBC 11.7 A1c 6.1. Continue current treatment for UTI. Patient stated breathing has improved continue patient on steroids and antibioti c. Patient does complain of generalized weakness PHYSICAL EXAMINATION: GENERAL: The patient is alert and oriented x3, not in any acute distress. Well developed, well nourished. HEENT: Pupils are round and equally reacting to light. EOMI. No scleral icterus. CARDIOVASCULAR: S1 and S2 present. No murmurs, rubs, or gallops. PULMONARY: Chest is clear to auscultation, no wheezing or crackles. ABDOMEN: Soft, nontender, nondistended, normoactive bowel sounds. No palpable organomegaly. MUSCULOSKELETAL: No joint swelling or deformity. EXTREMITIES: No cyanosis, clubbing, or pedal edema. NEUROLOGICAL: Gross neurological examination did not reveal any focal deficits. SKIN: No rashes. Assessment and plan * Acute COPD exacerbation with interstitial lung disease UIP * Urinary tract infection * Multi focal pneumonia * Diabetes mellitus type 2 * Obstructive sleep apnea noncompliant with CPAP * Hypertension * Dyslipidemia * Chronic low back pain * In regards to COPD exacerbation continue patient on steroids, receiving Solu-Medrol, IV Rocephin receiving breathing treatments pulmonary medicine on consult * In regards to urinary tract infection, continue patient on voriconazole managed by infectious disease * Regards to multifocal pneumonia continue patient on IV Rocephin * In regards to diabetes mellitus Accu-Cheks ACHS * In regards to hypertension continue atenolol, Lasix Objective - Vital Signs Vital signs: Vital Signs Temp 98.3 F 01/27/24 07:00 Pulse 77 01/27/24 08:54 Resp 16 01/27/24 08:54 BP 121/58 01/27/24 08:54 Pulse Ox 94 L 01/27/24 08:54 FiO2 Intake & Output 01/26/24 01/27/24 01/27/24 18:59 06:59 18:59 Intake Total 838 118 Output Total 1160 1400 Balance -322 -1400 118 Intake: Oral 838 118 Output: Urine 1160 1400 Other: Voiding Method Indwelling Catheter Indwelling Catheter Indwelling Catheter - Labs CBC & Chem 7: 01/27/24 04:29 01/27/24 04:29 Labs: Abnormal Lab Results - Last 24 Hours (Table) 01/26/24 01/26/24 01/26/24 Range/Units 12:12 17:49 20:41 WBC (4.50-10.00) X 10*3/uL RBC (4.10-5.20) X 10*6/uL Hgb (12.0-15.0) g/dL Hct (37.2-46.3) % MCV (80.0-97.0) FL MCHC (32.0-37.0) g/dL POC Glucose (mg/dL) 237 H 254 H 275 H (70-110) mg/dL Hemoglobin A1c (<=6.0) % 01/27/24 01/27/24 01/27/24 Range/Units 04:29 04:29 05:40 WBC 11.76 H (4.50-10.00) X 10*3/uL RBC 3.33 L (4.10-5.20) X 10*6/uL Hgb 10.5 L (12.0-15.0) g/dL Hct 32.9 L (37.2-46.3) % MCV 98.8 H (80.0-97.0) FL MCHC 31.9 L (32.0-37.0) g/dL POC Glucose (mg/dL) 175 H (70-110) mg/dL Hemoglobin A1c 6.1 H (<=6.0) % Microbiology - Last 24 Hours (Table) 01/26/24 06:56 Gram Stain - Preliminary Sputum
[2024-01-27 17:05] LABS: Glucose,Whole Blood 188 mg/dL (70-110)
[2024-01-27 21:08] LABS: Glucose,Whole Blood 243 mg/dL (70-110)
--- NOTE | 2024-01-27 23:12 | P.PN ---
Subjective Progress Note Date: 01/27/24 Principal diagnosis: Reason for follow-up is UTI and question of pneumonia Patient is a 68-year-old female past medical history significant for diabetes mellitus fibromyalgia hypertension hyperlipidemia COPD presenting to the hospital for evaluation generalized weakness patient also complaining of cough bringing up sputum did have elevated white count positive UA concerning for symptomatic UTI. On today's visit that is 01/27/2024,the patient remains to be afebrile, patient is on room air not requiring supplemental oxygen and denies any shortness of breath no chest pain or cough.Patient denies having any nausea or vomiting, no abdominal pain and no diarrhea has been reported, complaining of some weakness today. The patient white count is 11.76, creatinine 0.8 sputum cultures currently pending Objective - Vital Signs Vital signs: Vital Signs Temp 98.3 F 01/27/24 07:00 Pulse 77 01/27/24 08:54 Resp 16 01/27/24 08:54 BP 121/58 01/27/24 08:54 Pulse Ox 94 L 01/27/24 08:54 FiO2 Intake & Output 01/26/24 01/27/24 01/27/24 18:59 06:59 18:59 Intake Total 838 118 Output Total 1160 1400 Balance -322 -1400 118 Intake: Oral 838 118 Output: Urine 1160 1400 Other: Voiding Method Indwelling Catheter Indwelling Catheter Indwelling Catheter - Exam GENERAL DESCRIPTION: An elderly female lying in bed in no distress RESPIRATORY SYSTEM: Unlabored breathing , decreased breath sounds at bases HEART: S1 S2 regular rate and rhythm , ABDOMEN: Soft , no tenderness EXTREMITIES: No edema feet Exam completed with the help of MEDICATION NURSE - Labs CBC & Chem 7: 01/27/24 04:29 01/27/24 04:29 Labs: Abnormal Lab Results - Last 24 Hours (Table) 01/26/24 01/26/24 01/26/24 Range/Units 12:12 17:49 20:41 WBC (4.50-10.00) X 10*3/uL RBC (4.10-5.20) X 10*6/uL Hgb (12.0-15.0) g/dL Hct (37.2-46.3) % MCV (80.0-97.0) FL MCHC (32.0-37.0) g/dL BUN/Creatinine Ratio (12.00-20.00) Ratio Glucose (70-110) mg/dL POC Glucose (mg/dL) 237 H 254 H 275 H (70-110) mg/dL Hemoglobin A1c (<=6.0) % Calcium (8.7-10.3) mg/dL 01/27/24 01/27/24 01/27/24 Range/Units 04:29 04:29 04:29 WBC 11.76 H (4.50-10.00) X 10*3/uL RBC 3.33 L (4.10-5.20) X 10*6/uL Hgb 10.5 L (12.0-15.0) g/dL Hct 32.9 L (37.2-46.3) % MCV 98.8 H (80.0-97.0) FL MCHC 31.9 L (32.0-37.0) g/dL BUN/Creatinine Ratio 27.38 H (12.00-20.00) Ratio Glucose 166 H (70-110) mg/dL POC Glucose (mg/dL) (70-110) mg/dL Hemoglobin A1c 6.1 H (<=6.0) % Calcium 8.5 L (8.7-10.3) mg/dL 01/27/24 Range/Units 05:40 WBC (4.50-10.00) X 10*3/uL RBC (4.10-5.20) X 10*6/uL Hgb (12.0-15.0) g/dL Hct (37.2-46.3) % MCV (80.0-97.0) FL MCHC (32.0-37.0) g/dL BUN/Creatinine Ratio (12.00-20.00) Ratio Glucose (70-110) mg/dL POC Glucose (mg/dL) 175 H (70-110) mg/dL Hemoglobin A1c (<=6.0) % Calcium (8.7-10.3) mg/dL Microbiology - Last 24 Hours (Table) 01/26/24 06:56 Gram Stain - Preliminary Sputum Assessment and Plan (1) Elevated procalcitonin Current Visit: Yes Status: Acute Code(s): R79.89 - OTHER SPECIFIED ABNORMAL FINDINGS OF BLOOD CHEMISTRY SNOMED Code(s): 117080429 (2) Urinary tract infection Current Visit: No Status: Acute Code(s): N39.0 - URINARY TRACT INFECTION, SITE NOT SPECIFIED SNOMED Code(s): 56495327 Plan: 1patient presented hospital with generalized weakness which is likely multifactorial in this patient who did have a positive UA concerning for possible component of UTI likely pulmonary gram-negative pathogen patient also have a cough some yellow sputum production possibly tracheobronchitis with COPD exacerbation as CT did not show any acute changes 2-sputum has not been collected, procalcitonin is mildly elevated, sputum culture obtained which are currently pending continue with Rocephin while waiting for the culture to finalize 3-urine culture grew Valeria glabrata short course of voriconazole and monitor clinical course closely Dictation was produced using [email or web address] dictation software. please excuse any grammatical, word or spelling errors. Time with Patient: Less than 30
[2024-01-27] MEDS: HYDROcodone/APAP 5-325MG 1 EACH TAB PO PRN (23:15)
[2024-01-28 06:00] LABS: Glucose,Whole Blood 158 mg/dL (70-110)
[2024-01-28 08:43] LABS: HCT 34.3 % (34.0-46.0); HGB 10.6 gm/dL (11.4-16.0); Hypochromasia Slight; MCH 31.3 pg (25.0-35.0); MCHC 30.8 g/dL (31.0-37.0); MCV 101.7 fL (80.0-100.0); Mean Platelet Volume 8.1; Platelet Count 276 k/uL (150-450); RBC 3.38 m/uL (3.80-5.40); RDW 12.5 % (11.5-15.5); WBC 12.8 k/uL (3.8-10.6)
[2024-01-28 09:09] LABS: African American GFR (CKD) 65 (>60 ml/min/1.73 sqM); Anion Gap 4 mmol/L; Blood Urea Nitrogen 35 mg/dL (7-17); Calcium 8.4 mg/dL (8.4-10.2); Carbon Dioxide 28 mmol/L (22-30); Chloride 108 mmol/L (98-107); Glucose 154 mg/dL (74-99); Non-African American GFR(CKD) 57 (>60 ml/min/1.73 sqM); Potassium 4.7 mmol/L (3.5-5.1); Sodium 140 mmol/L (137-145)
--- NOTE | 2024-01-28 09:11 | P.PN ---
Subjective Progress Note Date: 01/28/24 Principal diagnosis: nonspecific interstitial pneumonitis and UIP x-ray and computed tomography scan suggestive of interstitial lung disease possibly developing nonspecific interstitial pneumonitis and eventually U Emre/usual interstitial pneumonia,further workup and evaluation outpatient however patient will benefit from trial of steroids, we'll start mealtime and prednisolone 40 mg IV every 12 tiredness and fatigue likely related to UTI and sepsis appropriately treated with Rocephin sleep disorder breathing and sleep apneapatient has refused CPAP machine in the past COPD with history of smoking and remote pastfurther workup and evaluation as outpatient with PFTs Dyslipidemiaon the statins Hypertension hypertensive cardiovascular diseaseon antihypertensive agents Type 2 diabetes mellitus, on oral hypoglycemic agent along with sliding scale insulin Fibromyalgia 01/28/2024,patient seen eval examined during the rounds labs reviewed medications reviewed, remains on IV steroids and bronchodilator, blood pressure is 114/69 she is afebrileoxygen saturation on 2 L is 96% 01/27/2024, patient seen eval examined during rounds respiratory status continued to improve slowly, patient able to breathe more appropriately,oxygen saturation is 94%, hemodynamic stable, patient is afebrileblood glucose is 120.patient remains on broad-spectrum IV antibiotics along with IV Solu-Medrol 01/26/2024, patient seen eval examined during rounds labs reviewed medications reviewed, patient is sitting upright on the chair, her shortness of breath improved today, still intermittent dry cough is present,in addition to bronchodilators and steroids also on broad-spectrum antibioticsblood cultures no growth has been identified, urine culture noted to have Valeria glabrata, ID service has been following. As patient has been on IV steroids would recommend patient to be started on Accu-Cheks every before meals and at bedtime with sliding scale sugar however has been stable so far 68-year-old female seen evaluated examined, she presented into emergency department with progressive generalized weakness for last 3 days, due to weakness she has hard time and getting out of the bed, she has lost 20 pounds in last 2 months, she was scheduled for outpatient computed tomography scan of his chest but was not able to go due to weakness instead presented into emergency department, on specific questioning she denies any fever or chills does have nausea and poor by mouth intake, denies any chest pain denies any cough or sputum production. Past medical history significant for COPD, type 2 diabetes mellitus, fibromyalgia, GERD, dyslipidemia, hypertension hypertensive card iovascular disease and sleep apnea she has a history of Guillain-Ahn syndrome as well with sleep apnea and does not use CPAP machine she has chronic back pain as well. Chest x-ray noted to have a density on posterior cardiophrenic angle. 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 His labs are significant for a leukocytosis with WBC count of 11.9 rest of CBC fairly within normal limit, PT/INR and PTT within normal limit, chemistry significant for elevated AST/ALT of 2:30/60 alk phos is 124. Urinalysis and moderate leukocytosis lymphocyte history is moderately positive and negative for influenza A as well as influenza B she has been found negative for RSV and covid infection Objective - Vital Signs Vital signs: Vital Signs Temp 98.0 F 01/28/24 07:00 Pulse 69 01/28/24 07:00 Resp 16 01/28/24 07:00 BP 114/69 01/28/24 07:00 Pulse Ox 96 01/28/24 07:00 FiO2 Intake & Output 01/27/24 01/28/24 01/28/24 18:59 06:59 18:59 Intake Total 358 Output Total 500 725 Balance -142 -725 Intake: Oral 358 Output: Urine 500 725 Other: Voiding Method Indwelling Catheter Indwelling Catheter - Exam - Constitutional General appearance: average body habitus, cooperative, disheveled - EENT Eyes: EOMI, PERRLA ENT: normal oropharynx Ears: bilateral: normal - Neck Carotids: bilateral: upstroke normal - Respiratory Respiratory: bilateral: rales (dry radials consistent with ILD) - Cardiovascular Rhythm: regular Heart sounds: normal: S1, S2 - Gastrointestinal General gastrointestinal: distended, soft - Integumentary Integumentary: normal, normal turgor - Neurologic Neurologic: CNII-XII intact - Musculoskeletal Musculoskeletal: gait normal, generalized weakness, strength equal bilaterally - Psychiatric Psychiatric: A&O x's 3, appropriate affect, intact judgment & insight - Labs CBC & Chem 7: 01/28/24 08:03 01/27/24 04:29 Labs: Abnormal Lab Results - Last 24 Hours (Table) 01/27/24 01/27/24 01/27/24 Range/Units 04:29 04:29 04:29 WBC 11.76 H (4.50-10.00) X 10*3/uL RBC 3.33 L (4.10-5.20) X 10*6/uL Hgb 10.5 L (12.0-15.0) g/dL Hct 32.9 L (37.2-46.3) % MCV 98.8 H (80.0-97.0) FL MCHC 31.9 L (32.0-37.0) g/dL BUN/Creatinine Ratio 27.38 H (12.00-20.00) Ratio Glucose 166 H (70-110) mg/dL POC Glucose (mg/dL) (70-110) mg/dL Hemoglobin A1c 6.1 H (<=6.0) % Calcium 8.5 L (8.7-10.3) mg/dL 01/27/24 01/27/24 01/27/24 Range/Units 12:21 17:04 21:06 WBC (4.50-10.00) X 10*3/uL RBC (4.10-5.20) X 10*6/uL Hgb (12.0-15.0) g/dL Hct (37.2-46.3) % MCV (80.0-97.0) FL MCHC (32.0-37.0) g/dL BUN/Creatinine Ratio (12.00-20.00) Ratio Glucose (70-110) mg/dL POC Glucose (mg/dL) 170 H 188 H 243 H (70-110) mg/dL Hemoglobin A1c (<=6.0) % Calcium (8.7-10.3) mg/dL 01/28/24 01/28/24 Range/Units 05:58 08:03 WBC 12.8 H (4.50-10.00) X 10*3/uL RBC 3.38 L (4.10-5.20) X 10*6/uL Hgb 10.6 L (12.0-15.0) g/dL Hct (37.2-46.3) % MCV 101.7 H (80.0-97.0) FL MCHC 30.8 L (32.0-37.0) g/dL BUN/Creatinine Ratio (12.00-20.00) Ratio Glucose (70-110) mg/dL POC Glucose (mg/dL) 158 H (70-110) mg/dL Hemoglobin A1c (<=6.0) % Calcium (8.7-10.3) mg/dL Microbiology - Last 24 Hours (Table) 01/26/24 06:56 Gram Stain - Final Sputum Sputum Culture - Final Valeria albicans 01/22/24 18:33 Blood Culture - Final Blood 01/22/24 18:05 Blood Culture - Final Blood Assessment and Plan Assessment: nonspecific interstitial pneumonitis and early UIP, continue trial of steroids x-ray and computed tomography scan suggestive of interstitial lung disease possibly developing nonspecific interstitial pneumonitis and usual interstitial pneumonia,further workup and evaluation outpatient however patient will benefit from trial of steroids, Will continue [id number] mg IV every 12, will continue for next few days then will taper tiredness and fatigue likely related to UTI and sepsis appropriately treated with Rocephinculture are negative for any bacteria however some fungus has been noted likely contaminant, ID services been following sleep disorder breathing and sleep apneapatient has refused CPAP machine in the past COPD with history of smoking and remote pastfurther workup and evaluation as outpatient with PFTs Dyslipidemiaon the statins Hypertension hypertensive cardiovascular diseaseon antihypertensive agents Type 2 diabetes mellitus, on oral hypoglycemic agent along with sliding scale insulin Fibromyalgia Plan: as noted above Time with Patient: Greater than 30
--- NOTE | 2024-01-28 09:39 | XR ---
EXAMINATION TYPE: XR chest 1V portable DATE OF EXAM: 01/28/2024 Comparison: 01/22/2024 Clinical History: 68-year-old female SOB Findings: Interstitial density appears slightly increased. No sizable pleural effusion. Heart borderline in siz e. Slight asymmetric volume loss in the right hemithorax is unchanged. Partially visualized posterior lumbar fusion hardware. Impression: Mild increased interstitial density from prior could reflect bronchitis, asthma, mild pulmonary vascu lar congestion, or atypical pneumonia.
[2024-01-28] MEDS: FUROSEMIDE 10 MG/ML 2 ML VIAL IV STA (09:45)
[2024-01-28 11:50] LABS: Glucose,Whole Blood 145 mg/dL (70-110)
--- NOTE | 2024-01-28 12:00 | P.PN ---
Subjective Progress Note Date: 01/28/24 * 68-year-old female presented into emergency department with progressive generalized weakness for last 3 days, due to weakness she has hard time and getting out of the bed, she has lost 20 pounds in last 2 months, she was scheduled for outpatient computed tomography scan of his chest but was not able to go due to weakness instead presented into emergency department, * Past medical history significant for COPD, type 2 diabetes mellitus, fibromyalgia, GERD, dyslipidemia, hypertension hypertensive cardiovascular disease and sleep apnea she has a history of Guillain-Ahn syndrome as well with sleep apnea and does not use CPAP machine she has chronic back pain as well. * Chest x-ray noted to have a density on posterior cardiophrenic angle. * Patient has noted to be chronic interstitial lung disease and fibrosis with COPD, compared to October 2023 and when she is noted, noted dilatation of biliary tract with diffuse calcification of coronary disease. * CT of the neck revealed DJD of severe category, no fracture seen, CT of the lumbar spine revealed postsurgical changes with intact hardware no acute fracture seen diffuse DJD seen. * negative for influenza A as well as influenza B she has been found negative for RSV and covid infection * 01/26/24 : Patient seen and evaluated at bedside , patient does complain of joint pain, continue patient on current medical management follow-up on blood work for tomorrow. * 01/27/24: patient seen and evaluated bedside,cardiovascular reviewed .5, WBC 11.7 A1c 6.1. Continue current treatment for UTI. Patient stated breathing has improved continue patient on steroids and antibioti c. Patient does complain of generalized weakness * 01/28/24: Patient seen and evaluated bedside, overnight patient had episode of shortness of breath, patient had been receiving IV fluids which have been discontinued, follow-up chest x-ray has been ordered patient given 1 dose of Lasix, followed by pulmonary medicine started on 2 L of oxygen as well. Blood work reviewed WBC 12.8, serum chemistry reviewed PHYSICAL EXAMINATION: GENERAL: The patient is alert and oriented x3, ill appearance, nasal cannula in place HEENT: Pupils are round and equally reacting to light. EOMI. No scleral icterus. CARDIOVASCULAR: S1 and S2 present. No murmurs, rubs, or gallops. PULMONARY: Creased breath sounds bilaterally ABDOMEN: Soft, nontender, nondistended, normoactive bowel sounds. No palpable organomegaly. MUSCULOSKELETAL: No joint swelling or deformity. EXTREMITIES: No cyanosis, clubbing, or pedal edema. NEUROLOGICAL: Gross neurological examination did not reveal any focal deficits. SKIN: No rashes. Assessment and plan * Acute COPD exacerbation with interstitial lung disease UIP * Urinary tract infection * Multi focal pneumonia * Diabetes mellitus type 2 * Obstructive sleep apnea noncompliant with CPAP * Hypertension * Dyslipidemia * Chronic low back pain * In regards to COPD exacerbation continue patient on steroids, receiving Solu- Medrol, IV Rocephin receiving breathing treatments pulmonary medicine on consult * In regards to urinary tract infection, continue patient on voriconazole managed by infectious disease * Regards to multifocal pneumonia continue patient on IV Rocephin * In regards to diabetes mellitus Accu-Cheks ACHS * In regards to hypertension continue atenolol, Lasix, IV fluid discontinued Objective - Vital Signs Vital signs: Vital Signs Temp 98.0 F 01/28/24 07:00 Pulse 69 01/28/24 07:00 Resp 16 01/28/24 07:00 BP 114/69 01/28/24 07:00 Pulse Ox 96 01/28/24 07:00 FiO2 Intake & Output 01/27/24 01/28/24 01/28/24 18:59 06:59 18:59 Intake Total 358 Output Total 500 725 Balance -142 -725 Intake: Oral 358 Output: Urine 500 725 Other: Voiding Method Indwelling Catheter Indwelling Catheter - Labs CBC & Chem 7: 01/28/24 08:03 01/28/24 08:03 Labs: Abnormal Lab Results - Last 24 Hours (Table) 01/27/24 01/27/24 01/27/24 Range/Units 04:29 04:29 12:21 WBC 11.76 H (4.50-10.00) X 10*3/uL RBC 3.33 L (4.10-5.20) X 10*6/uL Hgb 10.5 L (12.0-15.0) g/dL Hct 32.9 L (37.2-46.3) % MCV 98.8 H (80.0-97.0) FL MCHC 31.9 L (32.0-37.0) g/dL Chloride (98-107) mmol/L BUN (7-17) mg/dL BUN/Creatinine Ratio 27.38 H (12.00-20.00) Ratio Glucose 166 H (70-110) mg/dL POC Glucose (mg/dL) 170 H (70-110) mg/dL Calcium 8.5 L (8.7-10.3) mg/dL 01/27/24 01/27/24 01/28/24 Range/Units 17:04 21:06 05:58 WBC (4.50-10.00) X 10*3/uL RBC (4.10-5.20) X 10*6/uL Hgb (12.0-15.0) g/dL Hct (37.2-46.3) % MCV (80.0-97.0) FL MCHC (32.0-37.0) g/dL Chloride (98-107) mmol/L BUN (7-17) mg/dL BUN/Creatinine Ratio (12.00-20.00) Ratio Glucose (70-110) mg/dL POC Glucose (mg/dL) 188 H 243 H 158 H (70-110) mg/dL Calcium (8.7-10.3) mg/dL 01/28/24 01/28/24 Range/Units 08:03 08:03 WBC 12.8 H (4.50-10.00) X 10*3/uL RBC 3.38 L (4.10-5.20) X 10*6/uL Hgb 10.6 L (12.0-15.0) g/dL Hct (37.2-46.3) % MCV 101.7 H (80.0-97.0) FL MCHC 30.8 L (32.0-37.0) g/dL Chloride 108 H (98-107) mmol/L BUN 35 H (7-17) mg/dL BUN/Creatinine Ratio (12.00-20.00) Ratio Glucose 154 H (70-110) mg/dL POC Glucose (mg/dL) (70-110) mg/dL Calcium (8.7-10.3) mg/dL Microbiology - Last 24 Hours (Table) 01/26/24 06:56 Gram Stain - Final Sputum Sputum Culture - Final Valeria albicans 01/22/24 18:33 Blood Culture - Final Blood 01/22/24 18:05 Blood Culture - Final Blood
[2024-01-28 17:26] LABS: Glucose,Whole Blood 276 mg/dL (70-110)
[2024-01-28 20:20] LABS: Glucose,Whole Blood 207 mg/dL (70-110)
[2024-01-28] MEDS: MELATONIN 3 MG TABLET PO SCH (22:12)
[2024-01-29 06:19] LABS: Glucose,Whole Blood 228 mg/dL (70-110)
--- NOTE | 2024-01-29 10:50 | P.PN ---
Subjective Progress Note Date: 01/29/24 Principal diagnosis: nonspecific interstitial pneumonitis and UIP x-ray and computed tomography scan suggestive of interstitial lung disease possibly developing nonspecific interstitial pneumonitis and eventually U Emre/usual interstitial pneumonia,further workup and evaluation outpatient however patient will benefit from trial of steroids, we'll start mealtime and prednisolone 40 mg IV every 12 tiredness and fatigue likely related to UTI and sepsis appropriately treated with Rocephin sleep disorder breathing and sleep apneapatient has refused CPAP machine in the past COPD with history of smoking and remote pastfurther workup and evaluation as outpatient with PFTs Dyslipidemiaon the statins Hypertension hypertensive cardiovascular diseaseon antihypertensive agents Type 2 diabetes mellitus, on oral hypoglycemic agent along with sliding scale insulin Fibromyalgia 01/29/2024, patient seen eval reexamined during the rounds care plan discussed oxygen saturation 98%,patient was short of breath current 20 of Lasixand IV fluids have been discontinued, we'll decrease Solu-Medrol to once daily 01/28/2024,patient seen eval examined during the rounds labs reviewed medications reviewed, remains on IV steroids and bronchodilator, blood pressure is 114/69 she is afebrileoxygen saturation on 2 L is 96% 01/27/2024, patient seen eval examined during rounds respiratory status continued to improve slowly, patient able to breathe more appropriately,oxygen saturation is 94%, hemodynamic stable, patient is afebrileblood glucose is 120.patient remains on broad-spectrum IV antibiotics along with IV Solu-Medrol 01/26/2024, patient seen eval examined during rounds labs reviewed medications reviewed, patient is sitting upright on the chair, her shortness of breath improved today, still intermittent dry cough is present,in addition to bronchodilators and steroids also on broad-spectrum antibioticsblood cultures no growth has been identified, urine culture noted to have Valeria glabrata, ID service has been following. As patient has been on IV steroids would recommend patient to be started on Accu-Cheks every before meals and at bedtime with sliding scale sugar however has been stable so far 68-year-old female seen evaluated examined, she presented into emergency department with progressive generalized weakness for last 3 days, due to weakness she has hard time and getting out of the bed, she has lost 20 pounds in last 2 months, she was scheduled for outpatient computed tomography scan of his chest but was not able to go due to weakness instead presented into emergency department, on specific questioning she denies any fever or chills does have nausea and poor by mouth intake, denies any chest pain denies any cough or sputum production. Past medical history significant for COPD, type 2 diabetes mellitus, fibromyalgia, GERD, dyslipidemia, hypertension hypertensive cardiovascular disease and sleep apnea she has a history of Guillain-Ahn syndrome as well with sleep apnea and does not use CPAP machine she has chronic back pain as well. Chest x-ray noted to have a density on posterior cardiophrenic angle. 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 His labs are significant for a leukocytosis with WBC count of 11.9 rest of CBC fairly within normal limit, PT/INR and PTT within normal limit, chemistry significant for elevated AST/ALT of 2:30/60 alk phos is 124. Urinalysis and moderate leukocytosis lymphocyte history is moderately positive and negative for influenza A as well as influenza B she has been found negative for RSV and covid infection Objective - Vital Signs Vital signs: Vital Signs Temp 97.6 F 01/29/24 07:10 Pulse 70 01/29/24 07:10 Resp 15 01/29/24 08:22 BP 116/62 01/29/24 07:10 Pulse Ox 98 01/29/24 07:10 FiO2 Intake & Output 01/28/24 01/29/24 01/29/24 18:59 06:59 18:59 Intake Total 118 118 Output Total 1380 600 Balance -1262 -600 118 Intake: Oral 118 118 Output: Urine 1380 600 Other: Voiding Method Indwelling Catheter Indwelling Catheter Indwelling Catheter - Exam - Constitutional General appearance: average body habitus, cooperative, disheveled - EENT Eyes: EOMI, PERRLA ENT: normal oropharynx Ears: bilateral: normal - Neck Carotids: bilateral: upstroke normal - Respiratory Respiratory: bilateral: rales (dry radials consistent with ILD) - Cardiovascular Rhythm: regular Heart sounds: normal: S1, S2 - Gastrointestinal General gastrointestinal: distended, soft - Integumentary Integumentary: normal, normal turgor - Neurologic Neurologic: CNII-XII intact - Musculoskeletal Musculoskeletal: gait normal, generalized weakness, strength equal bilaterally - Psychiatric Psychiatric: A&O x's 3, appropriate affect, intact judgment & insight - Labs CBC & Chem 7: 01/28/24 08:03 01/28/24 08:03 Labs: Abnormal Lab Results - Last 24 Hours (Table) 01/28/24 01/28/24 01/28/24 Range/Units 11:49 17:24 20:18 POC Glucose (mg/dL) 145 H 276 H 207 H (70-110) mg/dL 01/29/24 Range/Units 06:18 POC Glucose (mg/dL) 228 H (70-110) mg/dL Microbiology - Last 24 Hours (Table) 01/26/24 06:56 Gram Stain - Final Sputum Sputum Culture - Final Valeria albicans Assessment and Plan Assessment: nonspecific interstitial pneumonitis and early UIP, continue trial of steroidswe will decrease it to once daily x-ray and computed tomography scan suggestive of interstitial lung disease possibly developing nonspecific interstitial pneumonitis and usual interstitial pneumonia,further workup and evaluation outpatient however patient will benefit from trial of steroids, Will continue [id number] mg IV every 12, will continue for next few days then will taper tiredness and fatigue likely related to UTI and sepsis appropriately treated with Rocephinculture are negative for any bacteria however some fungus has been noted likely contaminant, ID services been following sleep disorder breathing and sleep apneapatient has refused CPAP machine in the past COPD with history of smoking and remote pastfurther workup and evaluation as outpatient with PFTs Dyslipidemiaon the statins Hypertension hypertensive cardiovascular diseaseon antihypertensive agents Type 2 diabetes mellitus, on oral hypoglycemic agent along with sliding scale insulin Fibromyalgia Plan: as noted above Time with Patient: Greater than 30
[2024-01-29 11:13] LABS: HGB 9.9 g/dL (12.0-15.0); MCH 30.9 pg (27.0-32.0); MCHC 30.9 g/dL (32.0-37.0); NRBC Per 100 WBC 0 X 10*3/uL (0.00-0.01); Platelet Count 252 X 10*3/uL (140-440)
[2024-01-29 11:41] LABS: Blood Urea Nitrogen 37.2 mg/dL (9.0-27.0); Calcium 8.6 mg/dL (8.7-10.3); Carbon Dioxide 26.3 mmol/L (21.6-31.8); Chloride 106 mmol/L (96-109); Glucose 184 mg/dL (70-110); Sodium 142 mmol/L (135-145)
[2024-01-29 12:19] LABS: Glucose,Whole Blood 187 mg/dL (70-110)
--- NOTE | 2024-01-29 13:06 | P.PN ---
Subjective Progress Note Date: 01/28/24 Principal diagnosis: Reason for follow-up is UTI and question of pneumonia Patient is a 68-year-old female past medical history significant for diabetes mellitus fibromyalgia hypertension hyperlipidemia COPD presenting to the hospital for evaluation generalized weakness patient also complaining of cough bringing up sputum did have elevated white count positive UA concerning for symptomatic UTI. On today's visit that is 01/28/2024, the patient continues to be afebrile, the patient is on room air complain of some shortness of breath today the Pt denies having any chest pain or any worsening cough, the patient denies having any abdominal pain no vomiting or any diarrhea has been reported by the nursing staff. Patient white count is 12.8 creatinine 1.01 Objective - Vital Signs Vital signs: Vital Signs Temp 98.0 F 01/28/24 07:00 Pulse 69 01/28/24 07:00 Resp 16 01/28/24 07:00 BP 114/69 01/28/24 07:00 Pulse Ox 96 01/28/24 07:00 FiO2 Intake & Output 01/27/24 01/28/24 01/28/24 18:59 06:59 18:59 Intake Total 358 Output Total 500 725 Balance -142 -725 Intake: Oral 358 Output: Urine 500 725 Other: Voiding Method Indwelling Catheter Indwelling Catheter - Exam GENERAL DESCRIPTION: An elderly female lying in bed in no distress RESPIRATORY SYSTEM: Unlabored breathing , decreased breath sounds at bases HEART: S1 S2 regular rate and rhythm , ABDOMEN: Soft , no tenderness EXTREMITIES: No edema feet Exam completed with the help of [employer] - Labs CBC & Chem 7: 01/29/24 06:25 01/29/24 06:25 Labs: Abnormal Lab Results - Last 24 Hours (Table) 01/27/24 01/27/24 01/27/24 Range/Units 04:29 04:29 04:29 WBC 11.76 H (4.50-10.00) X 10*3/uL RBC 3.33 L (4.10-5.20) X 10*6/uL Hgb 10.5 L (12.0-15.0) g/dL Hct 32.9 L (37.2-46.3) % MCV 98.8 H (80.0-97.0) FL MCHC 31.9 L (32.0-37.0) g/dL BUN/Creatinine Ratio 27.38 H (12.00-20.00) Ratio Glucose 166 H (70-110) mg/dL POC Glucose (mg/dL) (70-110) mg/dL Hemoglobin A1c 6.1 H (<=6.0) % Calcium 8.5 L (8.7-10.3) mg/dL 01/27/24 01/27/24 01/27/24 Range/Units 12:21 17:04 21:06 WBC (4.50-10.00) X 10*3/uL RBC (4.10-5.20) X 10*6/uL Hgb (12.0-15.0) g/dL Hct (37.2-46.3) % MCV (80.0-97.0) FL MCHC (32.0-37.0) g/dL BUN/Creatinine Ratio (12.00-20.00) Ratio Glucose (70-110) mg/dL POC Glucose (mg/dL) 170 H 188 H 243 H (70-110) mg/dL Hemoglobin A1c (<=6.0) % Calcium (8.7-10.3) mg/dL 01/28/24 01/28/24 Range/Units 05:58 08:03 WBC 12.8 H (4.50-10.00) X 10*3/uL RBC 3.38 L (4.10-5.20) X 10*6/uL Hgb 10.6 L (12.0-15.0) g/dL Hct (37.2-46.3) % MCV 101.7 H (80.0-97.0) FL MCHC 30.8 L (32.0-37.0) g/dL BUN/Creatinine Ratio (12.00-20.00) Ratio Glucose (70-110) mg/dL POC Glucose (mg/dL) 158 H (70-110) mg/dL Hemoglobin A1c (<=6.0) % Calcium (8.7-10.3) mg/dL Microbiology - Last 24 Hours (Table) 01/22/24 18:33 Blood Culture - Final Blood 01/22/24 18:05 Blood Culture - Final Blood 01/26/24 06:56 Gram Stain - Preliminary Sputum Assessment and Plan (1) Elevated procalcitonin Current Visit: Yes Status: Acute Code(s): R79.89 - OTHER SPECIFIED ABNORMAL FINDINGS OF BLOOD CHEMISTRY SNOMED Code(s): 935457120 (2) Urinary tract infection Current Visit: No Status: Acute Code(s): N39.0 - URINARY TRACT INFECTION, SITE NOT SPECIFIED SNOMED Code(s): 53354595 Plan: 1patient presented hospital with generalized weakness which is likely multifactorial in this patient who did have a positive UA concerning for possible component of UTI likely pulmonary gram-negative pathogen patient also have a cough some yellow sputum production possibly tracheobronchitis with COPD exacerbation as CT did not show any acute changes 2-sputum has not been collected, procalcitonin is mildly elevated, sputum culture obtained which are currently pending, seem to have slight worsening of the white count and shortness of breath will repeat chest x-ray, patient will continue with Rocephin while waiting for the culture to finalize 3-urine culture grew Valeria glabrata patient to continue with voriconazole and monitor clinical course closely Dictation was produced using [employer] dictation software. please excuse any grammatical, word or spelling errors. Time with Patient: Less than 30
--- NOTE | 2024-01-29 13:07 | P.PN ---
Subjective Progress Note Date: 01/29/24 Principal diagnosis: Reason for follow-up is UTI and question of pneumonia Patient is a 68-year-old female past medical history significant for diabetes mellitus fibromyalgia hypertension hyperlipidemia COPD presenting to the hospital for evaluation generalized weakness patient also complaining of cough bringing up sputum did have elevated white count positive UA concerning for symptomatic UTI. On today's visit that is 01/29/2024, Patient is afebrile patient is currently on 2 L nasal cannula oxygen and denies having any shortness of breath, the patient denies any chest pain and cough has decreased in intensity, the patient denies any nausea vomiting did not have any abdominal pain and no diarrhea. Patient white count is now 10.50, creatinine 1.0, chest x-ray with mild increased interstitial density Objective - Vital Signs Vital signs: Vital Signs Temp 97.6 F 01/29/24 07:10 Pulse 70 01/29/24 07:10 Resp 15 01/29/24 08:22 BP 116/62 01/29/24 07:10 Pulse Ox 98 01/29/24 07:10 FiO2 Intake & Output 01/28/24 01/29/24 01/29/24 18:59 06:59 18:59 Intake Total 118 118 Output Total 1380 600 Balance -1262 -600 118 Intake: Oral 118 118 Output: Urine 1380 600 Other: Voiding Method Indwelling Catheter Indwelling Catheter Indwelling Catheter - Exam GENERAL DESCRIPTION: An elderly female lying in bed in no distress RESPIRATORY SYSTEM: Unlabored breathing , decreased breath sounds at bases HEART: S1 S2 regular rate and rhythm , ABDOMEN: Soft , no tenderness EXTREMITIES: No edema feet - Labs CBC & Chem 7: 01/29/24 06:25 01/29/24 06:25 Labs: Abnormal Lab Results - Last 24 Hours (Table) 01/28/24 01/28/24 01/29/24 Range/Units 17:24 20:18 06:18 WBC (4.50-10.00) X 10*3/uL RBC (4.10-5.20) X 10*6/uL Hgb (12.0-15.0) g/dL Hct (37.2-46.3) % MCV (80.0-97.0) FL MCHC (32.0-37.0) g/dL BUN (9.0-27.0) mg/dL BUN/Creatinine Ratio (12.00-20.00) Ratio Glucose (70-110) mg/dL POC Glucose (mg/dL) 276 H 207 H 228 H (70-110) mg/dL Calcium (8.7-10.3) mg/dL 01/29/24 01/29/24 01/29/24 Range/Units 06:25 06:25 12:17 WBC 10.50 H (4.50-10.00) X 10*3/uL RBC 3.20 L (4.10-5.20) X 10*6/uL Hgb 9.9 L (12.0-15.0) g/dL Hct 32.0 L (37.2-46.3) % MCV 100.0 H (80.0-97.0) FL MCHC 30.9 L (32.0-37.0) g/dL BUN 37.2 H (9.0-27.0) mg/dL BUN/Creatinine Ratio 37.20 H (12.00-20.00) Ratio Glucose 184 H (70-110) mg/dL POC Glucose (mg/dL) 187 H (70-110) mg/dL Calcium 8.6 L (8.7-10.3) mg/dL Assessment and Plan (1) Elevated procalcitonin Current Visit: Yes Status: Acute Code(s): R79.89 - OTHER SPECIFIED ABNORMAL FINDINGS OF BLOOD CHEMISTRY SNOMED Code(s): 732031429 (2) Urinary tract infection Current Visit: No Status: Acute Code(s): N39.0 - URINARY TRACT INFECTION, SITE NOT SPECIFIED SNOMED Code(s): 30510453 Plan: 1patient presented hospital with generalized weakness which is likely multifactorial in this patient who did have a positive UA concerning for possible component of UTI likely pulmonary gram-negative pathogen patient also have a cough some yellow sputum production possibly tracheobronchitis with COPD exacerbation as CT did not show any acute changes 2- procalcitonin is mildly elevated, sputum culture grew Valeria which is likely colonizer chest x-ray repeat with some increasing density patient improving on Rocephin to continue transition to oral Ceftin on discharge 3-urine culture grew Valeria glabrata p for the patient is covered with voriconazole Dictation was produced using [employer] software. please excuse any grammatical, word or spelling errors.
[2024-01-29 13:41] VITALS: BMI 21.4
[2024-01-29 17:05] LABS: Glucose,Whole Blood 185 mg/dL (70-110)
[2024-01-29 20:21] LABS: Glucose,Whole Blood 191 mg/dL (70-110)
--- NOTE | 2024-01-29 22:35 | PN ---
PROGRESS NOTE Sepsis ruled in secondary to community-acquired pneumonia. MMODL / IJN: [id number] /
--- NOTE | 2024-01-29 22:41 | PN ---
PROGRESS NOTE Acute on chronic diastolic heart failure. MMODL / IJN: [id number] /
--- NOTE | 2024-01-29 22:57 | PN ---
PROGRESS NOTE SUBJECTIVE: The patient is seen since pain control is not giving her good pain relief. She has been unable to walk. She has physical therapy. Dr. Mir and Dr. Ferris have seen her. White count is 10.5, creatinine is 1.0. Chest x-ray, mild increased density is she is getting cachectic. OBJECTIVE: HEART: S1, S2. ABDOMEN: Soft. EXTREMITIES: No edema. She has elevated procalcitonin. UTI, possibly pulmonary gram-negative pathogen with cough, yellow sputum production Valeria colonization and sputum. Switch to oral Ceftin on discharge. Voriconazole is being given at this time for the Valeria. PROGNOSIS: Guarded. Rehab for PT OT on her back. MMODL / IJN: [id number] /
[2024-01-30 06:18] LABS: Glucose,Whole Blood 131 mg/dL (70-110)
[2024-01-30] MEDS: oxyCODONE-APAP 7.5-325MG 1 EACH TAB PO PRN (06:51)
[2024-01-30 12:10] LABS: Glucose,Whole Blood 114 mg/dL (70-110)
--- NOTE | 2024-01-30 16:35 | P.PN ---
Subjective Progress Note Date: 01/30/24 Principal diagnosis: nonspecific interstitial pneumonitis and UIP x-ray and computed tomography scan suggestive of interstitial lung disease possibly developing nonspecific interstitial pneumonitis and eventually U Emre/usual interstitial pneumonia,further workup and evaluation outpatient however patient will benefit from trial of steroids, we'll start mealtime and prednisolone 40 mg IV every 12 tiredness and fatigue likely related to UTI and sepsis appropriately treated with Rocephin sleep disorder breathing and sleep apneapatient has refused CPAP machine in the past COPD with history of smoking and remote pastfurther workup and evaluation as outpatient with PFTs Dyslipidemiaon the statins Hypertension hypertensive cardiovascular diseaseon antihypertensive agents Type 2 diabetes mellitus, on oral hypoglycemic agent along with sliding scale insulin Fibromyalgia January 30, 2024, patient seen evaluate examined during rounds labs reviewed medications reviewed care plan discussed, patient is back on room air using oxygen as needed, oxygen saturation mid 90s, patient has been IV steroids for nonspecific interstitial pneumonitis responded well we will change to oralgenWo oral 01/29/2024, patient seen eval reexamined during the rounds care plan discussed oxygen saturation 98%,patient was short of breath current 20 of Lasixand IV fluids have been discontinued, we'll decrease Solu-Medrol to once daily 01/28/2024,patient seen eval examined during the rounds labs reviewed medications reviewed, remains on IV steroids and bronchodilator, blood pressure is 114/69 she is afebrileoxygen saturation on 2 L is 96% 01/27/2024, patient seen eval examined during rounds respiratory status continued to improve slowly, patient able to breathe more appropriately,oxygen saturation is 94%, hemodynamic stable, patient is afebrileblood glucose is 120.patient remains on broad-spectrum IV antibiotics along with IV Solu-Medrol 01/26/2024, patient seen eval examined during rounds labs reviewed medications reviewed, patient is sitting upright on the chair, her shortness of breath improved today, still intermittent dry cough is present,in addition to bronchodilators and steroids also on broad-spectrum antibioticsblood cultures no growth has been identified, urine culture noted to have Valeria glabrata, ID service has been following. As patient has been on IV steroids would recommend patient to be started on Accu-Cheks every before meals and at bedtime with sliding scale sugar however has been stable so far 68-year-old female seen evaluated examined, she presented into emergency department with progressive generalized weakness for last 3 days, due to weakness she has hard time and getting out of the bed, she has lost 20 pounds in last 2 months, she was scheduled for outpatient computed tomography scan of his chest but was not able to go due to weakness instead presented into emergency department, on specific questioning she denies any fever or chills does have nausea and poor by mouth intake, denies any chest pain denies any cough or sputum production. Past medical history significant for COPD, type 2 diabetes mellitus, fibromyalgia, GERD, dyslipidemia, hypertension hypertensive cardiovascular disease and sleep apnea she has a history of Guillain-Ahn syndrome as well with sleep apnea and does not use CPAP machine she has chronic back pain as well. Chest x-ray noted to have a density on posterior cardiophrenic angle. 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 His labs are significant for a leukocytosis with WBC count of 11.9 rest of CBC fairly within normal limit, PT/INR and PTT within normal limit, chemistry significant for elevated AST/ALT of 2:30/60 alk phos is 124. Urinal ysis and moderate leukocytosis lymphocyte history is moderately positive and negative for influenza A as well as influenza B she has been found negative for RSV and covid infection Objective - Vital Signs Vital signs: Vital Signs Temp 98.4 F 01/30/24 14:00 Pulse 97 01/30/24 14:00 Resp 16 01/30/24 14:00 BP 101/57 01/30/24 14:00 Pulse Ox 97 01/30/24 14:00 FiO2 Intake & Output 01/29/24 01/30/24 01/30/24 18:59 06:59 18:59 Intake Total 118 480 Output Total 800 800 550 Balance -682 -800 -70 Weight 53.07 kg Intake: Oral 118 480 Output: Urine 800 800 550 Other: Voiding Method Indwelling Catheter Indwelling Catheter Indwelling Catheter # Bowel Movements 1 1 - Exam - Constitutional General appearance: average body habitus, cooperative, disheveled - EENT Eyes: EOMI, PERRLA ENT: normal oropharynx Ears: bilateral: normal - Neck Carotids: bilateral: upstroke normal - Respiratory Respiratory: bilateral: rales (dry radials consistent with ILD) - Cardiovascular Rhythm: regular Heart sounds: normal: S1, S2 - Gastrointestinal General gastrointestinal: distended, soft - Integumentary Integumentary: normal, normal turgor - Neurologic Neurologic: CNII-XII intact - Musculoskeletal Musculoskeletal: gait normal, generalized weakness, strength equal bilaterally - Psychiatric Psychiatric: A&O x's 3, appropriate affect, intact judgment & insight - Labs CBC & Chem 7: 01/29/24 06:25 01/29/24 06:25 Labs: Abnormal Lab Results - Last 24 Hours (Table) 01/29/24 01/29/24 01/30/24 Range/Units 17:03 20:19 06:16 POC Glucose (mg/dL) 185 H 191 H 131 H (70-110) mg/dL 01/30/24 Range/Units 12:09 POC Glucose (mg/dL) 114 H (70-110) mg/dL Assessment and Plan Assessment: nonspecific interstitial pneumonitis and early UIP, continue trial of steroidswe will decrease it to once daily oral x-ray and computed tomography scan suggestive of interstitial lung disease possibly developing nonspecific interstitial pneumonitis and usual interstitial pneumonia,further workup and evaluation outpatient however patient will benefit from trial of steroids, Will continue Solu-[id number] mg IV every 12, will continue for next few days then will taper tiredness and fatigue likely related to UTI and sepsis appropriately treated with Rocephinculture are negative for any bacteria however some fungus has been noted likely contaminant, ID services been following sleep disorder breathing and sleep apneapatient has refused CPAP machine in the past COPD with history of smoking and remote pastfurther workup and evaluation as outpatient with PFTs Dyslipidemiaon the statins Hypertension hypertensive cardiovascular diseaseon antihypertensive agents Type 2 diabetes mellitus, on oral hypoglycemic agent along with sliding scale insulin Fibromyalgia Plan: as noted above Time with Patient: Greater than 30
[2024-01-30] MEDS: predniSONE 20 MG TAB PO SCH (17:08)
[2024-01-30 17:11] LABS: Glucose,Whole Blood 339 mg/dL (70-110)
--- NOTE | 2024-01-30 19:42 | P.PN ---
Progress Note - Text Progress Note Date: 01/30/24 This is 68 years old female, with history of fibromyalgia and she was admitted because of lysed weakness, she was complaining of generalized pain, patient was on [place] at home and after the admission patient was started on Percocet 7.5/325 every 6 hours and she is on Neurontin 800 mg 3 times daily, patient reported that the current medication controlling her pain appropriately, and she denies any side effect of the medication, for this reason I recommend to continue current medication.
[2024-01-30 19:53] LABS: Glucose,Whole Blood 113 mg/dL (70-110)
[2024-01-30] MEDS: IPRATROPIUM-ALBUTEROL 3 ML NEB INHALATION SCH (20:30)
--- NOTE | 2024-01-31 01:38 | DS ---
DISCHARGE SUMMARY DISCHARGE DIAGNOSES: 1. Aspiration pneumonia, community-acquired pneumonia. 2. Acute kidney injury. 3. Interstitial pneumonitis. 4. Generalized weakness. 5. Thoracic radiculopathy, severe. 6. Lumbar radiculopathy. 7. Leg weakness. 8. COPD. 9. Pulmonary hypertension. HOME MEDICINES: 1. Oxygen 2 L she wears at night, every night she has to wear, 2 L at night. 2. She does DuoNeb updrafts q.i.d. 3. Percocet 7.5/325 every 6 p.r.n. 4. Melatonin 6 mg q.h.s. 5. Flomax 0.4 mg daily. 6. Voriconazole 200 mg p.o. b.i.d. for 7 days. 7. Potassium chloride 10 mEq daily. 8. Seroquel 50 at night. 9. B12 1000 daily. 10.Gabapentin 800 t.i.d. 11.Lasix 40 mg daily. 12.Lopid 600 b.i.d. 13.Crestor 40 mg daily. 14.Montelukast 10 mg daily. 15.Levothyroxine 75 mcg daily. 16.Zyrtec 10 mg daily. 17.Ferrous sulfate 325 mg daily. 18.Crestor 40 mg daily mg at night. 19.Requip 1 mg at night. 20.Atenolol 50 b.i.d. as mentioned. 21.As mentioned DuoNeb q.i.d. CONDITION: Stable. PROGNOSIS: Guarded. HOSPITAL COURSE: This is a 68-year-old white female who came to the hospital with UTI, positive for Valeria, community-acquired pneumonia, sputum also grew Valeria. She is on voriconazole for 5 days for that for 7 more days, 200 b.i.d. We gave her IV antibiotics per Dr. Mir. She was found to have severe thoracic neuritis and lumbar neuritis for which leg weakness is given. She had acute kidney injury secondary to dehydration, this is however improved. Dr. Martinez saw her for back, nothing he could do for her. She will follow up as an outpatient. Continue with her DuoNeb updrafts and oxygen at night, voriconazole for another 5 to 7 days. PT OT for leg weakness and she will go home at this point. Prognosis guarded. Diet as tolerated. Ambulate as tolerated with physical therapy. MMODL / IJN: [id number] /
[2024-01-31 06:27] LABS: Glucose,Whole Blood 128 mg/dL (70-110)
[2024-01-31 08:10] VITALS: BP 133/72; RESP 16; TEMP 97.7
[2024-01-31 08:53] VITALS: PULSE 76
--- NOTE | 2024-02-02 16:28 | P.PN ---
Subjective Progress Note Date: 01/30/24 Principal diagnosis: Reason for follow-up is UTI and question of pneumonia Patient is a 68-year-old female past medical history significant for diabetes mellitus fibromyalgia hypertension hyperlipidemia COPD presenting to the hospital for evaluation generalized weakness patient also complaining of cough bringing up sputum did have elevated white count positive UA concerning for symptomatic UTI. On today's visit that is 01/30/2024, patient has been afebrile, patient is breathing comfortably and is currently on 2 L nasal cannula oxygen, patient denies having any significant cough no chest pain shortness of breath, patient denies nausea vomiting or diarrhea and no abdominal pain no new symptoms. No new labs obtained today Objective - Vital Signs Vital signs: Vital Signs Temp 97.4 F L 01/30/24 08:00 Pulse 63 01/30/24 08:00 Resp 16 01/30/24 08:00 BP 153/67 01/30/24 08:00 Pulse Ox 97 01/30/24 08:00 FiO2 Intake & Output 01/29/24 01/30/24 01/30/24 18:59 06:59 18:59 Intake Total 118 480 Output Total 800 800 Balance -682 -800 480 Weight 53.07 kg Intake: Oral 118 480 Output: Urine 800 800 Other: Voiding Method Indwelling Catheter Indwelling Catheter Indwelling Catheter # Bowel Movements 1 1 - Exam GENERAL DESCRIPTION: An elderly female lying in bed in no distress RESPIRATORY SYSTEM: Unlabored breathing , decreased breath sounds at bases HEART: S1 S2 regular rate and rhythm , ABDOMEN: Soft , no tenderness EXTREMITIES: No edema feet - Labs CBC & Chem 7: 01/29/24 06:25 01/29/24 06:25 Labs: Abnormal Lab Results - Last 24 Hours (Table) 01/29/24 01/29/24 01/30/24 Range/Units 17:03 20:19 06:16 POC Glucose (mg/dL) 185 H 191 H 131 H (70-110) mg/dL 01/30/24 Range/Units 12:09 POC Glucose (mg/dL) 114 H (70-110) mg/dL Assessment and Plan (1) Elevated procalcitonin Status: Acute Code(s): R79.89 - OTHER SPECIFIED ABNORMAL FINDINGS OF BLOOD CHEMISTRY SNOMED Code(s): 830886325 (2) Urinary tract infection Status: Acute Code(s): N39.0 - URINARY TRACT INFECTION, SITE NOT SPECIFIED SNOMED Code(s): 68228768 Plan: 1patient presented hospital with generalized weakness which is likely multifactorial in this patient who did have a positive UA concerning for possible component of UTI likely pulmonary gram-negative pathogen patient also have a cough some yellow sputum production possibly tracheobronchitis with COPD exacerbation as CT did not show any acute changes 2- procalcitonin is mildly elevated, sputum culture grew Valeria which is likely colonizer chest x-ray repeat with some increasing density patient improving on Rocephin to continue 3-urine culture grew Valeria glabrata patient to continue with the Vfend for another day or 2 Dictation was produced using [employer] dictation software. please excuse any grammatical, word or spelling errors. Time with Patient: Less than 30
--- NOTE | 2024-02-02 16:29 | P.PN ---
Subjective Progress Note Date: 01/31/24 Principal diagnosis: Reason for follow-up is UTI and question of pneumonia Patient is a 68-year-old female past medical history significant for diabetes mellitus fibromyalgia hypertension hyperlipidemia COPD presenting to the hospital for evaluation generalized weakness patient also complaining of cough bringing up sputum did have elevated white count positive UA concerning for symptomatic UTI. On today's visit that is 01/31/2024,the patient denies any fever or any chills, patient is breathing comfortably on room air, the patient denies chest pain shortness of breath and no significant cough, patient denies abdominal pain, no nausea vomiting or diarrhea. Patient currently waiting for transfer to local [facility] feeling better. No lab draw today sputum with Valeria albicans Objective - Vital Signs Vital signs: Vital Signs Temp 97.7 F 01/31/24 07:57 Pulse 76 01/31/24 08:42 Resp 16 01/31/24 07:57 BP 133/72 01/31/24 07:57 Pulse Ox 98 01/31/24 07:57 FiO2 Intake & Output 01/30/24 01/31/24 01/31/24 18:59 06:59 18:59 Intake Total 720 240 Output Total 550 1750 400 Balance 170 -1750 -160 Intake: Oral 720 240 Output: Urine 550 1750 400 Other: Voiding Method Indwelling Catheter Indwelling Catheter Indwelling Catheter # Bowel Movements 1 1 - Exam GENERAL DESCRIPTION: An elderly female lying in bed in no distress RESPIRATORY SYSTEM: Unlabored breathing , decreased breath sounds at bases HEART: S1 S2 regular rate and rhythm , ABDOMEN: Soft , no tenderness EXTREMITIES: No edema feet - Labs CBC & Chem 7: 01/29/24 06:25 01/29/24 06:25 Labs: Abnormal Lab Results - Last 24 Hours (Table) 01/30/24 01/30/24 01/30/24 Range/Units 12:09 17:10 19:52 POC Glucose (mg/dL) 114 H 339 H 113 H (70-110) mg/dL 01/31/24 Range/Units 06:26 POC Glucose (mg/dL) 128 H (70-110) mg/dL Assessment and Plan (1) Elevated procalcitonin Status: Acute Code(s): R79.89 - OTHER SPECIFIED ABNORMAL FINDINGS OF BLOOD CHEMISTRY SNOMED Code(s): 985807014 (2) Urinary tract infection Status: Acute Code(s): N39.0 - URINARY TRACT INFECTION, SITE NOT SPECIFIED SNOMED Code(s): 57051768 Plan: 1patient presented hospital with generalized weakness which is likely mul tifactorial in this patient who did have a positive UA concerning for possible component of UTI likely pulmonary gram-negative pathogen patient also have a cough some yellow sputum production possibly tracheobronchitis with COPD exacerbation as CT did not show any acute changes 2- procalcitonin is mildly elevated, sputum culture grew Valeria which is likely colonizer chest x-ray repeat with some increasing density patient has received adequate Rocephin no need for antibiotic on discharge 3-urine culture grew Valeria glabrata for the patient has received adequate voriconazole no need to continue on discharge Dictation was produced using [employer] dictation software. please excuse any grammatical, word or spelling errors. Time with Patient: Less than 30
== END 2024-01-31 11:34 | DRG 871 ==
LOC: EC 09:45 → 6NMEDSUR 13:56 → OBSVTOIN 13:57 → 6NMEDSUR 19:57
PROVIDERS: ADMIT Family Medicine; ATTEND Family Medicine
DX: A41.9 Sepsis, unspecified organism (principal); I50.33 Acute on chronic diastolic (congestive) heart failure; J69.0 Pneumonitis due to inhalation of food and vomit; N17.9 Acute kidney failure, unspecified; J44.0 Chronic obstructive pulmonary disease with (acute) lower respiratory infection; J44.1 Chronic obstructive pulmonary disease with (acute) exacerbation; B37.49 Other urogenital candidiasis; J84.89 Other specified interstitial pulmonary diseases; I27.20 Pulmonary hypertension, unspecified; J84.178 Other interstitial pulmonary diseases with fibrosis in diseases classified elsewhere; E11.42 Type 2 diabetes mellitus with diabetic polyneuropathy; E11.51 Type 2 diabetes mellitus with diabetic peripheral angiopathy without gangrene; I11.0 Hypertensive heart disease with heart failure; M48.04 Spinal stenosis, thoracic region; Z99.81 Dependence on supplemental oxygen; E03.9 Hypothyroidism, unspecified; M54.14 Radiculopathy, thoracic region; M54.16 Radiculopathy, lumbar region; G89.29 Other chronic pain; E78.5 Hyperlipidemia, unspecified; M79.7 Fibromyalgia; G47.33 Obstructive sleep apnea (adult) (pediatric); E86.0 Dehydration; Z91.198 Patient's noncompliance with other medical treatment and regimen for other reason; M48.061 Spinal stenosis, lumbar region without neurogenic claudication; M50.30 Other cervical disc degeneration, unspecified cervical region; M48.07 Spinal stenosis, lumbosacral region; Z98.1 Arthrodesis status; Z79.84 Long term (current) use of oral hypoglycemic drugs; Z79.890 Hormone replacement therapy; Z79.899 Other long term (current) drug therapy; Z88.6 Allergy status to analgesic agent; Z88.5 Allergy status to narcotic agent; Z91.048 Other nonmedicinal substance allergy status; Z90.49 Acquired absence of other specified parts of digestive tract; Z87.891 Personal history of nicotine dependence; Z87.19 Personal history of other diseases of the digestive system; Z11.52 Encounter for screening for COVID-19
CPT/HCPCS: 36415; 71045; 71046; 71250; 72125; 72131; 80048; 80053; 81001; 83036; 83605; 83735; 84145; 84484; 85025; 85027; 85610; 85730; 86140; 87040; 87070; 87086; 87205; 87636; 93005; 94640; 94760; 96361; 96365; 96375; 99285

== ENCOUNTER → 2024-09-10 | Outpatient (CLI) | payer MEDICARE ==
--- NOTE | 2024-09-10 10:25 | CT ---
EXAMINATION TYPE: CT chest wo con, CT thoracic spine wo con DATE OF EXAM: 09/10/2024 COMPARISON: 01/22/2024 HISTORY: 69-year-old female pleurisy/back pain. R09.1 PLEURISY M54.17 RADICULOPATHY, LUMBOSACRAL R TECHNIQUE: CT of the chest as well as the thoracic spine without IV contrast. Coronal/sagittal recon structions performed. CT DLP: combined 1009mGycm. Automatic exposure control utilized for a dose reduction. FINDINGS: CHEST: The heart is normal size without pericardial effusion. Extensive three-vessel coronary artery calcifi cations are present. Mild atherosclerotic arch calcifications with bovine configuration to the aortic arch. Possible moder ate atherosclerotic narrowing at the origin of the left subclavian artery. Lower right paratracheal lymph node now measures 7 mm, decreased from prior. No thoracic lymphadenopa thy by CT size criteria. Subpleural reticular change and mild groundglass, right greater than left. Superimposed mild emphysem atous change. Some minimal subpleural microcystic change at the right base. No progressive consolidat ion. No pleural effusion. Visualized upper abdomen shows cholecystectomy clips. Bones: Degenerative change at the sternoclavicular joints and sternomanubrial joint is well. THORACIC SPINE: Partially visualized lumbar fusion change from L1 down. The interbody ankylosis extends to include T1 1-L1. There is lateral osseous fusion change extending from T11 down through the visualized lumbar sp ine. Severe degenerative disc disease and endplate spondylosis lower thoracic spine. Hypertrophic facet arthropathy both upper and lower thoracic spine. Disc osteophyte complex at T10-T11 and also T11-T12 may contribute to moderate and mild spinal canal stenoses, respectively. As compared to 01/22/2024, there is new T7 vertebral compression deformity with 30% overall height los s. No significant retropulsion into the ventral spinal canal. There is a horizontal cleft and air clemente ng the inferior endplate. Mild paravertebral soft tissue thickening. Mild bilateral neuroforaminal stenosis at T7-T8. Severe bilateral neuroforaminal stenosis T10-T11 and moderate on the left at T11-T12. IMPRESSION: CHEST: 1. Redemonstrated findings suggestive of interstitial fibrosis slightly asymmetrically greater on the right. The pattern of subpleural reticulation, groundglass, and some microcystic change raises the p ossibility of interstitial pneumonitis such as NSIP. 2. The previous enlarged lower right paratracheal lymph node shows improvement. No suspicious adenopa thy seen. 3. Possible moderate atherosclerotic stenosis at the origin of the left subclavian artery. THORACIC SPINE: 4. Correlate for acute to subacute compression fracture of T7 with 30% overall height loss, new lito red to 01/22/2024. No retropulsion into the spinal canal. A horizontal cleft of air within the inferio r endplate may reflect early Kummel's disease. 5. Previous lumbar fusion change. Bony ankylosis is seen from T11 down through the visualized lumbar spine. 6. Severe degenerative disc disease and endplate spondylosis lower thoracic spine. Disc osteophyte co mplexes that T10-T11 may cause a moderate spinal canal stenosis and at T11-T12 may cause a mild spina l canal stenosis. 7. Severe bilateral neuroforaminal stenosis at T10-T11 and moderate on the left at T11-T12. Mild on b oth sides at T7-T8. [facility], , 09/10/2024 10:23 AM
== END | disposition home or self-care (01) ==
LOC: RADCTMAIN 08:46
PROVIDERS: ATTEND Family Medicine
DX: M54.17 Radiculopathy, lumbosacral region (principal); M25.78 Osteophyte, vertebrae; M47.814 Spondylosis without myelopathy or radiculopathy, thoracic region; M48.04 Spinal stenosis, thoracic region; M51.34 Other intervertebral disc degeneration, thoracic region; R09.1 Pleurisy
CPT/HCPCS: 71250; 72128